=== PATIENT | male | born 1930 | race Caucasian/White ===

== ENCOUNTER 2017-04-09 15:11 | Inpatient (IN) ==
[2017-04-09] MEDS ORDERED: ALBUTEROL/IPRATROPIUM 3 ML NEB RESP TX STA (16:00)
[2017-04-09 16:04] LABS: Basophils % 0.1 % (0.0-0.8); Hematocrit 31.8 VOL% (42.0-52.0); Hemoglobin 10.4 GM/DL (14.0-18.0); Immature Granulocytes % 0.5 %; Immature Granulocytes Absolute 0.06 #; Lymphocytes # 0.9 10*3/uL (1.4-4.0); Lymphocytes % 7.1 % (21.2-54.2); Mean Corpuscular HGB Conc 32.7 GM/DL (32-36); Mean Corpuscular Hemoglobin 32 PG (27-34); Mean Platelet Volume 10.5 FL (9.6-12.0); Monocytes # 0.8 10*3/uL (0.11-0.8); Monocytes % 5.9 % (1.7-12.7); Neutrophils # 10.9 10*3/uL (1.4-7.4); Neutrophils % 86.4 % (38.7-73.9); Platelet Count 106 T/CUMM (130-400); Red Blood Count 3.28 MC/CUMM (3.8-5.5); Red Cell Distribution Width 17.8 % (9.3-17.3); White Blood Count 12.6 T/CUMM (4-12)
--- NOTE | 2017-04-09 16:21 | XRay Report ---
History: Shortness of breath Date: 04/09/2017 Study: Chest x-ray AP portable Comparison exam: April 03, 2017 chest x-ray There is cardiomegaly. The mediastinal contour is unchanged. The pulmonary vasculature is upper normal. The exam was performed in shallow inspiration. There is some mild strandy subsegmental atelectasis in the lung bases. The lungs are otherwise generally clear. There is a calcified granuloma in the left lung base. There is no gross pleural effusion. Osseous structures are similar. Impression: Shallow inspiration with mild atelectatic changes in the lung bases. Cardiomegaly without overt CHF PROCEDURE INTERPRETED AT [facility] DEPARTMENT OF RADIOLOGY Final Report Signed by: Dr. Britney Kimble
[2017-04-09 16:22] LABS: Alanine Aminotransferase 17 U/L (16-61); Albumin 3.3 G/DL (3.4-5.0); Alkaline Phosphatase 72 U/L (45-117); Aspartate Amino Transferase 19 U/L (0-37); Blood Urea Nitrogen 49 MG/DL (7-18); Calcium 7.9 MG/DL (8.5-10.1); Glucose 158 MG/DL (74-106); Osmolality,Calculated 298.1 MOS/KG (273-304); Potassium 5.3 MMOL/L (3.5-5.1); Sodium 142 MMOL/L (136-145); Total Protein 5.7 G/DL (6.4-8.3); Troponin I Only < 0.015 NG/ML (0.00-0.045)
--- NOTE | 2017-04-09 16:30 | EKG Report ---
Stationary ECG Study [facility] ER Test Date: 04/09/2017 4:27:43 PM Pat Name: NIKIA BARKER Department: Room: Gender: M Hepatologist: : [id number] Requested by: Reece Brink Order Number: [id number] Reading MD: KONRAD AHMADI Intervals [place] Rate: 65 P: 22 AL: 192 QRS: -66 QRSD: 176 T: -37 QT: 429 QTc: 441 Interpretive Statements SINUS RHYTHM LEFT AXIS DEVIATION RIGHT BUNDLE BRANCH BLOCK MODERATE T-WAVE ABNORMALITY, CONSIDER LATERAL ISCHEMIA MODERATE T-WAVE ABNORMALITY, CONSIDER INFERIOR ISCHEMIA Electronically Signed On 04-09-17 20:56:17 CDT by KONRAD AHMADI [email or web address]
--- NOTE | 2017-04-09 16:41 | Emergency Department Note ---
IMike Kasabria, am scribing for, and in the presence of, Reece Major MD 16:08. Moriah Edmonds Phillip K, MD, personally performed the services described in this documentation, ascribed by Marcie Mckeon in my presence, and it is both accurate and complete 640 . Arrival - Arrival Chief Complaint: Shortness of Breath Stated Complaint: SOB,TEMP,COUGH,WEAK ED Nursing Triage Note: PT C/O SHORTNESS OF BREATH, FEVER, PRODUCTIVE COUGH WITH THICK YELLOW/GREEN SPUTUM, AND WEAKNESS. PT SEEN LAST FRIDAY IN ER AND DISCHARGED WITH ANTIBIOTICS AND STEROIDS. PT STATES HE IS WORSE NOW. Mode of Arrival: Wheelchair Limitations: No Limitations Source: Patient - History of Present Illness HPI Narrative: This is a 86 y/o white male presenting to the ED with c/o fever of 100.3, SOB, wheezing, weakness, and productive cough that onset last Friday. Pt was seen in the ED and diagnosed with COPD exacerbation and bronchitis. Chest xray showed no pneumonia. He was sent home with antibiotics. Pt states he is now worse. He is coughing yellow and green sputum. His PCP is Dr. Boswell. Pt's states she called Dr. Boswell office today and was told to come to the ED. He denies chills, nausea, vomiting, diarrhea, abdominal pain, back pain, and chest pain. His PMHx is consistent with HTN and renal failure. Consistency: constant Severity: moderate Allergies/Adverse Reactions: Allergies Allergy/AdvReac Type Severity Reaction Status Date / Time Penicillins Allergy RASH Verified 04/09/17 15:39 albuterol AdvReac Chest Pain Verified 04/09/17 15:39 Procaine [From Novocain] AdvReac Chest Pain Verified 04/09/17 15:39 Home Medications: Home Medications Medication Instructions Recorded Confirmed Type Donepezil [Aricept] 5 mg PO QAM 06/15/15 04/09/17 History Tamsulosin [Flomax] 0.4 mg PO BEDTIME 06/15/15 04/09/17 History Gabapentin 300 mg PO BID@0800,1200 06/16/15 04/09/17 History Tiotropium Inhalation [Spiriva 1 puff INH DAILY W/SUPPER 06/16/15 04/09/17 History Handihaler] Potassium Chloride 40 meq PO BIDPC 11/29/15 04/09/17 History Levothyroxine Tab [Synthroid Tab] 100 mcg PO DAILY@0700 03/08/16 04/09/17 History Aspirin [Ecotrin] 81 mg PO MOWEFR 08/09/16 04/09/17 History Sertraline [Zoloft] 50 mg PO BEDTIME 08/09/16 04/09/17 History Acetaminophen Tab [Tylenol Tab] 325 mg PO Q4H PRN #0 tablet 09/04/16 04/09/17 Rx Atorvastatin [Lipitor] 20 mg PO BEDTIME 10/24/16 04/09/17 History Azithromycin Tab [Zithromax Tab] 250 mg PO MOWEFR 10/24/16 04/09/17 History Budesonide Neb [Pulmicort Respules] 0.5 mg RESP TX BID 10/24/16 04/09/17 History Formoterol Neb [Perforomist] 20 mcg RESP TX RT BID 10/24/16 04/09/17 History Lactulose Liquid [Chronulac] 15 ml PO BID PRN 10/24/16 04/09/17 History Amiodarone HCl 200 mg PO BEDTIME 02/14/17 04/09/17 History Calcium Carbonate 650 mg PO BIDAC 02/14/17 04/09/17 History Gabapentin Cap/Tab [Neurontin 600 mg PO BEDTIME 02/14/17 04/09/17 History Cap/Tab] Isosorbide Dinitrate 10 mg PO DAILY PRN 02/14/17 04/09/17 History Midodrine HCl 5 mg PO BID 02/14/17 04/09/17 History Levofloxacin Tab [Levaquin Tab] 500 mg PO DAILY #10 tablet 04/03/17 04/09/17 Rx Multivitamin (Ocuvite) [Ocuvite] 1 tablet PO BID 04/03/17 04/09/17 History predniSONE TAB [PredniSONE] 20 mg PO DAILY #14 tablet 04/03/17 04/09/17 Rx Review of System - Review of System 12 point system: reviewed and no additional remarkable complaints except as stated - Review of System Constitutional: Present: fever (100.3 at home ), weakness Eyes: Absent: vision change Head/Ears/Nose/Throat: Absent: earache, nasal drainage Respiratory: Present: cough (yellow and green sputum ), wheezing Cardiovascular: Present: dyspnea on exertion. Absent: chest pain Gastrointestinal: Absent: abdominal pain, nausea, vomiting Genitourinary male: Absent: dysuria Musculoskeletal: Absent: arm pain, back pain, leg pain, neck pain Skin: Absent: rash Neurological: Absent: headache, weakness, confusion, vertigo Psychiatric: Absent: anxiety Endocrine: Absent: fatigue Hematological/Lymphatic: Absent: easy bleeding Allergic/Immunologic: Absent: facial swelling Medical,Surgical,& Family Hx - Medical History Cardio: History of: Cardiac Dysrhythmia (hx of afib), Hypertension, Cardiovascular Problems No history of: Aneurysm, Cerebrovascular Disease, Congenital Heart Disease, CHF, CAD, [place], Pacemaker, PVD, Valvular Heart Disease Psychological: History of: Anxiety Disorders, Depression No history of: ADHD, Behavior Problems, Bipolar Disorder, Previous Suicide Attempt, Psychiatric/Substance Abuse Tx, Schizophrenia, Violent Behavior, Psychiatric Problems Neurology: History of: Dementia No history of: Brain Aneurysm, Cerebral Hemorrhage, Cerebrovascular Accident , Cerebral Palsy, Migraine, Multiple Sclerosis, Parkinson's Disease, Peripheral Neuropathy, Seizures, TIA, Vertigo, Neurologocal Cancer HEENT: History of: Ear Problem, Eye Problem No history of: Dental Problems, Glaucoma, Oral Cancer, HEENT Problems Endocrine: History of: Dyslipidemia, Thyroid Disorder No history of: Adrenal Disease, Diabetes Mellitus (IDDM), Diabetes Mellitus ( NIDDM), Endocrine Cancer, Endocrine Problems Rheumatology: History of;: Rheumatoid Arthritis No history of;: Psoriasis, Sjogrens, Systemic Lupus Erythematosus Respiratory: History of: Bronchitis, COPD, Obstructive Sleep Apnea, Pneumonia No history of: Asthma, Intubation, Pulmonary Embolism, Pulmonary Hypertension , Lung Cancer, Respiratory Problems Renal: History of: Renal Failure No history of: Renal (Kidney) Cancer, Dialysis, Renal Problems Genitourinary: No history of: Bladder Problem, Kidney Stones, Prostate Problems, Recurring Urinary Tract Infections, Genitourinary Cancer, Problems Gastrointestinal: History of: GERD, GI Problems (colon cancer) Musculoskeletal: History of: Amputation (RIGHT BKA), Back/Neck Problems, Degenerative Disk Disease Hematology: History of: Anemia, Hematologic Cancer No history of: Blood Transfusion Reaction, Bleeding Problems, Clotting Problems, Sickle Cell Disease, Blood Disorders Reproductive: No histroy: Penile Disorder, Sexually Transmitted Disease, Reproductive Cancer, Reproductive Problems Other: History of: Cancer No history of: Anesthesia Reactions, Anaphylaxis, Eczema, HIV, Malignant Hyperthermia, MRSA, Vancomycin-Resistant Enterococci, Skin Problems, Miscellaneous Medical Problems - Surgical History Cardiac Surgeries: Sugical HX of: Cardiac Catheterization, Cardiac Surgery ( STENTS X4) Patient Denies: Femoral-Popliteal Bypass Graft, Carotid Endarterectomy, Internal Defibrillator, Vascular Access Devices Thoracic Surgeries: Patient denies;: Kidney (Renal Surgery), Lithotripsy, Nephrectomy, Organ Transplant, Lobectomy Neurologic Surgeries: Patient denies: Brain Aneurysm, Cerebral Hemorrhage, Neurologic Surgery HEENT Surgeries: Patient denies: Carotid Endarterectomy, Eye Surgery, Thyroid Surgery, Tonsilectomy & Adenoidectomy Abdominal Surgeries: Surgical HX of: Appendectomy, Cholecystectomy, Colonoscopy , EGD Patient denies: Abdominal Surgery, Gastric Bypass Surgery, Hernia Repair, Splenectomy Reproductive Surgeries: Patient denies;: Breast Surgery, Cystoscopy, Genitourinary Surgery, Prostate Surgery, Vasectomy - Family History Family History: Reports;: Family Cancer (brother- lung), Family Diabetes (mother ), Family Heart Disease (mother, brother times 2), Family Hypertension (brother) Denies;: Family Anesthesia Reaction, Family Psychiatric Problems, Family Stroke - Social History Smoking Status: Former smoker Frequency of Alcohol Use: None Type of Drug Use: None Exam Vital Signs: Vital Signs Temperature 99.0 F 04/09/17 15:57 Pulse Rate 60 04/09/17 16:27 Respiratory Rate 20 04/09/17 16:27 Blood Pressure 94/40 04/09/17 15:57 O2 Sat by Pulse Oximetry 98 04/09/17 16:27 - General General appearance: alert, in no apparent distress - Head Head exam: Present: atraumatic, normocephalic, normal inspection - Eye Eye exam: Present: normal appearance, PERRL, EOMI - ENT ENT exam: Present: normal exam, normal oropharynx, mucous membranes moist, TM's normal bilaterally, normal external ear exam - Neck Neck exam: Present: normal inspection, full ROM, trachea midline. Absent: tenderness - Chest Chest inspection: Present: normal inspection, symmetric chest wall rise. Absent : tenderness - Respiratory Respiratory exam: Present: rales (bibasalar rales ). Absent: normal lung sounds bilaterally - Cardiovascular Cardiovascular exam: Present: regular rate, normal rhythm, normal heart sounds - Abdominal Exam Abdominal exam: Present: soft, normal bowel sounds. Absent: distention, tenderness - Extremities Exam Extremities exam: Present: full ROM, normal capillary refill, pedal edema ( trace edema to LLE; BKA to RLE with prosthetic ). Absent: normal inspection, tenderness, calf tenderness - Back Exam Back exam: Present: normal inspection, full ROM. Absent: tenderness - Neurological Exam Neurological exam: Present: alert, oriented X3, CN II-XII intact, normal gait, reflexes normal - Psychiatric Psychiatric exam: Present: normal affect, normal mood - Skin Skin exam: Present: warm, dry, intact, normal color. Absent: rash, diaphoresis Results - Labs CBC & BMP: 04/09/17 15:51 04/09/17 15:51 Lab Results: I have reviewed the patients labs Labs: Laboratory Tests 04/09/17 15:51 WBC 12.6 H RBC 3.28 L Hgb 10.4 L Hct 31.8 L MCV 97.0 MCH 32 MCHC 32.7 RDW 17.8 H Plt Count 106 L MPV 10.5 Neut % (Auto) 86.4 H Lymph % (Auto) 7.1 L [place] % (Auto) 5.9 Eos % (Auto) 0.0 Baso % (Auto) 0.1 Neut # (Auto) 10.9 H Lymph # (Auto) 0.9 L [place] # (Auto) 0.8 Eos # (Auto) 0.0 Baso # (Auto) 0.0 Immature Gran % 0.5 Nucleated RBC % 0.0 Immature Gran # 0.06 Nucleated RBCs # 0.00 - EKG EKG results: interpreted by ERMD, sinus rhythm (Right bundle branch block unchanged.) - Diagnostic Findings Procedure: Chest x-ray: report reviewed by me (shallow inspriation with mild atelectatic changes in the lung bases. Cardimegaly without overt CHF. ) Disposition Clinical Impression: Acute exacerbation of chronic obstructive airways disease, Acute dyspnea, Bronchitis Case discussed with: patient Disposition: Still a Patient Condition: Guarded Additional Instructions: Admit to the hospitalist.
--- NOTE | 2017-04-09 17:06 | Hospitalist History & Physical ---
Assessment and Plan - Time spent with patient Time spent with patient: Greater than 30 minutes (1) Acute exacerbation of chronic obstructive airways disease Status: Acute Assessment and plan: Patient has an acute exacerbation of COPD which is been unresponsive to outpatient therapy for which she has taken Levaquin and oral prednisone. 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 We will admit him for cautious IV hydration, IV antibiotics, IV corticosteroids, nebulizer therapy. Will consult his biomass facilitator Dr. Boswell to assist. Current Visit: Yes (2) Acute on chronic kidney failure Status: Acute Assessment and plan: Patient has acute on chronic kidney disease. Creatinine is 2.4 today and was approximately 1.8 on prior visit to the emergency room last week. Will cautiously hydrate and follow-up renal function in the a.m. Current Visit: Yes (3) Hypertension Status: Chronic Assessment and plan: Patient has chronic essential hypertension which is well-controlled at this time. Continue current medical regimen. Current Visit: No Qualifiers: Hypertension type: essential hypertension Qualified Code(s): I10 - Essential (primary) hypertension (4) Hypothyroidism Status: Chronic Assessment and plan: Continuing current thyroid replacement therapy. Current Visit: Yes (5) Dementia Status: Chronic Assessment and plan: Patient has a history of dementia. Continue his current medical regimen. Current Visit: No Qualifiers: Dementia type: Alzheimer's disease Dementia behavioral disturbance: without behavioral disturbance (6) Paroxysmal atrial fibrillation Status: Chronic Assessment and plan: Patient has history of paroxysmal atrial fibrillation. This is well controlled. He is to climb chronic anticoagulation in the past. Continue current medical regimen. Current Visit: No History of Present Illness Chief complaint: Weakness, cough, shortness of breath History of present illness: Mr. Martell is a 86 year old white male with a history of tracheobronchomalacia , COPD, hypertension, paroxysmal atrial fibrillation, dementia, hypothyroidism who states over the past week he has had fever, cough productive of yellow to green sputum but no hemoptysis, increasing dyspnea despite being seen in the emergency room on April 03 and prescribed Levaquin and prednisone. He states he is not any better and his symptoms continue to progress. He denies any chest pain, nausea, vomiting, diarrhea, constipation, melena, hematochezia, hematemesis, dysuria, hematuria, urinary frequency urgency or incontinence. He was seen in the emergency department this evening and is felt that he required admission for further care. Have discussed findings and plan with he and his was present in the room. His primary care provider is Dr. Vahid Boswell. Home Medications Medication Instructions Recorded Confirmed Type Donepezil [Aricept] 5 mg PO QAM 06/15/15 04/09/17 History Tamsulosin [Flomax] 0.4 mg PO BEDTIME 06/15/15 04/09/17 History Gabapentin 300 mg PO BID@0800,1200 06/16/15 04/09/17 History Tiotropium Inhalation [Spiriva 1 puff INH DAILY W/SUPPER 06/16/15 04/09/17 History Handihaler] Potassium Chloride 40 meq PO BIDPC 11/29/15 04/09/17 History Levothyroxine Tab [Synthroid Tab] 100 mcg PO DAILY@0700 03/08/16 04/09/17 History Aspirin [Ecotrin] 81 mg PO MOWEFR 08/09/16 04/09/17 History Sertraline [Zoloft] 50 mg PO BEDTIME 08/09/16 04/09/17 History Acetaminophen Tab [Tylenol Tab] 325 mg PO Q4H PRN #0 tablet 09/04/16 04/09/17 Rx Atorvastatin [Lipitor] 20 mg PO BEDTIME 10/24/16 04/09/17 History Azithromycin Tab [Zithromax Tab] 250 mg PO MOWEFR 10/24/16 04/09/17 History Budesonide Neb [Pulmicort Respules] 0.5 mg RESP TX BID 10/24/16 04/09/17 History Formoterol Neb [Perforomist] 20 mcg RESP TX RT BID 10/24/16 04/09/17 History Lactulose Liquid [Chronulac] 15 ml PO BID PRN 10/24/16 04/09/17 History Amiodarone HCl 200 mg PO BEDTIME 02/14/17 04/09/17 History Calcium Carbonate 650 mg PO BIDAC 02/14/17 04/09/17 History Gabapentin Cap/Tab [Neurontin 600 mg PO BEDTIME 02/14/17 04/09/17 History Cap/Tab] Isosorbide Dinitrate 10 mg PO DAILY PRN 02/14/17 04/09/17 History Midodrine HCl 5 mg PO BID 02/14/17 04/09/17 History Levofloxacin Tab [Levaquin Tab] 500 mg PO DAILY #10 tablet 04/03/17 04/09/17 Rx Multivitamin (Ocuvite) [Ocuvite] 1 tablet PO BID 04/03/17 04/09/17 History predniSONE TAB [PredniSONE] 20 mg PO DAILY #14 tablet 04/03/17 04/09/17 Rx Allergies Allergy/AdvReac Type Severity Reaction Status Date / Time Penicillins Allergy RASH Verified 04/09/17 15:39 albuterol AdvReac Chest Pain Verified 04/09/17 15:39 Procaine [From Novocain] AdvReac Chest Pain Verified 04/09/17 15:39 Medical,Surgical,& Family Hx - Medical History Cardio: History of: Cardiac Dysrhythmia (hx of afib), Hypertension, Cardiovascular Problems No history of: Aneurysm, Cerebrovascular Disease, Congenital Heart Disease, CHF, CAD, [place], Pacemaker, PVD, Valvular Heart Disease Psychological: History of: Anxiety Disorders, Depression No history of: ADHD, Behavior Problems, Bipolar Disorder, Previous Suicide Attempt, Psychiatric/Substance Abuse Tx, Schizophrenia, Violent Behavior, Psychiatric Problems Neurology: History of: Dementia No history of: Brain Aneurysm, Cerebral Hemorrhage, Cerebrovascular Accident , Cerebral Palsy, Migraine, Multiple Sclerosis, Parkinson's Disease, Peripheral Neuropathy, Seizures, TIA, Vertigo, Neurologocal Cancer HEENT: History of: Ear Problem, Eye Problem No history of: Dental Problems, Glaucoma, Oral Cancer, HEENT Problems Endocrine: History of: Dyslipidemia, Thyroid Disorder No history of: Adrenal Disease, Diabetes Mellitus (IDDM), Diabetes Mellitus ( NIDDM), Endocrine Cancer, Endocrine Problems Rheumatology: History of;: Rheumatoid Arthritis No history of;: Psoriasis, Sjogrens, Systemic Lupus Erythematosus Respiratory: History of: Bronchitis, COPD, Obstructive Sleep Apnea, Pneumonia No history of: Asthma, Intubation, Pulmonary Embolism, Pulmonary Hypertension , Lung Cancer, Respiratory Problems Renal: History of: Renal Failure No history of: Renal (Kidney) Cancer, Dialysis, Renal Problems Genitourinary: No history of: Bladder Problem, Kidney Stones, Prostate Problems, Recurring Urinary Tract Infections, Genitourinary Cancer, Problems Gastrointestinal: History of: GERD, GI Problems (colon cancer) Musculoskeletal: History of: Amputation (RIGHT BKA), Back/Neck Problems, Degenerative Disk Disease Hematology: History of: Anemia, Hematologic Cancer No history of: Blood Transfusion Reaction, Bleeding Problems, Clotting Problems, Sickle Cell Disease, Blood Disorders Reproductive: No histroy: Penile Disorder, Sexually Transmitted Disease, Reproductive Cancer, Reproductive Problems Other: History of: Cancer No history of: Anesthesia Reactions, Anaphylaxis, Eczema, HIV, Malignant Hyperthermia, MRSA, Vancomycin-Resistant Enterococci, Skin Problems, Miscellaneous Medical Problems - Surgical History Cardiac Surgeries: Sugical HX of: Cardiac Catheterization, Cardiac Surgery ( STENTS X4) Patient Denies: Femoral-Popliteal Bypass Graft, Carotid Endarterectomy, Internal Defibrillator, Vascular Access Devices Thoracic Surgeries: Patient denies;: Kidney (Renal Surgery), Lithotripsy, Nephrectomy, Organ Transplant, Lobectomy Neurologic Surgeries: Patient denies: Brain Aneurysm, Cerebral Hemorrhage, Neurologic Surgery HEENT Surgeries: Patient denies: Carotid Endarterectomy, Eye Surgery, Thyroid Surgery, Tonsilectomy & Adenoidectomy Abdominal Surgeries: Surgical HX of: Appendectomy, Cholecystectomy, Colonoscopy , EGD Patient denies: Abdominal Surgery, Gastric Bypass Surgery, Hernia Repair, Splenectomy Reproductive Surgeries: Patient denies;: Breast Surgery, Cystoscopy, Genitourinary Surgery, Prostate Surgery, Vasectomy - Family History Family History: Reports;: Family Cancer (brother- lung), Family Diabetes (mother ), Family Heart Disease (mother, brother times 2), Family Hypertension (brother) Denies;: Family Anesthesia Reaction, Family Psychiatric Problems, Family Stroke - Social History Smoking Status: Former smoker Frequency of Alcohol Use: None Type of Drug Use: None Marital Status: Lives With:: Spouse 12 point system: reviewed and no additional remarkable complaints except as stated Exam - Constitutional Vitals: Period Temp Pulse Resp BP Sys/Morrow Pulse Ox Last 24 Hr 99.0 F-99.0 F 60-68 18-20 94-94/40-40 91-98 General appearance: no acute distress - Head Head exam: Present: normocephalic, atraumatic - Eye Eye exam: Present: EOMI. Absent: scleral icterus Pupils: Present: RADHA - ENT ENT exam: Present: normal oropharynx - Neck Neck exam: Present: normal inspection. Absent: lymphadenopathy, meningismus, tenderness, thyromegaly - Respiratory Respiratory exam: Present: rales. Absent: rhonchi, wheezes - Cardiovascular Cardiovascular exam: Present: regular rate and rhythm. Absent: gallop, JVD, tachycardia - GI/Abdominal GI/Abdominal exam: Present: normal bowel sounds, soft. Absent: mass, tenderness , rebound - Extremities Exam Extremities exam: Absent: calf tenderness, edema - Back Exam Back exam: Present: normal inspection - Neurological Exam Neurological exam: Present: alert, oriented X3, CN II-XII intact. Absent: motor sensory deficit - Psychiatric Psychiatric exam: Present: normal affect, normal mood. Absent: agitated, anxious - Skin Skin exam: Present: warm, dry. Absent: rash Results - Labs CBC & BMP: 04/09/17 15:51 04/09/17 15:51 Lab Results: I have reviewed the past 24 hour labs - EKG EKG shows: sinus rhythm - Impressions EKG reveals sinus rhythm with a right bundle branch block - Diagnostic Findings Procedure: Chest x-ray: report reviewed by me
[2017-04-09 18:27] LABS: Ovalocytes Few; Platelet Estimate Decreased; Poikilocytosis Slight; Tear Drop Cells Few
[2017-04-09] MEDS ORDERED: ACETAMINOPHEN 325 MG TABLET PO PRN (18:42)
[2017-04-09] MEDS ORDERED: ONDANSETRON 4 MG/2 ML VIAL IV PRN (18:42)
[2017-04-09] MEDS ORDERED: ISOSORBIDE DINITRATE 10 MG TABLET PO PRN (18:54)
[2017-04-09] MEDS ORDERED: IPRATROPIUM 500 MCG/2.5 ML NEB RESP TX SCH (19:00)
[2017-04-09] MEDS: BUDESONIDE 0.5 MG/2 ML NEB RESP TX SCH (20:40)
[2017-04-09] MEDS: FORMOTEROL 20 MCG/2 ML NEB RESP TX SCH (20:40)
[2017-04-09] MEDS: IPRATROPIUM 500 MCG/2.5 ML NEB RESP TX SCH (20:40)
[2017-04-09] MEDS: SODIUM CHLORIDE 0.45% 1,000 ML IV SCH (20:57)
[2017-04-09] MEDS: ASPIRIN EC 81 MG TABLET PO SCH (20:58)
[2017-04-09] MEDS: TAMSULOSIN 0.4 MG CAPSULE PO SCH (20:58)
[2017-04-09] MEDS: methylPREDNISolone SOD SUC 40 MG/1 ML VIAL IV SCH (20:58)
[2017-04-09] MEDS: GABAPENTIN 300 MG CAPSULE PO SCH (20:59)
[2017-04-09] MEDS: SERTRALINE 50 MG TABLET PO SCH (20:59)
[2017-04-09] MEDS: MIDODRINE 5 MG TABLET PO SCH (20:59)
[2017-04-09] MEDS: MULTIVITAMIN (OCUVITE) TABLET PO SCH (20:59)
[2017-04-09] MEDS: ATORVASTATIN 40 MG TABLET PO SCH (20:59)
[2017-04-09] MEDS: AMIODARONE 200 MG TABLET PO SCH (20:59)
[2017-04-09] MEDS ORDERED: ZALEPLON 5 MG CAPSULE PO PRN (21:00)
[2017-04-09] MEDS: ENOXAPARIN 30 MG/0.3 ML SYRINGE SUBCUT SCH (21:10)
[2017-04-09] MEDS: CEFEPIME 1,000 MG in SODIUM CHLORIDE 0.9% 100 ML IV SCH (21:11)
[2017-04-10] MEDS: methylPREDNISolone SOD SUC 40 MG/1 ML VIAL IV SCH ×3 (03:58→20:50)
[2017-04-10 05:15] LABS: Osmolality,Calculated 298.1 MOS/KG (273-304); Potassium 4.7 MMOL/L (3.5-5.1)
[2017-04-10] MEDS: LEVOTHYROXINE 100 MCG TABLET PO SCH (06:03)
[2017-04-10] MEDS: NON-FORMULARY MEDICATION (Tiotropium Inhalation 1 PUFF) INH SCH ×2 (06:20→06:21)
[2017-04-10] MEDS: IPRATROPIUM 500 MCG/2.5 ML NEB RESP TX SCH ×4 (07:19→19:24)
[2017-04-10] MEDS: FORMOTEROL 20 MCG/2 ML NEB RESP TX SCH ×2 (07:19→19:24)
[2017-04-10] MEDS: BUDESONIDE 0.5 MG/2 ML NEB RESP TX SCH ×2 (07:19→19:24)
[2017-04-10] MEDS: MULTIVITAMIN (OCUVITE) TABLET PO SCH ×2 (08:13→20:50)
[2017-04-10] MEDS: CALCIUM (CARBONATE) 600 MG TABLET PO SCH ×2 (08:14→16:14)
[2017-04-10] MEDS: GABAPENTIN 300 MG CAPSULE PO SCH ×3 (08:14→20:50)
[2017-04-10] MEDS: MIDODRINE 5 MG TABLET PO SCH ×2 (08:14→20:50)
[2017-04-10] MEDS: DONEPEZIL 5 MG TABLET PO SCH (08:15)
[2017-04-10] MEDS ORDERED: AZITHROMYCIN 250 MG TABLET PO SCH (09:00)
--- NOTE | 2017-04-10 10:02 | Pulmonology Consult Note ---
Assessment and Plan (1) Chronic kidney disease, stage 3 Status: Chronic Assessment and plan: Creatinine is 2.2. He tends to be dehydrated when he gets respiratory infections. Current Visit: No (2) Tracheomalacia Status: Chronic Assessment and plan: He has severe tracheomalacia and mild bronchomalacia. This makes it difficult for him to expectorate sputum. We need to bronchoscope him and clean him out and see what is going. He tends to have resistant organisms. Current Visit: No (3) Dementia Status: Chronic Assessment and plan: Able to carry on a conversation but his memory is not good. Current Visit: No Qualifiers: Dementia type: Alzheimer's disease Dementia behavioral disturbance: without behavioral disturbance (4) Bronchitis Status: Resolved Assessment and plan: Does have acute bronchitis. Current Visit: No (5) Diabetes Status: Acute Assessment and plan: Blood sugars tend to go up with steroids of course. Current Visit: No (6) Acute exacerbation of chronic obstructive airways disease Status: Acute Assessment and plan: Treat with steroids and bronchodilators as well as empiric antibiotics. Current Visit: Yes History of Present Illness Chief complaint: Cough congestion shortness of breath History of present illness: Mr. 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 He also has COPD. He had acute onset of cough and congestion about a week ago. He went to the emergency room and was treated with Levaquin and sent home. Just did not get better and came back yesterday. He is coughing up some phlegm but has a difficult time getting it out. We have had him on Zithromax at home to decrease infections. He had a prolonged hospitalization in August of last year here and at [facility] for a similar infection. He grew out enterococcus at that time from bronchial washings. He required at least 2 bronchoscopies then. Home Medications Medication Instructions Recorded Confirmed Type Donepezil [Aricept] 5 mg PO QAM 06/15/15 04/09/17 History Tamsulosin [Flomax] 0.4 mg PO BEDTIME 06/15/15 04/09/17 History Gabapentin 300 mg PO BID@0800,1200 06/16/15 04/09/17 History Tiotropium Inhalation [Spiriva 1 puff INH DAILY W/SUPPER 06/16/15 04/09/17 History Handihaler] Potassium Chloride 40 meq PO DAILY 11/29/15 04/09/17 History Levothyroxine Tab [Synthroid Tab] 100 mcg PO DAILY@0700 03/08/16 04/09/17 History Aspirin [Ecotrin] 81 mg PO MOWEFR 08/09/16 04/09/17 History Sertraline [Zoloft] 50 mg PO BEDTIME 08/09/16 04/09/17 History Acetaminophen Tab [Tylenol Tab] 325 mg PO Q4H PRN #0 tablet 09/04/16 04/09/17 Rx Atorvastatin [Lipitor] 20 mg PO BEDTIME 10/24/16 04/09/17 History Azithromycin Tab [Zithromax Tab] 250 mg PO MOWEFR 10/24/16 04/09/17 History Budesonide Neb [Pulmicort Respules] 0.5 mg RESP TX BID 10/24/16 04/09/17 History Formoterol Neb [Perforomist] 20 mcg RESP TX RT BID 10/24/16 04/09/17 History Lactulose Liquid [Chronulac] 15 ml PO BID PRN 10/24/16 04/09/17 History Amiodarone HCl 200 mg PO BEDTIME 02/14/17 04/09/17 History Calcium Carbonate 650 mg PO BIDAC 02/14/17 04/09/17 History Gabapentin Cap/Tab [Neurontin 600 mg PO BEDTIME 02/14/17 04/09/17 History Cap/Tab] Isosorbide Dinitrate 10 mg PO DAILY PRN 02/14/17 04/09/17 History Midodrine HCl 5 mg PO BID 02/14/17 04/09/17 History Levofloxacin Tab [Levaquin Tab] 500 mg PO DAILY #10 tablet 04/03/17 04/09/17 Rx Multivitamin (Ocuvite) [Ocuvite] 1 tablet PO BID 04/03/17 04/09/17 History predniSONE TAB [PredniSONE] 20 mg PO QAM 04/09/17 04/09/17 History Allergies Allergy/AdvReac Type Severity Reaction Status Date / Time Penicillins Allergy RASH Verified 04/09/17 15:39 albuterol AdvReac Chest Pain Verified 04/09/17 15:39 Procaine [From Novocain] AdvReac Chest Pain Verified 04/09/17 15:39 12 point system: reviewed and no additional remarkable complaints except as stated - Constitutional Constitutional: Present: fever(s), weakness - EENT Eyes: Present: blurry vision Ears: Present: decreased hearing - Cardiovascular Cardiovascular: Present: chest pain with activity - Respiratory Respiratory: Present: cough, dyspnea, dyspnea on exertion, wheezing, change in phlegm color - Gastrointestinal Gastrointestinal: Present: dyspepsia - Genitourinary Genitourinary: Present: difficulty urinating - Musculoskeletal Musculoskeletal: Present: back pain - Neurological Neurological: Present: confusion, memory loss Exam (Pulmonay) H&P - Constitutional Vitals: Period Temp Pulse Resp BP Sys/Morrow Pulse Ox Last 24 Hr 97.0 F-99.0 F 60-98 18-20 94-170/40-73 91-98 Exam: Vital signs are normal. Pupils react to light. Throat is clear. Neck supple no bruits. Chest reveals coarse rhonchi bilaterally in all 5 lobes. Heart normal rate and rhythm no murmurs. Abdomen soft nontender no masses. Extremities no clubbing cyanosis or edema. 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 Medical,Surgical,& Family Hx - Medical History Cardio: History of: Cardiac Dysrhythmia (hx of afib), Hypertension, Cardiovascular Problems No history of: Aneurysm, Cerebrovascular Disease, Congenital Heart Disease, CHF, CAD, VA, Pacemaker, PVD, Valvular Heart Disease Psychological: History of: Anxiety Disorders, Depression No history of: ADHD, Behavior Problems, Bipolar Disorder, Previous Suicide Attempt, Psychiatric/Substance Abuse Tx, Schizophrenia, Violent Behavior, Psychiatric Problems Neurology: History of: Dementia No history of: Brain Aneurysm, Cerebral Hemorrhage, Cerebrovascular Accident , Cerebral Palsy, Migraine, Multiple Sclerosis, Parkinson's Disease, Peripheral Neuropathy, Seizures, TIA, Vertigo, Neurologocal Cancer HEENT: History of: Ear Problem, Eye Problem No history of: Dental Problems, Glaucoma, Oral Cancer, HEENT Problems Endocrine: History of: Dyslipidemia, Thyroid Disorder No history of: Adrenal Disease, Diabetes Mellitus (IDDM), Diabetes Mellitus ( NIDDM), Endocrine Cancer, Endocrine Problems Rheumatology: History of;: Rheumatoid Arthritis No history of;: Psoriasis, Sjogrens, Systemic Lupus Erythematosus Respiratory: History of: Bronchitis, COPD, Obstructive Sleep Apnea, Pneumonia No history of: Asthma, Intubation, Pulmonary Embolism, Pulmonary Hypertension , Lung Cancer, Respiratory Problems Renal: History of: Renal Failure No history of: Renal (Kidney) Cancer, Dialysis, Renal Problems Genitourinary: No history of: Bladder Problem, Kidney Stones, Prostate Problems, Recurring Urinary Tract Infections, Genitourinary Cancer, Problems Gastrointestinal: History of: GERD, GI Problems (colon cancer) Musculoskeletal: History of: Amputation (RIGHT BKA), Back/Neck Problems, Degenerative Disk Disease Hematology: History of: Anemia, Hematologic Cancer No history of: Blood Transfusion Reaction, Bleeding Problems, Clotting Problems, Sickle Cell Disease, Blood Disorders Reproductive: No histroy: Penile Disorder, Sexually Transmitted Disease, Reproductive Cancer, Reproductive Problems Other: History of: Cancer No history of: Anesthesia Reactions, Anaphylaxis, Eczema, HIV, Malignant Hyperthermia, MRSA, Vancomycin-Resistant Enterococci, Skin Problems, Miscellaneous Medical Problems - Surgical History Cardiac Surgeries: Sugical HX of: Cardiac Catheterization, Cardiac Surgery ( STENTS X4) Patient Denies: Femoral-Popliteal Bypass Graft, Carotid Endarterectomy, Internal Defibrillator, Vascular Access Devices Thoracic Surgeries: Patient denies;: Kidney (Renal Surgery), Lithotripsy, Nephrectomy, Organ Transplant, Lobectomy Neurologic Surgeries: Patient denies: Brain Aneurysm, Cerebral Hemorrhage, Neurologic Surgery HEENT Surgeries: Patient denies: Carotid Endarterectomy, Eye Surgery, Thyroid Surgery, Tonsilectomy & Adenoidectomy Abdominal Surgeries: Surgical HX of: Appendectomy, Cholecystectomy, Colonoscopy , EGD Patient denies: Abdominal Surgery, Gastric Bypass Surgery, Hernia Repair, Splenectomy Reproductive Surgeries: Patient denies;: Breast Surgery, Cystoscopy, Genitourinary Surgery, Prostate Surgery, Vasectomy - Family History Family History: Reports;: Family Cancer (brother- lung), Family Diabetes (mother ), Family Heart Disease (mother, brother times 2), Family Hypertension (brother) Denies;: Family Anesthesia Reaction, Family Psychiatric Problems, Family Stroke - Social History Smoking Status: Former smoker Frequency of Alcohol Use: None Type of Drug Use: None Results - Labs CBC & BMP: 04/09/17 15:51 04/10/17 03:31 Lab Results: I have reviewed the past 24 hour labs - Diagnostic Findings Procedure: Chest x-ray: image reviewed by me (No acute infiltrates. Has some mild bibasilar atelectasis. Heart size is slightly enlarged.)
[2017-04-10] MEDS: SODIUM CHLORIDE 0.45% 1,000 ML IV SCH (10:43)
[2017-04-10] MEDS: LEVOFLOXACIN INJ 500 MG in PREMIX 1 EACH IV SCH (10:44)
--- NOTE | 2017-04-10 13:54 | Hospitalist Progress Note ---
Assessment and Plan (1) Chronic kidney disease, stage 3 Status: Chronic Current Visit: No (2) Tracheomalacia Status: Chronic Current Visit: No (3) Dementia Status: Chronic Current Visit: No Qualifiers: Dementia type: Alzheimer's disease Dementia behavioral disturbance: without behavioral disturbance (4) Bronchitis Status: Resolved Current Visit: No (5) Diabetes Status: Acute Current Visit: No (6) Acute exacerbation of chronic obstructive airways disease Status: Acute Assessment and plan: Patient has significant rhonchi per physical exam. Dr. Boswell is seen him in consult. Patient has tracheomalacia and bronchomalacia and will receive a bronchoscope in the near future. Continue to monitor his creatinine repeat labs in the morning. Monitor his Accu-Cheks closely. Continue with IV antibiotics. Current Visit: Yes Hospitalist: Subjective Interval history: Patient said he is doing okay. Says he does not always wheeze. Reports feeling a little bit better since being admitted. Exam - Constitutional Vitals: Period Temp Pulse Resp BP Sys/Morrow Pulse Ox Last 24 Hr 97.0 F-99.0 F 60-98 18-20 94-170/40-73 91-98 General appearance: no acute distress - Head Head exam: Present: normocephalic, atraumatic - Eye Eye exam: Present: EOMI. Absent: scleral icterus Pupils: Present: RADHA - ENT ENT exam: Present: normal oropharynx - Neck Neck exam: Present: normal inspection. Absent: lymphadenopathy, meningismus, tenderness, thyromegaly - Respiratory Respiratory exam: Present: Diffuse rhonchi - Cardiovascular Cardiovascular exam: Present: regular rate and rhythm. - GI/Abdominal GI/Abdominal exam: Present: normal bowel sounds, soft. - Extremities Exam Extremities exam: Absent: calf tenderness, edema - Back Exam Back exam: Present: normal inspection - Neurological Exam Neurological exam: Present: alert, oriented X3, CN II-XII intact. - Psychiatric Psychiatric exam: Present: normal affect, normal mood. - Skin Skin exam: Present: warm, dry. Absent: rash Results - Labs CBC & BMP: 04/09/17 15:51 04/10/17 03:31
[2017-04-10] MEDS ORDERED: GLUCAGON 1 MG VIAL IM PRN (13:57)
[2017-04-10] MEDS ORDERED: DEXTROSE 50% 25 GM/50 ML VIAL IV PRN (13:57)
[2017-04-10] MEDS: INSULIN REGULAR 100 UNIT/ML SUBCUT SCH ×2 (16:15→21:00)
[2017-04-10] MEDS: ATORVASTATIN 40 MG TABLET PO SCH (20:49)
[2017-04-10] MEDS: TAMSULOSIN 0.4 MG CAPSULE PO SCH (20:49)
[2017-04-10] MEDS: AMIODARONE 200 MG TABLET PO SCH (20:49)
[2017-04-10] MEDS: SERTRALINE 50 MG TABLET PO SCH (20:50)
[2017-04-10] MEDS: ENOXAPARIN 30 MG/0.3 ML SYRINGE SUBCUT SCH (20:53)
[2017-04-10] MEDS: CEFEPIME 1,000 MG in SODIUM CHLORIDE 0.9% 100 ML IV SCH (20:54)
[2017-04-11] MEDS: SODIUM CHLORIDE 0.45% 1,000 ML IV SCH ×2 (02:06→08:35)
[2017-04-11] MEDS: methylPREDNISolone SOD SUC 40 MG/1 ML VIAL IV SCH ×2 (03:08→08:35)
[2017-04-11 05:43] LABS: Basophils % 0.1 % (0.0-0.8); Hematocrit 33.9 VOL% (42.0-52.0); Hemoglobin 11.5 GM/DL (14.0-18.0); Immature Granulocytes % 1.3 %; Immature Granulocytes Absolute 0.16 #; Lymphocytes # 0.8 10*3/uL (1.4-4.0); Lymphocytes % 6.1 % (21.2-54.2); Mean Corpuscular HGB Conc 33.9 GM/DL (32-36); Mean Corpuscular Hemoglobin 32 PG (27-34); Mean Corpuscular Volume 93.1 FL (87-102); Mean Platelet Volume 10.5 FL (9.6-12.0); Monocytes # 0.4 10*3/uL (0.11-0.8); Neutrophils # 11.5 10*3/uL (1.4-7.4); Neutrophils % 89.5 % (38.7-73.9); Platelet Count 115 T/CUMM (130-400); Red Blood Count 3.64 MC/CUMM (3.8-5.5); White Blood Count 12.8 T/CUMM (4-12)
[2017-04-11 06:08] LABS: Calcium 8.2 MG/DL (8.5-10.1); Osmolality,Calculated 300.1 MOS/KG (273-304); Potassium 4.1 MMOL/L (3.5-5.1)
[2017-04-11 06:14] LABS: Band Neutrophils 3 % (0-10); Hypochromasia 1+; Lymphocytes 4 % (20-55); Platelet Estimate Decreased; Segmented Neutrophils 92 % (50-85); Total Cells Counted 100
[2017-04-11] MEDS ORDERED: PROMETHAZINE 25 MG/1 ML VIAL ONE (06:27)
[2017-04-11] MEDS: LEVOTHYROXINE 100 MCG TABLET PO SCH (06:29)
[2017-04-11] MEDS ORDERED: MIDAZOLAM 2 MG/2 ML VIAL ONE (07:00)
[2017-04-11] MEDS ORDERED: PROMETHAZINE 25 MG/1 ML VIAL IM ONE (07:30)
[2017-04-11] MEDS: IPRATROPIUM 500 MCG/2.5 ML NEB RESP TX SCH ×4 (07:57→19:01)
--- NOTE | 2017-04-11 07:58 | Operative Note ---
Date of procedure: 04/11/17 (Fiberoptic bronchoscopy) Pre-op diagnosis: Tracheomalacia, retained secretions Post-op diagnosis: same Procedure: Patient was given preoperative medication on the small. He was transported to the bronchoscopy suite. After an appropriate timeout to be sure we were dealing with Nahun Martell, the patient was topically anesthetized in the nose and nasopharynx with Xylocaine. 3 L of nasal oxygen placed in the left naris. 2 mg of Versed given intravenously to the point of sedation. The fiberoptic bronchoscope was introduced via the right naris. The vocal cords were identified and noted to function normally with phonation. After further topical anesthesia the trachea was entered. He was noted to collapse with coughing or forced expiration showing moderate to severe tracheomalacia. Photos were taken. There were retained secretions well up in both mainstem bronchi going all the way down to the segmental bronchi bilaterally. There were no significant plugs only some small ones. Using saline irrigation we removed all the retained secretions in the small plugs. No lesions were seen. The bronchoscope was removed. Should note that he had mild bronchomalacia bilaterally with the left and right main bronchus closing only about 50% with forced expiration. Patient returned to his room in stable condition. Cultures pending. Anesthesia: conscious sedation Surgeon / Physician: Chris Boswell Estimated blood loss: none Specimens: other (Bronchial washings for cultures) Condition: stable Disposition: floor Results - Labs CBC & BMP: 04/11/17 05:11 04/11/17 05:11 Discharge Plan - Discharge Medications No Action Tamsulosin [Flomax] 0.4 mg PO BEDTIME Donepezil [Aricept] 5 mg PO QAM Tiotropium Inhalation [Spiriva Handihaler] 1 puff INH DAILY W/SUPPER Gabapentin 300 mg PO BID@0800,1200 Potassium Chloride 40 meq PO DAILY Levothyroxine Tab [Synthroid Tab] 100 mcg PO DAILY@0700 Sertraline [Zoloft] 50 mg PO BEDTIME Aspirin [Ecotrin] 81 mg PO MOWEFR Acetaminophen Tab [Tylenol Tab] 325 mg PO Q4H PRN #0 tablet PRN Reason: fever, headache/body aches Azithromycin Tab [Zithromax Tab] 250 mg PO MOWEFR Lactulose Liquid [Chronulac] 15 ml PO BID PRN PRN Reason: Constipation Midodrine HCl 5 mg PO BID Gabapentin Cap/Tab [Neurontin Cap/Tab] 600 mg PO BEDTIME Calcium Carbonate 650 mg PO BIDAC Amiodarone HCl 200 mg PO BEDTIME Multivitamin (Ocuvite) [Ocuvite] 1 tablet PO BID Levofloxacin Tab [Levaquin Tab] 500 mg PO DAILY #10 tablet predniSONE TAB [PredniSONE] 20 mg PO QAM Atorvastatin [Lipitor] 20 mg PO BEDTIME Budesonide Neb [Pulmicort Respules] 0.5 mg RESP TX BID Formoterol Neb [Perforomist] 20 mcg RESP TX RT BID Isosorbide Dinitrate 10 mg PO DAILY PRN PRN Reason: Chest Pain - Follow Up or Referral - Forms/Instructions
[2017-04-11] MEDS: CALCIUM (CARBONATE) 600 MG TABLET PO SCH ×2 (07:59→15:57)
[2017-04-11] MEDS: GABAPENTIN 300 MG CAPSULE PO SCH ×3 (07:59→21:28)
[2017-04-11] MEDS: MIDODRINE 5 MG TABLET PO SCH ×2 (07:59→21:28)
[2017-04-11] MEDS: DONEPEZIL 5 MG TABLET PO SCH ×2 (07:59→09:53)
[2017-04-11] MEDS: MULTIVITAMIN (OCUVITE) TABLET PO SCH ×2 (07:59→21:28)
[2017-04-11] MEDS: INSULIN REGULAR 100 UNIT/ML SUBCUT SCH ×4 (07:59→21:29)
[2017-04-11] MEDS ORDERED: LIDOCAINE 1% 20 ML VIAL MISC INJ ONE (08:00)
[2017-04-11] MEDS ORDERED: MIDAZOLAM 2 MG/2 ML VIAL IV ONE (08:00)
--- NOTE | 2017-04-11 08:01 | Pulmonology Progress Note ---
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 He comes in once again with a lower respiratory infection associated with that. Really does not have julius infiltrates on the x-ray. This is purulent bronchitis. He is on empiric antibiotics and bronchodilators. He normally uses CPAP at home, but it has not been continued as yet here. We will resume that tonight. Patient underwent fiberoptic bronchoscopy this morning. I have dictated that separately. He had a good bit of retained secretions associated with his tracheomalacia. Cultures are pending. Exam (Progress Note) - Constitutional Vitals: Period Temp Pulse Resp BP Sys/Morrow Pulse Ox Last 24 Hr 97 F-97.9 F 64-76 11-20 149-192/61-87 93-100 Exam: Patient's alert oriented. Vital signs normal. Pupils react to light. Throat is clear. Neck supple no bruits. Chest shows some coarse rhonchi bilaterally. Heart normal rate and rhythm no murmurs. Abdomen soft nontender no masses. Extremities no clubbing cyanosis edema. Calves nontender. Has a right below the knee amputation Results - Labs CBC & BMP: 04/11/17 05:11 04/11/17 05:11 Lab Results: I have reviewed the past 24 hour labs Assessment and Plan (1) Chronic kidney disease, stage 3 Status: Chronic Assessment and plan: Creatinine is 2.2. He tends to be dehydrated when he gets respiratory infections. 04-11-17 creatinine down to 1.9 with hydration. Current Visit: No (2) Tracheomalacia Status: Chronic Assessment and plan: He has severe tracheomalacia and mild bronchomalacia. This makes it difficult for him to expectorate sputum. We need to bronchoscope him and clean him out and see what is going. He tends to have resistant organisms. 04/11/17 he has moderate to severe tracheomalacia. Makes it difficult for him to expectorate sputum/clear secretions. Had bronchoscopy today and I have cleaned him out. We will check cultures on that. Needs his CPAP at night. This helps to stent the trachea. Current Visit: No (3) Dementia Status: Chronic Assessment and plan: Able to carry on a conversation but his memory is not good. Current Visit: No Qualifiers: Dementia type: Alzheimer's disease Dementia behavioral disturbance: without behavioral disturbance (4) Bronchitis Status: Resolved Assessment and plan: Does have acute bronchitis. 04/11/17 treating with bronchodilators and steroids. He is not sleeping well. Will try to decrease the steroids. Current Visit: No (5) Diabetes Status: Acute Assessment and plan: Blood sugars tend to go up with steroids of course. Current Visit: No (6) Acute exacerbation of chronic obstructive airways disease Status: Acute Assessment and plan: Treat with steroids and bronchodilators as well as empiric antibiotics. 04/11/17 continuing bronchodilators. Current Visit: Yes
[2017-04-11] MEDS: LEVOFLOXACIN INJ 500 MG in PREMIX 1 EACH IV SCH (09:50)
[2017-04-11] MEDS: AZITHROMYCIN 250 MG TABLET PO SCH (09:50)
[2017-04-11] MEDS: FORMOTEROL 20 MCG/2 ML NEB RESP TX SCH ×2 (11:12→19:01)
[2017-04-11] MEDS: BUDESONIDE 0.5 MG/2 ML NEB RESP TX SCH ×2 (11:12→19:01)
--- NOTE | 2017-04-11 16:01 | Hospitalist Progress Note ---
Assessment and Plan (1) COPD exacerbation Problem details: Patient also has chronic respiratory failure. Status: Chronic Current Visit: No (2) Renal insufficiency Status: Chronic Current Visit: No (3) Chronic kidney disease, stage 3 Status: Chronic Current Visit: No (4) Pneumonia Problem details: Patient is clinically improving. This may be a recurrent pneumonia related to COPD and compromised general health. 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 Status: Acute Assessment and plan: Continues to improve. Status post bronchoscopy. Current Visit: No Qualifiers: Pneumonia type: due to unspecified organism Laterality: left Lung location: lower lobe of lung Qualified Code(s): J18.9 - Pneumonia, unspecified organism (5) Dementia Status: Chronic Current Visit: No Qualifiers: Dementia type: Alzheimer's disease Dementia behavioral disturbance: without behavioral disturbance (6) debility and deconditioning Status: Chronic Current Visit: No (7) Bronchitis Status: Resolved Current Visit: No (8) Pneumonia Status: Acute Current Visit: No Hospitalist: Subjective Interval history: Mr. Henriquez is resting comfortably. He did have a brought done today breathing is much improved. Family members at the bedside no other acute changes. Afebrile vitals are stable. CBC BMP in a.m. Exam - Constitutional Vitals: Period Temp Pulse Resp BP Sys/Morrow Pulse Ox Last 24 Hr 97 F-97.9 F 64-95 11-20 142-192/63-87 92-100 General appearance: normal weight - Head Head exam: Present: normal inspection - Eye Pupils: Present: RADHA - Neck Neck exam: Present: normal inspection - Respiratory Respiratory exam: Present: wheezes, other (No respiratory distress. Status post Douglas.) - Cardiovascular Cardiovascular exam: Present: regular rate and rhythm - GI/Abdominal GI/Abdominal exam: Present: normal bowel sounds - Neurological Exam Neurological exam: Present: alert, oriented X3 - Psychiatric Psychiatric exam: Present: normal affect Results - Labs CBC & BMP: 04/11/17 05:11 04/11/17 05:11
[2017-04-11] MEDS: SERTRALINE 50 MG TABLET PO SCH (21:28)
[2017-04-11] MEDS: ENOXAPARIN 30 MG/0.3 ML SYRINGE SUBCUT SCH (21:28)
[2017-04-11] MEDS: ATORVASTATIN 40 MG TABLET PO SCH (21:28)
[2017-04-11] MEDS: CEFEPIME 1,000 MG in SODIUM CHLORIDE 0.9% 100 ML IV SCH (21:28)
[2017-04-11] MEDS: TAMSULOSIN 0.4 MG CAPSULE PO SCH (21:28)
[2017-04-11] MEDS: AMIODARONE 200 MG TABLET PO SCH (21:28)
[2017-04-11] MEDS: ASPIRIN EC 81 MG TABLET PO SCH (21:29)
[2017-04-12 04:55] LABS: Basophils % 0.1 % (0.0-0.8); Hematocrit 30.1 VOL% (42.0-52.0); Hemoglobin 10.1 GM/DL (14.0-18.0); Immature Granulocytes % 1.2 %; Immature Granulocytes Absolute 0.13 #; Lymphocytes # 1.4 10*3/uL (1.4-4.0); Lymphocytes % 12.2 % (21.2-54.2); Mean Corpuscular HGB Conc 33.6 GM/DL (32-36); Mean Corpuscular Hemoglobin 32 PG (27-34); Mean Platelet Volume 10.5 FL (9.6-12.0); Monocytes # 0.8 10*3/uL (0.11-0.8); Monocytes % 6.8 % (1.7-12.7); Neutrophils # 8.9 10*3/uL (1.4-7.4); Neutrophils % 79.7 % (38.7-73.9); Platelet Count 107 T/CUMM (130-400); Red Blood Count 3.17 MC/CUMM (3.8-5.5); Red Cell Distribution Width 17.3 % (9.3-17.3); White Blood Count 11.1 T/CUMM (4-12)
[2017-04-12 05:45] LABS: Calcium 7.8 MG/DL (8.5-10.1); Osmolality,Calculated 301.7 MOS/KG (273-304); Potassium 3.9 MMOL/L (3.5-5.1)
[2017-04-12] MEDS: LEVOTHYROXINE 100 MCG TABLET PO SCH (06:13)
[2017-04-12] MEDS: SODIUM CHLORIDE 0.45% 1,000 ML IV SCH (06:14)
[2017-04-12] MEDS: IPRATROPIUM 500 MCG/2.5 ML NEB RESP TX SCH ×4 (07:19→20:46)
[2017-04-12] MEDS: FORMOTEROL 20 MCG/2 ML NEB RESP TX SCH ×2 (07:19→20:46)
[2017-04-12] MEDS: BUDESONIDE 0.5 MG/2 ML NEB RESP TX SCH ×2 (07:20→20:46)
[2017-04-12] MEDS: INSULIN REGULAR 100 UNIT/ML SUBCUT SCH ×4 (07:27→22:15)
[2017-04-12] MEDS: MULTIVITAMIN (OCUVITE) TABLET PO SCH ×3 (07:52→20:06)
[2017-04-12] MEDS: DONEPEZIL 5 MG TABLET PO SCH ×2 (07:52→08:04)
[2017-04-12] MEDS: GABAPENTIN 300 MG CAPSULE PO SCH ×3 (07:52→20:05)
[2017-04-12] MEDS: methylPREDNISolone SOD SUC 40 MG/1 ML VIAL IV SCH (07:52)
[2017-04-12] MEDS: CALCIUM (CARBONATE) 600 MG TABLET PO SCH ×2 (07:52→15:36)
[2017-04-12] MEDS: MIDODRINE 5 MG TABLET PO SCH ×2 (08:04→20:06)
[2017-04-12] MEDS: AZITHROMYCIN 250 MG TABLET PO SCH (08:04)
[2017-04-12] MEDS: LEVOFLOXACIN INJ 500 MG in PREMIX 1 EACH IV SCH (10:17)
--- NOTE | 2017-04-12 10:59 | Hospitalist Progress Note ---
Assessment and Plan - Time spent with patient Time spent with patient: Greater than 30 minutes (1) Pneumonia Status: Acute Current Visit: No Qualifiers: Pneumonia type: due to unspecified organism Laterality: left (2) COPD exacerbation Problem details: Patient also has chronic respiratory failure. Status: Chronic Current Visit: No (3) Hypertension Status: Chronic Current Visit: No Qualifiers: Hypertension type: essential hypertension Qualified Code(s): I10 - Essential (primary) hypertension (4) Chronic kidney disease, stage 3 Status: Chronic Current Visit: No (5) Tracheomalacia Status: Chronic Assessment and plan: Discontinue Zithromax and cefepime, continue on Levaquin as this will cover most of the suspected bugs. Continue breathing treatment. CPAP at night. He has his own CPAP at home, we discussed compliance upon discharge. Anticipate discharge tomorrow. Current Visit: No Hospitalist: Subjective Interval history: s/p Bronchoscopy No new problems, leucocytosis is down. Feels much better today. Wants to go home Bronchial washings growing GPC No fever Exam - Constitutional Vitals: Period Temp Pulse Resp BP Sys/Morrow Pulse Ox Last 24 Hr 96.9 F-98.2 F 63-95 18-22 142-184/63-75 91-99 General appearance: normal weight, no acute distress - Head Head exam: Present: normocephalic, atraumatic - Eye Pupils: Present: RADHA - Respiratory Respiratory exam: Present: clear to auscultation bilaterally, stridor (coming from his tracheomalacia). Absent: rhonchi, wheezes - Cardiovascular Cardiovascular exam: Present: regular rate and rhythm. Absent: JVD - GI/Abdominal GI/Abdominal exam: Present: normal bowel sounds, soft. Absent: tenderness - Extremities Exam Extremities exam: Present: other (amputee Rt LE). Absent: edema - Neurological Exam Neurological exam: Present: alert, oriented X3 - Skin Skin exam: Present: normal color, warm, dry Results - Labs CBC & BMP: 04/12/17 04:39 04/12/17 04:39 Lab Results: I have reviewed the past 24 hour labs
--- NOTE | 2017-04-12 11:35 | Pulmonology Progress Note ---
Pulmonary - PN: Subj Interval history: This 86-year-old white male whom I am seeing for Dr. bia Boswell. Patient was seen along with 2 male family members. The patient has tracheobronchial malacia and underlying COPD. He has had a recent infection and he had a bronchoscopy exam of 04/11/2017. His specimens are growing gram-positive cocci. There is no ID or sensitivities available yet. Dr. Boswell remove a lot of thick secretions. He is thinking that this patient probably will have a resistant organism. He says that there is an element of dementia with the patient he has some tendency towards sundowning. There were no problems overnight Lab. White count 11,100. H&H is 10.1/30.1. Platelets are 107,000. Electrolytes are normal creatinine is dropped from 2.40-1.80 with a BUN of 52. Labs been reviewed. Medicines been reviewed. Physical exam. Vital signs. See below Psychiatric. Oriented 3. Hard to get a straight answer from this patient. Neurologic. Cranial nerves are intact. Patient is somewhat hard of hearing bilaterally. Moves all 4 extremities. Face. Symmetrical. Lips and tongue are normal. Neck. Symmetrical. No meningismus. Lymphatics. No submandibular cervical supraclavicular adenopathy. Chest. Large airway congestion Heart. No gallop Abdomen. Nondistended. Positive bowel sounds Lower extremities. Nothing to suggest deep venous thrombophlebitis The remainder the physical exam is none contributory and is negative. Plan. 1. Continue present regimen 2. Check cultures from bronchoscopy Exam (Progress Note) - Constitutional Vitals: Period Temp Pulse Resp BP Sys/Morrow Pulse Ox Last 24 Hr 96.9 F-98.2 F 63-90 18-22 142-184/63-75 91-99 Results - Labs CBC & BMP: 04/12/17 04:39 04/12/17 04:39
[2017-04-12] MEDS: guaiFENesin/DM ER 600-30 MG TABLET PO PRN ×2 (15:36→20:06)
[2017-04-12] MEDS: ENOXAPARIN 30 MG/0.3 ML SYRINGE SUBCUT SCH (20:05)
[2017-04-12] MEDS: ATORVASTATIN 40 MG TABLET PO SCH (20:06)
[2017-04-12] MEDS: SERTRALINE 50 MG TABLET PO SCH (20:06)
[2017-04-12] MEDS: TAMSULOSIN 0.4 MG CAPSULE PO SCH (20:06)
[2017-04-12] MEDS: AMIODARONE 200 MG TABLET PO SCH (20:06)
[2017-04-13] MEDS: LEVOTHYROXINE 100 MCG TABLET PO SCH (05:59)
[2017-04-13] MEDS: IPRATROPIUM 500 MCG/2.5 ML NEB RESP TX SCH ×4 (07:21→19:39)
[2017-04-13] MEDS: BUDESONIDE 0.5 MG/2 ML NEB RESP TX SCH ×2 (07:21→19:39)
[2017-04-13] MEDS: FORMOTEROL 20 MCG/2 ML NEB RESP TX SCH ×2 (07:21→19:39)
[2017-04-13] MEDS: MULTIVITAMIN (OCUVITE) TABLET PO SCH ×2 (09:20→21:09)
[2017-04-13] MEDS: GABAPENTIN 300 MG CAPSULE PO SCH ×3 (09:20→21:08)
[2017-04-13] MEDS: MIDODRINE 5 MG TABLET PO SCH ×2 (09:20→21:09)
[2017-04-13] MEDS: CALCIUM (CARBONATE) 600 MG TABLET PO SCH ×2 (09:21→16:19)
[2017-04-13] MEDS: INSULIN REGULAR 100 UNIT/ML SUBCUT SCH ×4 (09:21→21:08)
[2017-04-13] MEDS: DONEPEZIL 5 MG TABLET PO SCH (09:21)
[2017-04-13] MEDS: methylPREDNISolone SOD SUC 40 MG/1 ML VIAL IV SCH (09:21)
[2017-04-13] MEDS: guaiFENesin/DM ER 600-30 MG TABLET PO PRN ×2 (09:45→21:09)
[2017-04-13] MEDS: SODIUM CHLORIDE 0.45% 1,000 ML IV SCH (09:45)
[2017-04-13] MEDS: LEVOFLOXACIN INJ 500 MG in PREMIX 1 EACH IV SCH (09:45)
--- NOTE | 2017-04-13 11:45 | Hospitalist Progress Note ---
Assessment and Plan - Time spent with patient Time spent with patient: Greater than 30 minutes (1) Pneumonia Status: Acute Current Visit: No (2) COPD exacerbation Problem details: Patient also has chronic respiratory failure. Status: Chronic Current Visit: No (3) Hypertension Status: Chronic Current Visit: No Qualifiers: Qualified Code(s): I10 - Essential (primary) hypertension (4) Chronic kidney disease, stage 3 Status: Chronic Current Visit: No (5) Tracheomalacia Status: Chronic Assessment and plan: Discontinue Levaquin since sensitivity shows resistance to Levaquin, we will switch to Bactrim for better coverage. Continue breathing treatment. CPAP at night. He has his own CPAP at home, we discussed compliance upon discharge. Anticipate discharge Friday if pulmonology clears him.. Current Visit: No Hospitalist: Subjective Interval history: Elderly man admitted for COPD exacerbation, bronchitis. He status post bronchoscopy. He clinically continues to improve, still has intermittent coughing but sputum is clearing up her . Ambulates the hallway There is no fever. 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 Exam - Constitutional Vitals: Period Temp Pulse Resp BP Sys/Morrow Pulse Ox Last 24 Hr 97.6 F-98.3 F 62-83 16-20 149-185/58-79 91-99 Exam: General appearance: normal weight, no acute distress - Head Head exam: Present: normocephalic, atraumatic - Eye Pupils: Present: RADHA - Respiratory Respiratory exam: Present: clear to auscultation bilaterally, stridor (coming from his tracheomalacia). Absent: rhonchi, wheezes - Cardiovascular Cardiovascular exam: Present: regular rate and rhythm. Absent: JVD - GI/Abdominal GI/Abdominal exam: Present: normal bowel sounds, soft. Absent: tenderness - Extremities Exam Extremities exam: Present: other (amputee Rt LE). Absent: edema - Neurological Exam Neurological exam: Present: alert, oriented X3 - Skin Skin exam: Present: normal color, warm, dry Results - Labs CBC & BMP: 04/12/17 04:39 04/12/17 04:39 Lab Results: I have reviewed the past 24 hour labs
--- NOTE | 2017-04-13 11:47 | Pulmonology Progress Note ---
Pulmonary - PN: Subj Interval history: This 86-year-old white male whom I am seeing for Dr. bia Boswell. Patient was seen along with 2 male family members. The patient has tracheobronchial malacia and underlying COPD. He has had a recent infection and he had a bronchoscopy exam of 04/11/2017. His specimens are growing gram-positive cocci. There is no ID or sensitivities available yet. Dr. Boswell remove a lot of thick secretions. He is thinking that this patient probably will have a resistant organism. He says that there is an element of dementia with the patient he has some tendency towards sundowning. There were no problems overnight Lab. White count 11,100. H&H is 10.1/30.1. Platelets are 107,000. Electrolytes are normal creatinine is dropped from 2.40-1.80 with a BUN of 52. Labs been reviewed. Medicines been reviewed. 04/13/2017. Patient was seen along with the family member. He is stable. On chest exam he still has a lot of large airway congestion with expiration and he has inspiratory squeaks especially over the upper lung razo. His bronchoscopy specimens have grown methicillin-resistant staph aureus. Labs been reviewed. Medicines have been reviewed. Patient's on Levaquin and methicillin-resistant staph aureus is resistant. I have ordered vancomycin and asked for pharmacology at 2 adjusted and I have ordered daily BMPs. Physical exam. Vital signs. See below Psychiatric. Oriented 3. Hard to get a straight answer from this patient. Neurologic. Cranial nerves are intact. Patient is somewhat hard of hearing bilaterally. Moves all 4 extremities. Face. Symmetrical. Lips and tongue are normal. Neck. Symmetrical. No meningismus. Lymphatics. No submandibular cervical supraclavicular adenopathy. Chest. Large airway congestion Heart. No gallop Abdomen. Nondistended. Positive bowel sounds Lower extremities. Nothing to suggest deep venous thrombophlebitis The remainder the physical exam is none contributory and is negative. Plan. 04/12/2017 1. Continue present regimen 2. Check cultures from bronchoscopy 04/13/2017. 1. Continue present regimen. I did not stop Levaquin but I think this could be stopped. 2. Vancomycin. Pharmacology consult. 3. Daily BMP Exam (Progress Note) - Constitutional Vitals: Period Temp Pulse Resp BP Sys/Morrow Pulse Ox Last 24 Hr 97.6 F-98.3 F 62-83 16-20 149-185/58-79 91-99 Results - Labs CBC & BMP: 04/12/17 04:39 04/12/17 04:39
[2017-04-13] MEDS: VANCOMYCIN INJ 1,250 MG in SODIUM CHLORIDE 0.9% 250 ML IV SCH (12:50)
[2017-04-13] MEDS: NYSTATIN 500,000 UNIT/5 ML UDCUP SWISH/SWAL SCH ×3 (12:51→21:09)
[2017-04-13] MEDS: SERTRALINE 50 MG TABLET PO SCH (21:08)
[2017-04-13] MEDS: ENOXAPARIN 40 MG/0.4 ML SYRINGE SUBCUT SCH (21:08)
[2017-04-13] MEDS: SULFAMETHOX/TRIMETHOPRIM 800-160 MG TABLET PO SCH (21:08)
[2017-04-13] MEDS: TAMSULOSIN 0.4 MG CAPSULE PO SCH (21:08)
[2017-04-13] MEDS: ATORVASTATIN 40 MG TABLET PO SCH (21:09)
[2017-04-13] MEDS: AMIODARONE 200 MG TABLET PO SCH (21:09)
[2017-04-14] MEDS: LEVOTHYROXINE 100 MCG TABLET PO SCH (06:27)
[2017-04-14] MEDS: IPRATROPIUM 500 MCG/2.5 ML NEB RESP TX SCH ×4 (07:35→19:58)
[2017-04-14] MEDS: BUDESONIDE 0.5 MG/2 ML NEB RESP TX SCH ×2 (07:35→19:58)
[2017-04-14] MEDS: FORMOTEROL 20 MCG/2 ML NEB RESP TX SCH ×2 (07:35→19:58)
[2017-04-14] MEDS: INSULIN REGULAR 100 UNIT/ML SUBCUT SCH ×4 (08:28→21:39)
[2017-04-14] MEDS: MIDODRINE 5 MG TABLET PO SCH ×2 (08:29→20:50)
[2017-04-14] MEDS: NYSTATIN 500,000 UNIT/5 ML UDCUP SWISH/SWAL SCH ×4 (08:29→20:50)
[2017-04-14] MEDS: CALCIUM (CARBONATE) 600 MG TABLET PO SCH ×2 (08:29→18:18)
[2017-04-14] MEDS: GABAPENTIN 300 MG CAPSULE PO SCH ×3 (08:29→20:50)
[2017-04-14] MEDS: methylPREDNISolone SOD SUC 40 MG/1 ML VIAL IV SCH (08:29)
[2017-04-14] MEDS: DONEPEZIL 5 MG TABLET PO SCH (08:29)
[2017-04-14] MEDS: MULTIVITAMIN (OCUVITE) TABLET PO SCH ×2 (08:29→20:50)
[2017-04-14] MEDS: SULFAMETHOX/TRIMETHOPRIM 800-160 MG TABLET PO SCH (08:29)
--- NOTE | 2017-04-14 10:48 | Pulmonology Progress Note ---
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 He comes in once again with a lower respiratory infection associated with that. Really does not have julius infiltrates on the x-ray. This is purulent bronchitis. He is on empiric antibiotics and bronchodilators. He normally uses CPAP at home, but it has not been continued as yet here. We will resume that tonight. Patient underwent fiberoptic bronchoscopy this morning. I have dictated that separately. He had a good bit of retained secretions associated with his tracheomalacia. Cultures are pending. 04/14/2017 bronchial washings have shown MRSA. He is on vancomycin. Has creatinine of 1.7. Needs about a week of IV vancomycin. May need more treatment with bronchodilator steroids and antibiotics and then a week. Last admission he required 3 or 4 weeks. May want to look into LTAC transfer. He was at [facility] previously. Exam (Progress Note) - Constitutional Vitals: Period Temp Pulse Resp BP Sys/Morrow Pulse Ox Last 24 Hr 97.0 F-98.7 F 59-101 16-20 143-170/66-89 93-100 Exam: Patient's alert oriented. Vital signs normal. Pupils react to light. Throat is clear. Neck supple no bruits. Chest shows some coarse rhonchi bilaterally. Heart normal rate and rhythm no murmurs. Abdomen soft nontender no masses. Extremities no clubbing cyanosis edema. Calves nontender. Has a right below the knee amputation. little change from Friday. Results - Labs CBC & BMP: 04/12/17 04:39 04/14/17 03:59 Lab Results: I have reviewed the past 24 hour labs Assessment and Plan (1) Chronic kidney disease, stage 3 Status: Chronic Assessment and plan: Creatinine is 2.2. He tends to be dehydrated when he gets respiratory infections. 04-11-17 creatinine down to 1.9 with hydration. 04/14/2017 creatinine is a little better at 1.7. Patient getting vancomycin and needs renal function followed closely. Current Visit: No (2) Tracheomalacia Status: Chronic Assessment and plan: He has severe tracheomalacia and mild bronchomalacia. This makes it difficult for him to expectorate sputum. We need to bronchoscope him and clean him out and see what is going. He tends to have resistant organisms. 04/11/17 he has moderate to severe tracheomalacia. Makes it difficult for him to expectorate sputum/clear secretions. Had bronchoscopy today and I have cleaned him out. We will check cultures on that. Needs his CPAP at night. This helps to stent the trachea. 04/14/2017 poor cough unable to clear secretions. Requires a longer course of IV antibiotics. Current Visit: No (3) Dementia Status: Chronic Assessment and plan: Able to carry on a conversation but his memory is not good. Current Visit: No Qualifiers: Dementia type: Alzheimer's disease Dementia behavioral disturbance: without behavioral disturbance (4) Bronchitis Status: Resolved Assessment and plan: Does have acute bronchitis. 04/11/17 treating with bronchodilators and steroids. He is not sleeping well. Will try to decrease the steroids. 04/14/2017 continuing with bronchodilators and steroids. Keep steroids on the low side. Difficulty sleeping. Current Visit: No (5) Diabetes Status: Acute Assessment and plan: Blood sugars tend to go up with steroids of course. 04/14/2017 continuing sliding scale. Glucoses well controlled. Current Visit: No (6) Acute exacerbation of chronic obstructive airways disease Status: Acute Assessment and plan: Treat with steroids and bronchodilators as well as empiric antibiotics. 04/11/17 continuing bronchodilators. 04/14/2017 again continuing bronchodilator steroids and antibiotics. Current Visit: Yes
--- NOTE | 2017-04-14 12:25 | Physician Query Form ---
CLICK EDIT DOCUMENT TO SELECT QUERY ANSWER --> OK --> SIGN Pham Rowan RN, CCDS Certified Clinical [employer] Manufacturing Technician W) [phone] (f) [phone] [email or web address] PROVIDERS: Make your selection(s) from the choices in EACH section by typing an "x" and enter comments in the comment section. Please use your independent medical judgment in providing your response. This request does not imply that any particular answer is desired or expected. CLINICAL INDICATORS: (Providers should not edit this section) The medical record indicates that the patient was admitted with COPD exacerbation, pneumonia, " bronchial washings have shown MRSA" and the patient is on Vancomycin. Community Acquired and Healthcare Acquired are both unspecified terms and require further specificity. Based on the above, could you please clarify further specificity regarding the type of pneumonia you are treating (even if specific organism may not be known) ? ( ) Aspiration pneumonia ( ) Gram negative pneumonia ( ) Gram positive pneumonia ( x) Bacterial pneumonia due to, please specify organism (MRSA): ( ) Pneumonia with Influenza ( ) Viral pneumonia ( ) Post procedural ( ) HIV associated pneumonia ( ) Radiation Pneumonitis ( ) Pneumonia due to, please specify: ( ) Clinically unable to determine ( ) Other, please specify: COMMENTS: PLEASE ALSO DOCUMENT RESPONSE IN PROGRESS NOTES AND/OR DISCHARGE SUMMARY Use of terms such as suspected, likely, or probable (associated with a specific diagnosis that is being evaluated, monitored, or treated as if it exists) are acceptable and can be restated in the discharge summary if not ruled out. MTDD
[2017-04-14] MEDS: VANCOMYCIN INJ 1,250 MG in SODIUM CHLORIDE 0.9% 250 ML IV SCH (13:24)
[2017-04-14] MEDS: SODIUM CHLORIDE 0.45% 1,000 ML IV SCH (13:26)
[2017-04-14] MEDS: LACTULOSE 20 GM/30 ML UDCUP PO PRN (18:19)
[2017-04-14] MEDS: ENOXAPARIN 40 MG/0.4 ML SYRINGE SUBCUT SCH (20:50)
[2017-04-14] MEDS: AMIODARONE 200 MG TABLET PO SCH (20:50)
[2017-04-14] MEDS: ATORVASTATIN 40 MG TABLET PO SCH (20:50)
[2017-04-14] MEDS: TAMSULOSIN 0.4 MG CAPSULE PO SCH (20:50)
[2017-04-14] MEDS: ASPIRIN EC 81 MG TABLET PO SCH (20:50)
--- NOTE | 2017-04-14 20:53 | Hospitalist Progress Note ---
Assessment and Plan - Time spent with patient Time spent with patient: Less than 30 minutes (1) COPD exacerbation Problem details: Patient also has chronic respiratory failure. Status: Chronic Assessment and plan: This appears to be improving. Current Visit: No (2) Renal insufficiency Status: Chronic Assessment and plan: Renal function remained stable. Current Visit: No (3) Chronic kidney disease, stage 3 Status: Chronic Current Visit: No (4) Pneumonia Problem details: Patient is clinically improving. This may be a recurrent pneumonia related to COPD and compromised general health. 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 Status: Acute Assessment and plan: Continues to improve. Current Visit: No Qualifiers: Pneumonia type: due to unspecified organism Laterality: left Lung location: lower lobe of lung Qualified Code(s): J18.9 - Pneumonia, unspecified organism (5) Dementia Status: Chronic Current Visit: No Qualifiers: Dementia type: Alzheimer's disease Dementia behavioral disturbance: without behavioral disturbance (6) debility and deconditioning Status: Chronic Current Visit: No (7) Bronchitis Status: Resolved Current Visit: No (8) Pneumonia Status: Acute Assessment and plan: This is improving. Current Visit: No Hospitalist: Subjective Interval history: Patient is resting. No fevers. Continue with antibiotics. At this time making preparations for discharge planning. Have a consult to social work for possible LTAC transfer. Exam - Constitutional Vitals: Period Temp Pulse Resp BP Sys/Morrow Pulse Ox Last 24 Hr 97.3 F-98.1 F 55-71 18-20 134-170/48-89 93-100 General appearance: normal weight - Head Head exam: Present: normal inspection - Eye Eye exam: Present: EOMI - Neck Neck exam: Present: normal inspection - Respiratory Respiratory exam: Present: clear to auscultation bilaterally - Cardiovascular Cardiovascular exam: Present: regular rate and rhythm - GI/Abdominal GI/Abdominal exam: Present: normal bowel sounds - Extremities Exam Extremities exam: Present: normal inspection - Neurological Exam Neurological exam: Present: alert, oriented X3 - Psychiatric Psychiatric exam: Present: normal affect Results - Labs CBC & BMP: 04/12/17 04:39 04/14/17 03:59
[2017-04-14] MEDS: SERTRALINE 50 MG TABLET PO SCH (21:39)
[2017-04-15] MEDS: LEVOTHYROXINE 100 MCG TABLET PO SCH (06:15)
[2017-04-15 07:03] LABS: Calcium 7.9 MG/DL (8.5-10.1); Osmolality,Calculated 299.7 MOS/KG (273-304); Potassium 4.1 MMOL/L (3.5-5.1)
[2017-04-15] MEDS: IPRATROPIUM 500 MCG/2.5 ML NEB RESP TX SCH ×4 (07:24→19:08)
[2017-04-15] MEDS: FORMOTEROL 20 MCG/2 ML NEB RESP TX SCH ×2 (07:26→19:08)
--- NOTE | 2017-04-15 07:26 | Hospitalist Progress Note ---
Assessment and Plan (1) Tracheomalacia Status: Chronic Assessment and plan: Presentation with exacerbation of COPD pattern with cultures positive for yeast and methicillin-resistant staph aureus. Bronchoscopy with extensive retained secretions. Current Visit: No (2) Renal insufficiency Status: Chronic Current Visit: No Hospitalist: Subjective Interval history: 86-year-old male with documented tracheomalacia and bronchomalacia with recurrent episodes of retained secretion and presumed secondary infection with purulent bronchitis. The patient at the end of last year was hospitalized with Enterococcus faecalis obtained from the sputum with prolonged course of treatment and period of rehabilitation. He was readmitted with increased shortness of breath. Bronchoscopy showed retained secretions with positive Rukhsana and MRSA. He is currently on vancomycin. His renal function has improved during the hospital stay but he remains with an elevated creatinine level. Patient at this time is not producing significant sputum he is afebrile with stable capillary blood glucose levels and comfortable on room air oxygen. He is anticipated once again to require an extended course of therapy with consideration for LTAC referral. Exam - Constitutional Vitals: Period Temp Pulse Resp BP Sys/Morrow Pulse Ox Last 24 Hr 97.3 F-98.4 F 55-86 18-20 134-167/48-87 93-100 General appearance: normal weight - Respiratory Respiratory exam: Present: other (Overall coarse breath sounds.). Absent: rales , rhonchi, wheezes - Cardiovascular Cardiovascular exam: Present: regular rate and rhythm - GI/Abdominal GI/Abdominal exam: Present: normal bowel sounds. Absent: tenderness - Extremities Exam Extremities exam: Absent: edema - Neurological Exam Neurological exam: Present: alert, oriented X3 Results - Labs CBC & BMP: 04/12/17 04:39 04/15/17 06:03
[2017-04-15] MEDS: BUDESONIDE 0.5 MG/2 ML NEB RESP TX SCH ×2 (07:27→19:08)
--- NOTE | 2017-04-15 08:38 | Pulmonology Progress Note ---
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 He comes in once again with a lower respiratory infection associated with that. Really does not have julius infiltrates on the x-ray. This is purulent bronchitis. He is on empiric antibiotics and bronchodilators. He normally uses CPAP at home, but it has not been continued as yet here. We will resume that tonight. Patient underwent fiberoptic bronchoscopy this morning. I have dictated that separately. He had a good bit of retained secretions associated with his tracheomalacia. Cultures are pending. 04/14/2017 bronchial washings have shown MRSA. He is on vancomycin. Has creatinine of 1.7. Needs about a week of IV vancomycin. May need more treatment with bronchodilator steroids and antibiotics and then a week. Last admission he required 3 or 4 weeks. May want to look into LTAC transfer. He was at [facility] previously. [id number] man with tracheobronchomalacia and a superimposed infection with MRSA. This represents bronchitis and most likely bronchopneumonia. He needs at least a week of IV vancomycin probably longer than that. He has required multiple bronchoscopies on previous admissions because of his tracheobronchomalacia. This morning he is feeling a little bit better. Starting to cough up a little sputum. Social work is looking into an LTAC transfer. I think this would be indicated. Exam (Progress Note) - Constitutional Vitals: Period Temp Pulse Resp BP Sys/Morrow Pulse Ox Last 24 Hr 97.3 F-98.4 F 55-86 18-20 134-167/48-86 96-99 Exam: Patient's alert oriented. Vital signs normal. Pupils react to light. Throat is clear. Neck supple no bruits. Chest shows some coarse rhonchi bilaterally. Heart normal rate and rhythm no murmurs. Abdomen soft nontender no masses. Extremities no clubbing cyanosis edema. Calves nontender. Has a right below the knee amputation. Results - Labs CBC & BMP: 04/12/17 04:39 04/15/17 06:03 Lab Results: I have reviewed the past 24 hour labs Assessment and Plan (1) Chronic kidney disease, stage 3 Status: Chronic Assessment and plan: Creatinine is 2.2. He tends to be dehydrated when he gets respiratory infections. 04-11-17 creatinine down to 1.9 with hydration. 04/14/2017 creatinine is a little better at 1.7. Patient getting vancomycin and needs renal function followed closely. 04/15/2017 renal is following with us. Current Visit: No (2) Tracheomalacia Status: Chronic Assessment and plan: He has severe tracheomalacia and mild bronchomalacia. This makes it difficult for him to expectorate sputum. We need to bronchoscope him and clean him out and see what is going. He tends to have resistant organisms. 04/11/17 he has moderate to severe tracheomalacia. Makes it difficult for him to expectorate sputum/clear secretions. Had bronchoscopy today and I have cleaned him out. We will check cultures on that. Needs his CPAP at night. This helps to stent the trachea. 04/14/2017 poor cough unable to clear secretions. Requires a longer course of IV antibiotics. 04/15/2017 continuing with mucolytics steroids antibiotics and bronchodilators. Current Visit: No (3) Dementia Status: Chronic Assessment and plan: Able to carry on a conversation but his memory is not good. 04/15/2017 again patient is unable to carry on a conversation. Does get confused at times. Current Visit: No Qualifiers: Dementia type: Alzheimer's disease Dementia behavioral disturbance: without behavioral disturbance (4) Bronchitis Status: Resolved Assessment and plan: Does have acute bronchitis. 04/11/17 treating with bronchodilators and steroids. He is not sleeping well. Will try to decrease the steroids. 04/14/2017 continuing with bronchodilators and steroids. Keep steroids on the low side. Difficulty sleeping. 04/15/2017 clearly has acute bronchitis. Trying to keep steroids on the low side due to difficulty sleeping. He did sleep better last night. Current Visit: No (5) Diabetes Status: Acute Assessment and plan: Blood sugars tend to go up with steroids of course. 04/14/2017 continuing sliding scale. Glucoses well controlled. 04/15/2017 glucoses look better Current Visit: No (6) Acute exacerbation of chronic obstructive airways disease Status: Acute Assessment and plan: Treat with steroids and bronchodilators as well as empiric antibiotics. 04/11/17 continuing bronchodilators. 04/14/2017 again continuing bronchodilator steroids and antibiotics. Current Visit: Yes
[2017-04-15] MEDS: INSULIN REGULAR 100 UNIT/ML SUBCUT SCH ×4 (08:52→22:01)
[2017-04-15] MEDS: DONEPEZIL 5 MG TABLET PO SCH (08:55)
[2017-04-15] MEDS: MIDODRINE 5 MG TABLET PO SCH ×2 (08:55→22:00)
[2017-04-15] MEDS: CALCIUM (CARBONATE) 600 MG TABLET PO SCH ×2 (08:55→15:37)
[2017-04-15] MEDS: GABAPENTIN 300 MG CAPSULE PO SCH ×3 (08:55→22:00)
[2017-04-15] MEDS: MULTIVITAMIN (OCUVITE) TABLET PO SCH ×2 (08:55→22:01)
[2017-04-15] MEDS: methylPREDNISolone SOD SUC 40 MG/1 ML VIAL IV SCH (08:55)
[2017-04-15] MEDS: NYSTATIN 500,000 UNIT/5 ML UDCUP SWISH/SWAL SCH ×4 (08:55→22:00)
[2017-04-15] MEDS: guaiFENesin/DM ER 600-30 MG TABLET PO PRN (12:16)
[2017-04-15] MEDS: VANCOMYCIN INJ 1,250 MG in SODIUM CHLORIDE 0.9% 250 ML IV SCH (13:52)
[2017-04-15] MEDS: LACTULOSE 20 GM/30 ML UDCUP PO PRN (15:37)
[2017-04-15] MEDS: ENOXAPARIN 40 MG/0.4 ML SYRINGE SUBCUT SCH (22:00)
[2017-04-15] MEDS: TAMSULOSIN 0.4 MG CAPSULE PO SCH (22:00)
[2017-04-15] MEDS: SERTRALINE 50 MG TABLET PO SCH (22:01)
[2017-04-15] MEDS: ATORVASTATIN 40 MG TABLET PO SCH (22:01)
[2017-04-15] MEDS: AMIODARONE 200 MG TABLET PO SCH (22:01)
[2017-04-16] MEDS: LEVOTHYROXINE 100 MCG TABLET PO SCH (06:06)
[2017-04-16 06:33] LABS: Osmolality,Calculated 295.1 MOS/KG (273-304)
[2017-04-16] MEDS: CALCIUM (CARBONATE) 600 MG TABLET PO SCH (06:55)
--- NOTE | 2017-04-16 07:12 | Hospitalist Progress Note ---
Assessment and Plan (1) Tracheomalacia Status: Chronic Assessment and plan: Presentation with exacerbation of COPD pattern with cultures positive for yeast and methicillin-resistant staph aureus. Bronchoscopy with extensive retained secretions. Current Visit: No (2) Renal insufficiency Status: Chronic Current Visit: No (3) Paroxysmal atrial fibrillation Status: Chronic Assessment and plan: Chronic amiodarone use holding sinus rhythm. Patient has declined systemic anticoagulation. Current Visit: No Hospitalist: Subjective Interval history: 86-year-old male with documented tracheomalacia bronchomalacia with recurrent episodes of retained secretions and presumed secondary infection with purulent bronchitis. He was readmitted with increased shortness of breath with bronchoscopy showing retained secretions cultures positive for Rukhsana and MRSA. There is no infiltrate on the chest x-ray and this represents a recurrence from last year. He is on vancomycin with a moderately elevated serum creatinine level which is remained stable. He currently has almost no sputum production he is comfortable on room air and is at the end of last year it is anticipated he will probably require some type of rehabilitative care. He is afebrile vital signs are stable overnight and he is comfortable. Exam - Constitutional Vitals: Period Temp Pulse Resp BP Sys/Morrow Pulse Ox Last 24 Hr 97.0 F-98.4 F 63-84 16-20 119-162/49-92 90-100 General appearance: normal weight - Respiratory Respiratory exam: Present: other (Coarse breath sounds no active bronchospasm.) - Cardiovascular Cardiovascular exam: Present: regular rate and rhythm - GI/Abdominal GI/Abdominal exam: Present: normal bowel sounds. Absent: distended, tenderness - Extremities Exam Extremities exam: Absent: edema - Neurological Exam Neurological exam: Present: alert, oriented X3 Results - Labs CBC & BMP: 04/12/17 04:39 04/16/17 05:47
[2017-04-16] MEDS: IPRATROPIUM 500 MCG/2.5 ML NEB RESP TX SCH ×2 (07:54→11:22)
[2017-04-16] MEDS: BUDESONIDE 0.5 MG/2 ML NEB RESP TX SCH (07:54)
[2017-04-16] MEDS: FORMOTEROL 20 MCG/2 ML NEB RESP TX SCH (07:54)
[2017-04-16] MEDS: INSULIN REGULAR 100 UNIT/ML SUBCUT SCH ×2 (08:38→12:50)
[2017-04-16] MEDS: MIDODRINE 5 MG TABLET PO SCH (08:38)
[2017-04-16] MEDS: NYSTATIN 500,000 UNIT/5 ML UDCUP SWISH/SWAL SCH ×2 (08:38→15:15)
[2017-04-16] MEDS: GABAPENTIN 300 MG CAPSULE PO SCH ×2 (08:38→15:15)
[2017-04-16] MEDS: DONEPEZIL 5 MG TABLET PO SCH (08:38)
[2017-04-16] MEDS: MULTIVITAMIN (OCUVITE) TABLET PO SCH (08:38)
[2017-04-16] MEDS: methylPREDNISolone SOD SUC 40 MG/1 ML VIAL IV SCH (08:39)
[2017-04-16] MEDS: LACTULOSE 20 GM/30 ML UDCUP PO PRN (08:42)
--- NOTE | 2017-04-16 10:32 | Pulmonology Progress Note ---
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 He comes in once again with a lower respiratory infection associated with that. Really does not have julius infiltrates on the x-ray. This is purulent bronchitis. He is on empiric antibiotics and bronchodilators. He normally uses CPAP at home, but it has not been continued as yet here. We will resume that tonight. Patient underwent fiberoptic bronchoscopy this morning. I have dictated that separately. He had a good bit of retained secretions associated with his tracheomalacia. Cultures are pending. 04/14/2017 bronchial washings have shown MRSA. He is on vancomycin. Has creatinine of 1.7. Needs about a week of IV vancomycin. May need more treatment with bronchodilator steroids and antibiotics and then a week. Last admission he required 3 or 4 weeks. May want to look into LTAC transfer. He was at [facility] previously. [id number] man with tracheobronchomalacia and a superimposed infection with MRSA. This represents bronchitis and most likely bronchopneumonia. He needs at least a week of IV vancomycin probably longer than that. He has required multiple bronchoscopies on previous admissions because of his tracheobronchomalacia. This morning he is feeling a little bit better. Starting to cough up a little sputum. Social work is looking into an LTAC transfer. I think this would be indicated. 04/16/2017 patient having a little more congestion today. Discussed with him need for continued IV antibiotics and respiratory therapy. Likely will need additional bronchoscopies as he has in the past. He does agree with going to LTAC. Can be transferred today if details can be worked out Exam (Progress Note) - Constitutional Vitals: Period Temp Pulse Resp BP Sys/Morrow Pulse Ox Last 24 Hr 97.0 F-98.4 F 56-84 16-20 119-162/49-92 90-99 Exam: Patient's alert oriented. Vital signs normal. Pupils react to light. Throat is clear. Neck supple no bruits. Chest shows some coarse rhonchi bilaterally. Heart normal rate and rhythm no murmurs. Abdomen soft nontender no masses. Extremities no clubbing cyanosis edema. Calves nontender. Has a right below the knee amputation. Results - Labs CBC & BMP: 04/12/17 04:39 04/16/17 05:47 Lab Results: I have reviewed the past 24 hour labs Assessment and Plan (1) Chronic kidney disease, stage 3 Status: Chronic Assessment and plan: Creatinine is 2.2. He tends to be dehydrated when he gets respiratory infections. 04-11-17 creatinine down to 1.9 with hydration. 04/14/2017 creatinine is a little better at 1.7. Patient getting vancomycin and needs renal function followed closely. 04/15/2017 renal is following with us. 04/16/2017 chronic renal insufficiency is somewhat of a concern for prolonged vancomycin treatment. Would do best in an LTAC rather than a swing bed or at home. Current Visit: No (2) Tracheomalacia Status: Chronic Assessment and plan: He has severe tracheomalacia and mild bronchomalacia. This makes it difficult for him to expectorate sputum. We need to bronchoscope him and clean him out and see what is going. He tends to have resistant organisms. 04/11/17 he has moderate to severe tracheomalacia. Makes it difficult for him to expectorate sputum/clear secretions. Had bronchoscopy today and I have cleaned him out. We will check cultures on that. Needs his CPAP at night. This helps to stent the trachea. 04/14/2017 poor cough unable to clear secretions. Requires a longer course of IV antibiotics. 04/15/2017 continuing with mucolytics steroids antibiotics and bronchodilators. 04/16/2017 takes prolonged treatment for exacerbations due to inability to clear secretions. Current Visit: No (3) Dementia Status: Chronic Assessment and plan: Able to carry on a conversation but his memory is not good. 04/15/2017 again patient is unable to carry on a conversation. Does get confused at times. 04/16/2017 patient has some decision making difficulties. Current Visit: No Qualifiers: Dementia type: Alzheimer's disease Dementia behavioral disturbance: without behavioral disturbance (4) Bronchitis Status: Resolved Assessment and plan: Does have acute bronchitis. 04/11/17 treating with bronchodilators and steroids. He is not sleeping well. Will try to decrease the steroids. 04/14/2017 continuing with bronchodilators and steroids. Keep steroids on the low side. Difficulty sleeping. 04/15/2017 clearly has acute bronchitis. Trying to keep steroids on the low side due to difficulty sleeping. He did sleep better last night. Current Visit: No (5) Diabetes Status: Acute Assessment and plan: Blood sugars tend to go up with steroids of course. 04/14/2017 continuing sliding scale. Glucoses well controlled. 04/15/2017 glucoses look better 04/16/2017 glucoses doing okay. Current Visit: No (6) Acute exacerbation of chronic obstructive airways disease Status: Acute Assessment and plan: Treat with steroids and bronchodilators as well as empiric antibiotics. 04/11/17 continuing bronchodilators. 04/14/2017 again continuing bronchodilator steroids and antibiotics. Current Visit: Yes (7) Bronchopneumonia due to methicillin resistant Staphylococcus aureus (MRSA) Status: Acute Assessment and plan: Probably needs about 2 weeks of vancomycin. Current Visit: Yes
--- NOTE | 2017-04-16 11:59 | Discharge Summary ---
Hospital Course - Hospital Course Hospital Course: 86-year-old male with documented tracheomalacia and coexistent bronchomalacia with recurrent episodes of retained secretions and presumed secondary infection with purulent bronchitis was readmitted for increased shortness of breath. Once again a bronchoscopy he was demonstrated to have retained secretions. Chest x-ray did not show infiltrates however positive cultures for Rukhsana and MRSA were obtained. He was placed on vancomycin. As is typical he had variable airway resistance but no substantial hypoxemia during the course of hospital stay. He remained afebrile. The patient has an elevated serum creatinine level with what looks like an element of prerenal azotemia. Due to continuing needs for vancomycin and potential need for repeat bronchoscopy Mr. Martell was persuaded to accept referral to LTAC. Diagnosis - Discharge Diagnosis (1) Tracheomalacia Status: Chronic (2) Renal insufficiency Status: Chronic (3) Paroxysmal atrial fibrillation Status: Chronic Discharge Plan - Discharge Data Disposition: Disch/Xfer to [facility] Condition at Discharge: Stable Discharge Diet: advance to your usual diet - Discharge Medications New Atorvastatin [Lipitor] 20 mg PO BEDTIME tablet Budesonide Neb [Pulmicort Respules] 0.5 mg RESP TX RT BID Calcium (Carbonate) [Caltrate 600] 600 mg PO BIDAC tablet Dextrose 50% [D50] 25 gm IV PRN PRN vial PRN Reason: Hypoglycemia with IV access Formoterol Neb [Perforomist] 20 mcg RESP TX RT BID Gabapentin Cap/Tab [Neurontin Cap/Tab] 300 mg PO BID@0800,1200 capsule Gabapentin Cap/Tab [Neurontin Cap/Tab] 600 mg PO BEDTIME capsule Glucagon 1 mg IM PRN PRN vial PRN Reason: Hypoglycemia w/o IV access HYDROcodone/ACETAMIN 5-325 [Huntley 5-325] 1 tablet PO Q4H PRN tablet PRN Reason: Pain Moderate (4-7) Insulin Regular [HumuLIN R] See Protocol SUBCUT ACHS unit Ipratropium Neb [Atrovent Neb] 500 mcg RESP TX RT QID Lactulose Liquid [Chronulac] 10 gm PO BID PRN PRN Reason: Constipation Levothyroxine Tab [Synthroid Tab] 100 mcg PO DAILY@0700 tablet methylPREDNISolone SOD SUC INJ [SoluMEDROL] 40 mg IV Q24H vial Midodrine [Proamatine] 5 mg PO BID tablet Ondansetron Inj [Zofran Inj] 4 mg IV Q4H PRN vial PRN Reason: Nausea Sertraline [Zoloft] 50 mg PO BEDTIME tablet Tamsulosin [Flomax] 0.4 mg PO BEDTIME capsule Vancomycin Inj 1,250 mg IV Q24H vial Zaleplon [Sonata] 5 mg PO BEDTIME PRN capsule PRN Reason: Insomnia Amiodarone Tab [Cordarone Tab] 200 mg PO BEDTIME tablet Aspirin EC Tab 81 mg PO MOWEFR tablet Donepezil [Aricept] 5 mg PO QAM tablet guaiFENesin/DM ER 600-30 [Mucinex Dm 600-30 MG] 1 tablet PO BID PRN tablet PRN Reason: Congestion Isosorbide Dinitrate [Isordil] 10 mg PO DAILY PRN tablet PRN Reason: Chest Pain Multivitamin (Ocuvite) [Ocuvite] 1 tablet PO BID tablet Discontinued Tamsulosin [Flomax] 0.4 mg PO BEDTIME Donepezil [Aricept] 5 mg PO QAM Gabapentin 300 mg PO BID@0800,1200 Levothyroxine Tab [Synthroid Tab] 100 mcg PO DAILY@0700 Sertraline [Zoloft] 50 mg PO BEDTIME Aspirin [Ecotrin] 81 mg PO MOWEFR Lactulose Liquid [Chronulac] 15 ml PO BID PRN PRN Reason: Constipation Midodrine HCl 5 mg PO BID Gabapentin Cap/Tab [Neurontin Cap/Tab] 600 mg PO BEDTIME Calcium Carbonate 650 mg PO BIDAC Amiodarone HCl 200 mg PO BEDTIME Multivitamin (Ocuvite) [Ocuvite] 1 tablet PO BID Atorvastatin [Lipitor] 20 mg PO BEDTIME Budesonide Neb [Pulmicort Respules] 0.5 mg RESP TX BID Formoterol Neb [Perforomist] 20 mcg RESP TX RT BID Isosorbide Dinitrate 10 mg PO DAILY PRN PRN Reason: Chest Pain No Action Tiotropium Inhalation [Spiriva Handihaler] 1 puff INH DAILY W/SUPPER Potassium Chloride 40 meq PO DAILY Acetaminophen Tab [Tylenol Tab] 325 mg PO Q4H PRN #0 tablet PRN Reason: fever, headache/body aches Azithromycin Tab [Zithromax Tab] 250 mg PO MOWEFR Levofloxacin Tab [Levaquin Tab] 500 mg PO DAILY #10 tablet predniSONE TAB [PredniSONE] 20 mg PO QAM - Follow Up or Referral - Forms/Instructions Exam - Constitutional Vitals: Period Temp Pulse Resp BP Sys/Morrow Pulse Ox Last 24 Hr 97.0 F-98.4 F 56-84 16-20 123-162/51-92 90-99 Discharge Results Procedures and tests throughout hospitalization: Pending Orders 04/11/17 07:50 AFB Culture/Smears Routine Fungal Culture w/ Prep Routine 04/17/17 04:00 Basic Metabolic Panel IN AM 04/18/17 04:00 Basic Metabolic Panel IN AM Labs on day of discharge: Labs from last 24 hours 04/16/17 04/16/17 04/16/17 11:36 07:25 05:47 Sodium 142 Potassium 4.0 Chloride 110 H Carbon Dioxide 22 Anion Gap 14.0 BUN 50 H Creatinine 1.90 H GFR Calculation 37 BUN/Creatinine Ratio 26.00 H Glucose 95 POC Glucose 112 H 77 Calculated Osmolality 295.1 Calcium 8.0 L 04/15/17 04/15/17 04/15/17 21:57 17:40 07:18 Sodium Potassium Chloride Carbon Dioxide Anion Gap BUN Creatinine GFR Calculation BUN/Creatinine Ratio Glucose POC Glucose 113 H 174 H 99 Calculated Osmolality Calcium Preliminary micro results at discharge 04/11/17 07:50 Fungal Culture - Preliminary Bronchial Washings Rukhsana albicans DS: Provider Date of admission: 04/09/17 16:59 Primary care physician: . No PCP Attending physician on admission: Dayday Boyd MD Consults: 04/09/17 18:42 Consult to Physician [CONS] Routine Comment: Consulting Provider: Chris Boswell Person Notified: reina Date Notified: 04/10/17 Time Notified: 09:45 Consult Notification Comment: 04/13/17 11:47 Consult to Pharmacy [CONS] Routine Reason for Pharmacy Consult: Dose/Manage Vancomycin 04/14/17 20:51 Consult to Case Mgmt/Social Srvs [CONS] Routine Reason for Case Mgmt/Social Srvs: Discharge Planning LTAC Discharging clinician: Henry Villanueva MD Expected date of discharge: 04/16/17
[2017-04-16 12:15] VITALS: BP 132/66
[2017-04-16] MEDS: VANCOMYCIN INJ 1,250 MG in SODIUM CHLORIDE 0.9% 250 ML IV SCH (15:15)
== END 2017-04-16 15:00 | DRG 190 ==
LOC: N.ED 15:11 → N.EDINP 16:59 → SUATTDRO 16:59 → N.EDINP 18:19 → N.5E 18:36
PROVIDERS: ADMIT Internal Medicine; ATTEND Internal Medicine Cardiovascular Disease

== ENCOUNTER 2017-06-15 10:55 | Inpatient (IN) ==
[2017-06-15] MEDS ORDERED: methylPREDNISolone SOD SUC 40 MG/1 ML VIAL IV STA (11:11)
[2017-06-15] MEDS ORDERED: LEVOFLOXACIN INJ 500 MG in PREMIX 1 EACH IV STA (11:11)
[2017-06-15 11:36] LABS: Basophils % 0.3 % (0.0-0.8); Eosinophils # 0.1 10*3/uL (0.0-0.87); Eosinophils % 1.2 % (0.00-10.9); Hematocrit 28.8 VOL% (42.0-52.0); Hemoglobin 9.3 GM/DL (14.0-18.0); Immature Granulocytes % 0.5 %; Immature Granulocytes Absolute 0.04 #; Lymphocytes # 1.4 10*3/uL (1.4-4.0); Lymphocytes % 18.4 % (21.2-54.2); Mean Corpuscular HGB Conc 32.3 GM/DL (32-36); Mean Corpuscular Hemoglobin 32 PG (27-34); Mean Corpuscular Volume 99.3 FL (87-102); Mean Platelet Volume 9.9 FL (9.6-12.0); Monocytes % 13.1 % (1.7-12.7); Neutrophils # 4.9 10*3/uL (1.4-7.4); Neutrophils % 66.5 % (38.7-73.9); Platelet Count 119 T/CUMM (130-400); Red Cell Distribution Width 16.3 % (9.3-17.3); White Blood Count 7.3 T/CUMM (4-12)
[2017-06-15] MEDS ORDERED: methylPREDNISolone SOD SUC 40 MG/1 ML VIAL ONE (11:38)
[2017-06-15] MEDS ORDERED: LEVOFLOXACIN INJ 100 ML IV ONE (11:38)
--- NOTE | 2017-06-15 11:58 | XRay Report ---
History: Shortness of breath Date: 06/15/2017 Study: Chest x-ray AP portable Comparison exam: June 13, 2017 There is continued cardiomegaly. The mediastinal contours are unchanged. The pulmonary vasculature is borderline prominent. There is some focal patchy infiltrate or edema in the right mid lung. There is some minor strandy atelectatic change in the lung bases. The osseous structures are unchanged. Impression: Patchy right mid lung parenchymal disease which could represent focal pneumonia or some focal asymmetric pulmonary edema. Clinical correlation is requested. There is cardiomegaly and borderline pulmonary venous hypertension PROCEDURE INTERPRETED AT [facility] DEPARTMENT OF RADIOLOGY Final Report Signed by: Dr. Britney Kimble
[2017-06-15 12:03] LABS: Calcium 7.9 MG/DL (8.5-10.1); Osmolality,Calculated 292.8 MOS/KG (273-304); Potassium 4.6 MMOL/L (3.5-5.1)
[2017-06-15 12:32] LABS: Band Neutrophils 9 % (0-10); Eosinophils 3 % (0-10); Hypochromasia Slight; Lymphocytes 25 % (20-55); Microcytosis 1+; Segmented Neutrophils 55 % (50-85); Total Cells Counted 100
[2017-06-15 12:33] LABS: Ovalocytes Slight; Platelet Estimate Adequate; Tear Drop Cells Slight
--- NOTE | 2017-06-15 12:44 | Emergency Department Note ---
Hal Edmonds Brittany, am scribing for, and in the presence of, Tay Reza MD 11:16. Juaquin Edmonds Doug C, MD, personally performed the services described in this documentation, ascribed by Judith Hong in my presence, and it is both accurate and complete . Arrival - Arrival Chief Complaint: Upper Respiratory Stated Complaint: weak hurt all over ED Nursing Triage Note: C/o weakness, productive cough, body aches, and fever- onset 4 days ago. Seen here on Friday and dx with bronchitis, but states he is no better. reports patient has fallen several times since yesterday. Temp 100.5 at home. Mode of Arrival: Wheelchair Limitations: No Limitations Source: Patient, Family Time Seen by Provider: 06/15/17 11:03 - History of Present Illness HPI Narrative: Patient is a 86-year-old white male brought from home with complaint of increasing weakness, falling recurrently and hurting all over. Patient's states he is fallen 4 times since yesterday and he appears to be more short of breath to her which he denies. Patient has had a low-grade fever at home according to the is also developing a productive cough with sputum being very dark in color. Is not having any chest pain with shortness of breath and he denies any nausea, vomiting or diaphoresis. Patient was seen in the emergency room yesterday and his main complaint was phantom pain in his right lower extremity. He was dyspneic at that time but he states he is always dyspneic due to his COPD. He states his falls are precipitated by weakness in his lower extremities when he is up and about. Onset (ago): day(s) (Started 4 days ago) Consistency: constant Severity: moderate Allergies/Adverse Reactions: Allergies Allergy/AdvReac Type Severity Reaction Status Date / Time Penicillins Allergy RASH Verified 04/09/17 15:39 albuterol AdvReac Chest Pain Verified 04/09/17 15:39 Procaine [From Novocain] AdvReac Chest Pain Verified 04/09/17 15:39 Home Medications: Home Medications Medication Instructions Recorded Confirmed Type Tiotropium Inhalation [Spiriva 1 puff INH DAILY 06/16/15 06/15/17 History Handihaler] Aspirin EC Tab 81 mg PO MOWEFR tablet 04/16/17 06/15/17 Rx Atorvastatin [Lipitor] 20 mg PO BEDTIME tablet 04/16/17 06/15/17 Rx Budesonide Neb [Pulmicort Respules] 0.5 mg RESP TX RT BID 04/16/17 06/15/17 Rx Formoterol Neb [Perforomist] 20 mcg RESP TX RT BID 04/16/17 06/15/17 Rx Tamsulosin [Flomax] 0.4 mg PO BEDTIME capsule 04/16/17 06/15/17 Rx Donepezil [Aricept] 5 mg PO DAILY 05/16/17 06/15/17 History Gabapentin Cap/Tab [Neurontin 300 mg PO BID 05/16/17 06/15/17 History Cap/Tab] Gabapentin Cap/Tab [Neurontin 600 mg PO BEDTIME 05/16/17 06/15/17 History Cap/Tab] Levothyroxine Tab [Synthroid Tab] 100 mcg PO DAILY 05/16/17 06/15/17 History Acetaminophen Tab [Tylenol Tab] 650 mg PO Q6H PRN 06/13/17 06/15/17 History Calcium Carbonate 600 mg PO BID 06/13/17 06/15/17 History Clindamycin Cap [Cleocin Cap] 300 mg PO Q8HR #20 capsule 06/13/17 06/15/17 Rx Cyanocobalamin (Vitamin B-12) 2,500 mcg PO DAILY 06/13/17 06/15/17 History [Vitamin B12] Docusate Sodium [Stool Softener] 100 mg PO DAILY PRN 06/13/17 06/15/17 History Multivitamin (Ocuvite) [Ocuvite] 1 tablet PO DAILY 06/13/17 06/15/17 History Sertraline HCl 50 mg PO BEDTIME 06/13/17 06/15/17 History predniSONE TAB [PredniSONE] 10 mg PO DAILY 06/13/17 06/15/17 History Azithromycin Tab [Zithromax Tab] 250 mg PO MOWEFR 06/15/17 06/15/17 History HYDROcodone/ACETAMIN 5-325 [Universal 1 tablet PO Q6H PRN 06/15/17 06/15/17 History 5-325] Lactulose 10 gm PO BID PRN 06/15/17 06/15/17 History Memantine [Namenda] 10 mg PO BID 06/15/17 06/15/17 History Midodrine HCl 5 mg PO TID 06/15/17 06/15/17 History Omeprazole [Prilosec] 20 mg PO BID 06/15/17 06/15/17 History Potassium Chloride 40 meq PO BID 06/15/17 06/15/17 History Vit C/Vit E AC/Lut/Copper/Zinc 2 each PO BID 06/15/17 06/15/17 History [Preservision Lutein Softgel] clonazePAM [Clonazepam] 1 mg PO BEDTIME PRN 06/15/17 06/15/17 History Review of System - Review of System 12 point system: reviewed and no additional remarkable complaints except as stated - Review of System Review of Systems: Multiple (4) falls yesterday Constitutional: Present: fever, weakness (Generalized weakness). Absent: chills (No chills but has been cold ) Respiratory: Present: cough (Dark sputum ) Cardiovascular: Absent: chest pain, dyspnea on exertion (No SOB per pt but per pt is more SOB than normal. ) Medical,Surgical,& Family Hx - Medical History Cardio: History of: Cardiac Dysrhythmia (hx of afib), Hypertension, Cardiovascular Problems No history of: Aneurysm, Cerebrovascular Disease, Congenital Heart Disease, CHF, CAD, MD, Pacemaker, PVD, Valvular Heart Disease Psychological: History of: Anxiety Disorders, Depression No history of: ADHD, Behavior Problems, Bipolar Disorder, Previous Suicide Attempt, Psychiatric/Substance Abuse Tx, Schizophrenia, Violent Behavior, Psychiatric Problems Neurology: History of: Dementia No history of: Brain Aneurysm, Cerebral Hemorrhage, Cerebrovascular Accident , Cerebral Palsy, Migraine, Multiple Sclerosis, Parkinson's Disease, Peripheral Neuropathy, Seizures, TIA, Vertigo, Neurologocal Cancer HEENT: History of: Ear Problem, Eye Problem No history of: Dental Problems, Glaucoma, Oral Cancer, HEENT Problems Endocrine: History of: Dyslipidemia, Thyroid Disorder No history of: Adrenal Disease, Diabetes Mellitus (IDDM), Diabetes Mellitus ( NIDDM), Endocrine Cancer, Endocrine Problems Rheumatology: History of;: Rheumatoid Arthritis No history of;: Psoriasis, Sjogrens, Systemic Lupus Erythematosus Respiratory: History of: Bronchitis, COPD, Obstructive Sleep Apnea, Pneumonia No history of: Asthma, Intubation, Pulmonary Embolism, Pulmonary Hypertension , Lung Cancer, Respiratory Problems Renal: History of: Renal Failure No history of: Renal (Kidney) Cancer, Dialysis, Renal Problems Genitourinary: No history of: Bladder Problem, Kidney Stones, Prostate Problems, Recurring Urinary Tract Infections, Genitourinary Cancer, Problems Gastrointestinal: History of: GERD, GI Problems (colon cancer) Musculoskeletal: History of: Amputation (RIGHT BKA), Back/Neck Problems, Degenerative Disk Disease Hematology: History of: Anemia, Hematologic Cancer No history of: Blood Transfusion Reaction, Bleeding Problems, Clotting Problems, Sickle Cell Disease, Blood Disorders Reproductive: No histroy: Penile Disorder, Sexually Transmitted Disease, Reproductive Cancer, Reproductive Problems Other: History of: Cancer No history of: Anesthesia Reactions, Anaphylaxis, Eczema, HIV, Malignant Hyperthermia, MRSA, Vancomycin-Resistant Enterococci, Skin Problems, Miscellaneous Medical Problems - Surgical History Cardiac Surgeries: Sugical HX of: Cardiac Catheterization, Cardiac Surgery ( STENTS X4) Patient Denies: Femoral-Popliteal Bypass Graft, Carotid Endarterectomy, Internal Defibrillator, Vascular Access Devices Thoracic Surgeries: Patient denies;: Kidney (Renal Surgery), Lithotripsy, Nephrectomy, Organ Transplant, Lobectomy Neurologic Surgeries: Patient denies: Brain Aneurysm, Cerebral Hemorrhage, Neurologic Surgery HEENT Surgeries: Patient denies: Carotid Endarterectomy, Eye Surgery, Thyroid Surgery, Tonsilectomy & Adenoidectomy Abdominal Surgeries: Surgical HX of: Appendectomy, Cholecystectomy, Colonoscopy , EGD Patient denies: Abdominal Surgery, Gastric Bypass Surgery, Hernia Repair, Splenectomy Reproductive Surgeries: Patient denies;: Breast Surgery, Cystoscopy, Genitourinary Surgery, Prostate Surgery, Vasectomy - Family History Family History: Reports;: Family Cancer (brother- lung), Family Diabetes (mother ), Family Heart Disease (mother, brother times 2), Family Hypertension (brother) Denies;: Family Anesthesia Reaction, Family Psychiatric Problems, Family Stroke - Social History Smoking Status: Former smoker Frequency of Alcohol Use: None Type of Drug Use: None Exam Vital Signs: Vital Signs Temperature 99.1 F 06/15/17 10:56 Pulse Rate 72 06/15/17 11:45 Respiratory Rate 20 06/15/17 11:45 Blood Pressure 121/52 06/15/17 11:45 O2 Sat by Pulse Oximetry 99 06/15/17 11:45 - General General appearance: alert, in no apparent distress - Head Head exam: Present: atraumatic, normocephalic, normal inspection - Eye Eye exam: Present: normal appearance, PERRL, EOMI. Absent: scleral icterus, conjunctival injection, nystagmus, miosis, mydriasis, periorbital swelling, periorbital tenderness - ENT ENT exam: Present: normal exam, normal oropharynx, mucous membranes moist, TM's normal bilaterally, normal external ear exam - Neck Neck exam: Present: normal inspection, full ROM, trachea midline. Absent: tenderness, meningismus, lymphadenopathy, thyromegaly - Chest Chest inspection: Present: normal inspection, symmetric chest wall rise. Absent : tenderness, rash, abscess - Respiratory Respiratory exam: Present: rhonchi (Rhonci in all lung razo). Absent: prolonged expiratory phase, rales, respiratory distress, stridor, wheezes - Cardiovascular Cardiovascular exam: Present: regular rate, normal rhythm, normal heart sounds. Absent: murmur, rubs, gallop, clicks, JVD - Abdominal Exam Abdominal exam: Present: soft, normal bowel sounds. Absent: distention, tenderness, guarding, rebound, rigidity - Rectal Exam Rectal exam: Present: deferred - Extremities Exam Extremities exam: Present: normal capillary refill, other (Echymosis noted to the right posterior arm and the left elbow secondary to mulitple falls over the past 24 hours. ). Absent: calf tenderness - Back Exam Back exam: Present: normal inspection, full ROM. Absent: tenderness, muscle spasm, rashes - Neurological Exam Neurological exam: Present: alert, oriented X3, CN II-XII intact. Absent: motor sensory deficit - Psychiatric Psychiatric exam: Present: normal affect, normal mood. Absent: depressed, agitated, anxious, flat affect, manic - Skin Skin exam: Present: warm, dry, intact, normal color. Absent: rash, cyanosis, diaphoresis, erythema, pallor, mottled Course Course Narrative: Patient was found to have questionable infiltrate in the right chest. Cultures were obtained and IV Levaquin was started. I discussed his clinical presentation, laboratory and radiograph findings with Jc who is covering the hospitalist service. He will arrange for patient to be seen in the emergency room and evaluated for admission Results - Labs CBC & BMP: 06/15/17 11:25 06/15/17 11:25 Lab Results: I have reviewed the patients labs Labs: Laboratory Tests 06/15/17 11:25 WBC 7.3 RBC 2.90 L Hgb 9.3 L Hct 28.8 L MCV 99.3 MCH 32 MCHC 32.3 RDW 16.3 Plt Count 119 L MPV 9.9 Neut % (Auto) 66.5 Lymph % (Auto) 18.4 L Garland % (Auto) 13.1 H Eos % (Auto) 1.2 Baso % (Auto) 0.3 Neut # (Auto) 4.9 Lymph # (Auto) 1.4 Garland # (Auto) 1.0 H Eos # (Auto) 0.1 Baso # (Auto) 0.0 Immature Gran % 0.5 Nucleated RBC % 0.0 Immature Gran # 0.04 Nucleated RBCs # 0.00 Immature Plt Fraction 0.0 Laboratory Tests 06/15/17 11:25 Total Counted 100 Segmented Neutrophils 55 Band Neutrophils 9 Lymphocytes 25 Monocytes 8 Eosinophils 3 Platelet Estimate Adequate Hypochromasia Slight Microcytosis 1+ Tear Drop Cells Slight Ovalocytes Slight - Diagnostic Findings Procedure: Chest x-ray: report reviewed by me (Patchy right mild lung parenchymal disease which could represnt focal pnemonia or some focal pneumonia or some focal asymmetric pulmonary edema. Clinical correlation is reuquested. There si cardiomegaly and borderline pulmonary venous hypertension. ) Disposition Clinical Impression: Pneumonia Case discussed with: patient, patient's family Disposition: Still a Patient Condition: Guarded Time of Disposition: 12:44
[2017-06-15] MEDS ORDERED: ONDANSETRON 4 MG/2 ML VIAL IV PRN (14:00)
[2017-06-15] MEDS ORDERED: cefTRIAXone 1,000 MG in SODIUM CHLORIDE 0.9% 100 ML IV SCH (15:00)
[2017-06-15] MEDS ORDERED: GLUCAGON 1 MG VIAL IM PRN (15:02)
[2017-06-15] MEDS ORDERED: DEXTROSE 50% 25 GM/50 ML SYRINGE IV PRN (15:02)
--- NOTE | 2017-06-15 15:02 | Hospitalist History & Physical ---
<Maryanne Martin - Last Filed: 06/15/17 15:32> Assessment and Plan (1) Pneumonia Status: Acute Assessment and plan: Admit as inpatient. Start patient on IV antibiotics. IV steroids and breathing treatments. Monitor O2 saturations. Consult Dr. Boswell to evaluate. Current Visit: No (2) Renal insufficiency Status: Chronic Assessment and plan: Daily BMPs. Continue to monitor. Avoid nephrotoxic agents. Current Visit: No (3) Dementia Status: Chronic Assessment and plan: Continue home medications. Current Visit: No (4) Diabetes Status: Acute Assessment and plan: Accu-Cheks. SSI. Hemoglobin A 1c in am. Diabetic diet. Current Visit: No (5) Hypertension Status: Chronic Assessment and plan: Monitor routine vitals. Restart home medications Current Visit: No Qualifiers: Hypertension type: essential hypertension Qualified Code(s): I10 - Essential (primary) hypertension History of Present Illness Chief complaint: Weakness/falls History of present illness: Mr. Martell is a 86 year old white male with a history of GERD, hypertension, diabetes, CHF hypothyroidism, COPD, dementia, colon cancer presents to the ED for further evaluation of increasing weakness, current falls, and aching all over patient's is present at the bedside and provides most of the history for the patient. Patient's states that the patient fell 4 times yesterday and he appears to be more short of breath. Patient states that he falls because of weakness in his lower extremities. He denies losing consciousness or hitting his head during any of the falls. Patient was seen and examined at the bedside with Dr. Meehan present. Patient reports a productive cough that is very dark in color along with a low-grade fever and chills. Patient's also stated that the patient was having issues with phantom pain in his right lower extremity. She reports the patient was seen in the ED on yesterday and given an antibiotic (clindamycin). The weakness continued and patient's brought him he needs to be further examined. In the ED chest x-ray revealed ' patchy right midlung parenchymal disease which could represent focal pneumonia or some focal asymmetric pulmonary edema '. Labs revealed a Hgb of 9.3 and HCT of 28.8, BUN/creatinine 33/2 respectively. Patient was admitted to the hospitalist service for further evaluation. IV antibiotics, IV steroids and breathing treatments will be administered. Patient will be closely monitored. Home Medications Medication Instructions Recorded Confirmed Type Tiotropium Inhalation [Spiriva 1 puff INH DAILY 06/16/15 06/15/17 History Handihaler] Aspirin EC Tab 81 mg PO MOWEFR tablet 04/16/17 06/15/17 Rx Atorvastatin [Lipitor] 20 mg PO BEDTIME tablet 04/16/17 06/15/17 Rx Budesonide Neb [Pulmicort Respules] 0.5 mg RESP TX RT BID 04/16/17 06/15/17 Rx Formoterol Neb [Perforomist] 20 mcg RESP TX RT BID 04/16/17 06/15/17 Rx Tamsulosin [Flomax] 0.4 mg PO BEDTIME capsule 04/16/17 06/15/17 Rx Donepezil [Aricept] 5 mg PO DAILY 05/16/17 06/15/17 History Gabapentin Cap/Tab [Neurontin 300 mg PO BID 05/16/17 06/15/17 History Cap/Tab] Gabapentin Cap/Tab [Neurontin 600 mg PO BEDTIME 05/16/17 06/15/17 History Cap/Tab] Levothyroxine Tab [Synthroid Tab] 100 mcg PO DAILY 05/16/17 06/15/17 History Acetaminophen Tab [Tylenol Tab] 650 mg PO Q6H PRN 06/13/17 06/15/17 History Calcium Carbonate 600 mg PO BID 06/13/17 06/15/17 History Clindamycin Cap [Cleocin Cap] 300 mg PO Q8HR #20 capsule 06/13/17 06/15/17 Rx Cyanocobalamin (Vitamin B-12) 2,500 mcg PO DAILY 06/13/17 06/15/17 History [Vitamin B12] Docusate Sodium [Stool Softener] 100 mg PO DAILY PRN 06/13/17 06/15/17 History Multivitamin (Ocuvite) [Ocuvite] 1 tablet PO DAILY 06/13/17 06/15/17 History Sertraline HCl 50 mg PO BEDTIME 06/13/17 06/15/17 History predniSONE TAB [PredniSONE] 10 mg PO DAILY 06/13/17 06/15/17 History Azithromycin Tab [Zithromax Tab] 250 mg PO MOWEFR 06/15/17 06/15/17 History HYDROcodone/ACETAMIN 5-325 [[place] 1 tablet PO Q6H PRN 06/15/17 06/15/17 History 5-325] Lactulose 10 gm PO BID PRN 06/15/17 06/15/17 History Memantine [Namenda] 10 mg PO BID 06/15/17 06/15/17 History Midodrine HCl 5 mg PO TID 06/15/17 06/15/17 History Omeprazole [Prilosec] 20 mg PO BID 06/15/17 06/15/17 History Potassium Chloride 40 meq PO BID 06/15/17 06/15/17 History Vit C/Vit E AC/Lut/Copper/Zinc 2 each PO BID 06/15/17 06/15/17 History [Preservision Lutein Softgel] clonazePAM [Clonazepam] 1 mg PO BEDTIME PRN 06/15/17 06/15/17 History Allergies Allergy/AdvReac Type Severity Reaction Status Date / Time Penicillins Allergy RASH Verified 04/09/17 15:39 albuterol AdvReac Chest Pain Verified 04/09/17 15:39 Procaine [From Novocain] AdvReac Chest Pain Verified 04/09/17 15:39 Medical,Surgical,& Family Hx - Medical History Cardio: History of: Cardiac Dysrhythmia (hx of afib), Hypertension, Cardiovascular Problems No history of: Aneurysm, Cerebrovascular Disease, Congenital Heart Disease, CHF, CAD, [place], Pacemaker, PVD, Valvular Heart Disease Psychological: History of: Anxiety Disorders, Depression No history of: ADHD, Behavior Problems, Bipolar Disorder, Previous Suicide Attempt, Psychiatric/Substance Abuse Tx, Schizophrenia, Violent Behavior, Psychiatric Problems Neurology: History of: Dementia No history of: Brain Aneurysm, Cerebral Hemorrhage, Cerebrovascular Accident , Cerebral Palsy, Migraine, Multiple Sclerosis, Parkinson's Disease, Peripheral Neuropathy, Seizures, TIA, Vertigo, Neurologocal Cancer HEENT: History of: Ear Problem, Eye Problem No history of: Dental Problems, Glaucoma, Oral Cancer, HEENT Problems Endocrine: History of: Dyslipidemia, Thyroid Disorder No history of: Adrenal Disease, Diabetes Mellitus (IDDM), Diabetes Mellitus ( NIDDM), Endocrine Cancer, Endocrine Problems Rheumatology: History of;: Rheumatoid Arthritis No history of;: Psoriasis, Sjogrens, Systemic Lupus Erythematosus Respiratory: History of: Bronchitis, COPD, Obstructive Sleep Apnea, Pneumonia No history of: Asthma, Intubation, Pulmonary Embolism, Pulmonary Hypertension , Lung Cancer, Respiratory Problems Renal: History of: Renal Failure No history of: Renal (Kidney) Cancer, Dialysis, Renal Problems Genitourinary: No history of: Bladder Problem, Kidney Stones, Prostate Problems, Recurring Urinary Tract Infections, Genitourinary Cancer, Problems Gastrointestinal: History of: GERD, GI Problems (colon cancer) Musculoskeletal: History of: Amputation (RIGHT BKA), Back/Neck Problems, Degenerative Disk Disease Hematology: History of: Anemia, Hematologic Cancer No history of: Blood Transfusion Reaction, Bleeding Problems, Clotting Problems, Sickle Cell Disease, Blood Disorders Reproductive: No histroy: Penile Disorder, Sexually Transmitted Disease, Reproductive Cancer, Reproductive Problems Other: History of: Cancer No history of: Anesthesia Reactions, Anaphylaxis, Eczema, HIV, Malignant Hyperthermia, MRSA, Vancomycin-Resistant Enterococci, Skin Problems, Miscellaneous Medical Problems - Surgical History Cardiac Surgeries: Sugical HX of: Cardiac Catheterization, Cardiac Surgery ( STENTS X4) Patient Denies: Femoral-Popliteal Bypass Graft, Carotid Endarterectomy, Internal Defibrillator, Vascular Access Devices Thoracic Surgeries: Patient denies;: Kidney (Renal Surgery), Lithotripsy, Nephrectomy, Organ Transplant, Lobectomy Neurologic Surgeries: Patient denies: Brain Aneurysm, Cerebral Hemorrhage, Neurologic Surgery HEENT Surgeries: Patient denies: Carotid Endarterectomy, Eye Surgery, Thyroid Surgery, Tonsilectomy & Adenoidectomy Abdominal Surgeries: Surgical HX of: Appendectomy, Cholecystectomy, Colonoscopy , EGD Patient denies: Abdominal Surgery, Gastric Bypass Surgery, Hernia Repair, Splenectomy Reproductive Surgeries: Patient denies;: Breast Surgery, Cystoscopy, Genitourinary Surgery, Prostate Surgery, Vasectomy - Family History Family History: Reports;: Family Cancer (brother- lung), Family Diabetes (mother ), Family Heart Disease (mother, brother times 2), Family Hypertension (brother) Denies;: Family Anesthesia Reaction, Family Psychiatric Problems, Family Stroke - Social History Smoking Status: Former smoker Frequency of Alcohol Use: None Type of Drug Use: None Marital Status: Lives With:: Spouse Functional capacity: uses cane/walker - Constitutional Constitutional: Present: chills, fever(s) - EENT Ears: Present: decreased hearing - Cardiovascular Cardiovascular: Present: dyspnea on exertion, edema. Absent: chest pain at rest - Respiratory Respiratory: Present: cough (productive) - Gastrointestinal Gastrointestinal: Absent: abdominal pain, nausea, vomiting - Genitourinary Genitourinary: Absent: difficulty urinating, hematuria - Neurological Neurological: Present: frequent falls. Absent: dizziness - Psychiatric Psychiatric: Present: anxiety - Hematologic/Lymphatic Hematologic/Lymphatic: Present: easy bruising Exam - Constitutional Vitals: Period Temp Pulse Resp BP Sys/Morrow Pulse Ox Last 24 Hr 99.1 F-99.1 F 72-77 18-24 102-153/45-73 98-994 General appearance: no acute distress, over weight - Head Head exam: Present: normal inspection, normocephalic - Eye Eye exam: Present: EOMI Pupils: Present: RADHA - Respiratory Respiratory exam: Present: rhonchi. Absent: clear to auscultation bilaterally - Cardiovascular Cardiovascular exam: Present: regular rate and rhythm - GI/Abdominal GI/Abdominal exam: Present: normal bowel sounds, soft. Absent: tenderness - Extremities Exam Extremities exam: Present: normal capillary refill, edema (LLE ), other (pt has prosthetic right limb) - Neurological Exam Neurological exam: Present: alert, oriented X3 - Psychiatric Psychiatric exam: Present: normal affect, normal mood - Skin Skin exam: Present: normal color, warm, dry Results - Labs CBC & BMP: 06/15/17 11:25 06/15/17 11:25 Lab Results: I have reviewed the past 24 hour labs <Skye Meehan - Last Filed: 06/15/17 16:58> History of Present Illness History of present illness: Patient seen and examined along with IN STORE MARKETING REPRESENTATIVE Martin, agree with history, assessment and plan as documented. Patient with history of tracheobronchomalacia being admitted for pneumonia. He has coarse junky breath sounds that can be heard without a stethoscope. Will start rocephin and azithromycin for now. With his history he might need broader coverage, will monitor for now. Also breathing treatments and steroids. Will consult his exchange teller, Dr. Boswell. History of falls that he associates with sickness and weakness. Will consult PT once more stable. Exam - Constitutional Vitals: Period Temp Pulse Resp BP Sys/Morrow Pulse Ox Last 24 Hr 98.7 F-99.1 F 72-78 18-24 102-160/45-73 96-994 Results - Labs CBC & BMP: 06/15/17 11:25 06/15/17 11:25
[2017-06-15] MEDS: MIDODRINE 5 MG TABLET PO SCH ×2 (16:02→21:42)
[2017-06-15] MEDS: AZITHROMYCIN INJ 500 MG in SODIUM CHLORIDE 0.9% 250 ML IV SCH (17:18)
[2017-06-15] MEDS: INSULIN LISPRO 100 UNIT/ML SUBCUT SCH ×2 (17:55→21:14)
[2017-06-15] MEDS: FORMOTEROL 20 MCG/2 ML NEB RESP TX SCH (20:36)
[2017-06-15] MEDS: IPRATROPIUM 500 MCG/2.5 ML NEB RESP TX SCH (20:36)
[2017-06-15] MEDS: methylPREDNISolone SOD SUC 40 MG/1 ML VIAL IV SCH (21:41)
[2017-06-15] MEDS: TAMSULOSIN 0.4 MG CAPSULE PO SCH (21:41)
[2017-06-15] MEDS: CALCIUM (CARBONATE) 600 MG TABLET PO SCH (21:41)
[2017-06-15] MEDS: ATORVASTATIN 20 MG TABLET PO SCH (21:41)
[2017-06-15] MEDS: MEMANTINE 10 MG TABLET PO SCH (21:41)
[2017-06-15] MEDS: SERTRALINE 50 MG TABLET PO SCH (21:41)
[2017-06-16 00:16] LABS: Apearance,Urine CLEAR (Clear); Bilirubin,Urine Negative (Negative); Blood, Urine Negative (Negative); Glucose,Urine (UA) Negative (Negative); Ketones,Urine Negative (Negative); Nitrite,Urine Negative (Negative); Protein,Urine Negative; RBC,Urine <1 /HPF (0-4); Urine Color Straw (Yellow); Urine Specific Gravity 1.008 (1.001-1.035); Urine Urobilinogen < 2.0 EU/DL (0.2-1.0); WBC,Urine <1 /HPF (0-6)
[2017-06-16] MEDS: IPRATROPIUM 500 MCG/2.5 ML NEB RESP TX SCH ×4 (00:16→20:32)
[2017-06-16] MEDS: methylPREDNISolone SOD SUC 40 MG/1 ML VIAL IV SCH ×3 (03:14→20:44)
[2017-06-16 06:42] LABS: Basophils % 0.1 % (0.0-0.8); Hematocrit 28.9 VOL% (42.0-52.0); Hemoglobin 9.6 GM/DL (14.0-18.0); Immature Granulocytes % 1.3 %; Lymphocytes # 0.4 10*3/uL (1.4-4.0); Lymphocytes % 5.3 % (21.2-54.2); Mean Corpuscular HGB Conc 33.2 GM/DL (32-36); Mean Corpuscular Hemoglobin 32 PG (27-34); Mean Platelet Volume 9.3 FL (9.6-12.0); Monocytes # 0.2 10*3/uL (0.11-0.8); Monocytes % 2.2 % (1.7-12.7); Neutrophils # 7.1 10*3/uL (1.4-7.4); Neutrophils % 91.1 % (38.7-73.9); Platelet Count 122 T/CUMM (130-400); Red Blood Count 2.98 MC/CUMM (3.8-5.5); Red Cell Distribution Width 15.7 % (9.3-17.3); White Blood Count 7.8 T/CUMM (4-12)
[2017-06-16 07:17] LABS: Band Neutrophils 4 % (0-10); Hypochromasia Slight; Lymphocytes 3 % (20-55); Platelet Estimate Decreased; Segmented Neutrophils 90 % (50-85); Total Cells Counted 100
[2017-06-16 07:27] LABS: Calcium 7.7 MG/DL (8.5-10.1); Free T4 (Free Thyroxine) 1.17 NG/DL (0.76-1.46); Magnesium 2.3 MG/DL (1.8-2.4); Potassium 4.7 MMOL/L (3.5-5.1); Risk Ratio 2.35; Thyroid Stimulating Hormone 0.079 uIU/ml (0.358-3.74); VLDL CHOLESTEROL 11.2 MG/DL
--- NOTE | 2017-06-16 07:51 | Pulmonology Consult Note ---
Assessment and Plan (1) Tracheomalacia, acquired Status: Acute Assessment and plan: This causes him to have difficulty clearing secretions and increased incidence of resistant organisms when he gets a pneumonia. We need to broaden his antibiotics. I will go ahead and plan bronchoscopy tomorrow. He usually requires it at some point during his stay and hopefully this will speed things along. He is having trouble getting the sputum up Current Visit: Yes (2) Bronchomalacia, acquired Status: Acute Assessment and plan: Again this is part of the tracheomalacia involving his right main bronchus and he has a difficult time clearing secretions. Current Visit: Yes (3) Pneumonia Status: Acute Assessment and plan: Likely to be a resistant organism based on his underlying lung problems. Will broaden coverage. Bronchoscope and obtain cultures. Current Visit: Yes (4) Acute exacerbation of chronic obstructive airways disease Status: Acute Assessment and plan: Steroids and bronchodilators are indicated. Adequate oxygen saturation. Current Visit: No (5) Acute on chronic kidney failure Status: Acute Assessment and plan: Creatinine is 1.8. Will use Teflaro rather than vancomycin. Current Visit: No History of Present Illness Chief complaint: Cough fever congestion History of present illness: Mr. Martell is a 86 year old male has a history of tracheobronchomalacia. He also has COPD. He tends to get very severe respiratory infections that take quite a while to clear because he is not able to clear his secretions. Frequently he has resistant organisms such as MRSA or gram-negative rods. He was here about 3 months ago and had MRSA pneumonia and required a stay at [facility] to clear this up. He started having some cough and fever a few days ago with increased edema. He was given some Cleocin in the emergency room but returned yesterday really no better. Sputum is brown and discolored but no blood. He has had fever and chills. He has some mild renal insufficiency. I have had him on Zithromax Friday and Friday to try to decrease the incidence of active infections. This is our bronchiectasis regimen. We are using it for tracheobronchomalacia in him. He has had a previous right below the knee amputation. He is diabetic. His appetite has been fair. Home Medications Medication Instructions Recorded Confirmed Type Tiotropium Inhalation [Spiriva 1 puff INH DAILY 06/16/15 06/15/17 History Handihaler] Aspirin EC Tab 81 mg PO MOWEFR tablet 04/16/17 06/15/17 Rx Atorvastatin [Lipitor] 20 mg PO BEDTIME tablet 04/16/17 06/15/17 Rx Budesonide Neb [Pulmicort Respules] 0.5 mg RESP TX RT BID 04/16/17 06/15/17 Rx Formoterol Neb [Perforomist] 20 mcg RESP TX RT BID 04/16/17 06/15/17 Rx Tamsulosin [Flomax] 0.4 mg PO BEDTIME capsule 04/16/17 06/15/17 Rx Donepezil [Aricept] 5 mg PO DAILY 05/16/17 06/15/17 History Gabapentin Cap/Tab [Neurontin 300 mg PO BID 05/16/17 06/15/17 History Cap/Tab] Gabapentin Cap/Tab [Neurontin 600 mg PO BEDTIME 05/16/17 06/15/17 History Cap/Tab] Levothyroxine Tab [Synthroid Tab] 100 mcg PO DAILY 05/16/17 06/15/17 History Acetaminophen Tab [Tylenol Tab] 650 mg PO Q6H PRN 06/13/17 06/15/17 History Calcium Carbonate 600 mg PO BID 06/13/17 06/15/17 History Clindamycin Cap [Cleocin Cap] 300 mg PO Q8HR #20 capsule 06/13/17 06/15/17 Rx Cyanocobalamin (Vitamin B-12) 2,500 mcg PO DAILY 06/13/17 06/15/17 History [Vitamin B12] Docusate Sodium [Stool Softener] 100 mg PO DAILY PRN 06/13/17 06/15/17 History Multivitamin (Ocuvite) [Ocuvite] 1 tablet PO DAILY 06/13/17 06/15/17 History Sertraline HCl 50 mg PO BEDTIME 06/13/17 06/15/17 History predniSONE TAB [PredniSONE] 10 mg PO DAILY 06/13/17 06/15/17 History Azithromycin Tab [Zithromax Tab] 250 mg PO MOWEFR 06/15/17 06/15/17 History HYDROcodone/ACETAMIN 5-325 [[place] 1 tablet PO Q6H PRN 06/15/17 06/15/17 History 5-325] Lactulose 10 gm PO BID PRN 06/15/17 06/15/17 History Memantine [Namenda] 10 mg PO BID 06/15/17 06/15/17 History Midodrine HCl 5 mg PO TID 06/15/17 06/15/17 History Omeprazole [Prilosec] 20 mg PO BID 06/15/17 06/15/17 History Potassium Chloride 40 meq PO BID 06/15/17 06/15/17 History Vit C/Vit E AC/Lut/Copper/Zinc 2 each PO BID 06/15/17 06/15/17 History [Preservision Lutein Softgel] clonazePAM [Clonazepam] 1 mg PO BEDTIME PRN 06/15/17 06/15/17 History Allergies Allergy/AdvReac Type Severity Reaction Status Date / Time Penicillins Allergy RASH Verified 04/09/17 15:39 albuterol AdvReac Chest Pain Verified 04/09/17 15:39 Procaine [From Novocain] AdvReac Chest Pain Verified 04/09/17 15:39 12 point system: reviewed and no additional remarkable complaints except as stated - Constitutional Constitutional: Present: chills, fever(s) - EENT Ears: Present: decreased hearing - Cardiovascular Cardiovascular: Present: dyspnea on exertion, edema - Respiratory Respiratory: Present: cough, dyspnea, dyspnea on exertion, wheezing, change in phlegm color - Musculoskeletal Musculoskeletal: Present: other (Previous right below the knee amputation) - Neurological Neurological: Present: frequent falls - Psychiatric Psychiatric: Present: anxiety - Hematologic/Lymphatic Hematologic/Lymphatic: Present: easy bruising Exam (Pulmonay) H&P - Constitutional Vitals: Period Temp Pulse Resp BP Sys/[place] Pulse Ox Last 24 Hr 97.1 F-99.1 F 70-86 18-24 102-166/45-87 95-994 Exam: Patient is alert and seems oriented. Temperature 99.1. Vital signs otherwise normal. Pupils react to light. Throat is clear. Neck supple no bruits. Chest shows coarse rhonchi bilaterally. Equal breath sounds. Heart normal rate rhythm no murmurs. Abdomen soft nontender no masses. Extremities no clubbing cyanosis. He has some edema in the left ankle and foot. 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 Left calf nontender. Medical,Surgical,& Family Hx - Medical History Cardio: History of: Cardiac Dysrhythmia (hx of afib), Hypertension, Cardiovascular Problems No history of: Aneurysm, Cerebrovascular Disease, Congenital Heart Disease, CHF, CAD, [place], Pacemaker, PVD, Valvular Heart Disease Psychological: History of: Anxiety Disorders, Depression No history of: ADHD, Behavior Problems, Bipolar Disorder, Previous Suicide Attempt, Psychiatric/Substance Abuse Tx, Schizophrenia, Violent Behavior, Psychiatric Problems Neurology: History of: Dementia No history of: Brain Aneurysm, Cerebral Hemorrhage, Cerebrovascular Accident , Cerebral Palsy, Migraine, Multiple Sclerosis, Parkinson's Disease, Peripheral Neuropathy, Seizures, TIA, Vertigo, Neurologocal Cancer HEENT: History of: Ear Problem, Eye Problem No history of: Dental Problems, Glaucoma, Oral Cancer, HEENT Problems Endocrine: History of: Dyslipidemia, Thyroid Disorder No history of: Adrenal Disease, Diabetes Mellitus (IDDM), Diabetes Mellitus ( NIDDM), Endocrine Cancer, Endocrine Problems Rheumatology: History of;: Rheumatoid Arthritis No history of;: Psoriasis, Sjogrens, Systemic Lupus Erythematosus Respiratory: History of: Bronchitis, COPD, Obstructive Sleep Apnea, Pneumonia No history of: Asthma, Intubation, Pulmonary Embolism, Pulmonary Hypertension , Lung Cancer, Respiratory Problems Renal: History of: Renal Failure No history of: Renal (Kidney) Cancer, Dialysis, Renal Problems Genitourinary: No history of: Bladder Problem, Kidney Stones, Prostate Problems, Recurring Urinary Tract Infections, Genitourinary Cancer, Problems Gastrointestinal: History of: GERD, GI Problems (colon cancer) Musculoskeletal: History of: Amputation (RIGHT BKA), Back/Neck Problems, Degenerative Disk Disease Hematology: History of: Anemia, Hematologic Cancer No history of: Blood Transfusion Reaction, Bleeding Problems, Clotting Problems, Sickle Cell Disease, Blood Disorders Reproductive: No histroy: Penile Disorder, Sexually Transmitted Disease, Reproductive Cancer, Reproductive Problems Other: History of: Cancer No history of: Anesthesia Reactions, Anaphylaxis, Eczema, HIV, Malignant Hyperthermia, MRSA, Vancomycin-Resistant Enterococci, Skin Problems, Miscellaneous Medical Problems - Surgical History Cardiac Surgeries: Sugical HX of: Cardiac Catheterization, Cardiac Surgery ( STENTS X4) Patient Denies: Femoral-Popliteal Bypass Graft, Carotid Endarterectomy, Internal Defibrillator, Vascular Access Devices Thoracic Surgeries: Patient denies;: Kidney (Renal Surgery), Lithotripsy, Nephrectomy, Organ Transplant, Lobectomy Neurologic Surgeries: Patient denies: Brain Aneurysm, Cerebral Hemorrhage, Neurologic Surgery HEENT Surgeries: Patient denies: Carotid Endarterectomy, Eye Surgery, Thyroid Surgery, Tonsilectomy & Adenoidectomy Abdominal Surgeries: Surgical HX of: Appendectomy, Cholecystectomy, Colonoscopy , EGD Patient denies: Abdominal Surgery, Gastric Bypass Surgery, Hernia Repair, Splenectomy Reproductive Surgeries: Patient denies;: Breast Surgery, Cystoscopy, Genitourinary Surgery, Prostate Surgery, Vasectomy - Family History Family History: Reports;: Family Cancer (brother- lung), Family Diabetes (mother ), Family Heart Disease (mother, brother times 2), Family Hypertension (brother) Denies;: Family Anesthesia Reaction, Family Psychiatric Problems, Family Stroke - Social History Smoking Status: Former smoker Frequency of Alcohol Use: None Type of Drug Use: None Results - Labs CBC & BMP: 06/16/17 06:16 06/16/17 06:16 Lab Results: I have reviewed the past 24 hour labs - Diagnostic Findings Procedure: Chest x-ray: image reviewed by me (Slight patchy infiltrate right midlung. Tracheomegaly noted.)
[2017-06-16] MEDS: FORMOTEROL 20 MCG/2 ML NEB RESP TX SCH ×2 (07:58→20:32)
--- NOTE | 2017-06-16 08:18 | EKG Report ---
Stationary ECG Study [facility] Test Date: 06/16/2017 8:19:08 AM Pat Name: NIKIA BARKER Department: Room: 543 Gender: M Gum Machine Operator: JASMINA : [id number] Requested by: Chris Boswell Order Number: [id number] Reading MD: BRITTANIE BLANCO Intervals [place] Rate: 72 P: 60 NM: 212 QRS: -60 QRSD: 182 T: -14 QT: 453 QTc: 477 Interpretive Statements SINUS RHYTHM WITH PROLONGED NM INTERVAL WITH FREQUENT SUPRAVENTRICULAR PREMATURE COMPLEXES MARKED LEFT AXIS DEVIATION RIGHT BUNDLE BRANCH BLOCK Left anterior fascicular block Electronically Signed On 06-16-17 14:43:01 CDT by BRITTANIE BLANCO [email or web address]
[2017-06-16 08:53] LABS: PT Patient Result 10.9 SECS; Partial Thromboplastin Time 31.6 SECS (0-40)
[2017-06-16] MEDS ORDERED: NON-FORMULARY MEDICATION (Tiotropium Inhalation 1 PUFF) INH SCH (09:00)
[2017-06-16] MEDS: MEROPENEM 500 MG in SODIUM CHLORIDE 0.9% 100 ML IV SCH ×2 (09:56→20:44)
[2017-06-16] MEDS: MEMANTINE 10 MG TABLET PO SCH ×2 (09:57→20:43)
[2017-06-16] MEDS: MIDODRINE 5 MG TABLET PO SCH ×3 (09:57→20:43)
[2017-06-16] MEDS: DONEPEZIL 5 MG TABLET PO SCH (09:57)
[2017-06-16] MEDS: LEVOTHYROXINE 100 MCG TABLET PO SCH (09:57)
[2017-06-16] MEDS: CALCIUM (CARBONATE) 600 MG TABLET PO SCH ×2 (09:57→20:43)
[2017-06-16] MEDS: PANTOPRAZOLE 40 MG TABLET PO SCH (09:57)
[2017-06-16] MEDS: INSULIN LISPRO 100 UNIT/ML SUBCUT SCH ×4 (10:02→20:44)
[2017-06-16] MEDS: CEFTAROLINE 400 MG in SODIUM CHLORIDE 0.9% 100 ML IV SCH ×2 (10:51→21:41)
--- NOTE | 2017-06-16 13:40 | Hospitalist Progress Note ---
Assessment and Plan (1) Pneumonia Status: Acute Assessment and plan: History of resistant pna, he was on azithromycin chronically Dr. Boswell assisting, antibiotics changed to Ceftaroline and Merrem plus Azithromycin Plan is for bronch tomorrow Current Visit: No (2) COPD (chronic obstructive pulmonary disease) Status: Acute Assessment and plan: Duonebs, steroids (hopefully can wean quickly) Current Visit: No (3) Tracheomalacia, acquired Status: Acute Current Visit: Yes (4) Hyperglycemia Status: Acute Assessment and plan: Hemoglobin A1C is 5.7, so he does not have DM Most likely elevated due to steroids and/or infectious process Cover with SSI for now Hopefully can wean steroids relatively quickly, will start basal as needed Current Visit: Yes Hospitalist: Subjective Interval history: No acute events overnight. Patient is without complaints. Exam - Constitutional Vitals: Period Temp Pulse Resp BP Sys/[place]orrow Pulse Ox Last 24 Hr 97.1 F-98.7 F 67-86 16-20 122-166/55-87 92-100 General appearance: over weight - Head Head exam: Present: normocephalic, atraumatic - Eye Eye exam: Present: EOMI Pupils: Present: RADHA - ENT ENT exam: Present: normal exam - Neck Neck exam: Present: normal inspection - Respiratory Respiratory exam: Present: clear to auscultation bilaterally. Absent: wheezes - Cardiovascular Cardiovascular exam: Present: regular rate and rhythm - GI/Abdominal GI/Abdominal exam: Present: normal bowel sounds, soft - Extremities Exam Extremities exam: Present: normal inspection - Back Exam Back exam: Present: normal inspection - Neurological Exam Neurological exam: Present: alert, oriented X3 - Psychiatric Psychiatric exam: Present: normal affect, normal mood - Skin Skin exam: Present: warm, intact Results - Labs CBC & BMP: 06/16/17 06:16 06/16/17 06:16 Specialty Discharge - Follow Up or Referrals
[2017-06-16] MEDS ORDERED: LEVOFLOXACIN INJ 750 MG in PREMIX 1 EACH IV SCH (14:30)
[2017-06-16] MEDS: ASPIRIN EC 81 MG TABLET PO SCH (16:02)
[2017-06-16] MEDS: AZITHROMYCIN INJ 500 MG in SODIUM CHLORIDE 0.9% 250 ML IV SCH (16:02)
[2017-06-16] MEDS: DORNASE ALFA 2.5 MG/2.5 ML VIAL RESP TX SCH (20:32)
[2017-06-16] MEDS: SERTRALINE 50 MG TABLET PO SCH (20:43)
[2017-06-16] MEDS: TAMSULOSIN 0.4 MG CAPSULE PO SCH (20:43)
[2017-06-16] MEDS: ATORVASTATIN 20 MG TABLET PO SCH (20:43)
[2017-06-17] MEDS: IPRATROPIUM 500 MCG/2.5 ML NEB RESP TX SCH ×4 (00:50→19:19)
[2017-06-17] MEDS: methylPREDNISolone SOD SUC 40 MG/1 ML VIAL IV SCH ×3 (03:45→20:48)
[2017-06-17 05:43] LABS: Basophils % 0.2 % (0.0-0.8); Hematocrit 29.6 VOL% (42.0-52.0); Immature Granulocytes % 2.3 %; Immature Granulocytes Absolute 0.23 #; Lymphocytes # 0.7 10*3/uL (1.4-4.0); Lymphocytes % 7.4 % (21.2-54.2); Mean Corpuscular HGB Conc 33.8 GM/DL (32-36); Mean Corpuscular Hemoglobin 32 PG (27-34); Mean Corpuscular Volume 95.8 FL (87-102); Mean Platelet Volume 10.2 FL (9.6-12.0); Monocytes # 0.5 10*3/uL (0.11-0.8); Monocytes % 4.9 % (1.7-12.7); Neutrophils # 8.3 10*3/uL (1.4-7.4); Neutrophils % 85.2 % (38.7-73.9); Platelet Count 147 T/CUMM (130-400); Red Blood Count 3.09 MC/CUMM (3.8-5.5); Red Cell Distribution Width 15.9 % (9.3-17.3); White Blood Count 9.8 T/CUMM (4-12)
[2017-06-17 06:14] LABS: Band Neutrophils 4 % (0-10); Hypochromasia 1+; Lymphocytes 6 % (20-55); Microcytosis 1+; Segmented Neutrophils 87 % (50-85); Total Cells Counted 100
[2017-06-17 06:15] LABS: Ovalocytes Slight; Platelet Estimate Adequate; Tear Drop Cells Slight
[2017-06-17 06:21] LABS: Potassium 4.3 MMOL/L (3.5-5.1)
[2017-06-17] MEDS ORDERED: PROMETHAZINE 25 MG/1 ML VIAL IM ONE (07:00)
[2017-06-17] MEDS ORDERED: MIDAZOLAM 2 MG/2 ML VIAL IV ONE (07:30)
[2017-06-17] MEDS ORDERED: LIDOCAINE 1% 20 ML VIAL MISC INJ ONE (07:30)
[2017-06-17] MEDS ORDERED: MIDAZOLAM 2 MG/2 ML VIAL ONE (07:31)
--- NOTE | 2017-06-17 07:50 | Pulmonology Progress Note ---
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 On previous admission she has taken quite a while to resolve because of the tracheomalacia. He usually grows resistant organisms. We decided to take him for bronchoscopy today to get a culture early on and clean him out. He has not been eating well he does not like the food the hospital serving. I had a long discussion with him about the importance of eating. He can order special food that is not on the regular menu. Exam (Progress Note) - Constitutional Vitals: Period Temp Pulse Resp BP Sys/Morrow Pulse Ox Last 24 Hr 97.2 F-97.9 F 67-130 12-22 144-181/68-92 89-100 Exam: Patient's alert. He has not slept well but he is responsive. Vital signs normal. Pupils react to light. Throat is clear. Neck supple no bruits. Chest shows some coarse rhonchi bilaterally. Heart normal rate rhythm no murmurs. Abdomen soft nontender no masses. Extremities no clubbing cyanosis or edema. Calves nontender. Results - Labs CBC & BMP: 06/17/17 04:46 06/17/17 04:46 Lab Results: I have reviewed the past 24 hour labs Assessment and Plan (1) Tracheomalacia, acquired Status: Acute Assessment and plan: This causes him to have difficulty clearing secretions and increased incidence of resistant organisms when he gets a pneumonia. We need to broaden his antibiotics. I will go ahead and plan bronchoscopy tomorrow. He usually requires it at some point during his stay and hopefully this will speed things along. He is having trouble getting the sputum up 06/17/2017 difficulty clearing secretions still not coughing up much. Current Visit: Yes (2) Bronchomalacia, acquired Status: Acute Assessment and plan: Again this is part of the tracheomalacia involving his right main bronchus and he has a difficult time clearing secretions. 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 Current Visit: Yes (3) Pneumonia Status: Acute Assessment and plan: Likely to be a resistant organism based on his underlying lung problems. Will broaden coverage. Bronchoscope and obtain cultures. 06/17/2017 bronchoscopy today to get cultures. Broad-spectrum antibiotics in the meantime Current Visit: Yes (4) Acute exacerbation of chronic obstructive airways disease Status: Acute Assessment and plan: Steroids and bronchodilators are indicated. Adequate oxygen saturation. 06/17/2017 continuing steroids and bronchodilators. Current Visit: No (5) Acute on chronic kidney failure Status: Acute Assessment and plan: Creatinine is 1.8. Will use Teflaro rather than vancomycin. 06/17/2017 creatinine 1.9 which is stable. Current Visit: No Specialty Discharge - Follow Up or Referrals
--- NOTE | 2017-06-17 07:54 | Operative Note ---
Date of procedure: 06/17/17 (Fiberoptic bronchoscopy with bilateral bronchial alveolar lavage) Pre-op diagnosis: Bronchopneumonia in a patient with tracheobronchomalacia Post-op diagnosis: same (Retained secretions, nodular lesion mid trachea appears inflammatory) Procedure: After patient was given preoperative medication on the floor he was transported to the bronchoscopy suite. After an appropriate timeout to be sure we were dealing with Nahun Martell, the patient was given topical anesthesia with lidocaine in the nose and nasopharynx, and 2 mg of Versed intravenously to the point of sedation. 3 L of nasal oxygen was placed in the left naris. The fiberoptic bronchoscope was introduced via the right naris. The vocal cords were identified and noted to function normally with phonation. After further topical anesthesia the trachea was entered. There was a small nodular lesion on the posterior wall about usp down the trachea. It appears to be inflammatory or extrinsic compression and I did not do biopsies as I suspect it would bleed excessively. A photograph was taken. There were retained secretions in the trachea and both mainstem bronchi. Once again it was noted that the trachea would collapse completely with forced expiration such as a cough. This is consistent with severe tracheomalacia. Both mainstem bronchi were closed by about 75% which would be moderate bronchomalacia. We first irrigated and lavaged the right upper middle and lower lobes and obtain a good bit of thick mucopurulent secretions. There were no lesions seen on that side. We changed out the trap. We lavaged the left upper and lower lobes. Once again a good bit of thick secretions were obtained. These were sent for cultures. No endobronchial lesions were seen. The bronchoscope was removed. Patient returned to his room in stable condition. Anesthesia: conscious sedation Surgeon / Physician: Chris Boswell Estimated blood loss: none Specimens: other (Bronchial washings for cultures, AFB, and fungi) Condition: stable Disposition: floor Results - Labs CBC & BMP: 06/17/17 04:46 06/17/17 04:46 Discharge Plan - Discharge Medications No Action Tiotropium Inhalation [Spiriva Handihaler] 1 puff INH DAILY Atorvastatin [Lipitor] 20 mg PO BEDTIME tablet Budesonide Neb [Pulmicort Respules] 0.5 mg RESP TX RT BID Formoterol Neb [Perforomist] 20 mcg RESP TX RT BID Tamsulosin [Flomax] 0.4 mg PO BEDTIME capsule Gabapentin Cap/Tab [Neurontin Cap/Tab] 600 mg PO BEDTIME Gabapentin Cap/Tab [Neurontin Cap/Tab] 300 mg PO BID Donepezil [Aricept] 5 mg PO DAILY Levothyroxine Tab [Synthroid Tab] 100 mcg PO DAILY Cyanocobalamin (Vitamin B-12) [Vitamin B12] 2,500 mcg PO DAILY Acetaminophen Tab [Tylenol Tab] 650 mg PO Q6H PRN PRN Reason: fever, headache/body aches Sertraline HCl 50 mg PO BEDTIME predniSONE TAB [PredniSONE] 10 mg PO DAILY Calcium Carbonate 600 mg PO BID Clindamycin Cap [Cleocin Cap] 300 mg PO Q8HR #20 capsule Azithromycin Tab [Zithromax Tab] 250 mg PO MOWEFR clonazePAM [Clonazepam] 1 mg PO BEDTIME PRN PRN Reason: Sleep HYDROcodone/ACETAMIN 5-325 [[place] 5-325] 1 tablet PO Q6H PRN PRN Reason: Pain Vit C/Vit E AC/Lut/Copper/Zinc [Preservision Lutein Softgel] 2 each PO BID Lactulose 10 gm PO BID PRN PRN Reason: Constipation Memantine [Namenda] 10 mg PO BID Omeprazole [Prilosec] 20 mg PO BID Aspirin EC Tab 81 mg PO MOWEFR tablet Multivitamin (Ocuvite) [Ocuvite] 1 tablet PO DAILY Docusate Sodium [Stool Softener] 100 mg PO DAILY PRN PRN Reason: Constipation Midodrine HCl 5 mg PO TID Potassium Chloride 40 meq PO BID - Follow Up or Referral - Forms/Instructions Instructions: Viral Pneumonia (DC), Gastroesophageal Reflux in Children (DC), Anthrax (GEN), Aspiration Pneumonia (GEN), Chronic Obstructive Pulmonary Disease (GEN), Simple Eosinophilic Pneumonia (GEN)
[2017-06-17] MEDS: FORMOTEROL 20 MCG/2 ML NEB RESP TX SCH ×2 (08:35→19:19)
[2017-06-17] MEDS: DORNASE ALFA 2.5 MG/2.5 ML VIAL RESP TX SCH ×2 (08:35→19:19)
[2017-06-17] MEDS: INSULIN LISPRO 100 UNIT/ML SUBCUT SCH ×3 (08:36→16:27)
--- NOTE | 2017-06-17 09:36 | XRay Report ---
XR chest 2V Indication: Pneumonia Comparison: 15 June 2017 Findings: The heart and mediastinum are normal in size and configuration. The pulmonary vascularity is normal in caliber. Lung volumes are increased with prominent bronchial markings. No lung infiltrates, effusions, pneumothorax or other abnormality is demonstrated. Impression: Chronic lung changes. No acute process or significant change. PROCEDURE INTERPRETED AT [facility] DEPARTMENT OF RADIOLOGY Final Report Signed by: Dr. Jona Maldonado
[2017-06-17] MEDS: DONEPEZIL 5 MG TABLET PO SCH (10:40)
[2017-06-17] MEDS: CALCIUM (CARBONATE) 600 MG TABLET PO SCH ×2 (10:40→20:47)
[2017-06-17] MEDS: LEVOTHYROXINE 100 MCG TABLET PO SCH (10:40)
[2017-06-17] MEDS: MIDODRINE 5 MG TABLET PO SCH ×3 (10:40→20:48)
[2017-06-17] MEDS: MEMANTINE 10 MG TABLET PO SCH ×2 (10:40→20:48)
[2017-06-17] MEDS: PANTOPRAZOLE 40 MG TABLET PO SCH (10:40)
[2017-06-17] MEDS: MEROPENEM 500 MG in SODIUM CHLORIDE 0.9% 100 ML IV SCH ×2 (10:41→20:47)
[2017-06-17] MEDS: CEFTAROLINE 400 MG in SODIUM CHLORIDE 0.9% 100 ML IV SCH ×2 (11:55→20:46)
--- NOTE | 2017-06-17 14:19 | Hospitalist Progress Note ---
Assessment and Plan (1) Pneumonia Status: Acute Assessment and plan: History of resistant pna, he was on azithromycin chronically Dr. Boswell assisting, continue Ceftaroline and Merrem plus Azithromycin Bronch today with many secretions Current Visit: No (2) COPD (chronic obstructive pulmonary disease) Status: Acute Assessment and plan: Duonebs, steroids (hopefully can wean quickly) Current Visit: No (3) Tracheomalacia, acquired Status: Acute Current Visit: Yes (4) Hyperglycemia Status: Acute Assessment and plan: Hemoglobin A1C is 5.7, so he does not have DM Most likely elevated due to steroids and/or infectious process Cover with SSI for now Hopefully can wean steroids relatively quickly, will start basal as needed Current Visit: Yes Hospitalist: Subjective Interval history: No acute events overnight. He had a bronch this morning. His reports increased cough. Exam - Constitutional Vitals: Period Temp Pulse Resp BP Sys/Morrow Pulse Ox Last 24 Hr 97.2 F-97.9 F 77-130 12-22 109-181/69-92 89-100 General appearance: over weight - Head Head exam: Present: normocephalic, atraumatic - Eye Eye exam: Present: EOMI Pupils: Present: RADHA - ENT ENT exam: Present: normal exam - Neck Neck exam: Present: normal inspection - Respiratory Respiratory exam: Present: decreased breath sounds. Absent: wheezes - Cardiovascular Cardiovascular exam: Present: regular rate and rhythm - GI/Abdominal GI/Abdominal exam: Present: normal bowel sounds, soft. Absent: tenderness - Extremities Exam Extremities exam: Present: normal inspection - Back Exam Back exam: Present: normal inspection - Neurological Exam Neurological exam: Present: alert, oriented X3 - Psychiatric Psychiatric exam: Present: normal affect, normal mood - Skin Skin exam: Present: warm, intact Results - Labs CBC & BMP: 06/17/17 04:46 06/17/17 04:46 Specialty Discharge - Follow Up or Referrals
[2017-06-17] MEDS: guaiFENesin 200 MG/10 ML UDCUP PO PRN (16:00)
[2017-06-17] MEDS: AZITHROMYCIN INJ 500 MG in SODIUM CHLORIDE 0.9% 250 ML IV SCH (16:00)
[2017-06-17] MEDS: TAMSULOSIN 0.4 MG CAPSULE PO SCH (20:47)
[2017-06-17] MEDS: SERTRALINE 50 MG TABLET PO SCH (20:48)
[2017-06-17] MEDS: ATORVASTATIN 20 MG TABLET PO SCH (20:48)
[2017-06-18] MEDS: IPRATROPIUM 500 MCG/2.5 ML NEB RESP TX SCH ×4 (00:46→19:39)
[2017-06-18] MEDS: INSULIN LISPRO 100 UNIT/ML SUBCUT SCH ×6 (05:18→21:05)
[2017-06-18] MEDS: methylPREDNISolone SOD SUC 40 MG/1 ML VIAL IV SCH ×3 (05:19→20:14)
[2017-06-18 07:14] LABS: Basophils % 0.2 % (0.0-0.8); Hematocrit 30.5 VOL% (42.0-52.0); Hemoglobin 10.4 GM/DL (14.0-18.0); Immature Granulocytes % 4.7 %; Immature Granulocytes Absolute 0.46 #; Lymphocytes # 0.9 10*3/uL (1.4-4.0); Lymphocytes % 9.5 % (21.2-54.2); Mean Corpuscular HGB Conc 34.1 GM/DL (32-36); Mean Corpuscular Hemoglobin 33 PG (27-34); Mean Corpuscular Volume 95.3 FL (87-102); Mean Platelet Volume 9.8 FL (9.6-12.0); Monocytes # 0.3 10*3/uL (0.11-0.8); Monocytes % 3.4 % (1.7-12.7); NRBC # 0.02 10*3/uL; Neutrophils # 8.1 10*3/uL (1.4-7.4); Neutrophils % 82.2 % (38.7-73.9); Platelet Count 148 T/CUMM (130-400); Red Cell Distribution Width 15.9 % (9.3-17.3); White Blood Count 9.9 T/CUMM (4-12)
[2017-06-18] MEDS: FORMOTEROL 20 MCG/2 ML NEB RESP TX SCH ×2 (07:32→19:39)
[2017-06-18] MEDS: DORNASE ALFA 2.5 MG/2.5 ML VIAL RESP TX SCH ×2 (07:37→19:39)
[2017-06-18 07:45] LABS: Calcium 8.4 MG/DL (8.5-10.1); Magnesium 2.4 MG/DL (1.8-2.4); Osmolality,Calculated 300.7 MOS/KG (273-304); Potassium 4.3 MMOL/L (3.5-5.1)
--- NOTE | 2017-06-18 09:00 | Hospitalist Progress Note ---
Assessment and Plan (1) Renal insufficiency Status: Chronic Assessment and plan: Stable glomerular filtration rate over the last 1 year Current Visit: No (2) Bronchomalacia, acquired Status: Chronic Assessment and plan: Recurrent mucoid impaction with secondary infection. Expectorated sputum on this admission positive for methicillin-resistant staph aureus; results of bronchial washings pending Current Visit: Yes Hospitalist: Subjective Interval history: 86-year-old male with well-established tracheomalacia and bronchomalacia with recurrent episodes of retained secretions who has been serially admitted with purulent bronchitis. He was readmitted on this occasion with recurrent symptoms underwent a bronchoscopy showing inflammatory changes and once again retained secretion. He has chronic renal insufficiency with associated chronic simple anemia. He appears to be doing well his vital signs are stable he is afebrile. He has no complaint this morning. Exam - Constitutional Vitals: Period Temp Pulse Resp BP Sys/Morrow Pulse Ox Last 24 Hr 97.7 F-98.2 F 69-89 16-20 148-175/69-84 89-100 General appearance: normal weight - Respiratory Respiratory exam: Present: rhonchi (Coarse breath sounds at the left base without bronchospasm). Absent: rales, wheezes - Cardiovascular Cardiovascular exam: Present: regular rate and rhythm - GI/Abdominal GI/Abdominal exam: Present: normal bowel sounds. Absent: tenderness - Extremities Exam Extremities exam: Absent: edema - Neurological Exam Neurological exam: Present: alert, oriented X3 Results - Labs CBC & BMP: 06/18/17 07:03 06/18/17 07:03 Specialty Discharge - Follow Up or Referrals
--- NOTE | 2017-06-18 09:23 | Pulmonology Progress Note ---
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 On previous admission she has taken quite a while to resolve because of the tracheomalacia. He usually grows resistant organisms. We decided to take him for bronchoscopy today to get a culture early on and clean him out. He has not been eating well he does not like the food the hospital serving. I had a long discussion with him about the importance of eating. He can order special food that is not on the regular menu. 06/18/2017 sputum is growing a gram-positive cocci. Bronchial washings cultures are pending. I think this is likely to be staph. The fluoroscopy should cover. Await final identification. Needs about 10 days of IV anti-staph drug based on his tracheomalacia and previous episodes of prolonged hospitalization for pulmonary infections. He has a difficult time clearing secretions. We may decide to change him from Teflaro to either vancomycin or Zyvox depending on the sensitivities. He does have renal insufficiency. Exam (Progress Note) - Constitutional Vitals: Period Temp Pulse Resp BP Sys/Morrow Pulse Ox Last 24 Hr 97.7 F-98.2 F 69-89 16-20 148-175/69-84 89-100 Exam: Patient's alert. He has not slept well but he is responsive. Vital signs normal. Pupils react to light. Throat is clear. Neck supple no bruits. Chest shows mild rhonchi bilaterally. Heart normal rate rhythm no murmurs. Abdomen soft nontender no masses. Extremities no clubbing cyanosis or edema. Calves nontender. Results - Labs CBC & BMP: 06/18/17 07:03 06/18/17 07:03 Lab Results: I have reviewed the past 24 hour labs Assessment and Plan (1) Tracheomalacia, acquired Status: Acute Assessment and plan: This causes him to have difficulty clearing secretions and increased incidence of resistant organisms when he gets a pneumonia. We need to broaden his antibiotics. I will go ahead and plan bronchoscopy tomorrow. He usually requires it at some point during his stay and hopefully this will speed things along. He is having trouble getting the sputum up 06/17/2017 difficulty clearing secretions still not coughing up much. 06/18/2017 he is not coughing up a lot of phlegm at present. Current Visit: Yes (2) Bronchomalacia, acquired Status: Chronic Assessment and plan: Again this is part of the tracheomalacia involving his right main bronchus and he has a difficult time clearing secretions. 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 Current Visit: Yes (3) Pneumonia Status: Acute Assessment and plan: Likely to be a resistant organism based on his underlying lung problems. Will broaden coverage. Bronchoscope and obtain cultures. 06/17/2017 bronchoscopy today to get cultures. Broad-spectrum antibiotics in the meantime 06/18/2017 only has a patch of pneumonia. His infection is primarily bronchopneumonia. Current Visit: Yes (4) Acute exacerbation of chronic obstructive airways disease Status: Acute Assessment and plan: Steroids and bronchodilators are indicated. Adequate oxygen saturation. 06/17/2017 continuing steroids and bronchodilators. 06/18/2017 continuing steroids bronchodilators. Mucolytics as well. Current Visit: No (5) Acute on chronic kidney failure Status: Acute Assessment and plan: Creatinine is 1.8. Will use Teflaro rather than vancomycin. 06/17/2017 creatinine 1.9 which is stable. 06/18/2017 renal function fairly stable with a creatinine of 1.9. Current Visit: No Specialty Discharge - Follow Up or Referrals
[2017-06-18] MEDS: MEROPENEM 500 MG in SODIUM CHLORIDE 0.9% 100 ML IV SCH ×2 (10:15→20:15)
[2017-06-18] MEDS: ASPIRIN EC 81 MG TABLET PO SCH ×2 (10:16→14:09)
[2017-06-18] MEDS: MEMANTINE 10 MG TABLET PO SCH ×2 (10:16→21:40)
[2017-06-18] MEDS: PANTOPRAZOLE 40 MG TABLET PO SCH (10:16)
[2017-06-18] MEDS: CALCIUM (CARBONATE) 600 MG TABLET PO SCH ×2 (10:16→20:15)
[2017-06-18] MEDS: DONEPEZIL 5 MG TABLET PO SCH (10:16)
[2017-06-18] MEDS: MIDODRINE 5 MG TABLET PO SCH ×4 (10:17→20:15)
[2017-06-18] MEDS: LEVOTHYROXINE 100 MCG TABLET PO SCH (10:37)
[2017-06-18] MEDS: CEFTAROLINE 400 MG in SODIUM CHLORIDE 0.9% 100 ML IV SCH ×2 (11:21→20:16)
[2017-06-18] MEDS: guaiFENesin 200 MG/10 ML UDCUP PO PRN (12:26)
[2017-06-18] MEDS: AZITHROMYCIN INJ 500 MG in SODIUM CHLORIDE 0.9% 250 ML IV SCH (14:12)
[2017-06-18] MEDS: ACETAMINOPHEN 325 MG TABLET PO PRN (16:39)
[2017-06-18] MEDS: ATORVASTATIN 20 MG TABLET PO SCH (20:15)
[2017-06-18] MEDS: TAMSULOSIN 0.4 MG CAPSULE PO SCH (20:15)
[2017-06-18] MEDS: SERTRALINE 50 MG TABLET PO SCH (21:40)
[2017-06-19] MEDS: IPRATROPIUM 500 MCG/2.5 ML NEB RESP TX SCH ×4 (00:28→19:55)
[2017-06-19] MEDS ORDERED: HALOPERIDOL 5 MG/ML AMP IM ONE (04:49)
[2017-06-19] MEDS: methylPREDNISolone SOD SUC 40 MG/1 ML VIAL IV SCH ×3 (05:08→22:11)
--- NOTE | 2017-06-19 07:17 | Hospitalist Progress Note ---
Assessment and Plan (1) Renal insufficiency Status: Chronic Assessment and plan: Stable glomerular filtration rate over the last 1 year Current Visit: No (2) Bronchomalacia, acquired Status: Chronic Assessment and plan: Recurrent mucoid impaction with secondary infection. Expectorated sputum on this admission positive for methicillin-resistant staph aureus; results of bronchial washings pending preliminary report indicates gram-positive cocci Current Visit: Yes Hospitalist: Subjective Interval history: 86-year-old male with well-established tracheomalacia and bronchomalacia with recurrent episodes of retained secretions with serial hospitalizations for purulent bronchitis. On this admission symptoms were recurrent and he underwent bronchoscopy once again demonstrated retained secretions. His expectorated sputum was positive for methicillin-resistant staph aureus bronchoscopy specimens have returned with a gram-positive cocci final identification pending. A prolonged course of IV antibiotics has been recommended by pulmonary. 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 Exam - Constitutional Vitals: Period Temp Pulse Resp BP Sys/Morrow Pulse Ox Last 24 Hr 97.7 F-98.2 F 61-82 14-20 145-176/53-91 93-100 General appearance: normal weight - Respiratory Respiratory exam: Present: clear to auscultation bilaterally. Absent: rales, rhonchi, wheezes - Cardiovascular Cardiovascular exam: Present: regular rate and rhythm - GI/Abdominal GI/Abdominal exam: Present: normal bowel sounds. Absent: tenderness - Extremities Exam Extremities exam: Present: other (Clean-based superficial lesion medial aspect of amputation site) - Neurological Exam Neurological exam: Present: alert, oriented X3 Results - Labs CBC & BMP: 06/18/17 07:03 06/18/17 07:03 Specialty Discharge - Follow Up or Referrals
[2017-06-19] MEDS: FORMOTEROL 20 MCG/2 ML NEB RESP TX SCH ×2 (07:24→19:55)
[2017-06-19] MEDS: DORNASE ALFA 2.5 MG/2.5 ML VIAL RESP TX SCH ×2 (07:28→19:55)
[2017-06-19] MEDS: INSULIN LISPRO 100 UNIT/ML SUBCUT SCH ×4 (08:07→22:09)
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
[2017-06-19] MEDS: MEROPENEM 500 MG in SODIUM CHLORIDE 0.9% 100 ML IV SCH (08:48)
[2017-06-19] MEDS: CEFTAROLINE 400 MG in SODIUM CHLORIDE 0.9% 100 ML IV SCH (08:48)
[2017-06-19] MEDS: PANTOPRAZOLE 40 MG TABLET PO SCH (08:48)
[2017-06-19] MEDS: CALCIUM (CARBONATE) 600 MG TABLET PO SCH ×2 (08:49→22:08)
[2017-06-19] MEDS: LEVOTHYROXINE 100 MCG TABLET PO SCH (08:49)
[2017-06-19] MEDS: DONEPEZIL 5 MG TABLET PO SCH (08:50)
[2017-06-19] MEDS: MEMANTINE 10 MG TABLET PO SCH ×2 (08:57→22:08)
[2017-06-19] MEDS: MIDODRINE 5 MG TABLET PO SCH ×3 (08:57→22:07)
[2017-06-19] MEDS ORDERED: VANCOMYCIN INJ 1,250 MG in SODIUM CHLORIDE 0.9% 250 ML IV SCH (09:00)
[2017-06-19] MEDS: VANCOMYCIN INJ 1,250 MG in SODIUM CHLORIDE 0.9% 250 ML IV SCH (09:48)
[2017-06-19] MEDS: HYDROmorphone 2 MG/1 ML VIAL IV PRN ×2 (09:48→16:02)
[2017-06-19] MEDS: SERTRALINE 50 MG TABLET PO SCH (22:08)
[2017-06-19] MEDS: ATORVASTATIN 20 MG TABLET PO SCH (22:08)
[2017-06-19] MEDS: GABAPENTIN 300 MG CAPSULE PO SCH (22:08)
[2017-06-19] MEDS: TAMSULOSIN 0.4 MG CAPSULE PO SCH (22:10)
[2017-06-20] MEDS: IPRATROPIUM 500 MCG/2.5 ML NEB RESP TX SCH ×4 (00:47→20:40)
[2017-06-20 05:54] LABS: Magnesium 2.2 MG/DL (1.8-2.4)
[2017-06-20] MEDS: FORMOTEROL 20 MCG/2 ML NEB RESP TX SCH ×2 (07:26→20:40)
--- NOTE | 2017-06-20 07:34 | Hospitalist Progress Note ---
Assessment and Plan (1) Renal insufficiency Status: Chronic Assessment and plan: Stable glomerular filtration rate over the last 1 year Current Visit: No (2) Bronchomalacia, acquired Status: Chronic Assessment and plan: Recurrent mucoid impaction with secondary infection. Expectorated sputum on this admission positive for methicillin-resistant staph aureus; results of bronchial washings show MRSA as well. He is anticipated for a extended course of antibiotics for suppression. Current Visit: Yes Hospitalist: Subjective Interval history: 86-year-old male with tracheomalacia bronchomalacia recurrent episodes of retained secretions. On this admission bronchoscopy with washings demonstrated again tenacious secretions. His expectorated sputum was positive for methicillin-resistant staph aureus and he is returned with a bronchial washings similar organism. Sensitivities indicate Linezolid, Bactrim DS, and vancomycin sensitivity. He seemed to have a better night last night although we did remove the dressing from his right BKA stump vital signs are stable he is afebrile. Exam - Constitutional Vitals: Period Temp Pulse Resp BP Sys/Morrow Pulse Ox Last 24 Hr 97.2 F-99.4 F 65-89 18-20 139-190/60-91 93-99 General appearance: normal weight - Respiratory Respiratory exam: Present: clear to auscultation bilaterally. Absent: rales, rhonchi, wheezes - Cardiovascular Cardiovascular exam: Present: regular rate and rhythm - GI/Abdominal GI/Abdominal exam: Present: normal bowel sounds. Absent: tenderness - Extremities Exam Extremities exam: Present: other (Wound on left BKA site appears to be stable). Absent: edema - Neurological Exam Neurological exam: Present: alert, oriented X3 Results - Labs CBC & BMP: 06/18/17 07:03 06/20/17 04:39 Specialty Discharge - Follow Up or Referrals
[2017-06-20] MEDS: PANTOPRAZOLE 40 MG TABLET PO SCH (09:03)
[2017-06-20] MEDS: LEVOTHYROXINE 100 MCG TABLET PO SCH (09:04)
[2017-06-20] MEDS: DONEPEZIL 5 MG TABLET PO SCH (09:04)
[2017-06-20] MEDS: GABAPENTIN 300 MG CAPSULE PO SCH ×2 (09:04→20:51)
[2017-06-20] MEDS: MIDODRINE 5 MG TABLET PO SCH ×3 (09:04→20:50)
[2017-06-20] MEDS: methylPREDNISolone SOD SUC 40 MG/1 ML VIAL IV SCH ×2 (09:05→20:49)
[2017-06-20] MEDS: VANCOMYCIN INJ 1,250 MG in SODIUM CHLORIDE 0.9% 250 ML IV SCH (09:06)
[2017-06-20] MEDS: INSULIN LISPRO 100 UNIT/ML SUBCUT SCH ×3 (09:07→17:09)
[2017-06-20] MEDS: CALCIUM (CARBONATE) 600 MG TABLET PO SCH ×2 (09:07→20:49)
[2017-06-20] MEDS: MEMANTINE 10 MG TABLET PO SCH ×2 (09:07→20:50)
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
--- NOTE | 2017-06-20 12:53 | Infectious Disease Consult ---
Assessment and Plan (1) Pneumonia Status: Acute Assessment and plan: May be mild pneumonia versus bronchitis. No severe infiltrate on chest x-ray. MRSA isolated. Patient seems by report to be doing a bit better than when he came in. Recommendations: Though the FANNY for vancomycin was 2 with the patient and clinically seems to be improving so therefore I would continue the vancomycin as there is no associated bloodstream infection. Continue to watch renal function closely [so far it is stable]. We can treat for about 10 days total. If he has to go home then we can switch to linezolid or doxycycline. Thank you very much for the consult. Current Visit: Yes (2) Tracheomalacia, acquired Status: Acute Current Visit: Yes (3) Bronchomalacia, acquired Status: Chronic Current Visit: Yes (4) Dementia Status: Chronic Current Visit: No (5) Hypertension Status: Chronic Current Visit: No Qualifiers: Hypertension type: essential hypertension Qualified Code(s): I10 - Essential (primary) hypertension (6) Renal insufficiency Status: Chronic Current Visit: No History of Present Illness Chief complaint: Pneumonia due to MRSA History of present illness: Mr. Martell is a 86 year old male who presents to hospital with increasing falls and weakness. He is known to have tracheomalacia and bronchomalacia and was diagnosed as having pneumonia. He has been on empiric antibiotics, more recently the vancomycin after MRSA was isolated from bronchoscopy specimens. The patient says he feels somewhat better but he has been coughing intermittently still. I am asked to assist with management. He has not had any fever. He has dementia and has been on and off combative so he is on one-on -one isolation. Home Medications Medication Instructions Recorded Confirmed Type Tiotropium Inhalation [Spiriva 1 puff INH DAILY 06/16/15 06/15/17 History Handihaler] Aspirin EC Tab 81 mg PO MOWEFR tablet 04/16/17 06/15/17 Rx Atorvastatin [Lipitor] 20 mg PO BEDTIME tablet 04/16/17 06/15/17 Rx Budesonide Neb [Pulmicort Respules] 0.5 mg RESP TX RT BID 04/16/17 06/15/17 Rx Formoterol Neb [Perforomist] 20 mcg RESP TX RT BID 04/16/17 06/15/17 Rx Tamsulosin [Flomax] 0.4 mg PO BEDTIME capsule 04/16/17 06/15/17 Rx Donepezil [Aricept] 5 mg PO DAILY 05/16/17 06/15/17 History Gabapentin Cap/Tab [Neurontin 300 mg PO BID 05/16/17 06/15/17 History Cap/Tab] Gabapentin Cap/Tab [Neurontin 600 mg PO BEDTIME 05/16/17 06/15/17 History Cap/Tab] Levothyroxine Tab [Synthroid Tab] 100 mcg PO DAILY 05/16/17 06/15/17 History Acetaminophen Tab [Tylenol Tab] 650 mg PO Q6H PRN 06/13/17 06/15/17 History Calcium Carbonate 600 mg PO BID 06/13/17 06/15/17 History Clindamycin Cap [Cleocin Cap] 300 mg PO Q8HR #20 capsule 06/13/17 06/15/17 Rx Cyanocobalamin (Vitamin B-12) 2,500 mcg PO DAILY 06/13/17 06/15/17 History [Vitamin B12] Docusate Sodium [Stool Softener] 100 mg PO DAILY PRN 06/13/17 06/15/17 History Multivitamin (Ocuvite) [Ocuvite] 1 tablet PO DAILY 06/13/17 06/15/17 History Sertraline HCl 50 mg PO BEDTIME 06/13/17 06/15/17 History predniSONE TAB [PredniSONE] 10 mg PO DAILY 06/13/17 06/15/17 History Azithromycin Tab [Zithromax Tab] 250 mg PO MOWEFR 06/15/17 06/15/17 History HYDROcodone/ACETAMIN 5-325 [Oxford 1 tablet PO Q6H PRN 06/15/17 06/15/17 History 5-325] Lactulose 10 gm PO BID PRN 06/15/17 06/15/17 History Memantine [Namenda] 10 mg PO BID 06/15/17 06/15/17 History Midodrine HCl 5 mg PO TID 06/15/17 06/15/17 History Omeprazole [Prilosec] 20 mg PO BID 06/15/17 06/15/17 History Potassium Chloride 40 meq PO BID 06/15/17 06/15/17 History Vit C/Vit E AC/Lut/Copper/Zinc 2 each PO BID 06/15/17 06/15/17 History [Preservision Lutein Softgel] clonazePAM [Clonazepam] 1 mg PO BEDTIME PRN 06/15/17 06/15/17 History Allergies Allergy/AdvReac Type Severity Reaction Status Date / Time Penicillins Allergy RASH Verified 04/09/17 15:39 albuterol AdvReac Chest Pain Verified 04/09/17 15:39 Procaine [From Novocain] AdvReac Chest Pain Verified 04/09/17 15:39 ROS unobtainable: due to dementia Medical,Surgical,& Family Hx - Medical History Cardio: History of: Cardiac Dysrhythmia (hx of afib), Hypertension, Cardiovascular Problems No history of: Aneurysm, Cerebrovascular Disease, Congenital Heart Disease, CHF, CAD, [place], Pacemaker, PVD, Valvular Heart Disease Psychological: History of: Anxiety Disorders, Depression No history of: ADHD, Behavior Problems, Bipolar Disorder, Previous Suicide Attempt, Psychiatric/Substance Abuse Tx, Schizophrenia, Violent Behavior, Psychiatric Problems Neurology: History of: Dementia No history of: Brain Aneurysm, Cerebral Hemorrhage, Cerebrovascular Accident , Cerebral Palsy, Migraine, Multiple Sclerosis, Parkinson's Disease, Peripheral Neuropathy, Seizures, TIA, Vertigo, Neurologocal Cancer HEENT: History of: Ear Problem, Eye Problem No history of: Dental Problems, Glaucoma, Oral Cancer, HEENT Problems Endocrine: History of: Dyslipidemia, Thyroid Disorder No history of: Adrenal Disease, Diabetes Mellitus (IDDM), Diabetes Mellitus ( NIDDM), Endocrine Cancer, Endocrine Problems Rheumatology: History of;: Rheumatoid Arthritis No history of;: Psoriasis, Sjogrens, Systemic Lupus Erythematosus Respiratory: History of: Bronchitis, COPD, Obstructive Sleep Apnea, Pneumonia No history of: Asthma, Intubation, Pulmonary Embolism, Pulmonary Hypertension , Lung Cancer, Respiratory Problems Renal: History of: Renal Failure No history of: Renal (Kidney) Cancer, Dialysis, Renal Problems Genitourinary: No history of: Bladder Problem, Kidney Stones, Prostate Problems, Recurring Urinary Tract Infections, Genitourinary Cancer, Problems Gastrointestinal: History of: GERD, GI Problems (colon cancer) Musculoskeletal: History of: Amputation (RIGHT BKA), Back/Neck Problems, Degenerative Disk Disease Hematology: History of: Anemia, Hematologic Cancer No history of: Blood Transfusion Reaction, Bleeding Problems, Clotting Problems, Sickle Cell Disease, Blood Disorders Reproductive: No histroy: Penile Disorder, Sexually Transmitted Disease, Reproductive Cancer, Reproductive Problems Other: History of: Cancer No history of: Anesthesia Reactions, Anaphylaxis, Eczema, HIV, Malignant Hyperthermia, MRSA, Vancomycin-Resistant Enterococci, Skin Problems, Miscellaneous Medical Problems - Surgical History Cardiac Surgeries: Sugical HX of: Cardiac Catheterization, Cardiac Surgery ( STENTS X4) Patient Denies: Femoral-Popliteal Bypass Graft, Carotid Endarterectomy, Internal Defibrillator, Vascular Access Devices Thoracic Surgeries: Patient denies;: Kidney (Renal Surgery), Lithotripsy, Nephrectomy, Organ Transplant, Lobectomy Neurologic Surgeries: Patient denies: Brain Aneurysm, Cerebral Hemorrhage, Neurologic Surgery HEENT Surgeries: Patient denies: Carotid Endarterectomy, Eye Surgery, Thyroid Surgery, Tonsilectomy & Adenoidectomy Abdominal Surgeries: Surgical HX of: Appendectomy, Cholecystectomy, Colonoscopy , EGD Patient denies: Abdominal Surgery, Gastric Bypass Surgery, Hernia Repair, Splenectomy Reproductive Surgeries: Patient denies;: Breast Surgery, Cystoscopy, Genitourinary Surgery, Prostate Surgery, Vasectomy - Family History Family History: Reports;: Family Cancer (brother- lung), Family Diabetes (mother ), Family Heart Disease (mother, brother times 2), Family Hypertension (brother) Denies;: Family Anesthesia Reaction, Family Psychiatric Problems, Family Stroke - Social History Smoking Status: Former smoker Frequency of Alcohol Use: None Type of Drug Use: None Infectious Disease Exam H&P - Constitutional Vitals: Vital Signs Temp Pulse Resp BP Pulse Ox 97.8 F 66 16 158/65 92 L 06/20/17 11:20 06/20/17 11:20 06/20/17 11:20 06/20/17 11:20 06/20/17 11:20 Intake and Output 06/19/17 06/20/17 06/20/17 23:59 07:59 15:59 Intake Total 650 / 650 120 / 120 250 / 250 Output Total 900 / 900 Balance -250 / -250 120 / 120 250 / 250 Intake: IV 250 / 250 Vancomycin Inj 1,000 mg 250 / 250 In Ns 250 ml @ 250 mls/hr IV Q24H [facility] Rx#: [id number] Oral 650 / 650 120 / 120 Output: Urine 900 / 900 Other: Voiding Method Urinal Exam: General: Patient relatively comfortable HEENT: Mucous membranes pink and moist, anicteric acyanotic, RADHA, no oral exudates Neck: Supple, no thyroid gland enlargement, no cervical or submandibular lymphadenopathy Respiratory system: Breath sounds vesicular, occasional rhonchi bilaterally Cardiovascular: Normal S1 and S2, no murmurs appreciated Abdomen: Normal bowel sounds, soft nontender throughout, no organomegaly or mass Genitourinary: No suprapubic pain or bladder distention Extremities: no edema Skin: No rash Reports - Labs CBC & BMP: 06/18/17 07:03 06/20/17 04:39 Labs: Laboratory Results - last 24 hr 06/19/17 06/19/17 06/20/17 16:06 19:56 04:39 Sodium 143 Potassium 4.0 Chloride 110 H Carbon Dioxide 23 Anion Gap 14.0 BUN 49 H Creatinine 1.90 H GFR Calculation 38 BUN/Creatinine Ratio 25.00 H Glucose 77 POC Glucose 104 105 Calculated Osmolality 296.0 Calcium 8.0 L Magnesium 2.2 06/20/17 07:53 Sodium Potassium Chloride Carbon Dioxide Anion Gap BUN Creatinine GFR Calculation BUN/Creatinine Ratio Glucose POC Glucose 87 Calculated Osmolality Calcium Magnesium - Reports Microbiology: Microbiology 06/15/17 11:30 Blood Culture - Final Blood No growth at 5 days 06/15/17 11:30 Blood Culture - Final Blood No growth at 5 days 06/17/17 07:50 Fungal Smear - Final Bronchial Washings - Left Lower Lobe No fungal elements seen 06/17/17 07:50 Direct Acid Fast Bacilli Smear - Final Bronchial Washings No acid fast bacilli seen AFB Smear Concentration - Final No acid fast bacilli seen 06/17/17 07:50 Bronchial Washings Culture - Final Bronchial Washings - Left Lower Lobe Staph Aureus Methicillin Resis Gram Stain - Final 06/17/17 07:50 Fungal Smear - Final Bronchial Boom Lavage No fungal elements seen 06/17/17 07:50 Direct Acid Fast Bacilli Smear - Final Bronchial Boom Lavage No acid fast bacilli seen AFB Smear Concentration - Final No acid fast bacilli seen 06/17/17 07:50 Bronchial Washings Culture - Final Bronchial Washings Staph Aureus Methicillin Resis Gram Stain - Final - Diagnostic Findings Procedure: Chest x-ray: image reviewed by me, report reviewed by me (Some increased interstitial markings but I did not appreciate actual consolidation) Specialty Discharge - Follow Up or Referrals
[2017-06-20] MEDS: ASPIRIN EC 81 MG TABLET PO SCH ×2 (13:36→15:33)
[2017-06-20] MEDS: TAMSULOSIN 0.4 MG CAPSULE PO SCH (20:50)
[2017-06-20] MEDS: SERTRALINE 50 MG TABLET PO SCH (20:50)
[2017-06-20] MEDS: ATORVASTATIN 20 MG TABLET PO SCH (20:50)
[2017-06-21] MEDS: IPRATROPIUM 500 MCG/2.5 ML NEB RESP TX SCH ×4 (00:30→20:08)
[2017-06-21 02:51] LABS: Calcium 7.6 MG/DL (8.5-10.1); Magnesium 2.2 MG/DL (1.8-2.4); Osmolality,Calculated 301.8 MOS/KG (273-304); Potassium 4.2 MMOL/L (3.5-5.1)
[2017-06-21] MEDS: FORMOTEROL 20 MCG/2 ML NEB RESP TX SCH ×2 (07:59→20:08)
[2017-06-21] MEDS: INSULIN LISPRO 100 UNIT/ML SUBCUT SCH ×4 (08:31→21:20)
--- NOTE | 2017-06-21 08:51 | Hospitalist Progress Note ---
Assessment and Plan (1) Renal insufficiency Status: Chronic Assessment and plan: Stable glomerular filtration rate over the last 1 year Current Visit: No (2) Bronchomalacia, acquired Status: Chronic Assessment and plan: Recurrent mucoid impaction with secondary infection. Expectorated sputum on this admission positive for methicillin-resistant staph aureus; results of bronchial washings show MRSA as well. He is anticipated for a extended course of antibiotics for suppression. Current Visit: Yes Hospitalist: Subjective Interval history: 86-year-old male with tracheal bronchial malacia with recurrent episodes of retained secretions and secondary infection. On this admission bronchoscopy has demonstrated once again a methicillin-resistant staph aureus associated with tenacious secretions. He is receiving vancomycin with sensitivities to linezolid, Bactrim DS, in addition to the vancomycin. His nocturnal confusion has diminished with decrease in corticosteroid dose. Vital signs are stable he is afebrile. 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 Exam - Constitutional Vitals: Period Temp Pulse Resp BP Sys/Morrow Pulse Ox Last 24 Hr 97.0 F-98.2 F 64-81 14-20 110-166/56-80 92-99 General appearance: normal weight - Respiratory Respiratory exam: Present: rhonchi. Absent: rales, wheezes - Cardiovascular Cardiovascular exam: Present: regular rate and rhythm - GI/Abdominal GI/Abdominal exam: Present: normal bowel sounds - Extremities Exam Extremities exam: Absent: edema - Neurological Exam Neurological exam: Present: alert, oriented X3 Results - Labs CBC & BMP: 06/18/17 07:03 06/21/17 01:27 - Diagnostic Findings Procedure: Chest x-ray: image reviewed by me (Coarse interstitial markings stable pattern) Specialty Discharge - Follow Up or Referrals
--- NOTE | 2017-06-21 09:13 | XRay Report ---
Portable chest Date: 06/21/2017 Clinical history: Tracheomalacia bronchopneumonia Comparison: 06/17/2017 Technique: Portable AP sitting chest Findings: The heart is larger in size with minimally progressive parenchymal findings at the lung bases with small pleural effusions. Stable mediastinum and osseous structures. Chronic deformity of the right shoulder. Impression: The heart is larger in size with progressive atelectasis/infiltration/edema at the lung bases with small pleural effusions. PROCEDURE INTERPRETED AT [facility] DEPARTMENT OF RADIOLOGY Final Report Signed by: Dr. Denisse Weber
[2017-06-21] MEDS: methylPREDNISolone SOD SUC 40 MG/1 ML VIAL IV SCH (09:16)
[2017-06-21] MEDS: guaiFENesin 200 MG/10 ML UDCUP PO PRN (09:16)
[2017-06-21] MEDS: CALCIUM (CARBONATE) 600 MG TABLET PO SCH ×2 (09:16→21:20)
[2017-06-21] MEDS: VANCOMYCIN INJ 1,250 MG in SODIUM CHLORIDE 0.9% 250 ML IV SCH (09:16)
[2017-06-21] MEDS: MIDODRINE 5 MG TABLET PO SCH ×3 (09:17→21:20)
[2017-06-21] MEDS: DONEPEZIL 5 MG TABLET PO SCH (09:17)
[2017-06-21] MEDS: MEMANTINE 10 MG TABLET PO SCH ×2 (09:17→21:20)
[2017-06-21] MEDS: LEVOTHYROXINE 100 MCG TABLET PO SCH (09:17)
[2017-06-21] MEDS: PANTOPRAZOLE 40 MG TABLET PO SCH (09:17)
[2017-06-21] MEDS: GABAPENTIN 300 MG CAPSULE PO SCH ×2 (09:17→21:20)
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
[2017-06-21] MEDS: TAMSULOSIN 0.4 MG CAPSULE PO SCH (21:20)
[2017-06-21] MEDS: ATORVASTATIN 20 MG TABLET PO SCH (21:20)
[2017-06-21] MEDS: SERTRALINE 50 MG TABLET PO SCH (21:20)
[2017-06-22] MEDS: IPRATROPIUM 500 MCG/2.5 ML NEB RESP TX SCH ×4 (00:50→19:14)
[2017-06-22] MEDS: guaiFENesin 200 MG/10 ML UDCUP PO PRN ×2 (03:31→18:35)
[2017-06-22 07:02] LABS: Calcium 7.2 MG/DL (8.5-10.1); Magnesium 2.3 MG/DL (1.8-2.4); Osmolality,Calculated 300.8 MOS/KG (273-304); Potassium 4.1 MMOL/L (3.5-5.1)
[2017-06-22] MEDS: FORMOTEROL 20 MCG/2 ML NEB RESP TX SCH ×2 (07:51→19:14)
[2017-06-22] MEDS: CALCIUM (CARBONATE) 600 MG TABLET PO SCH ×2 (08:12→21:40)
[2017-06-22] MEDS: PANTOPRAZOLE 40 MG TABLET PO SCH (08:12)
[2017-06-22] MEDS: LEVOTHYROXINE 100 MCG TABLET PO SCH (08:12)
[2017-06-22] MEDS: INSULIN LISPRO 100 UNIT/ML SUBCUT SCH ×4 (08:13→21:40)
[2017-06-22] MEDS: MIDODRINE 5 MG TABLET PO SCH ×3 (08:13→21:40)
[2017-06-22] MEDS: methylPREDNISolone SOD SUC 40 MG/1 ML VIAL IV SCH (08:13)
[2017-06-22] MEDS: MEMANTINE 10 MG TABLET PO SCH ×2 (08:13→21:40)
[2017-06-22] MEDS: DONEPEZIL 5 MG TABLET PO SCH (08:13)
[2017-06-22] MEDS: GABAPENTIN 300 MG CAPSULE PO SCH ×2 (08:14→21:39)
[2017-06-22] MEDS: VANCOMYCIN INJ 1,250 MG in SODIUM CHLORIDE 0.9% 250 ML IV SCH (09:42)
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
[2017-06-22] MEDS ORDERED: diphenhydrAMINE CAP 25 MG CAPSULE PO PRN (10:20)
--- NOTE | 2017-06-22 15:00 | Hospitalist Progress Note ---
Assessment and Plan - Time spent with patient Time spent with patient: Greater than 30 minutes (Pt is new to me. I reviewed pt 's chart, labs and CXR report and images. I discussed with pt and our staff developer in regarding his clinical status today.) (1) Bronchopneumonia due to methicillin resistant Staphylococcus aureus (MRSA) Status: Acute Assessment and plan: IV VCN. Need to adjust dosage based on BUN/Cr. Current Visit: No (2) Tracheomalacia, acquired Status: Acute Assessment and plan: Plan listed as above. Pulm f/u. Current Visit: Yes (3) Bronchomalacia, acquired Status: Chronic Assessment and plan: Pulm f/u. Current Visit: Yes (4) Diabetes Status: Acute Assessment and plan: Continue current management regimen. Current Visit: No (5) Thrombocytopenia Status: Acute Assessment and plan: Monitor CBC Current Visit: No Hospitalist: Subjective Interval history: 06/22/17: No overnight acute event. Sitting at bedside. Ate lunch well. Less cough today. Deny fever, chest pain, abd pain, or dysuria. Interval history: 86-year-old male with tracheal bronchial malacia with recurrent episodes of retained secretions and secondary infection. On this admission bronchoscopy has demonstrated once again a methicillin-resistant staph aureus associated with tenacious secretions. He is receiving vancomycin with sensitivities to linezolid, Bactrim DS, in addition to the vancomycin. His nocturnal confusion has diminished with decrease in corticosteroid dose. Vital signs are stable he is afebrile. 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 Exam - Constitutional Vitals: Period Temp Pulse Resp BP Sys/Morrow Pulse Ox Last 24 Hr 97.5 F-98.1 F 59-76 16-20 113-161/47-66 73-100 Exam: General: Sitting in bed and eating lunch HEENT: AT NC EOMI, normal lips and gum Heart: +S1/S2, RRR Lungs: Decreased breath sound. No wheezing. ABD: +BS NT ND Skin: No hives or edema Neuro: AAOx3 Results - Labs CBC & BMP: 06/18/17 07:03 06/22/17 04:41 Specialty Discharge - Follow Up or Referrals
[2017-06-22] MEDS: ATORVASTATIN 20 MG TABLET PO SCH (21:40)
[2017-06-22] MEDS: SERTRALINE 50 MG TABLET PO SCH (21:40)
[2017-06-22] MEDS: TAMSULOSIN 0.4 MG CAPSULE PO SCH (21:40)
[2017-06-23] MEDS: IPRATROPIUM 500 MCG/2.5 ML NEB RESP TX SCH ×4 (00:33→18:40)
[2017-06-23] MEDS: guaiFENesin 200 MG/10 ML UDCUP PO PRN ×2 (06:50→20:21)
[2017-06-23] MEDS: FORMOTEROL 20 MCG/2 ML NEB RESP TX SCH ×2 (07:27→18:40)
[2017-06-23 07:34] LABS: Calcium 7.2 MG/DL (8.5-10.1); Magnesium 2.3 MG/DL (1.8-2.4); Osmolality,Calculated 305.1 MOS/KG (273-304); Potassium 3.7 MMOL/L (3.5-5.1)
[2017-06-23] MEDS: INSULIN LISPRO 100 UNIT/ML SUBCUT SCH ×4 (08:06→20:22)
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
[2017-06-23] MEDS: LEVOTHYROXINE 100 MCG TABLET PO SCH (10:18)
[2017-06-23] MEDS: CALCIUM (CARBONATE) 600 MG TABLET PO SCH ×2 (10:18→20:22)
[2017-06-23] MEDS: MIDODRINE 5 MG TABLET PO SCH ×3 (10:19→20:32)
[2017-06-23] MEDS: MEMANTINE 10 MG TABLET PO SCH ×2 (10:19→20:22)
[2017-06-23] MEDS: GABAPENTIN 300 MG CAPSULE PO SCH ×2 (10:19→20:21)
[2017-06-23] MEDS: DONEPEZIL 5 MG TABLET PO SCH (10:19)
[2017-06-23] MEDS: PANTOPRAZOLE 40 MG TABLET PO SCH (10:19)
--- NOTE | 2017-06-23 12:56 | Infectious Disease Progress ---
Assessment and Plan (1) Pneumonia Status: Acute Assessment and plan: May be mild pneumonia versus bronchitis. No severe infiltrate on chest x-ray. MRSA isolated. Patient clinically doing better and his renal function is stable on the vancomycin, trough of which was therapeutic yesterday. Recommendations: Continue vancomycin until Friday. I will sign off now. Call if there are any issues before he gets discharged on Friday. Current Visit: Yes (2) Tracheomalacia, acquired Status: Acute Current Visit: Yes (3) Bronchomalacia, acquired Status: Chronic Current Visit: Yes (4) Dementia Status: Chronic Current Visit: No (5) Hypertension Status: Chronic Current Visit: No Qualifiers: Hypertension type: essential hypertension Qualified Code(s): I10 - Essential (primary) hypertension (6) Renal insufficiency Status: Chronic Current Visit: No Infectious Disease - PN: Subj Interval history: Patient generally doing better, less, no longer requiring one-to-one observation. He has not had any fever over the weekend for any other acute difficulties. Says he still cough with a bit of sputum production. No shortness of breath. Infectious Disease Exam (PN) - Constitutional Vitals: Temp Pulse Resp BP Pulse Ox 97.4 F L 69 18 141/85 93 L 06/23/17 12:00 06/23/17 12:00 06/23/17 12:00 06/23/17 12:00 06/23/17 12:00 General appearance: normal weight Exam: General appearance: no acute distress, sitting comfortably in chair with legs up on his walker - Eye Eye exam: Present: EOMI. no icterus Pupils: Present: RADHA - ENT ENT exam: no oral exudates - Respiratory Respiratory exam: vesicular BS, no crepitations or wheezes - Cardiovascular Cardiovascular exam: regular rate and rhythm, no murmurs - GI/Abdominal GI/Abdominal exam: normal bowel sounds, soft, non-tender, no organomegaly or mass - Extremities Exam Extremities exam: no edema - Skin Skin exam: no rash Results - Labs CBC & BMP: 06/18/17 07:03 06/23/17 06:24 Lab Results: I have reviewed the past 24 hour labs Specialty Discharge - Follow Up or Referrals
[2017-06-23] MEDS: methylPREDNISolone SOD SUC 40 MG/1 ML VIAL IV SCH (14:04)
[2017-06-23] MEDS: ASPIRIN EC 81 MG TABLET PO SCH (14:04)
[2017-06-23] MEDS: VANCOMYCIN INJ 1,250 MG in SODIUM CHLORIDE 0.9% 250 ML IV SCH (14:05)
--- NOTE | 2017-06-23 17:36 | Hospitalist Progress Note ---
Assessment and Plan (1) Pneumonia Status: Acute Assessment and plan: Continue Haywood for full 10 day course which will end 06/25/2017 Current Visit: No Qualifiers: Pneumonia type: due to methicillin-resistant Staphylococcus aureus (MRSA) Laterality: unspecified laterality Lung location: unspecified part of lung Qualified Code(s): J15.212 - Pneumonia due to Methicillin resistant Staphylococcus aureus (2) COPD exacerbation Problem details: Patient also has chronic respiratory failure. Status: Chronic Current Visit: No (3) Hypertension Status: Chronic Current Visit: No Qualifiers: Hypertension type: essential hypertension Qualified Code(s): I10 - Essential (primary) hypertension (4) Dementia Status: Chronic Current Visit: No (5) debility and deconditioning Problem details: PT consult Case management consult for post acute/subacute rehabilitation Status: Chronic Current Visit: No (6) Acute on chronic kidney failure Status: Acute Current Visit: No Qualifiers: Chronic kidney disease stage: stage 3 (moderate) (7) Bronchopneumonia due to methicillin resistant Staphylococcus aureus (MRSA) Status: Acute Current Visit: No Hospitalist: Subjective Interval history: Patient seen and examined. No acute events overnight. Case discussed with nursing staff. Labs reviewed. Patient receiving vancomycin for MRSA pneumonia. Last dose of antibiotics should be Friday. Exam - Constitutional Vitals: Period Temp Pulse Resp BP Sys/Morrow Pulse Ox Last 24 Hr 97.4 F-98.8 F 66-92 14-22 127-170/56-93 90-99 Exam: Constitutional System: No distress. No tremulousness. Pleasant and cooperative Head: Normocephalic, atraumatic. Ears, Nose and Throat System: No pain or tenderness. No epistaxis or discharge Eyes System: Pupils equal, round, and reactive. Extraocular muscles intact. Neck: Supple, without adenopathy, No jugular venous distention. Respiratory System: Chest with rhonchi bilaterally. Cardiovascular System: Heart with regular rate and rhythm. No murmur. GI System: Abdomen soft, nontender. Normo active bowel sounds present. Musculoskeletal System: amputation noted Neurological System: No discernable sensory deficit. No aphasia Psychiatric System: Conversation is rational Results - Labs CBC & BMP: 06/18/17 07:03 06/23/17 06:24 Lab Results: I have reviewed the past 24 hour labs - Diagnostic Findings Procedure: Chest x-ray: report reviewed by me Specialty Discharge - Follow Up or Referrals
[2017-06-23] MEDS: TAMSULOSIN 0.4 MG CAPSULE PO SCH (20:22)
[2017-06-23] MEDS: ATORVASTATIN 20 MG TABLET PO SCH (20:22)
[2017-06-23] MEDS: SERTRALINE 50 MG TABLET PO SCH (20:22)
[2017-06-23] MEDS: ACETAMINOPHEN 325 MG TABLET PO PRN (21:39)
[2017-06-24] MEDS: IPRATROPIUM 500 MCG/2.5 ML NEB RESP TX SCH ×4 (01:00→19:55)
[2017-06-24] MEDS: guaiFENesin 200 MG/10 ML UDCUP PO PRN ×2 (04:36→22:04)
[2017-06-24] MEDS: FORMOTEROL 20 MCG/2 ML NEB RESP TX SCH ×2 (07:50→19:55)
[2017-06-24 08:00] LABS: Calcium 7.7 MG/DL (8.5-10.1); Magnesium 2.3 MG/DL (1.8-2.4); Osmolality,Calculated 295.8 MOS/KG (273-304); Potassium 4.3 MMOL/L (3.5-5.1)
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
[2017-06-24] MEDS: INSULIN LISPRO 100 UNIT/ML SUBCUT SCH ×4 (10:10→21:43)
[2017-06-24] MEDS: DONEPEZIL 5 MG TABLET PO SCH (10:11)
[2017-06-24] MEDS: PANTOPRAZOLE 40 MG TABLET PO SCH (10:11)
[2017-06-24] MEDS: MIDODRINE 5 MG TABLET PO SCH ×3 (10:11→21:43)
[2017-06-24] MEDS: MEMANTINE 10 MG TABLET PO SCH ×2 (10:11→21:43)
[2017-06-24] MEDS: CALCIUM (CARBONATE) 600 MG TABLET PO SCH ×2 (10:11→21:43)
[2017-06-24] MEDS: GABAPENTIN 300 MG CAPSULE PO SCH ×2 (10:11→21:43)
[2017-06-24] MEDS: predniSONE 20 MG TABLET PO SCH (10:11)
[2017-06-24] MEDS: LEVOTHYROXINE 100 MCG TABLET PO SCH (10:12)
[2017-06-24] MEDS: VANCOMYCIN INJ 1,250 MG in SODIUM CHLORIDE 0.9% 250 ML IV SCH (11:14)
[2017-06-24] MEDS: ACETAMINOPHEN 325 MG TABLET PO PRN (11:19)
--- NOTE | 2017-06-24 16:12 | Hospitalist Progress Note ---
Hospitalist: Subjective Interval history: Patient states that he feels fine. He states that his breathing is fine. He denies any CP. He has no complaints. He is looking forward to being discharged tomorrow. Exam - Constitutional Vitals: Period Temp Pulse Resp BP Sys/Morrow Pulse Ox Last 24 Hr 97.0 F-97.7 F 61-94 17-20 158-174/68-82 92-99 General appearance: no acute distress - Eye Eye exam: Present: EOMI Pupils: Present: RADHA - Respiratory Respiratory exam: Present: rhonchi (unlabored respirations, no labored breathing ; coarse breath sounds but descent air movement) - Cardiovascular Cardiovascular exam: Present: regular rate and rhythm - GI/Abdominal GI/Abdominal exam: Present: normal bowel sounds, soft - Extremities Exam Extremities exam: Absent: edema (s/p right BKA) - Neurological Exam Neurological exam: Present: alert, oriented X3 - Psychiatric Psychiatric exam: Present: normal affect, normal mood Results - Labs CBC & BMP: 06/18/17 07:03 06/24/17 05:42 - Impressions 1. MRSA bronchopneumonia: on vancomycin; last dose is 06/25/17 2. Tracheobronchomalacia with MRSA and mucoid impaction s/p bronchoscopy on 3. COPD with AE: resolved 4. Chronic respiratory failure 5. Elevated blood pressures: likely influenced by use with midrodrine; monitor 6. Acute on CKD: slowly improving Plan: as noted above; d/c tomorrow after last vancomycin dose in the morning. Specialty Discharge - Follow Up or Referrals
[2017-06-24] MEDS: ATORVASTATIN 20 MG TABLET PO SCH (21:43)
[2017-06-24] MEDS: TAMSULOSIN 0.4 MG CAPSULE PO SCH (21:43)
[2017-06-24] MEDS: SERTRALINE 50 MG TABLET PO SCH (21:43)
[2017-06-25] MEDS: IPRATROPIUM 500 MCG/2.5 ML NEB RESP TX SCH ×2 (01:03→07:17)
[2017-06-25 07:05] LABS: Calcium 7.6 MG/DL (8.5-10.1); Magnesium 2.2 MG/DL (1.8-2.4); Osmolality,Calculated 294.8 MOS/KG (273-304); Potassium 3.6 MMOL/L (3.5-5.1)
[2017-06-25 07:14] LABS: Calcium 7.5 MG/DL (8.5-10.1); Osmolality,Calculated 295.8 MOS/KG (273-304); Potassium 3.6 MMOL/L (3.5-5.1)
[2017-06-25] MEDS: FORMOTEROL 20 MCG/2 ML NEB RESP TX SCH (07:17)
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
--- NOTE | 2017-06-25 08:42 | Discharge Summary ---
Hospital Course - Hospital Course Hospital Course: Mr. Martell is a 86 year old white male with a history of GERD, hypertension, diabetes, CHF hypothyroidism, COPD, dementia, colon cancer presents to the ED for further evaluation of increasing weakness, current falls, and aching all over patient's is present at the bedside and provides most of the history for the patient. Patient's states that the patient fell 4 times yesterday and he appears to be more short of breath. Patient states that he falls because of weakness in his lower extremities. He denies losing consciousness or hitting his head during any of the falls. Patient was seen and examined at the bedside with Dr. Meehan present. Patient reports a productive cough that is very dark in color along with a low-grade fever and chills. Patient's also stated that the patient was having issues with phantom pain in his right lower extremity. She reports the patient was seen in the ED on yesterday and given an antibiotic (clindamycin). The weakness continued and patient's brought him he needs to be further examined. In the ED chest x-ray revealed ' patchy right midlung parenchymal disease which could represent focal pneumonia or some focal asymmetric pulmonary edema '. Labs revealed a Hgb of 9.3 and HCT of 28.8, BUN/creatinine 33/2 respectively. Patient was admitted to the hospitalist service for further evaluation. IV antibiotics, IV steroids and breathing treatments will be administered. Patient will be closely monitored. Patient was seen in consultation by Dr. Boswell of pulmonary. He was treated with intravenous vancomycin for 10 days. At the completion of his treatment he was significantly improved. It was recommended by pulmonary that he be discharged at that time with follow-up as an outpatient. The time of his discharge he was comfortable and felt significantly better. Diagnosis - Discharge Diagnosis (1) COPD exacerbation Status: Acute (2) Chronic kidney disease, stage 3 Status: Chronic (3) Dementia Status: Chronic (4) Bronchopneumonia due to methicillin resistant Staphylococcus aureus (MRSA) Status: Acute (5) Tracheomalacia, acquired Status: Chronic (6) Bronchomalacia, acquired Status: Chronic Specialty Discharge - Follow Up or Referrals Discharge Plan - Discharge Data Condition at Discharge: Stable Discharge Diet: advance to your usual diet Activity: resume usual activities as tolerated Hygiene: no restrictions Contact your physician if you experience:: fever over 101 - Discharge Medications Continue Tiotropium Inhalation [Spiriva Handihaler] 1 puff INH DAILY Atorvastatin [Lipitor] 20 mg PO BEDTIME tablet Budesonide Neb [Pulmicort Respules] 0.5 mg RESP TX RT BID Formoterol Neb [Perforomist] 20 mcg RESP TX RT BID Tamsulosin [Flomax] 0.4 mg PO BEDTIME capsule Gabapentin Cap/Tab [Neurontin Cap/Tab] 600 mg PO BEDTIME Gabapentin Cap/Tab [Neurontin Cap/Tab] 300 mg PO BID Donepezil [Aricept] 5 mg PO DAILY Levothyroxine Tab [Synthroid Tab] 100 mcg PO DAILY Cyanocobalamin (Vitamin B-12) [Vitamin B12] 2,500 mcg PO DAILY Acetaminophen Tab [Tylenol Tab] 650 mg PO Q6H PRN PRN Reason: fever, headache/body aches Sertraline HCl 50 mg PO BEDTIME predniSONE TAB [PredniSONE] 10 mg PO DAILY Calcium Carbonate 600 mg PO BID Clindamycin Cap [Cleocin Cap] 300 mg PO Q8HR #20 capsule Azithromycin Tab [Zithromax Tab] 250 mg PO MOWEFR clonazePAM [Clonazepam] 1 mg PO BEDTIME PRN PRN Reason: Sleep HYDROcodone/ACETAMIN 5-325 [[place] 5-325] 1 tablet PO Q6H PRN PRN Reason: Pain Vit C/Vit E AC/Lut/Copper/Zinc [Preservision Lutein Softgel] 2 each PO BID Lactulose 10 gm PO BID PRN PRN Reason: Constipation Memantine [Namenda] 10 mg PO BID Omeprazole [Prilosec] 20 mg PO BID Aspirin EC Tab 81 mg PO MOWEFR tablet Multivitamin (Ocuvite) [Ocuvite] 1 tablet PO DAILY Docusate Sodium [Stool Softener] 100 mg PO DAILY PRN PRN Reason: Constipation Midodrine HCl 5 mg PO TID Potassium Chloride 40 meq PO BID - Follow Up or Referral - Forms/Instructions Instructions: Viral Pneumonia (DC), Gastroesophageal Reflux in Children (DC), Anthrax (GEN), Aspiration Pneumonia (GEN), Chronic Obstructive Pulmonary Disease (GEN), Simple Eosinophilic Pneumonia (GEN) Exam - Constitutional Vitals: Period Temp Pulse Resp BP Sys/[place] Pulse Ox Last 24 Hr 97.0 F-98.2 F 61-94 12-20 149-188/62-79 92-99 Discharge Results Procedures and tests throughout hospitalization: Pending Orders 06/17/17 07:50 AFB Culture/Smears Routine AFB Culture/Smears Routine Fungal Culture w/ Prep Routine Fungal Culture w/ Prep Routine Labs on day of discharge: Labs from last 24 hours 06/25/17 06/25/17 06/24/17 06:18 06:18 21:01 Sodium 144 144 Potassium 3.6 3.6 Chloride 111 H 112 H Carbon Dioxide 25 24 Anion Gap 11.6 11.6 BUN 41 H 42 H Creatinine 1.80 H 1.80 H GFR Calculation 41 41 BUN/Creatinine Ratio 22.00 H 23.00 H Glucose 86 88 POC Glucose 171 H Calculated Osmolality 294.8 295.8 Calcium 7.6 L 7.5 L Magnesium 2.2 Vancomycin Trough 06/24/17 06/24/17 06/24/17 17:15 12:16 08:35 Sodium Potassium Chloride Carbon Dioxide Anion Gap BUN Creatinine GFR Calculation BUN/Creatinine Ratio Glucose POC Glucose 196 H 102 Calculated Osmolality Calcium Magnesium Vancomycin Trough 21.3 H 06/24/17 07:25 Sodium Potassium Chloride Carbon Dioxide Anion Gap BUN Creatinine GFR Calculation BUN/Creatinine Ratio Glucose POC Glucose 96 Calculated Osmolality Calcium Magnesium Vancomycin Trough DS: Provider Date of admission: 06/15/17 12:57 Primary care physician: . No PCP Attending physician on admission: Skye Meehan MD Consults: 06/15/17 14:26 Consult to Physician [CONS] Routine Comment: Consulting Provider: Chris Boswell Person Notified: MD chau Date Notified: 06/16/17 Time Notified: 08:43 06/16/17 08:00 Consult to Pulmonary Rehabilitation [CONS] Routine Reason for Pulmonary Rehabilitation: COPD 06/18/17 11:35 Consult to Case Mgmt/Social Srvs [CONS] Routine Reason for Case Mgmt/Social Srvs: Swingbed/SNF/Assisted Consult Comment: with IV antibiotics 06/19/17 07:20 Consult to Wound Care - [place] [CONS] Routine Reason for Wound Care: Wound Care Management Consult Comment: 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 Berg Date Notified: 06/19/17 Time Notified: 15:52 Consult Notification Comment: gianna 06/19/17 08:47 Consult to Pharmacy [CONS] Routine Reason for Pharmacy Consult: Dose/Manage Vancomycin 06/19/17 09:32 Consult to Physical Therapy [CONS] Routine Reason for Physical Therapy: Evaluate and Treat Discharging clinician: Ulices Orta
[2017-06-25] MEDS: INSULIN LISPRO 100 UNIT/ML SUBCUT SCH ×2 (09:46→11:23)
[2017-06-25] MEDS: VANCOMYCIN INJ 1,250 MG in SODIUM CHLORIDE 0.9% 250 ML IV SCH (09:47)
[2017-06-25] MEDS: GABAPENTIN 300 MG CAPSULE PO SCH (10:00)
[2017-06-25] MEDS: PANTOPRAZOLE 40 MG TABLET PO SCH (10:00)
[2017-06-25] MEDS: MEMANTINE 10 MG TABLET PO SCH (10:00)
[2017-06-25] MEDS: CALCIUM (CARBONATE) 600 MG TABLET PO SCH (10:00)
[2017-06-25] MEDS: predniSONE 20 MG TABLET PO SCH (10:00)
[2017-06-25] MEDS: MIDODRINE 5 MG TABLET PO SCH (10:00)
[2017-06-25] MEDS: LEVOTHYROXINE 100 MCG TABLET PO SCH (10:00)
[2017-06-25] MEDS: ASPIRIN EC 81 MG TABLET PO SCH (10:00)
[2017-06-25] MEDS: DONEPEZIL 5 MG TABLET PO SCH (10:00)
[2017-06-25 11:40] VITALS: BP 150/65
== END 2017-06-25 11:55 | disposition home or self-care (01) | DRG 166 ==
LOC: N.ED 10:55 → N.EDINP 12:57 → SUATTDRO 12:57 → N.EDINP 13:35 → N.5E 13:55
PROVIDERS: ADMIT Internal Medicine

== ENCOUNTER 2017-07-30 16:32 | Inpatient (IN) ==
[2017-07-30 17:21] LABS: Apearance,Urine CLEAR (Clear); Bilirubin,Urine Negative (Negative); Blood, Urine Negative (Negative); Glucose,Urine (UA) Negative (Negative); Ketones,Urine Negative (Negative); Mucus,Urine Occasional /LPF (Occasional); Nitrite,Urine Negative (Negative); Protein,Urine Negative; RBC,Urine <1 /HPF (0-4); Urine Color Straw (Yellow); Urine Specific Gravity 1.006 (1.001-1.035); Urine Urobilinogen < 2.0 EU/DL (0.2-1.0)
[2017-07-30] MEDS ORDERED: SODIUM CHLORIDE 0.9% 500 ML IV STA (18:07)
[2017-07-30] MEDS ORDERED: LEVOFLOXACIN INJ 750 MG in PREMIX 1 EACH IV STA (18:07)
[2017-07-30 18:25] LABS: Basophils % 0.2 % (0.0-0.8); Eosinophils # 0.1 10*3/uL (0.0-0.87); Eosinophils % 0.9 % (0.00-10.9); Hematocrit 35.7 VOL% (42.0-52.0); Hemoglobin 11.9 GM/DL (14.0-18.0); Immature Granulocytes % 0.8 %; Lymphocytes # 2.1 10*3/uL (1.4-4.0); Lymphocytes % 16.2 % (21.2-54.2); Mean Corpuscular HGB Conc 33.3 GM/DL (32-36); Mean Corpuscular Hemoglobin 33 PG (27-34); Mean Corpuscular Volume 99.2 FL (87-102); Mean Platelet Volume 11.4 FL (9.6-12.0); Monocytes # 0.9 10*3/uL (0.11-0.8); Monocytes % 6.8 % (1.7-12.7); Neutrophils # 9.6 10*3/uL (1.4-7.4); Neutrophils % 75.1 % (38.7-73.9); Platelet Count 126 T/CUMM (130-400); Red Cell Distribution Width 16.5 % (9.3-17.3); White Blood Count 12.8 T/CUMM (4-12)
--- NOTE | 2017-07-30 18:43 | XRay Report ---
Single view the chest. Indication: Fever cough and dyspnea. Comparison: June 21, 2017. The heart has decreased in size, and is now within the range of normal. There is atelectasis and pleural effusion at the left lung base. There is scarring and volume loss at the left lung apex. The right lung is clear. Degenerative changes are noted in the spinal column and shoulders. Findings consistent with chronic rotator cuff injury on the right. Impression: Left basilar atelectasis and pleural effusion. PROCEDURE INTERPRETED AT [facility] DEPARTMENT OF RADIOLOGY Final Report Signed by: Dr. Carolyn Roberts
[2017-07-30] MEDS ORDERED: ACETAMINOPHEN 500 MG TABLET ONE (18:49)
[2017-07-30] MEDS ORDERED: ACETAMINOPHEN 500 MG TABLET PO STA (18:56)
[2017-07-30 18:57] LABS: Platelet Estimate Decreased; Poikilocytosis 1+; Tear Drop Cells Few
[2017-07-30 19:17] LABS: Albumin 3.3 G/DL (3.4-5.0); Bilirubin,Total 0.9 MG/DL (0.2-1.0); Calcium 7.6 MG/DL (8.5-10.1); Osmolality,Calculated 292.4 MOS/KG (273-304); Potassium 4.3 MMOL/L (3.5-5.1); Total Protein 5.9 G/DL (6.4-8.3)
[2017-07-30] MEDS ORDERED: LEVOFLOXACIN INJ 150 ML IV ONE (19:22)
--- NOTE | 2017-07-30 20:25 | Emergency Department Note ---
Arrival - Arrival Chief Complaint: Altered Mental Status Stated Complaint: Back & Shoulder Ache, SOB ED Nursing Triage Note: REPORTS PT IS CONFUSED AND HIS URINE IS CONCENTRATED. PT HAS NOTABLE TREMORS AT TRIAGE. REPORTS FEVER, CHILLS, AND BACK PAIN. PT IS ORIENTED TO PERSON AND PLACE, CONFUSED TO SITUATION. Mode of Arrival: Wheelchair Limitations: No Limitations Source: Patient, Family Time Seen by Provider: 07/30/17 18:05 - History of Present Illness HPI Narrative: The complains of fever, chills, increased confusion, cough and rattling in the chest that started today. She states the patient is very weak. He has some dementia at baseline but she says he is a little more confused than usual. He has a history of COPD. Allergies/Adverse Reactions: Allergies Allergy/AdvReac Type Severity Reaction Status Date / Time Penicillins Allergy RASH Verified 07/30/17 16:47 sulfamethoxazole Allergy RASH Verified 07/30/17 19:32 [From Bactrim] trimethoprim [From Bactrim] Allergy RASH Verified 07/30/17 19:32 albuterol AdvReac Chest Pain Verified 07/30/17 16:47 Procaine [From Novocain] AdvReac Chest Pain Verified 07/30/17 16:47 Home Medications: Home Medications Medication Instructions Recorded Confirmed Type Tiotropium Inhalation [Spiriva 1 puff INH DAILY 06/16/15 07/30/17 History Handihaler] Aspirin EC Tab 81 mg PO MOWEFR tablet 04/16/17 07/30/17 Rx Atorvastatin [Lipitor] 20 mg PO BEDTIME tablet 04/16/17 07/30/17 Rx Budesonide Neb [Pulmicort Respules] 0.5 mg RESP TX RT BID 04/16/17 07/30/17 Rx Formoterol Neb [Perforomist] 20 mcg RESP TX RT BID 04/16/17 07/30/17 Rx Tamsulosin [Flomax] 0.4 mg PO BEDTIME capsule 04/16/17 07/30/17 Rx Donepezil [Aricept] 5 mg PO DAILY 05/16/17 07/30/17 History Gabapentin Cap/Tab [Neurontin 300 mg PO BID 05/16/17 07/30/17 History Cap/Tab] Gabapentin Cap/Tab [Neurontin 600 mg PO BEDTIME 05/16/17 07/30/17 History Cap/Tab] Levothyroxine Tab [Synthroid Tab] 100 mcg PO DAILY 05/16/17 07/30/17 History Acetaminophen Tab [Tylenol Tab] 650 mg PO Q6H PRN 06/13/17 07/30/17 History Calcium Carbonate 600 mg PO BID 06/13/17 07/30/17 History Cyanocobalamin (Vitamin B-12) 2,500 mcg PO QAM 06/13/17 07/30/17 History [Vitamin B12] Docusate Sodium [Stool Softener] 100 mg PO DAILY PRN 06/13/17 07/30/17 History Multivitamin (Ocuvite) [Ocuvite] 1 tablet PO QAM 06/13/17 07/30/17 History Sertraline HCl 50 mg PO BEDTIME 06/13/17 07/30/17 History predniSONE TAB [PredniSONE] 20 mg PO BID 06/13/17 07/30/17 History Azithromycin Tab [Zithromax Tab] 250 mg PO MOWEFR 06/15/17 07/30/17 History Lactulose 10 gm PO BID PRN 06/15/17 07/30/17 History Memantine [Namenda] 10 mg PO BID 06/15/17 07/30/17 History Midodrine HCl 5 mg PO TID 06/15/17 07/30/17 History Omeprazole [Prilosec] 20 mg PO BID 06/15/17 07/30/17 History Potassium Chloride 40 meq PO BID 06/15/17 07/30/17 History Vit C/Vit E AC/Lut/Copper/Zinc 2 each PO BID 06/15/17 07/30/17 History [Preservision Lutein Softgel] clonazePAM [Clonazepam] 1 mg PO BEDTIME PRN 06/15/17 07/30/17 History HYDROcodone/ACETAMIN 7.5-325 1 tablet PO Q6H PRN #20 tablet 07/14/17 07/30/17 Rx [[place] 7.5-325] Review of System - Review of System 12 point system: reviewed and no additional remarkable complaints except as stated - Review of System Constitutional: Present: chills, fever, weakness. Absent: diaphoresis Head/Ears/Nose/Throat: Absent: nasal drainage, sore throat Respiratory: Present: cough, wheezing. Absent: respiratory distress Cardiovascular: Absent: chest pain Gastrointestinal: Absent: nausea, vomiting Neurological: Present: confusion Medical,Surgical,& Family Hx - Medical History Cardio: History of: Cardiac Dysrhythmia (hx of afib), Hypertension, Cardiovascular Problems No history of: Aneurysm, Cerebrovascular Disease, Congenital Heart Disease, CHF, CAD, NH, Pacemaker, PVD, Valvular Heart Disease Psychological: History of: Anxiety Disorders, Depression No history of: ADHD, Behavior Problems, Bipolar Disorder, Previous Suicide Attempt, Psychiatric/Substance Abuse Tx, Schizophrenia, Violent Behavior, Psychiatric Problems Neurology: History of: Dementia No history of: Brain Aneurysm, Cerebral Hemorrhage, Cerebrovascular Accident , Cerebral Palsy, Migraine, Multiple Sclerosis, Parkinson's Disease, Peripheral Neuropathy, Seizures, TIA, Vertigo, Neurologocal Cancer HEENT: History of: Ear Problem, Eye Problem No history of: Dental Problems, Glaucoma, Oral Cancer, HEENT Problems Endocrine: History of: Dyslipidemia, Thyroid Disorder No history of: Adrenal Disease, Diabetes Mellitus (IDDM), Diabetes Mellitus ( NIDDM), Endocrine Cancer, Endocrine Problems Rheumatology: History of;: Rheumatoid Arthritis No history of;: Psoriasis, Sjogrens, Systemic Lupus Erythematosus Respiratory: History of: Bronchitis, COPD, Obstructive Sleep Apnea, Pneumonia No history of: Asthma, Intubation, Pulmonary Embolism, Pulmonary Hypertension , Lung Cancer, Respiratory Problems Renal: History of: Renal Failure No history of: Renal (Kidney) Cancer, Dialysis, Renal Problems Genitourinary: No history of: Bladder Problem, Kidney Stones, Prostate Problems, Recurring Urinary Tract Infections, Genitourinary Cancer, Problems Gastrointestinal: History of: GERD, GI Problems (colon cancer) Musculoskeletal: History of: Amputation (RIGHT BKA), Back/Neck Problems, Degenerative Disk Disease Hematology: History of: Anemia, Hematologic Cancer No history of: Blood Transfusion Reaction, Bleeding Problems, Clotting Problems, Sickle Cell Disease, Blood Disorders Reproductive: No histroy: Penile Disorder, Sexually Transmitted Disease, Reproductive Cancer, Reproductive Problems Other: History of: Cancer No history of: Anesthesia Reactions, Anaphylaxis, Eczema, HIV, Malignant Hyperthermia, MRSA, Vancomycin-Resistant Enterococci, Skin Problems, Miscellaneous Medical Problems - Surgical History Cardiac Surgeries: Sugical HX of: Cardiac Catheterization, Cardiac Surgery ( STENTS X4) Patient Denies: Femoral-Popliteal Bypass Graft, Carotid Endarterectomy, Internal Defibrillator, Vascular Access Devices Thoracic Surgeries: Patient denies;: Kidney (Renal Surgery), Lithotripsy, Nephrectomy, Organ Transplant, Lobectomy Neurologic Surgeries: Patient denies: Brain Aneurysm, Cerebral Hemorrhage, Neurologic Surgery HEENT Surgeries: Patient denies: Carotid Endarterectomy, Eye Surgery, Thyroid Surgery, Tonsilectomy & Adenoidectomy Abdominal Surgeries: Surgical HX of: Appendectomy, Cholecystectomy, Colonoscopy , EGD Patient denies: Abdominal Surgery, Gastric Bypass Surgery, Hernia Repair, Splenectomy Reproductive Surgeries: Patient denies;: Breast Surgery, Cystoscopy, Genitourinary Surgery, Prostate Surgery, Vasectomy - Family History Family History: Reports;: Family Cancer (brother- lung), Family Diabetes (mother ), Family Heart Disease (mother, brother times 2), Family Hypertension (brother) Denies;: Family Anesthesia Reaction, Family Psychiatric Problems, Family Stroke - Social History Smoking Status: Former smoker Frequency of Alcohol Use: None Type of Drug Use: None Exam Physical Examination: GENERAL: Alert. No acute distress. HEENT: Normocephalic and atraumatic. There is no nasal drainage. No pharyngeal erythema or exudate. NECK: Normal inspection. Supple. No lymphadenopathy or meningismus. LUNGS: No respiratory distress. Coarse breath sounds in both bases. HEART: Regular rate and rhythm. ABDOMEN: Soft, nontender and nondistended with normoactive bowel sounds. BACK: Normal inspection. SKIN: Color normal. Warm and dry. EXTREMITIES: Right BKA. There is pitting edema of the left lower extremity. This has been there some time according to the and is unchanged recently. NEUROLOGICAL/PSYCHIATRIC: Alert and oriented -2 with normal mood and affect. Cranial nerves normal. No motor or sensory deficit. Vital Signs: Vital Signs Temperature 99.8 F H 07/30/17 19:25 Pulse Rate 74 07/30/17 20:20 Respiratory Rate 18 07/30/17 20:20 Blood Pressure 112/63 07/30/17 20:20 O2 Sat by Pulse Oximetry 98 07/30/17 20:20 Course Course Narrative: Note: The multiple negatives in the past medical history were not marked by me. They are the result of the triage process, past medical records or other unknown causes. Due to time constraints, these were not all reviewed with the patient and the backslashes were not removed from the chart. They should be ignored. - Reevaluation(s) Reevaluation #1: The patient has remained stable in the ER. The chest x-ray was read as left basilar atelectasis and pleural effusion, however, given his clinical picture, I think it more likely he has pneumonia. I have discussed the patient with the hospitalist service who will see him and admit. Time: 20:29 Results - Labs CBC & BMP: 07/30/17 17:09 07/30/17 18:26 Lab Results: I have reviewed the patients labs Labs: Laboratory Tests 07/30/17 07/30/17 07/30/17 17:09 18:22 18:26 Calculated Osmolality 292.4 Total Bilirubin 0.90 AST 28 ALT 27 Alkaline Phosphatase 100 B-Natriuretic Peptide 48 Urine Leukocytes Negative Urine RBC <1 - Impressions Chest x-ray shows a left basilar atelectasis with pleural effusion. Disposition Clinical Impression: Pneumonia, Altered mental status, COPD (chronic obstructive pulmonary disease) Case discussed with: patient, patient's family Disposition: Still a Patient Condition: Stable Time of Disposition: 20:24
--- NOTE | 2017-07-30 21:06 | Hospitalist History & Physical ---
Assessment and Plan - Time spent with patient Time spent with patient: Greater than 30 minutes (1) Severe sepsis Status: Acute Assessment and plan: Admit to hospitalist services. Severe sepsis criteria: Temp 100.8, WBC 12.8, Pneumonia, Creatinine 2.5. Lactic acid 1.1. Blood cultures obtained in ED; follow. Obtain sputum cultures. Previous cultures grew Klebsiella pneumoniae, Pseudomonas aeruginosa, and MRSA. NS 500 ml bolus and Levaquin given in ED. Continue antibiotic therapy with Vancomycin and Levaquin. Continue hydration with NS at 125 ml/hr. DuoNeb Q6 and Albuterol Neb Q4. CBC, CMP, Mag, and Procalitonin in am. Current Visit: Yes (2) Community acquired pneumonia Status: Acute Assessment and plan: As above for Severe Sepsis. Current Visit: No (3) Altered mental status Status: Acute Assessment and plan: As above for Severe Sepsis. Monitor. Current Visit: Yes (4) Fever Status: Acute Assessment and plan: As above for Severe Sepsis. Tylenol 650 mg PO Q4 PRN. Current Visit: No (5) Acute on chronic kidney failure Status: Acute Assessment and plan: Creatinine 2.5. Previous values are around 1.8-1.9. NS 500 ml bolus given in ED. Continue hydration with NS at 125 ml/hr. Repeat CMP in am. Current Visit: No Qualifiers: Chronic kidney disease stage: stage 3 (moderate) (6) Dementia Status: Chronic Assessment and plan: Continue home medications. Current Visit: No (7) Hypothyroidism Status: Chronic Current Visit: No (8) DVT prophylaxis Status: Acute Assessment and plan: Lovenox 30 mg SQ daily. Current Visit: Yes History of Present Illness Chief complaint: Cough, fever, SOB History of present illness: Mr. Martell is a 86 year old male with a past medical history of atrial fibrillation, hypertension, dementia, COPD, pneumonia, anxiety/depression, sleep apnea, GERD, colon cancer, and right below knee amputation who presented to the ED today with complaints cough, fever, chills, SOB and confusion that started today. His reports that he has been feeling bad for a while, but got acutely worse today with confusion upon awakening from a nap. When she checked his temp, it was 100.8. She spoke with Dr. Boswell' office and was told to bring him to the ED. She reports that he was recently started on Bactrim and his Prednisone dose increased to 20 mg BID. However, the Bactrim caused acute confusion, so she stopped it, and his confusion subsequently cleared. In the ED , his Temp was 100.8, WBC 12.8, Creatinine 2.5. Lactic acid was only 1.1. Currently, he is resting comfortably and has no complaints. Hospitalist services were consulted, and the patient will be admitted for further evaluation and treatment. Home Medications Medication Instructions Recorded Confirmed Type Tiotropium Inhalation [Spiriva 1 puff INH DAILY 06/16/15 07/30/17 History Handihaler] Aspirin EC Tab 81 mg PO MOWEFR tablet 04/16/17 07/30/17 Rx Atorvastatin [Lipitor] 20 mg PO BEDTIME tablet 04/16/17 07/30/17 Rx Budesonide Neb [Pulmicort Respules] 0.5 mg RESP TX RT BID 04/16/17 07/30/17 Rx Formoterol Neb [Perforomist] 20 mcg RESP TX RT BID 04/16/17 07/30/17 Rx Tamsulosin [Flomax] 0.4 mg PO BEDTIME capsule 04/16/17 07/30/17 Rx Donepezil [Aricept] 5 mg PO DAILY 05/16/17 07/30/17 History Gabapentin Cap/Tab [Neurontin 300 mg PO BID 05/16/17 07/30/17 History Cap/Tab] Gabapentin Cap/Tab [Neurontin 600 mg PO BEDTIME 05/16/17 07/30/17 History Cap/Tab] Levothyroxine Tab [Synthroid Tab] 100 mcg PO DAILY 05/16/17 07/30/17 History Acetaminophen Tab [Tylenol Tab] 650 mg PO Q6H PRN 06/13/17 07/30/17 History Calcium Carbonate 600 mg PO BID 06/13/17 07/30/17 History Cyanocobalamin (Vitamin B-12) 2,500 mcg PO QAM 06/13/17 07/30/17 History [Vitamin B12] Docusate Sodium [Stool Softener] 100 mg PO DAILY PRN 06/13/17 07/30/17 History Multivitamin (Ocuvite) [Ocuvite] 1 tablet PO QAM 06/13/17 07/30/17 History Sertraline HCl 50 mg PO BEDTIME 06/13/17 07/30/17 History predniSONE TAB [PredniSONE] 20 mg PO BID 06/13/17 07/30/17 History Azithromycin Tab [Zithromax Tab] 250 mg PO MOWEFR 06/15/17 07/30/17 History Lactulose 10 gm PO BID PRN 06/15/17 07/30/17 History Memantine [Namenda] 10 mg PO BID 06/15/17 07/30/17 History Midodrine HCl 5 mg PO TID 06/15/17 07/30/17 History Omeprazole [Prilosec] 20 mg PO BID 06/15/17 07/30/17 History Potassium Chloride 40 meq PO BID 06/15/17 07/30/17 History Vit C/Vit E AC/Lut/Copper/Zinc 2 each PO BID 06/15/17 07/30/17 History [Preservision Lutein Softgel] clonazePAM [Clonazepam] 1 mg PO BEDTIME PRN 06/15/17 07/30/17 History HYDROcodone/ACETAMIN 7.5-325 1 tablet PO Q6H PRN #20 tablet 07/14/17 07/30/17 Rx [[place] 7.5-325] Allergies Allergy/AdvReac Type Severity Reaction Status Date / Time Penicillins Allergy RASH Verified 07/30/17 16:47 sulfamethoxazole Allergy RASH Verified 07/30/17 19:32 [From Bactrim] trimethoprim [From Bactrim] Allergy RASH Verified 07/30/17 19:32 albuterol AdvReac Chest Pain Verified 07/30/17 16:47 Procaine [From Novocain] AdvReac Chest Pain Verified 07/30/17 16:47 Medical,Surgical,& Family Hx - Medical History Cardio: History of: Cardiac Dysrhythmia (hx of afib), Hypertension, Cardiovascular Problems Psychological: History of: Anxiety Disorders, Depression Neurology: History of: Dementia HEENT: History of: Ear Problem, Eye Problem Endocrine: History of: Dyslipidemia, Thyroid Disorder Rheumatology: History of;: Rheumatoid Arthritis Respiratory: History of: Bronchitis, COPD, Obstructive Sleep Apnea, Pneumonia Renal: History of: Renal Failure Gastrointestinal: History of: GERD, GI Problems (colon cancer) Musculoskeletal: History of: Amputation (RIGHT BKA), Back/Neck Problems (Spinal stenosis), Degenerative Disk Disease Hematology: History of: Anemia, Hematologic Cancer Other: History of: Cancer - Surgical History Cardiac Surgeries: Sugical HX of: Cardiac Catheterization, Cardiac Surgery ( STENTS X4) Abdominal Surgeries: Surgical HX of: Appendectomy, Cholecystectomy, Colonoscopy , EGD - Family History Family History: Reports;: Family Cancer (brother- lung), Family Diabetes (mother ), Family Heart Disease (mother, brother times 2), Family Hypertension (brother) - Social History Smoking Status: Former smoker Have you smoked in the last 12 months: No Frequency of Alcohol Use: None Type of Drug Use: None Marital Status: Lives With:: Spouse Functional capacity: independent ambulation 12 point system: reviewed and no additional remarkable complaints except as stated - Constitutional Constitutional: Present: chills, fever(s), malaise - EENT Eyes: Absent: blurry vision, diplopia, loss of vision Ears: Absent: decreased hearing, ear discharge, ear pain Nose, mouth and throat: Present: nasal congestion. Absent: headache(s), sore throat - Cardiovascular Cardiovascular: Present: dyspnea, edema (LLE). Absent: chest pain at rest, orthopnea, palpitations - Respiratory Respiratory: Present: cough, dyspnea - Gastrointestinal Gastrointestinal: Absent: abdominal pain, diarrhea, nausea, vomiting - Genitourinary Genitourinary: Absent: dysuria, urinary frequency - Musculoskeletal Musculoskeletal: Present: back pain. Absent: joint swelling, muscle weakness, myalgias - Neurological Neurological: Present: confusion. Absent: numbness, paresthesias, syncope - Psychiatric Psychiatric: Absent: anxiety, depression - Endocrine Endocrine: Absent: cold intolerance, polydipsia, polyphagia, polyuria - Hematologic/Lymphatic Hematologic/Lymphatic: Absent: easy bleeding, easy bruising Exam - Constitutional Vitals: Period Temp Pulse Resp BP Sys/Morrow Pulse Ox Last 24 Hr 99.8 F-100.8 F 74-90 18-18 112-156/45-63 94-98 Exam: Constitutional System: Febrile. Awake, alert and oriented x 3. No distress. No tremulousness. Head: Normocephalic, atraumatic. Ears, Nose and Throat System: No pain or tenderness. No epistaxis or discharge Eyes System: Pupils equal, round, and reactive. Extraocular muscles intact. Neck: Supple, without adenopathy, No jugular venous distention. No thyromegaly, neck mass, or prior surgery apparent. Respiratory System: Cough present. Rhonchi noted throughout. Cardiovascular System: Heart with regular rate and rhythm. No murmur. GI System: Abdomen soft, nontender. Normo active bowel sounds present. Musculoskeletal System: LLE with 4+ pitting edema. Right BKA. Full distal pulses. Normal capillary refill. Neurological System: No discernable sensory deficit. No aphasia Psychiatric System: Conversation is rational Results - Labs CBC & BMP: 07/30/17 17:09 07/30/17 18:26 Lab Results: I have reviewed the past 24 hour labs - Diagnostic Findings Procedure: Chest x-ray: report reviewed by ca Sepsis - Sepsis Classification of Sepsis: Severe Sepsis Sepsis documentation within 6 hours of presentation: fluid change - Physical Exam Respiratory exam: rhonchi Capillary Refill: Less Than 3 Seconds Peripheral pulses: Radial (L): 5+, Radial (R): 5+, Dorsalis Pedis (L) PM: 5+, Dorsalis Pedis (R) PM: 0 (Right BKA), Posterior Tibialis (L): 5+, Posterior Tibialis (R): 0 (Right BKA) Cardiovascular exam: regular rate and rhythm Skin exam: normal color
[2017-07-30] MEDS ORDERED: ALBUTEROL 2.5 MG/3 ML NEB RESP TX PRN (21:09)
[2017-07-30] MEDS ORDERED: guaiFENesin/DM ER 600-30 MG TABLET PO PRN (21:09)
[2017-07-30] MEDS ORDERED: ONDANSETRON 4 MG/2 ML VIAL IV PRN (21:09)
[2017-07-30] MEDS ORDERED: ACETAMINOPHEN 325 MG TABLET PO PRN (21:09)
[2017-07-30] MEDS ORDERED: predniSONE 10 MG TABLET PO SCH (21:30)
[2017-07-30] MEDS ORDERED: VANCOMYCIN INJ 1,500 MG in SODIUM CHLORIDE 0.9% 250 ML IV SCH (21:30)
[2017-07-30] MEDS ORDERED: VANCOMYCIN INJ 1,500 MG in SODIUM CHLORIDE 0.9% 500 ML IV PRN (21:33)
[2017-07-30] MEDS ORDERED: VANCOMYCIN INJ 1,500 MG in SODIUM CHLORIDE 0.9% 500 ML IV ONE (22:00)
[2017-07-30] MEDS: SODIUM CHLORIDE 0.9% 1,000 ML IV SCH (22:08)
[2017-07-30] MEDS: ENOXAPARIN 30 MG/0.3 ML SYRINGE SUBCUT SCH (22:09)
[2017-07-31] MEDS: ALBUTEROL/IPRATROPIUM 3 ML NEB RESP TX SCH ×4 (00:01→19:43)
[2017-07-31 06:26] LABS: Basophils % 0.1 % (0.0-0.8); Hematocrit 29.4 VOL% (42.0-52.0); Immature Granulocytes % 1.2 %; Immature Granulocytes Absolute 0.09 #; Lymphocytes # 0.7 10*3/uL (1.4-4.0); Lymphocytes % 8.8 % (21.2-54.2); Mean Corpuscular HGB Conc 32.7 GM/DL (32-36); Mean Corpuscular Hemoglobin 32 PG (27-34); Mean Corpuscular Volume 98.7 FL (87-102); Mean Platelet Volume 10.2 FL (9.6-12.0); Monocytes # 0.1 10*3/uL (0.11-0.8); Monocytes % 1.4 % (1.7-12.7); Neutrophils # 6.5 10*3/uL (1.4-7.4); Neutrophils % 88.5 % (38.7-73.9); Red Blood Count 2.98 MC/CUMM (3.8-5.5); Red Cell Distribution Width 16.3 % (9.3-17.3)
[2017-07-31] MEDS: LEVOTHYROXINE 100 MCG TABLET PO SCH (06:26)
[2017-07-31 06:30] LABS: Hemoglobin 9.6 GM/DL (14.0-18.0); Platelet Count 95 T/CUMM (130-400); White Blood Count 7.4 T/CUMM (4-12)
[2017-07-31 06:48] LABS: Albumin 2.7 G/DL (3.4-5.0); Bilirubin,Total 0.8 MG/DL (0.2-1.0); Calcium 7.4 MG/DL (8.5-10.1); Magnesium 2.4 MG/DL (1.8-2.4); Potassium 4.5 MMOL/L (3.5-5.1); Total Protein 5.1 G/DL (6.4-8.3)
[2017-07-31 06:50] LABS: Atypical Lymphocytes 1+; Hypochromasia 1+
[2017-07-31] MEDS: BUDESONIDE 0.5 MG/2 ML NEB RESP TX SCH ×2 (07:16→19:43)
[2017-07-31] MEDS: FORMOTEROL 20 MCG/2 ML NEB RESP TX SCH ×2 (07:27→19:43)
--- NOTE | 2017-07-31 07:55 | Pulmonology Consult Note ---
Assessment and Plan (1) Chronic kidney disease, stage 3 Status: Chronic Assessment and plan: Patient's creatinine is 2.3. We will need to watch vancomycin dosing closely. Current Visit: No (2) Dementia Status: Chronic Assessment and plan: He does have some baseline dementia which is aggravated by acute illness. This was discussed with his Current Visit: No (3) debility and deconditioning Problem details: PT consult Case management consult for post acute/subacute rehabilitation Status: Chronic Assessment and plan: Patient remains generally weak. Will need some physical therapy once he is over the acute illness. Current Visit: No (4) Diabetes Status: Acute Assessment and plan: Follow with sliding scale insulin. 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 Does not have a julius pneumonia. However he is usually infected with either MRSA or a gram-negative reshma is likely to be resistant. Levaquin and vancomycin are reasonable. Await cultures. May require bronchoscopy if we do not see him improve in a day or 2. Current Visit: No (6) Tracheomalacia, acquired Status: Chronic Assessment and plan: This makes it difficult for him to clear secretions. This is been well documented with previous bronchoscopies Current Visit: No (7) Bronchomalacia, acquired Status: Chronic Assessment and plan: Has difficulty clearing his airways. Current Visit: No History of Present Illness Chief complaint: Cough shortness of breath confusion History of present illness: Mr. Martell is a 86 year old male who has chronic obstructive pulmonary disease but primarily has problems with tracheobronchomalacia. He has had several admissions that have taken a long period of time to clear him up. Usually will have MRSA or a resistant gram-negative organism. He was on Bactrim last week and his says that he became confused. She stopped that and the confusion got a little better but then it got worse again. I doubt if Bactrim was causing that. At any rate he got worse yesterday had some fever difficult time coughing up phlegm but he is coughing it up and was more short of breath. We have him on Zithromax on a regular basis to try to prevent infections. He does not have bronchiectasis per se. He is a diabetic. He has chronic renal insufficiency. Does not have significant heart disease. He is a former smoker but quit smoking many years ago. Home Medications Medication Instructions Recorded Confirmed Type Tiotropium Inhalation [Spiriva 1 puff INH DAILY 06/16/15 07/31/17 History Handihaler] Aspirin EC Tab 81 mg PO MOWEFR tablet 04/16/17 07/31/17 Rx Atorvastatin [Lipitor] 20 mg PO BEDTIME tablet 04/16/17 07/31/17 Rx Budesonide Neb [Pulmicort Respules] 0.5 mg RESP TX RT BID 04/16/17 07/31/17 Rx Formoterol Neb [Perforomist] 20 mcg RESP TX RT BID 04/16/17 07/31/17 Rx Tamsulosin [Flomax] 0.4 mg PO BEDTIME capsule 04/16/17 07/31/17 Rx Donepezil [Aricept] 5 mg PO DAILY 05/16/17 07/31/17 History Gabapentin Cap/Tab [Neurontin 300 mg PO QAM 05/16/17 07/31/17 History Cap/Tab] Gabapentin Cap/Tab [Neurontin 600 mg PO BEDTIME 05/16/17 07/31/17 History Cap/Tab] Levothyroxine Tab [Synthroid Tab] 100 mcg PO DAILY 05/16/17 07/31/17 History Acetaminophen Tab [Tylenol Tab] 650 mg PO Q6H PRN 06/13/17 07/31/17 History Calcium Carbonate 600 mg PO BID 06/13/17 07/31/17 History Cyanocobalamin (Vitamin B-12) 2,500 mcg PO QAM 06/13/17 07/31/17 History [Vitamin B12] Docusate Sodium [Stool Softener] 100 mg PO DAILY PRN 06/13/17 07/31/17 History Multivitamin (Ocuvite) [Ocuvite] 1 tablet PO QAM 06/13/17 07/31/17 History Sertraline HCl 50 mg PO BEDTIME 06/13/17 07/31/17 History predniSONE TAB [PredniSONE] 20 mg PO BID 06/13/17 07/31/17 History Azithromycin Tab [Zithromax Tab] 250 mg PO MOWEFR 06/15/17 07/30/17 History Lactulose 10 gm PO BID PRN 06/15/17 07/30/17 History Memantine [Namenda] 10 mg PO BID 06/15/17 07/31/17 History Midodrine HCl 5 mg PO TID 06/15/17 07/31/17 History Omeprazole [Prilosec] 20 mg PO BID 06/15/17 07/31/17 History Potassium Chloride 40 meq PO BID 06/15/17 07/31/17 History Vit C/Vit E AC/Lut/Copper/Zinc 2 each PO BID 06/15/17 07/31/17 History [Preservision Lutein Softgel] clonazePAM [Clonazepam] 1 mg PO BEDTIME PRN 06/15/17 07/31/17 History HYDROcodone/ACETAMIN 7.5-325 1 tablet PO Q6H PRN #20 tablet 07/14/17 07/30/17 Rx [[place] 7.5-325] Allergies Allergy/AdvReac Type Severity Reaction Status Date / Time Penicillins Allergy RASH Verified 07/30/17 16:47 sulfamethoxazole Allergy RASH Verified 07/30/17 19:32 [From Bactrim] trimethoprim [From Bactrim] Allergy RASH Verified 07/30/17 19:32 albuterol AdvReac Chest Pain Verified 07/30/17 16:47 Procaine [From Novocain] AdvReac Chest Pain Verified 07/30/17 16:47 12 point system: reviewed and no additional remarkable complaints except as stated - Constitutional Constitutional: Present: fever(s) - EENT Ears: Present: decreased hearing - Cardiovascular Cardiovascular: Present: dyspnea, dyspnea on exertion - Respiratory Respiratory: Present: cough, dyspnea, dyspnea on exertion, wheezing, change in phlegm color - Musculoskeletal Musculoskeletal: Present: other (Previous right below the knee amputation.) - Neurological Neurological: Present: confusion, frequent falls - Psychiatric Psychiatric: Present: anxiety - Hematologic/Lymphatic Hematologic/Lymphatic: Present: easy bruising Exam (Pulmonay) H&P - Constitutional Vitals: Period Temp Pulse Resp BP Sys/Morrow Pulse Ox Last 24 Hr 97.7 F-100.8 F 57-90 15-22 111-156/40-67 94-99 Exam: He is afebrile but had a temperature to 100.8 last night. Vital signs otherwise normal. O2 sat 98% on 2 L. Pupils react to light. Throat is clear. Neck is supple no bruits. Chest reveals scattered rhonchi bilaterally. Heart normal rate and rhythm no murmurs. Abdomen soft nontender no masses. Bowel sounds present. Extremities no clubbing cyanosis or edema. Right below the knee amputation stump is well-healed. Medical,Surgical,& Family Hx - Medical History Cardio: History of: Cardiac Dysrhythmia (hx of afib), Hypertension, Cardiovascular Problems No history of: Aneurysm, Cerebrovascular Disease, Congenital Heart Disease, CHF, CAD, OR, Pacemaker, PVD, Valvular Heart Disease Psychological: History of: Anxiety Disorders, Depression No history of: ADHD, Behavior Problems, Bipolar Disorder, Previous Suicide Attempt, Psychiatric/Substance Abuse Tx, Schizophrenia, Violent Behavior, Psychiatric Problems Neurology: History of: Dementia No history of: Brain Aneurysm, Cerebral Hemorrhage, Cerebrovascular Accident , Cerebral Palsy, Migraine, Multiple Sclerosis, Parkinson's Disease, Peripheral Neuropathy, Seizures, TIA, Vertigo, Neurologocal Cancer HEENT: History of: Ear Problem, Eye Problem No history of: Dental Problems, Glaucoma, Oral Cancer, HEENT Problems Endocrine: History of: Dyslipidemia, Thyroid Disorder No history of: Adrenal Disease, Diabetes Mellitus (IDDM), Diabetes Mellitus ( NIDDM), Endocrine Cancer, Endocrine Problems Rheumatology: History of;: Rheumatoid Arthritis No history of;: Psoriasis, Sjogrens, Systemic Lupus Erythematosus Respiratory: History of: Bronchitis, COPD, Obstructive Sleep Apnea, Pneumonia No history of: Asthma, Intubation, Pulmonary Embolism, Pulmonary Hypertension , Lung Cancer, Respiratory Problems Renal: History of: Renal Failure No history of: Renal (Kidney) Cancer, Dialysis, Renal Problems Genitourinary: No history of: Bladder Problem, Kidney Stones, Prostate Problems, Recurring Urinary Tract Infections, Genitourinary Cancer, Problems Gastrointestinal: History of: GERD, GI Problems (colon cancer) Musculoskeletal: History of: Amputation (RIGHT BKA), Back/Neck Problems (Spinal stenosis), Degenerative Disk Disease Hematology: History of: Anemia, Hematologic Cancer No history of: Blood Transfusion Reaction, Bleeding Problems, Clotting Problems, Sickle Cell Disease, Blood Disorders Reproductive: No histroy: Penile Disorder, Sexually Transmitted Disease, Reproductive Cancer, Reproductive Problems Other: History of: Cancer No history of: Anesthesia Reactions, Anaphylaxis, Eczema, HIV, Malignant Hyperthermia, MRSA, Vancomycin-Resistant Enterococci, Skin Problems, Miscellaneous Medical Problems - Surgical History Cardiac Surgeries: Sugical HX of: Cardiac Catheterization, Cardiac Surgery ( STENTS X4) Patient Denies: Femoral-Popliteal Bypass Graft, Carotid Endarterectomy, Internal Defibrillator, Vascular Access Devices Thoracic Surgeries: Patient denies;: Kidney (Renal Surgery), Lithotripsy, Nephrectomy, Organ Transplant, Lobectomy Neurologic Surgeries: Patient denies: Brain Aneurysm, Cerebral Hemorrhage, Neurologic Surgery HEENT Surgeries: Patient denies: Carotid Endarterectomy, Eye Surgery, Thyroid Surgery, Tonsilectomy & Adenoidectomy Abdominal Surgeries: Surgical HX of: Appendectomy, Cholecystectomy, Colonoscopy , EGD Patient denies: Abdominal Surgery, Gastric Bypass Surgery, Hernia Repair, Splenectomy Reproductive Surgeries: Patient denies;: Breast Surgery, Cystoscopy, Genitourinary Surgery, Prostate Surgery, Vasectomy - Family History Family History: Reports;: Family Cancer (brother- lung), Family Diabetes (mother ), Family Heart Disease (mother, brother times 2), Family Hypertension (brother) Denies;: Family Anesthesia Reaction, Family Psychiatric Problems, Family Stroke - Social History Smoking Status: Former smoker Frequency of Alcohol Use: None Type of Drug Use: None Results - Labs CBC & BMP: 07/31/17 05:43 07/31/17 05:43 Lab Results: I have reviewed the past 24 hour labs - Diagnostic Findings Procedure: Chest x-ray: image reviewed by me (No acute infiltrates.)
[2017-07-31] MEDS: DORNASE ALFA 2.5 MG/2.5 ML VIAL RESP TX SCH ×2 (08:07→19:43)
[2017-07-31 08:15] LABS: ABG Base Excess -4.1 MMOL/L (-2.5-2.5); ABG Oxygen Saturation 95.9 % (95-100); ABG PCO2 33.1 MM HG (35-48); ABG PH 7.399 (7.35-7.45); ABG PO2 80.7 MM HG (80-95)
[2017-07-31] MEDS ORDERED: NON-FORMULARY MEDICATION (Tiotropium Inhalation 1 PUFF) INH SCH (09:00)
[2017-07-31] MEDS ORDERED: PANTOPRAZOLE 40 MG TABLET PO SCH (09:00)
[2017-07-31] MEDS ORDERED: LUT PO SCH (09:00)
[2017-07-31] MEDS ORDERED: NON-FORMULARY MEDICATION (Cyanocobalamin (Vitamin B-12) [Vitamin B12] 2,500 MCG) PO SCH (09:00)
[2017-07-31] MEDS ORDERED: VIT E AC PO SCH (09:00)
[2017-07-31] MEDS ORDERED: VIT C PO SCH (09:00)
[2017-07-31] MEDS ORDERED: [UNRECOGNIZED DRUG - OTHER] PO SCH (09:00)
[2017-07-31] MEDS ORDERED: COPPER PO SCH (09:00)
[2017-07-31] MEDS: SODIUM CHLORIDE 0.9% 1,000 ML IV SCH ×2 (10:01→20:45)
[2017-07-31] MEDS: MIDODRINE 5 MG TABLET PO SCH ×3 (10:03→21:14)
[2017-07-31] MEDS: MEMANTINE 10 MG TABLET PO SCH ×2 (10:03→21:15)
[2017-07-31] MEDS: DONEPEZIL 5 MG TABLET PO SCH (10:03)
[2017-07-31] MEDS: methylPREDNISolone SOD SUC 40 MG/1 ML VIAL IV SCH ×2 (10:03→16:44)
[2017-07-31] MEDS: MULTIVITAMIN (OCUVITE) TABLET PO SCH (10:03)
[2017-07-31] MEDS: CALCIUM (CARBONATE) 600 MG TABLET PO SCH ×2 (10:03→21:15)
[2017-07-31] MEDS: GABAPENTIN 300 MG CAPSULE PO SCH ×2 (10:03→21:15)
[2017-07-31] MEDS: PANTOPRAZOLE 40 MG TABLET PO SCH ×2 (10:04→21:17)
--- NOTE | 2017-07-31 16:52 | Hospitalist Progress Note ---
Hospitalist: Subjective Interval history: 86 year old male who has chronic obstructive pulmonary disease but primarily has problems with tracheobronchomalacia. He reports breathing is okay. Exam - Constitutional Vitals: Period Temp Pulse Resp BP Sys/Morrow Pulse Ox Last 24 Hr 97.3 F-100.8 F 57-105 15-22 111-156/40-70 93-99 Exam: General: [No Acute Distress] HEENT: [Normocephalic, atraumatic, Extra ocular movements intact] Neck: [Supple, No JVD] Chest: [Clear to auscultation B/L] CV: [S1 + S2 audible without murmur, gallop or rub] Abd: [soft, NT, Non-distended, BS +] Ext: [LLE Edema, Rt BKA] Skin: [No purpura, bruising or rash] Rheumatologic: [No Joint deformities] Neurologic: [Strength 5/5 all extremities, no gross sensory deficits] Results - Labs CBC & BMP: 07/31/17 05:43 07/31/17 05:43 - Impressions Assessment and Plan: Acute on chronic COPD exacerbation Status: Acute Assessment and plan: This got aggravated by the tracheobronchomalacia. He does not have pneumonia , but has trouble with secretions, and usually has lung infection with either MRSA or a resistant gram-negative reshma. Continue Levaquin and vancomycin. Await cultures. May require bronchoscopy if fails to improve. Continue DuoNeb and Pulmozyme and Perforomist with IV steroids Current Visit: No Tracheomalacia, acquired Status: Chronic Assessment and plan: Has difficulty clearing his secretions Current Visit: No Bronchomalacia, acquired Status: Chronic Assessment and plan: Has difficulty clearing his airways. Current Visit: No ALEXANDRA on CKD-III Status: Acute Assessment and plan: Creatinine 2.5. Previous values are around 1.8-1.9. NS 500 ml bolus given in ED. Continue hydration with NS at 125 ml/hr. Repeat CMP in am. Current Visit: No Dementia Status: Chronic Assessment and plan: Continue Aricept and Namenda Current Visit: No Ch Hypothyroidism Status: Chronic Current Visit: No DVT prophylaxis Status: Acute Assessment and plan: Lovenox 30 mg SQ daily. Current Visit: Yes
[2017-07-31] MEDS: ENOXAPARIN 30 MG/0.3 ML SYRINGE SUBCUT SCH (21:14)
[2017-07-31] MEDS: TAMSULOSIN 0.4 MG CAPSULE PO SCH (21:15)
[2017-07-31] MEDS: ATORVASTATIN 20 MG TABLET PO SCH (21:15)
[2017-07-31] MEDS: SERTRALINE 50 MG TABLET PO SCH (21:15)
[2017-08-01] MEDS ORDERED: VANCOMYCIN INJ 1,500 MG in SODIUM CHLORIDE 0.9% 500 ML IV ONE
[2017-08-01] MEDS: clonazePAM 0.5 MG TABLET PO PRN ×2 (00:10→21:55)
[2017-08-01] MEDS: ALBUTEROL/IPRATROPIUM 3 ML NEB RESP TX SCH ×4 (00:36→18:47)
[2017-08-01] MEDS: methylPREDNISolone SOD SUC 40 MG/1 ML VIAL IV SCH ×3 (00:50→17:49)
[2017-08-01 03:46] LABS: Calcium 7.6 MG/DL (8.5-10.1); Magnesium 2.2 MG/DL (1.8-2.4); Potassium 3.8 MMOL/L (3.5-5.1)
[2017-08-01] MEDS: LEVOTHYROXINE 100 MCG TABLET PO SCH (06:54)
[2017-08-01] MEDS: BUDESONIDE 0.5 MG/2 ML NEB RESP TX SCH ×2 (07:24→18:47)
--- NOTE | 2017-08-01 07:37 | Pulmonology Progress Note ---
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 Usually takes him a couple of weeks to get over these. Occasionally requires bronchoscopy. He sounds a little looser today. Continuing with mucolytics, steroids, antibiotics, bronchodilators. We have discussed at length what goes on with the tracheomalacia and bronchomalacia. This is difficult for him to understand. There is a tendency to get an acute bacterial infection every time he gets a cold. Really not a lot we can do to prevent it other than standard vaccinations, and attempts with ongoing Zithromax 3 days a week. Standing would probably not be effective in him. Exam (Progress Note) - Constitutional Vitals: Period Temp Pulse Resp BP Sys/Morrow Pulse Ox Last 24 Hr 97.2 F-98.3 F 68-105 15-20 133-164/61-70 93-99 Exam: Patient is alert and oriented. No fever. Pupils react to light. Throat is clear. Neck supple. Chest shows some loose rhonchi bilaterally. Equal breath sounds. Heart normal rate and rhythm no murmurs. Abdomen soft nontender no masses. Extremities no clubbing cyanosis or edema. Calves nontender Results - Labs CBC & BMP: 07/31/17 05:43 08/01/17 02:27 Lab Results: I have reviewed the past 24 hour labs Assessment and Plan (1) Chronic kidney disease, stage 3 Status: Chronic Assessment and plan: Patient's creatinine is 2.3. We will need to watch vancomycin dosing closely. 08/01/2017 creatinine is down to 2.0. Adjust vancomycin according to blood levels. Current Visit: No (2) Dementia Status: Chronic Assessment and plan: He does have some baseline dementia which is aggravated by acute illness. This was discussed with his 08/01/2017 patient does get a bit delirious when he gets sick. I have once again answered questions that he has asked me numerous times in the past. Tracheobronchomalacia is a little bit difficult for patients to understand. Current Visit: No (3) debility and deconditioning Problem details: PT consult Case management consult for post acute/subacute rehabilitation Status: Chronic Assessment and plan: Patient remains generally weak. Will need some physical therapy once he is over the acute illness. 08/01/2017 will need physical therapy. Current Visit: No (4) Diabetes Status: Acute Assessment and plan: Follow with sliding scale insulin. 08/01/2017 will need sliding scale insulin. Steroids cause aggravation. 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 Does not have a julius pneumonia. However he is usually infected with either MRSA or a gram-negative reshma is likely to be resistant. Levaquin and vancomycin are reasonable. Await cultures. May require bronchoscopy if we do not see him improve in a day or 2. 08/01/2017 continuing antibiotic steroid bronchodilators and mucolytics. May yet need bronchoscopy. Will decide Friday. Current Visit: No (6) Tracheomalacia, acquired Status: Chronic Assessment and plan: This makes it difficult for him to clear secretions. This is been well documented with previous bronchoscopies 08/01/2017 trachea completely closes when he coughs. Makes it difficult for him to expel sputum. Current Visit: No (7) Bronchomalacia, acquired Status: Chronic Assessment and plan: Has difficulty clearing his airways. Current Visit: No
[2017-08-01] MEDS: FORMOTEROL 20 MCG/2 ML NEB RESP TX SCH ×2 (07:41→18:47)
[2017-08-01] MEDS: DORNASE ALFA 2.5 MG/2.5 ML VIAL RESP TX SCH ×2 (07:48→18:47)
[2017-08-01] MEDS: MIDODRINE 5 MG TABLET PO SCH ×3 (08:26→21:56)
[2017-08-01] MEDS: SODIUM CHLORIDE 0.9% 1,000 ML IV SCH (08:26)
[2017-08-01] MEDS: GABAPENTIN 300 MG CAPSULE PO SCH ×2 (08:29→21:55)
[2017-08-01] MEDS: ASPIRIN EC 81 MG TABLET PO SCH (08:29)
[2017-08-01] MEDS: MULTIVITAMIN (OCUVITE) TABLET PO SCH (08:29)
[2017-08-01] MEDS: PANTOPRAZOLE 40 MG TABLET PO SCH ×2 (08:29→21:55)
[2017-08-01] MEDS: DONEPEZIL 5 MG TABLET PO SCH (08:30)
[2017-08-01] MEDS: MEMANTINE 10 MG TABLET PO SCH ×2 (08:30→21:55)
[2017-08-01] MEDS: CALCIUM (CARBONATE) 600 MG TABLET PO SCH ×2 (08:30→21:55)
[2017-08-01] MEDS: SODIUM CHLORIDE 0.45% 1,000 ML IV SCH (14:28)
--- NOTE | 2017-08-01 14:29 | Hospitalist Progress Note ---
Hospitalist: Subjective Interval history: 86 year old male who has chronic obstructive pulmonary disease but primarily has problems with tracheobronchomalacia. He reports breathing is okay. 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 He does not have pneumonia , but has trouble with secretions, and usually has lung infection with either MRSA or a resistant gram-negative reshma. Continue Levaquin and vancomycin. Await cultures. May require bronchoscopy if fails to improve. Continue DuoNeb and Pulmozyme and Perforomist with IV steroids Current Visit: No Tracheomalacia, acquired Status: Chronic Assessment and plan: Has difficulty clearing his secretions Current Visit: No Bronchomalacia, acquired Status: Chronic Assessment and plan: Has difficulty clearing his airways. Current Visit: No Thrombocytopenia Status: Acute Assessment and plan: Platelets trending down, monitor closely. He is on several medications that can potentially cause thrombocytopenia. Will DC Lovenox and put him on SCD hoses. Current Visit: No ALEXANDRA on CKD-III Status: Acute Assessment and plan: Creatinine 2.5. Previous values are around 1.8-1.9, improving, continue IV hydration Current Visit: No Dementia Status: Chronic Assessment and plan: Continue Aricept and Namenda Current Visit: No Ch Hypothyroidism Status: Chronic Current Visit: No DVT prophylaxis Status: Acute Assessment and plan: Lovenox 30 mg SQ daily. Current Visit: Yes
[2017-08-01] MEDS ORDERED: LEVOFLOXACIN INJ 750 MG in PREMIX 1 EACH IV SCH (21:00)
[2017-08-01] MEDS ORDERED: ENOXAPARIN 40 MG/0.4 ML SYRINGE SUBCUT SCH (21:00)
[2017-08-01] MEDS: TAMSULOSIN 0.4 MG CAPSULE PO SCH (21:55)
[2017-08-01] MEDS: SERTRALINE 50 MG TABLET PO SCH (21:55)
[2017-08-01] MEDS: ATORVASTATIN 20 MG TABLET PO SCH (21:55)
[2017-08-02] MEDS: MELATONIN 3 MG TABLET PO PRN ×2 (00:17→21:27)
[2017-08-02] MEDS: ALBUTEROL/IPRATROPIUM 3 ML NEB RESP TX SCH ×4 (00:44→18:46)
[2017-08-02] MEDS: methylPREDNISolone SOD SUC 40 MG/1 ML VIAL IV SCH ×3 (00:48→17:16)
[2017-08-02] MEDS: BUDESONIDE 0.5 MG/2 ML NEB RESP TX SCH ×2 (07:18→18:46)
[2017-08-02] MEDS: SODIUM CHLORIDE 0.45% 1,000 ML IV SCH ×2 (07:26→16:53)
[2017-08-02 07:30] LABS: Magnesium 2.2 MG/DL (1.8-2.4); Osmolality,Calculated 297.7 MOS/KG (273-304)
[2017-08-02] MEDS: FORMOTEROL 20 MCG/2 ML NEB RESP TX SCH ×2 (07:32→18:46)
[2017-08-02] MEDS: DORNASE ALFA 2.5 MG/2.5 ML VIAL RESP TX SCH ×2 (07:37→18:46)
[2017-08-02] MEDS: MULTIVITAMIN (OCUVITE) TABLET PO SCH (08:02)
[2017-08-02] MEDS: CALCIUM (CARBONATE) 600 MG TABLET PO SCH ×2 (08:02→21:28)
[2017-08-02] MEDS: LACTULOSE 20 GM/30 ML UDCUP PO PRN ×2 (08:02→17:21)
[2017-08-02] MEDS: MEMANTINE 10 MG TABLET PO SCH ×2 (08:02→21:28)
[2017-08-02] MEDS: GABAPENTIN 300 MG CAPSULE PO SCH ×2 (08:02→21:28)
[2017-08-02] MEDS: DONEPEZIL 5 MG TABLET PO SCH (08:02)
[2017-08-02] MEDS: LEVOTHYROXINE 100 MCG TABLET PO SCH (08:03)
[2017-08-02] MEDS: MIDODRINE 5 MG TABLET PO SCH ×3 (08:03→21:27)
[2017-08-02] MEDS: PANTOPRAZOLE 40 MG TABLET PO SCH ×2 (08:04→21:27)
--- NOTE | 2017-08-02 09:31 | Hospitalist Progress Note ---
Assessment and Plan (1) COPD exacerbation Problem details: Patient also has chronic respiratory failure. Status: Acute Assessment and plan: Impression: 1. COPD with acute exacerbation 2. Probable gram-negative reshma pneumonia 3. Acute kidney injury, improving with volume resuscitation Plan: Continue current care. Await identification of the organism in the sputum. Pulmonary is deciding whether or not to perform bronchoscopy in a couple of days. This note was completed using [employer] voice recognition software. There may be cleaner window errors as a result. Current Visit: No Hospitalist: Subjective Interval history: Follow-up probable gram-negative reshma pneumonia and COPD. The patient continues with some cough and sputum production. Sputum culture is growing gram-negative rods that have not yet been identified. Chest x-ray looks unchanged to me. Exam - Constitutional Vitals: Period Temp Pulse Resp BP Sys/Morrow Pulse Ox Last 24 Hr 97 F-98.1 F 84-95 18-20 153-168/65-72 91-99 Vital signs are noted above. Heart is regular with distant tones. He has a few rhonchi and wheezes in the chest. He is awake and alert Results - Labs CBC & BMP: 07/31/17 05:43 08/02/17 06:03 Lab Results: I have reviewed the past 24 hour labs (Platelet count has dropped a bit. Creatinine is improving.)
--- NOTE | 2017-08-02 10:29 | Pulmonology Progress Note ---
Pulmonary - PN: Subj Interval history: Patient is a 86-year-old white man that has COPD and tracheomalacia. He comes in with repeated bronchitis has a difficult time with secretions. He says he is feeling okay today and moving around a little. He said he did not sleep that well. He feels like his breathing may be a little better. He says he is tolerating medicines okay. Exam (Progress Note) - Constitutional Vitals: Period Temp Pulse Resp BP Sys/Morrow Pulse Ox Last 24 Hr 97 F-98.1 F 84-95 18-20 153-168/65-72 91-99 General appearance: no acute distress, over weight, other (He is ambulating slowly.) - Head Head exam: Present: normal inspection, normocephalic - Eye Eye exam: Present: EOMI. Absent: scleral icterus Pupils: Present: RADHA - ENT ENT exam: Present: normal exam - Neck Neck exam: Absent: lymphadenopathy, thyromegaly - Respiratory Respiratory exam: Present: decreased breath sounds, rhonchi, other (He has fair breath sounds with some mild rhonchi bilaterally.) - Cardiovascular Cardiovascular exam: Present: regular rate and rhythm. Absent: gallop, systolic murmur - GI/Abdominal GI/Abdominal exam: Present: normal bowel sounds, soft. Absent: distended, organomegaly, tenderness - Extremities Exam Extremities exam: Absent: calf tenderness, edema - Neurological Exam Neurological exam: Present: alert, oriented X3, CN II-XII intact. Absent: motor sensory deficit - Psychiatric Psychiatric exam: Present: normal affect - Skin Skin exam: Present: warm, dry. Absent: rash Results - Labs CBC & BMP: 07/31/17 05:43 08/02/17 06:03 Assessment and Plan (1) Hypertension Status: Chronic Assessment and plan: Patient blood pressure and heart rate are stable. Current Visit: No Qualifiers: Hypertension type: essential hypertension Qualified Code(s): I10 - Essential (primary) hypertension (2) Chronic kidney disease, stage 3 Status: Chronic Assessment and plan: His creatinine is stable at 1.8. Current Visit: No (3) Diabetes Status: Acute Assessment and plan: His glucoses are being monitored and his glucose is 130 this morning. Current Visit: No (4) Acute exacerbation of chronic obstructive airways disease Status: Acute Assessment and plan: Patient has COPD and is getting treatment. He feels like he is getting a little better. Current Visit: No (5) Tracheomalacia, acquired Status: Chronic Assessment and plan: Patient has a difficult time clearing secretions but looks reasonably comfortable at present. Current Visit: No (6) Bronchomalacia, acquired Status: Chronic Assessment and plan: His cough and congestion are not that bad at present. Current Visit: No
[2017-08-02] MEDS: VANCOMYCIN INJ 1,500 MG in SODIUM CHLORIDE 0.9% 500 ML IV SCH (11:02)
[2017-08-02] MEDS: TAMSULOSIN 0.4 MG CAPSULE PO SCH (21:27)
[2017-08-02] MEDS: ATORVASTATIN 20 MG TABLET PO SCH (21:28)
[2017-08-02] MEDS: SERTRALINE 50 MG TABLET PO SCH (21:28)
[2017-08-03] MEDS: methylPREDNISolone SOD SUC 40 MG/1 ML VIAL IV SCH ×3 (00:04→17:10)
[2017-08-03] MEDS: ALBUTEROL/IPRATROPIUM 3 ML NEB RESP TX SCH ×4 (00:40→19:49)
[2017-08-03] MEDS: SODIUM CHLORIDE 0.45% 1,000 ML IV SCH ×2 (01:33→08:12)
[2017-08-03 06:06] LABS: Calcium 8.2 MG/DL (8.5-10.1)
[2017-08-03] MEDS: DORNASE ALFA 2.5 MG/2.5 ML VIAL RESP TX SCH ×2 (07:05→19:49)
[2017-08-03] MEDS: BUDESONIDE 0.5 MG/2 ML NEB RESP TX SCH ×2 (07:05→19:49)
[2017-08-03] MEDS: FORMOTEROL 20 MCG/2 ML NEB RESP TX SCH ×2 (07:05→19:49)
[2017-08-03] MEDS: LEVOTHYROXINE 100 MCG TABLET PO SCH (08:48)
[2017-08-03] MEDS: MEMANTINE 10 MG TABLET PO SCH ×2 (08:48→21:38)
[2017-08-03] MEDS: MULTIVITAMIN (OCUVITE) TABLET PO SCH (08:48)
[2017-08-03] MEDS: PANTOPRAZOLE 40 MG TABLET PO SCH ×2 (08:48→21:40)
[2017-08-03] MEDS: CALCIUM (CARBONATE) 600 MG TABLET PO SCH ×2 (08:48→21:41)
[2017-08-03] MEDS: GABAPENTIN 300 MG CAPSULE PO SCH ×2 (08:48→21:38)
[2017-08-03] MEDS: DONEPEZIL 5 MG TABLET PO SCH (08:48)
[2017-08-03] MEDS: MIDODRINE 5 MG TABLET PO SCH ×3 (08:49→21:41)
--- NOTE | 2017-08-03 09:21 | Hospitalist Progress Note ---
Assessment and Plan (1) COPD exacerbation Problem details: Patient also has chronic respiratory failure. Status: Acute Assessment and plan: Impression: 1. COPD with acute exacerbation 2. Probable gram-negative reshma pneumonia 3. Acute kidney injury, improving with volume resuscitation Plan: Discontinue levofloxacin in favor of meropenem. Thickened liquids, and speech evaluation. Defer continuation of vancomycin or institution of nebulized aminoglycoside to pulmonary. This note was completed using [employer] voice recognition software. There may be architectural draftsman errors as a result. Current Visit: No Hospitalist: Subjective Interval history: Follow-up tracheomalacia and COPD exacerbation. The patient says that his breathing is no better. I watched him take some medication, and he coughed while he was drinking water. Some of his symptoms may be due to aspiration. His sputum culture has grown a multiply resistant Pseudomonas, that is only intermediately sensitive to the levofloxacin he is receiving. There are no gram-positive organisms in the sputum culture, so he may not need the vancomycin. He continues with dyspnea at rest, and a cough that is not productive of much sputum. Exam - Constitutional Vitals: Period Temp Pulse Resp BP Sys/Morrow Pulse Ox Last 24 Hr 97.0 F-98.9 F 55-155 18-23 137-177/63-75 90-99 Vital signs are noted above. Heart is regular with distant tones. He has rhonchi all over the chest. He is awake and alert. Results - Labs CBC & BMP: 07/31/17 05:43 08/03/17 05:09 Lab Results: I have reviewed the past 24 hour labs (Sputum culture is as described above)
[2017-08-03] MEDS: MEROPENEM 500 MG in SODIUM CHLORIDE 0.9% 50 ML IV SCH ×2 (10:05→17:11)
--- NOTE | 2017-08-03 10:17 | Pulmonology Progress Note ---
Pulmonary - PN: Subj Interval history: Patient is a 86-year-old white man that has COPD and tracheomalacia. He comes in with repeated bronchitis and has a difficult time with secretions. He says he does not feel that well today. He looks a little depressed. He says he just gives out doing anything. He says his cough is not too bad at present. He continues to have trouble clearing secretions. He seems to be tolerating everything okay. Exam (Progress Note) - Constitutional Vitals: Period Temp Pulse Resp BP Sys/Morrow Pulse Ox Last 24 Hr 97.0 F-98.9 F 55-155 18-23 137-177/63-75 90-99 Exam: General appearance: no acute distress, over weight, other (He is ambulating slowly. He says he fatigues easily.) - Head Head exam: Present: normal inspection, normocephalic - Eye Eye exam: Present: EOMI. Absent: scleral icterus Pupils: Present: RADHA - ENT ENT exam: Present: normal exam - Neck Neck exam: Absent: lymphadenopathy, thyromegaly - Respiratory Respiratory exam: Present: He has fairly good breath sounds bilaterally and is moving air reasonably well now. I do not hear a lot of rales or wheezing. - Cardiovascular Cardiovascular exam: Present: regular rate and rhythm. Absent: gallop, systolic murmur - GI/Abdominal GI/Abdominal exam: Present: normal bowel sounds, soft. Absent: distended, organomegaly, tenderness - Extremities Exam Extremities exam: Absent: calf tenderness, edema, no signs of phlebitis. - Neurological Exam Neurological exam: Present: alert, oriented X3, CN II-XII intact. Absent: motor sensory deficit - Psychiatric Psychiatric exam: Present: normal affect - Skin Skin exam: Present: warm, dry. Absent: rash Results - Labs CBC & BMP: 07/31/17 05:43 08/03/17 05:09 Assessment and Plan (1) Hypertension Status: Chronic Assessment and plan: Patient blood pressure and heart rate are stable. Current Visit: No Qualifiers: Hypertension type: essential hypertension Qualified Code(s): I10 - Essential (primary) hypertension (2) Chronic kidney disease, stage 3 Status: Chronic Assessment and plan: His creatinine is stable at 1.6. Current Visit: No (3) Diabetes Status: Acute Assessment and plan: His glucoses are being monitored and his glucose is 160 this morning. Current Visit: No (4) Acute exacerbation of chronic obstructive airways disease Status: Acute Assessment and plan: Patient has COPD and is getting treatment. He is not having much wheezing but he says he still short of breath. Will cut back on his fluids and continue treatment. Current Visit: No (5) Tracheomalacia, acquired Status: Chronic Assessment and plan: Patient has a difficult time clearing secretions but looks reasonably comfortable at present. Current Visit: No (6) Bronchomalacia, acquired Status: Chronic Assessment and plan: His cough and congestion are not that bad at present. He will continue with respiratory therapy. Current Visit: No
--- NOTE | 2017-08-03 13:15 | EKG Report ---
Stationary ECG Study [facility] Test Date: 08/03/2017 1:16:24 PM Pat Name: NIKIA BARKER Department: Room: 227 Gender: M Certified Medical Technician: : [id number] Requested by: Randall Camara Order Number: [id number] Reading MD: VIJAYA GEORGE Intervals [place] Rate: 141 P: -85 [place]: 173 QRS: -78 QRSD: 174 T: 66 QT: 338 QTc: 420 Interpretive Statements ECTOPIC ATRIAL TACHYCARDIA, POSSIBLE ATRIAL FLUTTER RIGHT BUNDLE BRANCH BLOCK LEFT ANTERIOR FASCICULAR BLOCK LEFT VENTRICULAR HYPERTROPHY AND ST-T CHANGE Electronically Signed On 08-07-17 13:37:07 CDT by VIJAYA GEORGE [email or web address]
--- NOTE | 2017-08-03 13:44 | Event Note ---
The nursing staff called to report that the patient had developed tachycardia. EKG was performed, and showed a supraventricular tachycardia with a wide QRS, and a rate of about 140. Review of an old tracing shows that he has had a wide QRS documented before. Electrolytes are all normal, including potassium and magnesium. The patient is relatively asymptomatic. He is on a couple of beta agonist for his lung disease, and some IV steroids. At this time, I think we will observe. He does not appear to be exhibiting any hemodynamic instability.
[2017-08-03] MEDS: TAMSULOSIN 0.4 MG CAPSULE PO SCH (21:40)
[2017-08-03] MEDS: clonazePAM 0.5 MG TABLET PO PRN (21:40)
[2017-08-03] MEDS: MELATONIN 3 MG TABLET PO PRN (21:40)
[2017-08-03] MEDS: SERTRALINE 50 MG TABLET PO SCH (21:41)
[2017-08-03] MEDS: ATORVASTATIN 20 MG TABLET PO SCH (21:41)
[2017-08-03] MEDS: VANCOMYCIN INJ 1,500 MG in SODIUM CHLORIDE 0.9% 500 ML IV SCH (23:50)
[2017-08-04] MEDS: ALBUTEROL/IPRATROPIUM 3 ML NEB RESP TX SCH ×2 (00:40→07:56)
[2017-08-04] MEDS: methylPREDNISolone SOD SUC 40 MG/1 ML VIAL IV SCH ×3 (01:50→17:34)
[2017-08-04] MEDS: MEROPENEM 500 MG in SODIUM CHLORIDE 0.9% 50 ML IV SCH ×3 (01:50→17:34)
[2017-08-04 06:56] LABS: Magnesium 2.1 MG/DL (1.8-2.4); Osmolality,Calculated 304.6 MOS/KG (273-304); Potassium 3.9 MMOL/L (3.5-5.1)
[2017-08-04] MEDS ORDERED: PROMETHAZINE 25 MG/1 ML VIAL IM ONE (07:36)
[2017-08-04] MEDS ORDERED: LIDOCAINE 2% 20 ML VIAL RESP TX ONE (07:36)
[2017-08-04] MEDS ORDERED: LIDOCAINE 1% 20 ML VIAL MISC INJ ONE (07:36)
[2017-08-04] MEDS ORDERED: MIDAZOLAM 2 MG/2 ML VIAL IV ONE (07:36)
[2017-08-04] MEDS ORDERED: MEPERIDINE 50 MG/1 ML VIAL IM ONE (07:36)
[2017-08-04] MEDS ORDERED: LEVALBUTEROL 0.63 MG/3 ML NEB RESP TX PRN (07:38)
--- NOTE | 2017-08-04 07:43 | Pulmonology Progress Note ---
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 Usually takes him a couple of weeks to get over these. Occasionally requires bronchoscopy. He sounds a little looser today. Continuing with mucolytics, steroids, antibiotics, bronchodilators. We have discussed at length what goes on with the tracheomalacia and bronchomalacia. This is difficult for him to understand. There is a tendency to get an acute bacterial infection every time he gets a cold. Really not a lot we can do to prevent it other than standard vaccinations, and attempts with ongoing Zithromax 3 days a week. Standing would probably not be effective in him. 08/04/2017 patient still having coarse rhonchi difficulty coughing up sputum. He had some tachyarrhythmias over the weekend. He is getting albuterol per nebulizer and he has had problems with that before. We will change him to Xopenex. He has grown Pseudomonas from his sputum. Now is on meropenem and vancomycin. We will stop vancomycin and use gentamicin along with the meropenem to give us double coverage on Pseudomonas. Creatinine is 1.8. We will need to watch renal function closely. Also check gentamicin levels. We will plan bronchoscopy this morning to remove retained secretions. He frequently has problems getting him coughed up because of his tracheal malacia, and bronchomalacia Exam (Progress Note) - Constitutional Vitals: Period Temp Pulse Resp BP Sys/Morrow Pulse Ox Last 24 Hr 96.7 F-97.9 F 84-155 16-23 114-159/50-86 93-100 Exam: Patient is alert and oriented. No fever. Pupils react to light. Throat is clear. Neck supple. Chest shows some loose rhonchi bilaterally. Equal breath sounds. Heart normal rate and rhythm no murmurs. Abdomen soft nontender no masses. Extremities no clubbing cyanosis or edema. Calves nontender Results - Labs CBC & BMP: 07/31/17 05:43 08/04/17 05:24 Lab Results: I have reviewed the past 24 hour labs - Diagnostic Findings Procedure: Chest x-ray: image reviewed by me (Patchy interstitial infiltrates bilaterally.) Assessment and Plan (1) Chronic kidney disease, stage 3 Status: Chronic Assessment and plan: Patient's creatinine is 2.3. We will need to watch vancomycin dosing closely. 08/01/2017 creatinine is down to 2.0. Adjust vancomycin according to blood levels. 08/04/2017 creatinine 1.8. Stopping vancomycin but adding gentamicin. Watch renal function closely. Current Visit: No (2) Dementia Status: Chronic Assessment and plan: He does have some baseline dementia which is aggravated by acute illness. This was discussed with his 08/01/2017 patient does get a bit delirious when he gets sick. I have once again answered questions that he has asked me numerous times in the past. Tracheobronchomalacia is a little bit difficult for patients to understand. 08/04/2017 patient gets a bit confused in the hospital. Seems calm at present. Current Visit: No (3) debility and deconditioning Problem details: PT consult Case management consult for post acute/subacute rehabilitation Status: Chronic Assessment and plan: Patient remains generally weak. Will need some physical therapy once he is over the acute illness. 08/01/2017 will need physical therapy. 08/04/2017 will need physical therapy once his bronchopneumonia is improved Current Visit: No (4) Diabetes Status: Acute Assessment and plan: Follow with sliding scale insulin. 08/01/2017 will need sliding scale insulin. Steroids cause aggravation. 08/04/2017 blood sugars show fair control. 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 Does not have a julius pneumonia. However he is usually infected with either MRSA or a gram-negative reshma is likely to be resistant. Levaquin and vancomycin are reasonable. Await cultures. May require bronchoscopy if we do not see him improve in a day or 2. 08/01/2017 continuing antibiotic steroid bronchodilators and mucolytics. May yet need bronchoscopy. Will decide Friday. 08/04/2017 continuing medications. Change from duo nebs to Xopenex. Plan bronchoscopy this morning. Current Visit: No (6) Tracheomalacia, acquired Status: Chronic Assessment and plan: This makes it difficult for him to clear secretions. This is been well documented with previous bronchoscopies 08/01/2017 trachea completely closes when he coughs. Makes it difficult for him to expel sputum. 08/04/2017 plan bronchoscopy this morning. Current Visit: No (7) Bronchomalacia, acquired Status: Chronic Assessment and plan: Has difficulty clearing his airways. Current Visit: No
[2017-08-04] MEDS: FORMOTEROL 20 MCG/2 ML NEB RESP TX SCH ×2 (07:54→19:10)
[2017-08-04] MEDS: DORNASE ALFA 2.5 MG/2.5 ML VIAL RESP TX SCH ×2 (07:56→19:10)
[2017-08-04] MEDS: BUDESONIDE 0.5 MG/2 ML NEB RESP TX SCH ×2 (07:56→19:10)
[2017-08-04] MEDS: LEVOTHYROXINE 100 MCG TABLET PO SCH (08:11)
[2017-08-04] MEDS ORDERED: MIDAZOLAM 2 MG/2 ML VIAL ONE (08:32)
--- NOTE | 2017-08-04 09:07 | Operative Note ---
Date of procedure: 08/04/17 (Fiberoptic bronchoscopy with removal of retained secretions) Pre-op diagnosis: Tracheobronchomalacia with bronchopneumonia and retained secretions Post-op diagnosis: same Procedure: Patient was given preoperative medication on the small. He was transported to the bronchoscopy suite. After an appropriate timeout to be sure we were dealing with Nahun Martell, patient was topically anesthetized in the nose and nasopharynx with Xylocaine. 3 L of nasal oxygen was placed in the left nares. The fiberoptic bronchoscope was introduced via the right naris. The vocal cords were identified and noted to function normally with phonation. There were mucopurulent secretions throughout the tracheobronchial tree. Once again it was noted that the trachea completely elapsed with forced expiration consistent with severe tracheomalacia. Retained secretions were removed from all 5 lobes. There were no endobronchial lesions. It was noted that there was bilateral bronchomalacia as well not quite as bad as the tracheomalacia. After removing all the retained secretions and noting no endobronchial lesions, the bronchoscope was removed. Patient returned to his room in stable condition. I discussed the case and findings with the patient's on the phone. Anesthesia: conscious sedation Surgeon / Physician: Chris Boswell Estimated blood loss: none Specimens: other (Bronchial washings for cultures) Condition: stable Disposition: floor Results - Labs CBC & BMP: 07/31/17 05:43 08/04/17 05:24 Discharge Plan - Discharge Medications No Action Tiotropium Inhalation [Spiriva Handihaler] 1 puff INH DAILY Atorvastatin [Lipitor] 20 mg PO BEDTIME tablet Budesonide Neb [Pulmicort Respules] 0.5 mg RESP TX RT BID Formoterol Neb [Perforomist] 20 mcg RESP TX RT BID Tamsulosin [Flomax] 0.4 mg PO BEDTIME capsule Gabapentin Cap/Tab [Neurontin Cap/Tab] 600 mg PO BEDTIME Gabapentin Cap/Tab [Neurontin Cap/Tab] 300 mg PO QAM Donepezil [Aricept] 5 mg PO DAILY Levothyroxine Tab [Synthroid Tab] 100 mcg PO DAILY Cyanocobalamin (Vitamin B-12) [Vitamin B12] 2,500 mcg PO QAM Acetaminophen Tab [Tylenol Tab] 650 mg PO Q6H PRN PRN Reason: fever, headache/body aches Sertraline HCl 50 mg PO BEDTIME predniSONE TAB [PredniSONE] 20 mg PO BID Calcium Carbonate 600 mg PO BID Azithromycin Tab [Zithromax Tab] 250 mg PO MOWEFR clonazePAM [Clonazepam] 1 mg PO BEDTIME PRN PRN Reason: Sleep Vit C/Vit E AC/Lut/Copper/Zinc [Preservision Lutein Softgel] 2 each PO BID Lactulose 10 gm PO BID PRN PRN Reason: Constipation Memantine [Namenda] 10 mg PO BID Omeprazole [Prilosec] 20 mg PO BID Aspirin EC Tab 81 mg PO MOWEFR tablet Multivitamin (Ocuvite) [Ocuvite] 1 tablet PO QAM Docusate Sodium [Stool Softener] 100 mg PO DAILY PRN PRN Reason: Constipation Midodrine HCl 5 mg PO TID Potassium Chloride 40 meq PO BID HYDROcodone/ACETAMIN 7.5-325 [[place] 7.5-325] 1 tablet PO Q6H PRN #20 tablet PRN Reason: Pain - Follow Up or Referral - Forms/Instructions
--- NOTE | 2017-08-04 09:31 | XRay Report ---
History: Tracheomalacia. Acute bronchitis Date: 08/04/2017 Study: Chest x-ray AP portable Comparison exam: July 30, 2017 There is stable cardiomegaly. The mediastinal contours are similar. There is some developing groundglass infiltrate in either mid lung, right greater than left, since the previous study. There is calcified granuloma in the left lung base laterally. There is no gross pleural effusion. There is moderate thoracic spondylosis and mild osteopenia. Impression: Developing bilateral infiltrate compatible with pneumonia since the previous study PROCEDURE INTERPRETED AT [facility] DEPARTMENT OF RADIOLOGY Final Report Signed by: Dr. Britney Kimble
[2017-08-04] MEDS: GENTAMICIN INJ 200 MG in SODIUM CHLORIDE 0.9% 100 ML IV SCH (12:05)
[2017-08-04] MEDS: CALCIUM (CARBONATE) 600 MG TABLET PO SCH ×2 (13:16→20:49)
[2017-08-04] MEDS: MULTIVITAMIN (OCUVITE) TABLET PO SCH (13:16)
[2017-08-04] MEDS: GABAPENTIN 300 MG CAPSULE PO SCH ×2 (13:16→20:48)
[2017-08-04] MEDS: PANTOPRAZOLE 40 MG TABLET PO SCH ×2 (13:16→20:48)
[2017-08-04] MEDS: MIDODRINE 5 MG TABLET PO SCH ×3 (13:16→20:49)
[2017-08-04] MEDS: MEMANTINE 10 MG TABLET PO SCH ×2 (13:16→20:48)
[2017-08-04] MEDS: DONEPEZIL 5 MG TABLET PO SCH (13:16)
[2017-08-04] MEDS: ASPIRIN EC 81 MG TABLET PO SCH (13:16)
[2017-08-04] MEDS: LEVALBUTEROL 0.63 MG/3 ML NEB RESP TX SCH ×2 (13:53→19:10)
--- NOTE | 2017-08-04 16:29 | Hospitalist Progress Note ---
Assessment and Plan (1) Pneumonia Status: Acute Assessment and plan: Sputum culture growing pseudomonas aeruginosa to Zosyn, continue meropenem. Dr. Boswell his added gentamicin due to the chest x-ray not clearing. Current Visit: No Qualifiers: Pneumonia type: due to methicillin-resistant Staphylococcus aureus (MRSA) Laterality: unspecified laterality Lung location: unspecified part of lung Qualified Code(s): J15.212 - Pneumonia due to Methicillin resistant Staphylococcus aureus (2) Acute on chronic renal failure Status: Acute Assessment and plan: Resolved chronic stage III renal failure Current Visit: Yes (3) COPD exacerbation Problem details: Patient also has chronic respiratory failure. Status: Acute Current Visit: No (4) Hypertension Status: Chronic Assessment and plan: Patient is on midodrine tid will decrease to bid Current Visit: No Qualifiers: Hypertension type: essential hypertension Qualified Code(s): I10 - Essential (primary) hypertension (5) Dementia Status: Chronic Assessment and plan: Continue Aricept Current Visit: No (6) debility and deconditioning Problem details: PT consult Case management consult for post acute/subacute rehabilitation Status: Chronic Assessment and plan: Continue PT OT, patient will need rehab prior to returning home. 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 Boswell. Seen him before the [facility]. He is currently getting a respiratory treatment and satting 98% on his current oxygen. Exam - Constitutional Vitals: Period Temp Pulse Resp BP Sys/Morrow Pulse Ox Last 24 Hr 96.7 F-97.9 F 74-96 10-20 121-180/50-85 90-100 Exam: Heart Rate-[IRR] Lungs-[bilateral rhonchi ] GI-[+bs soft, NT, obese] Ext-[right BKA Neuro [Motor 5/5], [alert and oriented times 2] psych [normal mood and affect] General [mild acute distress] Results - Labs CBC & BMP: 07/31/17 05:43 08/04/17 05:24 Lab Results: I have reviewed the past 24 hour labs Labs: Medium culture growing Pseudomonas aeruginosa, blood cultures 2 negative no growth - Diagnostic Findings Procedure: Chest x-ray: report reviewed by me (bilateral pneumonia )
[2017-08-04] MEDS: TAMSULOSIN 0.4 MG CAPSULE PO SCH (20:48)
[2017-08-04] MEDS: SERTRALINE 50 MG TABLET PO SCH (20:48)
[2017-08-04] MEDS: ATORVASTATIN 20 MG TABLET PO SCH (20:49)
[2017-08-04] MEDS: MELATONIN 3 MG TABLET PO PRN (20:53)
[2017-08-05] MEDS: LEVALBUTEROL 0.63 MG/3 ML NEB RESP TX SCH ×4 (00:20→19:17)
[2017-08-05] MEDS: methylPREDNISolone SOD SUC 40 MG/1 ML VIAL IV SCH ×3 (01:50→18:16)
[2017-08-05] MEDS: MEROPENEM 500 MG in SODIUM CHLORIDE 0.9% 50 ML IV SCH (01:50)
[2017-08-05 06:18] LABS: Basophils % 0.1 % (0.0-0.8); Hematocrit 30.4 VOL% (42.0-52.0); Hemoglobin 9.9 GM/DL (14.0-18.0); Immature Granulocytes % 2.4 %; Lymphocytes # 0.4 10*3/uL (1.4-4.0); Lymphocytes % 2.8 % (21.2-54.2); Mean Corpuscular HGB Conc 32.6 GM/DL (32-36); Mean Corpuscular Hemoglobin 32 PG (27-34); Mean Platelet Volume 10.9 FL (9.6-12.0); Monocytes # 0.3 10*3/uL (0.11-0.8); Monocytes % 2.4 % (1.7-12.7); NRBC # 0.02 10*3/uL; Neutrophils # 11.4 10*3/uL (1.4-7.4); Neutrophils % 92.3 % (38.7-73.9); Red Blood Count 3.07 MC/CUMM (3.8-5.5); Red Cell Distribution Width 16.2 % (9.3-17.3); White Blood Count 12.3 T/CUMM (4-12)
[2017-08-05 06:21] LABS: Platelet Count 92 T/CUMM (130-400)
[2017-08-05 06:40] LABS: Band Neutrophils 2 % (0-10); Giant Platelets Few; Hypochromasia 1+; Lymphocytes 6 % (20-55); Ovalocytes Slight; Platelet Estimate Decreased; Segmented Neutrophils 88 % (50-85); Total Cells Counted 100
[2017-08-05 06:42] LABS: Calcium 7.6 MG/DL (8.5-10.1); Magnesium 2.2 MG/DL (1.8-2.4); Osmolality,Calculated 310.3 MOS/KG (273-304); Potassium 4.2 MMOL/L (3.5-5.1)
[2017-08-05] MEDS: FORMOTEROL 20 MCG/2 ML NEB RESP TX SCH ×2 (07:11→19:17)
[2017-08-05] MEDS: BUDESONIDE 0.5 MG/2 ML NEB RESP TX SCH ×2 (07:12→19:17)
[2017-08-05] MEDS: DORNASE ALFA 2.5 MG/2.5 ML VIAL RESP TX SCH ×2 (07:12→19:40)
--- NOTE | 2017-08-05 09:03 | Pulmonology Progress Note ---
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 Usually takes him a couple of weeks to get over these. Occasionally requires bronchoscopy. He sounds a little looser today. Continuing with mucolytics, steroids, antibiotics, bronchodilators. We have discussed at length what goes on with the tracheomalacia and bronchomalacia. This is difficult for him to understand. There is a tendency to get an acute bacterial infection every time he gets a cold. Really not a lot we can do to prevent it other than standard vaccinations, and attempts with ongoing Zithromax 3 days a week. Standing would probably not be effective in him. 08/04/2017 patient still having coarse rhonchi difficulty coughing up sputum. He had some tachyarrhythmias over the weekend. He is getting albuterol per nebulizer and he has had problems with that before. We will change him to Xopenex. He has grown Pseudomonas from his sputum. Now is on meropenem and vancomycin. We will stop vancomycin and use gentamicin along with the meropenem to give us double coverage on Pseudomonas. Creatinine is 1.8. We will need to watch renal function closely. Also check gentamicin levels. We will plan bronchoscopy this morning to remove retained secretions. He frequently has problems getting him coughed up because of his tracheal malacia, and bronchomalacia 08/05/2017 patient clearly better this morning. His lungs sound much better. We now have him on 2 drugs for Pseudomonas. I think he needs about 5 more days of IV antibiotics at least. Watch renal function. Creatinine is 1.8. He is getting gentamicin. His appetite is poor. Exam (Progress Note) - Constitutional Vitals: Period Temp Pulse Resp BP Sys/Morrow Pulse Ox Last 24 Hr 96.7 F-98.1 F 74-94 10-22 121-176/50-91 90-99 Exam: Patient is alert and oriented. No fever. Pupils react to light. Throat is clear. Neck supple. Chest shows minimal rhonchi bilaterally. Equal breath sounds. Heart normal rate and rhythm no murmurs. Abdomen soft nontender no masses. Extremities no clubbing cyanosis or edema. Calves nontender Results - Labs CBC & BMP: 08/05/17 05:34 08/05/17 05:34 Lab Results: I have reviewed the past 24 hour labs Assessment and Plan (1) Chronic kidney disease, stage 3 Status: Chronic Assessment and plan: Patient's creatinine is 2.3. We will need to watch vancomycin dosing closely. 08/01/2017 creatinine is down to 2.0. Adjust vancomycin according to blood levels. 08/04/2017 creatinine 1.8. Stopping vancomycin but adding gentamicin. Watch renal function closely. 08/05/2017 creatinine 1.8. Watching closely. Current Visit: No (2) Dementia Status: Chronic Assessment and plan: He does have some baseline dementia which is aggravated by acute illness. This was discussed with his 08/01/2017 patient does get a bit delirious when he gets sick. I have once again answered questions that he has asked me numerous times in the past. Tracheobronchomalacia is a little bit difficult for patients to understand. 08/04/2017 patient gets a bit confused in the hospital. Seems calm at present. 08/05/2017 his appetite is poor which may be related to this or the bronchopneumonia. Current Visit: No (3) debility and deconditioning Problem details: PT consult Case management consult for post acute/subacute rehabilitation Status: Chronic Assessment and plan: Patient remains generally weak. Will need some physical therapy once he is over the acute illness. 08/01/2017 will need physical therapy. 08/04/2017 will need physical therapy once his bronchopneumonia is improved 08/05/2017 again will need physical therapy and time. Current Visit: No (4) Diabetes Status: Acute Assessment and plan: Follow with sliding scale insulin. 08/01/2017 will need sliding scale insulin. Steroids cause aggravation. 08/04/2017 blood sugars show fair control. 08/05/2017 blood sugars well controlled 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 Does not have a julius pneumonia. However he is usually infected with either MRSA or a gram-negative reshma is likely to be resistant. Levaquin and vancomycin are reasonable. Await cultures. May require bronchoscopy if we do not see him improve in a day or 2. 08/01/2017 continuing antibiotic steroid bronchodilators and mucolytics. May yet need bronchoscopy. Will decide Friday. 08/04/2017 continuing medications. Change from duo nebs to Xopenex. Plan bronchoscopy this morning. 08/05/2017 continuing bronchodilators. Doing better with Xopenex. Current Visit: No (6) Tracheomalacia, acquired Status: Chronic Assessment and plan: This makes it difficult for him to clear secretions. This is been well documented with previous bronchoscopies 08/01/2017 trachea completely closes when he coughs. Makes it difficult for him to expel sputum. 08/04/2017 plan bronchoscopy this morning. 08/05/2017 we cleaned out a good bit of secretions yesterday and he sounds much better today. Current Visit: No (7) Bronchomalacia, acquired Status: Chronic Assessment and plan: Has difficulty clearing his airways. Current Visit: No (8) Bronchopneumonia due to Pseudomonas species Status: Acute Assessment and plan: Needs 5-7 days of IV double antibiotic for Pseudomonas. Can decide after that about discharge. There is nothing available that covers this by mouth. It is intermediate to Cipro. Current Visit: Yes
[2017-08-05] MEDS: CALCIUM (CARBONATE) 600 MG TABLET PO SCH ×2 (10:22→20:39)
[2017-08-05] MEDS: MULTIVITAMIN (OCUVITE) TABLET PO SCH (10:22)
[2017-08-05] MEDS: DONEPEZIL 5 MG TABLET PO SCH (10:23)
[2017-08-05] MEDS: PANTOPRAZOLE 40 MG TABLET PO SCH ×2 (10:23→20:39)
[2017-08-05] MEDS: MEMANTINE 10 MG TABLET PO SCH ×2 (10:23→20:39)
[2017-08-05] MEDS: GABAPENTIN 300 MG CAPSULE PO SCH ×2 (10:23→20:39)
[2017-08-05] MEDS: MIDODRINE 5 MG TABLET PO SCH ×3 (10:24→15:20)
[2017-08-05] MEDS: GENTAMICIN INJ 200 MG in SODIUM CHLORIDE 0.9% 100 ML IV SCH (11:51)
[2017-08-05] MEDS: LEVOTHYROXINE 100 MCG TABLET PO SCH (11:51)
[2017-08-05] MEDS: MEROPENEM 1,000 MG in SODIUM CHLORIDE 0.9% 50 ML IV SCH (15:09)
--- NOTE | 2017-08-05 15:11 | Hospitalist Progress Note ---
Assessment and Plan (1) Pneumonia Status: Acute Assessment and plan: Sputum culture growing pseudomonas aeruginosa cont meropenem and gentamicin. Current Visit: No Qualifiers: Pneumonia type: due to methicillin-resistant Staphylococcus aureus (MRSA) Laterality: unspecified laterality Lung location: unspecified part of lung Qualified Code(s): J15.212 - Pneumonia due to Methicillin resistant Staphylococcus aureus (2) Acute on chronic renal failure Status: Acute Assessment and plan: chronic stage III renal failure Current Visit: Yes (3) COPD exacerbation Problem details: Patient also has chronic respiratory failure. Status: Acute Assessment and plan: duoneb and steroids Current Visit: No (4) Hypertension Status: Chronic Assessment and plan: Continue to titrate off Midodrine Current Visit: No Qualifiers: Hypertension type: essential hypertension Qualified Code(s): I10 - Essential (primary) hypertension (5) Dementia Status: Chronic Assessment and plan: Continue Aricept Current Visit: No (6) debility and deconditioning Problem details: PT consult Case management consult for post acute/subacute rehabilitation Status: Chronic Assessment and plan: Continue PT OT,LTACH Current Visit: No (7) Severe sepsis Status: Acute Assessment and plan: resolved Current Visit: Yes Hospitalist: Subjective Interval history: Patient was accepted at specialty for IV antibiotics when Dr. Boswell thinks it is reasonable for him to go. I am concerned that he will need longer than 5 days of IV antibiotics considering his chronic condition. He is extremely weak and needs some rehab prior to going home. 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
[2017-08-05] MEDS: SODIUM CHLORIDE 0.45% 1,000 ML IV SCH (15:16)
[2017-08-05] MEDS: ATORVASTATIN 20 MG TABLET PO SCH (20:39)
[2017-08-05] MEDS: SERTRALINE 50 MG TABLET PO SCH (20:39)
[2017-08-05] MEDS: MELATONIN 3 MG TABLET PO PRN (20:39)
[2017-08-05] MEDS: TAMSULOSIN 0.4 MG CAPSULE PO SCH (20:39)
[2017-08-05] MEDS: clonazePAM 0.5 MG TABLET PO PRN (20:40)
[2017-08-06] MEDS: MEROPENEM 1,000 MG in SODIUM CHLORIDE 0.9% 50 ML IV SCH ×2 (00:32→13:40)
[2017-08-06] MEDS: methylPREDNISolone SOD SUC 40 MG/1 ML VIAL IV SCH ×3 (00:32→16:07)
[2017-08-06] MEDS: LEVALBUTEROL 0.63 MG/3 ML NEB RESP TX SCH ×4 (01:00→19:28)
[2017-08-06 05:18] LABS: Basophils % 0.2 % (0.0-0.8); Hematocrit 29.2 VOL% (42.0-52.0); Hemoglobin 9.6 GM/DL (14.0-18.0); Immature Granulocytes % 4.1 %; Immature Granulocytes Absolute 0.44 #; Lymphocytes # 0.6 10*3/uL (1.4-4.0); Lymphocytes % 5.1 % (21.2-54.2); Mean Corpuscular HGB Conc 32.9 GM/DL (32-36); Mean Corpuscular Hemoglobin 32 PG (27-34); Mean Corpuscular Volume 97.7 FL (87-102); Mean Platelet Volume 10.9 FL (9.6-12.0); Monocytes # 0.3 10*3/uL (0.11-0.8); Monocytes % 2.6 % (1.7-12.7); NRBC # 0.02 10*3/uL; Neutrophils # 9.6 10*3/uL (1.4-7.4); Platelet Count 84 T/CUMM (130-400); Red Blood Count 2.99 MC/CUMM (3.8-5.5); White Blood Count 10.9 T/CUMM (4-12)
[2017-08-06] MEDS: SODIUM CHLORIDE 0.45% 1,000 ML IV SCH ×2 (05:26→19:29)
[2017-08-06 05:56] LABS: Magnesium 2.2 MG/DL (1.8-2.4); Osmolality,Calculated 308.4 MOS/KG (273-304)
[2017-08-06 06:39] LABS: Band Neutrophils 1 % (0-10); Hypochromasia 1+; Lymphocytes 12 % (20-55); Segmented Neutrophils 83 % (50-85); Total Cells Counted 100
[2017-08-06 06:40] LABS: Macrocytosis 1+; Platelet Estimate Decreased
--- NOTE | 2017-08-06 07:16 | Pulmonology Progress Note ---
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 Usually takes him a couple of weeks to get over these. Occasionally requires bronchoscopy. He sounds a little looser today. Continuing with mucolytics, steroids, antibiotics, bronchodilators. We have discussed at length what goes on with the tracheomalacia and bronchomalacia. This is difficult for him to understand. There is a tendency to get an acute bacterial infection every time he gets a cold. Really not a lot we can do to prevent it other than standard vaccinations, and attempts with ongoing Zithromax 3 days a week. Standing would probably not be effective in him. 08/04/2017 patient still having coarse rhonchi difficulty coughing up sputum. He had some tachyarrhythmias over the weekend. He is getting albuterol per nebulizer and he has had problems with that before. We will change him to Xopenex. He has grown Pseudomonas from his sputum. Now is on meropenem and vancomycin. We will stop vancomycin and use gentamicin along with the meropenem to give us double coverage on Pseudomonas. Creatinine is 1.8. We will need to watch renal function closely. Also check gentamicin levels. We will plan bronchoscopy this morning to remove retained secretions. He frequently has problems getting him coughed up because of his tracheal malacia, and bronchomalacia 08/05/2017 patient clearly better this morning. His lungs sound much better. We now have him on 2 drugs for Pseudomonas. I think he needs about 5 more days of IV antibiotics at least. Watch renal function. Creatinine is 1.8. He is getting gentamicin. His appetite is poor. 08/06/2017 patient is feeling better. He is eating a lot of snacks but not eating his regular food. This was discussed with the patient and his . The bronchial washings are showing evidence of a fungus. I think this is likely to be something in the Rukhsana family and a commensal. For now we need to concentrate on the Pseudomonas. Exam (Progress Note) - Constitutional Vitals: Period Temp Pulse Resp BP Sys/Morrow Pulse Ox Last 24 Hr 96.7 F-98.7 F 59-106 14-22 140-162/64-73 91-99 Exam: Patient is alert and oriented. No fever. Pupils react to light. Throat is clear. Neck supple. Chest shows minimal rhonchi bilaterally. Equal breath sounds. Heart normal rate and rhythm no murmurs. Abdomen soft nontender no masses. Extremities no clubbing cyanosis or edema. Calves nontender. No change from yesterday. Results - Labs CBC & BMP: 08/06/17 05:02 08/06/17 05:02 Lab Results: I have reviewed the past 24 hour labs Assessment and Plan (1) Chronic kidney disease, stage 3 Status: Chronic Assessment and plan: Patient's creatinine is 2.3. We will need to watch vancomycin dosing closely. 08/01/2017 creatinine is down to 2.0. Adjust vancomycin according to blood levels. 08/04/2017 creatinine 1.8. Stopping vancomycin but adding gentamicin. Watch renal function closely. 08/05/2017 creatinine 1.8. Watching closely. 08/06/2017 creatinine down to 1.6. Continue watching closely with the gentamicin. Current Visit: No (2) Dementia Status: Chronic Assessment and plan: He does have some baseline dementia which is aggravated by acute illness. This was discussed with his 08/01/2017 patient does get a bit delirious when he gets sick. I have once again answered questions that he has asked me numerous times in the past. Tracheobronchomalacia is a little bit difficult for patients to understand. 08/04/2017 patient gets a bit confused in the hospital. Seems calm at present. 08/05/2017 his appetite is poor which may be related to this or the bronchopneumonia. 08/06/2017 patient is able to sit up and eat and carry on a conversation. He has a poor memory at times. Current Visit: No (3) debility and deconditioning Problem details: PT consult Case management consult for post acute/subacute rehabilitation Status: Chronic Assessment and plan: Patient remains generally weak. Will need some physical therapy once he is over the acute illness. 08/01/2017 will need physical therapy. 08/04/2017 will need physical therapy once his bronchopneumonia is improved 08/05/2017 again will need physical therapy in time. Current Visit: No (4) Diabetes Status: Acute Assessment and plan: Follow with sliding scale insulin. 08/01/2017 will need sliding scale insulin. Steroids cause aggravation. 08/04/2017 blood sugars show fair control. 08/05/2017 blood sugars well controlled 08/06/2017 blood sugars look good. 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 Does not have a julius pneumonia. However he is usually infected with either MRSA or a gram-negative reshma is likely to be resistant. Levaquin and vancomycin are reasonable. Await cultures. May require bronchoscopy if we do not see him improve in a day or 2. 08/01/2017 continuing antibiotic steroid bronchodilators and mucolytics. May yet need bronchoscopy. Will decide Friday. 08/04/2017 continuing medications. Change from duo nebs to Xopenex. Plan bronchoscopy this morning. 08/05/2017 continuing bronchodilators. Doing better with Xopenex. 08/06/2017 continuing nebulized bronchodilators with Xopenex. Current Visit: No (6) Tracheomalacia, acquired Status: Chronic Assessment and plan: This makes it difficult for him to clear secretions. This is been well documented with previous bronchoscopies 08/01/2017 trachea completely closes when he coughs. Makes it difficult for him to expel sputum. 08/04/2017 plan bronchoscopy this morning. 08/05/2017 we cleaned out a good bit of secretions yesterday and he sounds much better today. 08/06/2017 he is able to clear secretions a little better. Current Visit: No (7) Bronchomalacia, acquired Status: Chronic Assessment and plan: Has difficulty clearing his airways. Current Visit: No (8) Bronchopneumonia due to Pseudomonas species Status: Acute Assessment and plan: Needs 5-7 days of IV double antibiotic for Pseudomonas. Can decide after that about discharge. There is nothing available that covers this by mouth. It is intermediate to Cipro. 08/06/2017 continuing double coverage for Pseudomonas. Current Visit: Yes
[2017-08-06] MEDS: BUDESONIDE 0.5 MG/2 ML NEB RESP TX SCH ×2 (07:18→19:28)
[2017-08-06] MEDS: FORMOTEROL 20 MCG/2 ML NEB RESP TX SCH ×2 (07:18→19:28)
[2017-08-06] MEDS: DORNASE ALFA 2.5 MG/2.5 ML VIAL RESP TX SCH ×2 (07:18→19:40)
[2017-08-06] MEDS: LEVOTHYROXINE 100 MCG TABLET PO SCH (09:42)
[2017-08-06] MEDS: PANTOPRAZOLE 40 MG TABLET PO SCH ×2 (09:42→21:31)
[2017-08-06] MEDS: DONEPEZIL 5 MG TABLET PO SCH (09:42)
[2017-08-06] MEDS: GABAPENTIN 300 MG CAPSULE PO SCH ×2 (09:42→21:32)
[2017-08-06] MEDS: MULTIVITAMIN (OCUVITE) TABLET PO SCH (09:42)
[2017-08-06] MEDS: MEMANTINE 10 MG TABLET PO SCH ×2 (09:42→21:33)
[2017-08-06] MEDS: ASPIRIN EC 81 MG TABLET PO SCH (09:44)
[2017-08-06] MEDS: CALCIUM (CARBONATE) 600 MG TABLET PO SCH ×2 (09:44→21:31)
[2017-08-06] MEDS: MIDODRINE 5 MG TABLET PO SCH (09:45)
[2017-08-06] MEDS: GENTAMICIN INJ 200 MG in SODIUM CHLORIDE 0.9% 100 ML IV SCH (12:02)
--- NOTE | 2017-08-06 16:26 | Hospitalist Progress Note ---
Assessment and Plan (1) Pneumonia Status: Acute Assessment and plan: Pulmonary assisting Sputum growing Pseudomonas On gent and merrem Current Visit: No Qualifiers: Pneumonia type: due to methicillin-resistant Staphylococcus aureus (MRSA) Laterality: unspecified laterality Lung location: unspecified part of lung Qualified Code(s): J15.212 - Pneumonia due to Methicillin resistant Staphylococcus aureus (2) COPD exacerbation Problem details: Patient also has chronic respiratory failure. Status: Acute Current Visit: No (3) Hypertension Status: Chronic Assessment and plan: Actually on midodrine Current Visit: No Qualifiers: Hypertension type: essential hypertension Qualified Code(s): I10 - Essential (primary) hypertension (4) Dementia Status: Chronic Current Visit: No (5) debility and deconditioning Problem details: PT consult Case management consult for post acute/subacute rehabilitation Status: Chronic Assessment and plan: PT/OT Current Visit: No Hospitalist: Subjective Interval history: No acute events overnight. Patient feeling better today. Exam - Constitutional Vitals: Period Temp Pulse Resp BP Sys/Morrow Pulse Ox Last 24 Hr 97.1 F-97.9 F 72-106 18-20 147-183/67-82 88-99 General appearance: over weight - Head Head exam: Present: normocephalic, atraumatic - Eye Eye exam: Present: EOMI Pupils: Present: RADHA - ENT ENT exam: Present: normal exam - Neck Neck exam: Present: normal inspection - Respiratory Respiratory exam: Present: clear to auscultation bilaterally. Absent: rhonchi, wheezes - Cardiovascular Cardiovascular exam: Present: regular rate and rhythm - GI/Abdominal GI/Abdominal exam: Present: normal bowel sounds, soft. Absent: tenderness, rebound - Extremities Exam Extremities exam: Present: normal inspection - Back Exam Back exam: Present: normal inspection - Neurological Exam Neurological exam: Present: alert, oriented X3 - Psychiatric Psychiatric exam: Present: normal affect, normal mood - Skin Skin exam: Present: warm, intact Results - Labs CBC & BMP: 08/06/17 05:02 08/06/17 05:02
[2017-08-06] MEDS: TAMSULOSIN 0.4 MG CAPSULE PO SCH (21:32)
[2017-08-06] MEDS: SERTRALINE 50 MG TABLET PO SCH (21:32)
[2017-08-06] MEDS: ATORVASTATIN 20 MG TABLET PO SCH (21:33)
[2017-08-06] MEDS: clonazePAM 0.5 MG TABLET PO PRN (21:35)
[2017-08-06] MEDS: MELATONIN 3 MG TABLET PO PRN (21:35)
[2017-08-07] MEDS: methylPREDNISolone SOD SUC 40 MG/1 ML VIAL IV SCH ×3 (00:34→21:30)
[2017-08-07] MEDS: MEROPENEM 1,000 MG in SODIUM CHLORIDE 0.9% 50 ML IV SCH ×2 (00:39→12:55)
[2017-08-07] MEDS: LEVALBUTEROL 0.63 MG/3 ML NEB RESP TX SCH ×4 (00:47→20:10)
[2017-08-07 06:00] LABS: Basophils % 0.3 % (0.0-0.8); Hemoglobin 10.1 GM/DL (14.0-18.0); Immature Granulocytes % 6.2 %; Lymphocytes # 0.5 10*3/uL (1.4-4.0); Lymphocytes % 4.9 % (21.2-54.2); Mean Corpuscular HGB Conc 32.6 GM/DL (32-36); Mean Corpuscular Hemoglobin 32 PG (27-34); Mean Corpuscular Volume 97.8 FL (87-102); Monocytes # 0.4 10*3/uL (0.11-0.8); Monocytes % 3.6 % (1.7-12.7); NRBC # 0.02 10*3/uL; Neutrophils # 8.2 10*3/uL (1.4-7.4); Red Blood Count 3.17 MC/CUMM (3.8-5.5); Red Cell Distribution Width 15.8 % (9.3-17.3); White Blood Count 9.7 T/CUMM (4-12)
[2017-08-07 06:02] LABS: Platelet Count 94 T/CUMM (130-400)
[2017-08-07 06:26] LABS: Calcium 7.3 MG/DL (8.5-10.1); Magnesium 2.4 MG/DL (1.8-2.4); Osmolality,Calculated 306.7 MOS/KG (273-304); Potassium 4.1 MMOL/L (3.5-5.1)
[2017-08-07 06:53] LABS: Band Neutrophils 1 % (0-10); Lymphocytes 4 % (20-55); Platelet Estimate Decreased; Polychromasia Few; Segmented Neutrophils 92 % (50-85); Total Cells Counted 100
[2017-08-07] MEDS: BUDESONIDE 0.5 MG/2 ML NEB RESP TX SCH ×2 (07:20→20:10)
--- NOTE | 2017-08-07 07:24 | Pulmonology Progress Note ---
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 Usually takes him a couple of weeks to get over these. Occasionally requires bronchoscopy. He sounds a little looser today. Continuing with mucolytics, steroids, antibiotics, bronchodilators. We have discussed at length what goes on with the tracheomalacia and bronchomalacia. This is difficult for him to understand. There is a tendency to get an acute bacterial infection every time he gets a cold. Really not a lot we can do to prevent it other than standard vaccinations, and attempts with ongoing Zithromax 3 days a week. Standing would probably not be effective in him. 08/04/2017 patient still having coarse rhonchi difficulty coughing up sputum. He had some tachyarrhythmias over the weekend. He is getting albuterol per nebulizer and he has had problems with that before. We will change him to Xopenex. He has grown Pseudomonas from his sputum. Now is on meropenem and vancomycin. We will stop vancomycin and use gentamicin along with the meropenem to give us double coverage on Pseudomonas. Creatinine is 1.8. We will need to watch renal function closely. Also check gentamicin levels. We will plan bronchoscopy this morning to remove retained secretions. He frequently has problems getting him coughed up because of his tracheal malacia, and bronchomalacia 08/05/2017 patient clearly better this morning. His lungs sound much better. We now have him on 2 drugs for Pseudomonas. I think he needs about 5 more days of IV antibiotics at least. Watch renal function. Creatinine is 1.8. He is getting gentamicin. His appetite is poor. 08/06/2017 patient is feeling better. He is eating a lot of snacks but not eating his regular food. This was discussed with the patient and his . The bronchial washings are showing evidence of a fungus. I think this is likely to be something in the Rukhsana family and a commensal. For now we need to concentrate on the Pseudomonas. 08/07/2017 patient feeling better except not sleeping well because of frequent checks during the night. Bronchial washings are also showing a gram-positive coccus. I suspect this will buffing turner and counter to be staph once again. I had stopped the vancomycin earlier because the sputum only showed Pseudomonas. I will add Zyvox. Do not want to use vancomycin and gentamicin together because of renal side effects. We will stop Zoloft since we are adding Zyvox. Patient needs to stay here for close watch. Not ready for him to go home as yet. Exam (Progress Note) - Constitutional Vitals: Period Temp Pulse Resp BP Sys/Morrow Pulse Ox Last 24 Hr 97.1 F-97.7 F 60-89 16-20 147-183/60-82 93-99 Exam: Patient is alert and oriented. No fever. Pupils react to light. Throat is clear. Neck supple. Chest shows minimal rhonchi bilaterally. Equal breath sounds. Heart normal rate and rhythm no murmurs. Abdomen soft nontender no masses. Extremities no clubbing cyanosis or edema. Calves nontender. Little change from yesterday. Results - Labs CBC & BMP: 08/07/17 05:05 08/07/17 05:05 Lab Results: I have reviewed the past 24 hour labs Assessment and Plan (1) Chronic kidney disease, stage 3 Status: Chronic Assessment and plan: Patient's creatinine is 2.3. We will need to watch vancomycin dosing closely. 08/01/2017 creatinine is down to 2.0. Adjust vancomycin according to blood levels. 08/04/2017 creatinine 1.8. Stopping vancomycin but adding gentamicin. Watch renal function closely. 08/05/2017 creatinine 1.8. Watching closely. 08/06/2017 creatinine down to 1.6. Continue watching closely with the gentamicin. 08/07/2017 creatinine stable at 1.6. Gentamicin dosing being managed by pharmacy. Current Visit: No (2) Dementia Status: Chronic Assessment and plan: He does have some baseline dementia which is aggravated by acute illness. This was discussed with his 08/01/2017 patient does get a bit delirious when he gets sick. I have once again answered questions that he has asked me numerous times in the past. Tracheobronchomalacia is a little bit difficult for patients to understand. 08/04/2017 patient gets a bit confused in the hospital. Seems calm at present. 08/05/2017 his appetite is poor which may be related to this or the bronchopneumonia. 08/06/2017 patient is able to sit up and eat and carry on a conversation. He has a poor memory at times. 08/07/2017 patient is on Aricept and Namenda. He does have some confusion at times but not severely so. Current Visit: No (3) debility and deconditioning Problem details: PT consult Case management consult for post acute/subacute rehabilitation Status: Chronic Assessment and plan: Patient remains generally weak. Will need some physical therapy once he is over the acute illness. 08/01/2017 will need physical therapy. 08/04/2017 will need physical therapy once his bronchopneumonia is improved 08/05/2017 again will need physical therapy in time. Current Visit: No (4) Diabetes Status: Acute Assessment and plan: Follow with sliding scale insulin. 08/01/2017 will need sliding scale insulin. Steroids cause aggravation. 08/04/2017 blood sugars show fair control. 08/05/2017 blood sugars well controlled 08/06/2017 blood sugars look good. 08/07/2017 fasting blood sugars in the 100s. 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 Does not have a julius pneumonia. However he is usually infected with either MRSA or a gram-negative reshma is likely to be resistant. Levaquin and vancomycin are reasonable. Await cultures. May require bronchoscopy if we do not see him improve in a day or 2. 08/01/2017 continuing antibiotic steroid bronchodilators and mucolytics. May yet need bronchoscopy. Will decide Friday. 08/04/2017 continuing medications. Change from duo nebs to Xopenex. Plan bronchoscopy this morning. 08/05/2017 continuing bronchodilators. Doing better with Xopenex. 08/06/2017 continuing nebulized bronchodilators with Xopenex. 08/07/2017 lungs sound better. Reduce steroids. Current Visit: No (6) Tracheomalacia, acquired Status: Chronic Assessment and plan: This makes it difficult for him to clear secretions. This is been well documented with previous bronchoscopies 08/01/2017 trachea completely closes when he coughs. Makes it difficult for him to expel sputum. 08/04/2017 plan bronchoscopy this morning. 08/05/2017 we cleaned out a good bit of secretions yesterday and he sounds much better today. 08/06/2017 he is able to clear secretions a little better. 08/07/2017 this is the reason that he normally takes longer courses of antibiotics to clear up a respiratory infection. Current Visit: No (7) Bronchomalacia, acquired Status: Chronic Assessment and plan: Has difficulty clearing his airways. Current Visit: No (8) Bronchopneumonia due to Pseudomonas species Status: Acute Assessment and plan: Needs 5-7 days of IV double antibiotic for Pseudomonas. Can decide after that about discharge. There is nothing available that covers this by mouth. It is intermediate to Cipro. 08/06/2017 continuing double coverage for Pseudomonas. 08/07/2017 on double coverage for Pseudomonas. He is also growing a gram- positive coccus out of his bronchial washing which I suspect will be staffed. Going ahead and adding Zyvox. Do not will use vancomycin and gentamicin together. Patient continues to do a close watch on renal function. Current Visit: Yes
[2017-08-07] MEDS: FORMOTEROL 20 MCG/2 ML NEB RESP TX SCH ×2 (07:30→20:10)
[2017-08-07] MEDS: DORNASE ALFA 2.5 MG/2.5 ML VIAL RESP TX SCH ×2 (07:36→20:10)
[2017-08-07] MEDS: MIDODRINE 5 MG TABLET PO SCH (08:39)
[2017-08-07] MEDS: PANTOPRAZOLE 40 MG TABLET PO SCH ×2 (08:40→21:25)
[2017-08-07] MEDS: DOCUSATE SODIUM 100 MG CAPSULE PO PRN (08:41)
[2017-08-07] MEDS: CALCIUM (CARBONATE) 600 MG TABLET PO SCH ×2 (08:42→21:25)
[2017-08-07] MEDS: MEMANTINE 10 MG TABLET PO SCH ×2 (08:42→21:25)
[2017-08-07] MEDS: MULTIVITAMIN (OCUVITE) TABLET PO SCH (08:42)
[2017-08-07] MEDS: DONEPEZIL 5 MG TABLET PO SCH (08:42)
[2017-08-07] MEDS: GABAPENTIN 300 MG CAPSULE PO SCH ×2 (08:43→21:24)
[2017-08-07] MEDS: LEVOTHYROXINE 100 MCG TABLET PO SCH (08:43)
[2017-08-07] MEDS: LINEZOLID INJ 600 MG in PREMIX 1 EACH IV SCH ×2 (08:44→21:35)
--- NOTE | 2017-08-07 11:08 | Hospitalist Progress Note ---
<Maryanne Martin - Last Filed: 08/07/17 11:05> Assessment and Plan (1) Pneumonia Status: Acute Assessment and plan: Pulm following. Bronchial washings showed gram positive cocci. Change to IV antibiotics. Monitor renal function. Continue breathing treatments. Current Visit: No (2) debility and deconditioning Status: Chronic Assessment and plan: PT/OT Current Visit: No (3) Acute on chronic renal failure Status: Acute Assessment and plan: Creatinine stable at 1.6 down from 2.3. Pharmacy dosing medication. Current Visit: Yes Hospitalist: Subjective Interval history: Pt. seen and examined with present at the bedside. Pt. resting comfortably. No complaints overnight. Pt. states he feels better. Bronchial washings showed a gram positive coccus. Pulmonary following and there have been changes made to the IV regimen. Zyvox added. We will continue to monitor. Exam - Constitutional Vitals: Period Temp Pulse Resp BP Sys/Morrow Pulse Ox Last 24 Hr 96.8 F-97.7 F 60-89 12-20 147-181/60-77 93-99 General appearance: no acute distress, over weight - Head Head exam: Present: normal inspection, normocephalic - Eye Eye exam: Present: EOMI Pupils: Present: RADHA - Respiratory Respiratory exam: Present: clear to auscultation bilaterally. Absent: wheezes - Cardiovascular Cardiovascular exam: Present: regular rate and rhythm - GI/Abdominal GI/Abdominal exam: Present: normal bowel sounds, soft. Absent: tenderness - Extremities Exam Extremities exam: Present: full ROM. Absent: edema - Neurological Exam Neurological exam: Present: alert, oriented X3 - Psychiatric Psychiatric exam: Present: normal affect, normal mood - Skin Skin exam: Present: normal color, warm, dry Results - Labs CBC & BMP: 08/07/17 05:05 08/07/17 05:05 Lab Results: I have reviewed the past 24 hour labs <Skye Meehan - Last Filed: 08/07/17 15:42> Assessment and Plan (1) Pneumonia Status: Acute Current Visit: No Qualifiers: Pneumonia type: due to methicillin-resistant Staphylococcus aureus (MRSA) Laterality: unspecified laterality Lung location: unspecified part of lung Qualified Code(s): J15.212 - Pneumonia due to Methicillin resistant Staphylococcus aureus (2) COPD exacerbation Problem details: Patient also has chronic respiratory failure. Status: Acute Current Visit: No (3) Hypertension Status: Chronic Current Visit: No Qualifiers: Hypertension type: essential hypertension Qualified Code(s): I10 - Essential (primary) hypertension (4) Dementia Status: Chronic Current Visit: No (5) debility and deconditioning Problem details: PT consult Case management consult for post acute/subacute rehabilitation Status: Chronic Current Visit: No Hospitalist: Subjective Interval history: Patient seen and examined independently of RAIL TECHNICIAN Martin, agree with assessment and plan as documented. Patient feeling better. Exam - Constitutional Vitals: Period Temp Pulse Resp BP Sys/Morrow Pulse Ox Last 24 Hr 96.8 F-97.7 F 60-89 12-20 127-181/59-77 93-99 Results - Labs CBC & BMP: 08/07/17 05:05 08/07/17 05:05
[2017-08-07] MEDS: GENTAMICIN INJ 200 MG in SODIUM CHLORIDE 0.9% 100 ML IV SCH (13:33)
[2017-08-07] MEDS ORDERED: GENTAMICIN INJ 150 MG in SODIUM CHLORIDE 0.9% 100 ML IV SCH (14:00)
[2017-08-07] MEDS: MELATONIN 3 MG TABLET PO PRN (21:23)
[2017-08-07] MEDS: ATORVASTATIN 20 MG TABLET PO SCH (21:24)
[2017-08-07] MEDS: TAMSULOSIN 0.4 MG CAPSULE PO SCH (21:24)
[2017-08-07] MEDS: LACTULOSE 20 GM/30 ML UDCUP PO PRN (21:28)
[2017-08-08] MEDS: LEVALBUTEROL 0.63 MG/3 ML NEB RESP TX SCH ×4 (00:22→19:43)
[2017-08-08] MEDS: MEROPENEM 1,000 MG in SODIUM CHLORIDE 0.9% 50 ML IV SCH ×2 (01:06→12:49)
[2017-08-08] MEDS: LEVOTHYROXINE 100 MCG TABLET PO SCH (06:21)
[2017-08-08 07:13] LABS: Calcium 7.2 MG/DL (8.5-10.1); Magnesium 2.5 MG/DL (1.8-2.4); Osmolality,Calculated 305.7 MOS/KG (273-304); Potassium 3.9 MMOL/L (3.5-5.1)
[2017-08-08] MEDS: BUDESONIDE 0.5 MG/2 ML NEB RESP TX SCH ×2 (07:43→19:44)
[2017-08-08] MEDS: FORMOTEROL 20 MCG/2 ML NEB RESP TX SCH ×2 (07:53→19:43)
[2017-08-08] MEDS: DORNASE ALFA 2.5 MG/2.5 ML VIAL RESP TX SCH ×2 (07:58→19:44)
--- NOTE | 2017-08-08 08:35 | Pulmonology Progress Note ---
Pulmonary - PN: Subj Interval history: Patient is a 86-year-old white man that has COPD and tracheomalacia. He comes in with repeated bronchitis and has a difficult time with secretions. He had a bronchoscope earlier in the week and has Pseudomonas and staph growing from his washings. He is getting IV antibiotics. He still says he does not feel that well and gives out easily. He still has some coughing and shortness of breath. He seems to be tolerating his medicines okay Exam (Progress Note) - Constitutional Vitals: Period Temp Pulse Resp BP Sys/Morrow Pulse Ox Last 24 Hr 96.7 F-98.2 F 71-97 12-20 127-160/53-72 94-100 Exam: General appearance: no acute distress, over weight, other (He is ambulating slowly. He says he fatigues easily. He has no respiratory distress but does look depressed.) - Head Head exam: Present: normal inspection, normocephalic - Eye Eye exam: Present: EOMI. Absent: scleral icterus Pupils: Present: RADHA - ENT ENT exam: Present: normal exam - Neck Neck exam: Absent: lymphadenopathy, thyromegaly - Respiratory Respiratory exam: Present: He has fairly good breath sounds bilaterally and is moving air reasonably well now. He has some minimal rhonchi but no significant wheezing. - Cardiovascular Cardiovascular exam: Present: regular rate and rhythm. Absent: gallop, systolic murmur - GI/Abdominal GI/Abdominal exam: Present: normal bowel sounds, soft. Absent: distended, organomegaly, tenderness - Extremities Exam Extremities exam: Absent: calf tenderness, edema, no signs of phlebitis. He has a right BKA. - Neurological Exam Neurological exam: Present: alert, oriented X3, CN II-XII intact. Absent: motor sensory deficit - Psychiatric Psychiatric exam: Present: normal affect - Skin Skin exam: Present: warm, dry. Absent: rash Results - Labs CBC & BMP: 08/07/17 05:05 08/08/17 05:43 Assessment and Plan (1) Hypertension Status: Chronic Assessment and plan: Patient blood pressure and heart rate are stable. He has no signs of heart failure. Current Visit: No Qualifiers: Hypertension type: essential hypertension Qualified Code(s): I10 - Essential (primary) hypertension (2) Chronic kidney disease, stage 3 Status: Chronic Assessment and plan: His creatinine is stable at 1.9. Current Visit: No (3) Diabetes Status: Acute Assessment and plan: His glucoses are being monitored and his glucose is 138 this morning. Current Visit: No (4) Acute exacerbation of chronic obstructive airways disease Status: Acute Assessment and plan: Patient has COPD and is getting treatment. He still feels like he is short of breath with any movements. He will continue with vigorous bronchodilator therapy Current Visit: No (5) Tracheomalacia, acquired Status: Chronic Assessment and plan: Patient has a difficult time clearing secretions but looks reasonably comfortable at present. Current Visit: No (6) Bronchomalacia, acquired Status: Chronic Assessment and plan: He did okay with the bronchoscope but he feels like he is having trouble again. We will continue respiratory therapy. Current Visit: No
[2017-08-08] MEDS: methylPREDNISolone SOD SUC 40 MG/1 ML VIAL IV SCH ×2 (09:51→21:03)
[2017-08-08] MEDS: MULTIVITAMIN (OCUVITE) TABLET PO SCH (09:52)
[2017-08-08] MEDS: PANTOPRAZOLE 40 MG TABLET PO SCH ×2 (09:52→21:07)
[2017-08-08] MEDS: ASPIRIN EC 81 MG TABLET PO SCH (09:52)
[2017-08-08] MEDS: CALCIUM (CARBONATE) 600 MG TABLET PO SCH ×2 (09:52→21:07)
[2017-08-08] MEDS: DONEPEZIL 5 MG TABLET PO SCH (09:53)
[2017-08-08] MEDS: MIDODRINE 5 MG TABLET PO SCH (09:53)
[2017-08-08] MEDS: GABAPENTIN 300 MG CAPSULE PO SCH ×2 (09:54→21:07)
[2017-08-08] MEDS: THEOPHYLLINE ER (24 HR) 400 MG CAPSULE PO SCH (10:37)
[2017-08-08] MEDS: LINEZOLID INJ 600 MG in PREMIX 1 EACH IV SCH ×2 (10:39→20:58)
[2017-08-08] MEDS: MEMANTINE 10 MG TABLET PO SCH ×2 (12:49→21:07)
--- NOTE | 2017-08-08 15:48 | Hospitalist Progress Note ---
Assessment and Plan (1) Pneumonia Status: Acute Assessment and plan: Pulmonary assisting Sputum growing Pseudomonas and MRSA On gent and merrem and linezolid Current Visit: No Qualifiers: Pneumonia type: due to methicillin-resistant Staphylococcus aureus (MRSA) Laterality: unspecified laterality Lung location: unspecified part of lung Qualified Code(s): J15.212 - Pneumonia due to Methicillin resistant Staphylococcus aureus (2) COPD exacerbation Problem details: Patient also has chronic respiratory failure. Status: Acute Current Visit: No (3) Hypertension Status: Chronic Assessment and plan: Actually on midodrine Current Visit: No Qualifiers: Hypertension type: essential hypertension Qualified Code(s): I10 - Essential (primary) hypertension (4) Dementia Status: Chronic Current Visit: No (5) debility and deconditioning Problem details: PT consult Case management consult for post acute/subacute rehabilitation Status: Chronic Assessment and plan: PT/OT Current plan is for discharge to swing bed once stable Current Visit: No Hospitalist: Subjective Interval history: No acute events overnight. Patient reports that he does not feel well, his main complaint is of sob with any walking. Exam - Constitutional Vitals: Period Temp Pulse Resp BP Sys/Morrow Pulse Ox Last 24 Hr 96.7 F-98.2 F 70-97 12-22 140-176/53-77 94-100 General appearance: over weight - Head Head exam: Present: normocephalic, atraumatic - Eye Eye exam: Present: EOMI Pupils: Present: RADHA - ENT ENT exam: Present: normal exam - Neck Neck exam: Present: normal inspection - Respiratory Respiratory exam: Present: clear to auscultation bilaterally. Absent: rhonchi, wheezes - Cardiovascular Cardiovascular exam: Present: regular rate and rhythm - GI/Abdominal GI/Abdominal exam: Present: normal bowel sounds, soft. Absent: tenderness, rebound - Extremities Exam Extremities exam: Present: edema - Back Exam Back exam: Present: normal inspection - Neurological Exam Neurological exam: Present: alert, oriented X3 - Psychiatric Psychiatric exam: Present: normal affect, normal mood - Skin Skin exam: Present: warm, intact Results - Labs CBC & BMP: 08/07/17 05:05 08/08/17 05:43
--- NOTE | 2017-08-08 16:56 | XRay Report ---
XR chest 1V Indication: Shortness of breath Comparison: 04 August 2017 Findings: The heart and mediastinum are normal in size and configuration. The pulmonary vascularity is normal in caliber. Lung volumes are increased with prominent bronchial markings. No lung infiltrates, effusions, pneumothorax or other abnormality is demonstrated. Impression: Chronic lung changes. No acute process or significant change. PROCEDURE INTERPRETED AT [facility] DEPARTMENT OF RADIOLOGY Final Report Signed by: Dr. Jona Maldonado
[2017-08-08] MEDS: ATORVASTATIN 20 MG TABLET PO SCH (21:07)
[2017-08-08] MEDS: MELATONIN 3 MG TABLET PO PRN (21:07)
[2017-08-08] MEDS: TAMSULOSIN 0.4 MG CAPSULE PO SCH (21:07)
[2017-08-09] MEDS: LEVALBUTEROL 0.63 MG/3 ML NEB RESP TX SCH ×4 (00:26→19:16)
[2017-08-09] MEDS: MEROPENEM 1,000 MG in SODIUM CHLORIDE 0.9% 50 ML IV SCH ×2 (00:32→13:45)
[2017-08-09 06:15] LABS: Calcium 6.9 MG/DL (8.5-10.1); Osmolality,Calculated 305.7 MOS/KG (273-304); Potassium 4.3 MMOL/L (3.5-5.1)
[2017-08-09] MEDS: BUDESONIDE 0.5 MG/2 ML NEB RESP TX SCH ×2 (07:47→19:16)
[2017-08-09] MEDS: DORNASE ALFA 2.5 MG/2.5 ML VIAL RESP TX SCH ×2 (08:00→19:16)
[2017-08-09] MEDS: FORMOTEROL 20 MCG/2 ML NEB RESP TX SCH ×2 (08:06→19:16)
[2017-08-09] MEDS: THEOPHYLLINE ER (24 HR) 400 MG CAPSULE PO SCH (09:39)
[2017-08-09] MEDS: CALCIUM (CARBONATE) 600 MG TABLET PO SCH ×2 (09:40→20:58)
[2017-08-09] MEDS: MULTIVITAMIN (OCUVITE) TABLET PO SCH (09:40)
[2017-08-09] MEDS: MIDODRINE 5 MG TABLET PO SCH (09:41)
[2017-08-09] MEDS: PANTOPRAZOLE 40 MG TABLET PO SCH ×2 (09:41→20:58)
[2017-08-09] MEDS: DONEPEZIL 5 MG TABLET PO SCH (09:42)
[2017-08-09] MEDS: GABAPENTIN 300 MG CAPSULE PO SCH ×2 (09:42→20:57)
[2017-08-09] MEDS: LINEZOLID INJ 600 MG in PREMIX 1 EACH IV SCH ×2 (09:43→19:54)
[2017-08-09] MEDS: MEMANTINE 10 MG TABLET PO SCH ×2 (09:43→20:58)
[2017-08-09] MEDS: methylPREDNISolone SOD SUC 40 MG/1 ML VIAL IV SCH ×2 (09:44→20:56)
[2017-08-09] MEDS: LEVOTHYROXINE 100 MCG TABLET PO SCH (09:44)
[2017-08-09] MEDS ORDERED: FUROSEMIDE 40 MG/4 ML VIAL IV ONE (10:19)
[2017-08-09] MEDS: CARVEDILOL 6.25 MG TABLET PO SCH ×2 (10:52→20:58)
--- NOTE | 2017-08-09 11:00 | Pulmonology Progress Note ---
Pulmonary - PN: Subj Interval history: This 86-year-old white male who is seen along with his . He is a patient of Dr. Chris Boswell. 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 His bronchial washings also have grown gram- positive cocci which turned out to be methicillin-resistant staph aureus. He also has Rukhsana in the sputum. Patient was seen along with his today. He complains that he cannot mobilize his sputum. I have added Pulmozyme inhalation therapy twice a day. He notes that duo nebs do not really help him much. I have told the patient and he will probably need a repeat bronchoscopy to help clear his secretions. He has a lot of large airway congestion. Chest x-ray. 08/08/2017. My impression. Mild hyperinflation. No infiltrates. No evidence of heart failure. Lab. Electrolytes normal. Creatinine is 1.7 with a BUN of 25. Natruretic peptide is 182. Physical exam. Vital signs. See below. Afebrile. Psychiatric. Oriented 3 I think. Upset about not be in better off from medical standpoint. Neurologic. Cranial nerves are intact with some decreased hearing acuity bilaterally. Patient moves all fours Face. Symmetrical. No edema Neck symmetrical. No meningismus Chest significant large airway congestion over the trachea and large airways. Patient has a fairly prominent cough but it appears to be ineffective Heart. Slightly lateral PMI Abdomen obese. No tenderness. Positive bowel sounds Extremities. I see no evidence of deep venous thrombophlebitis The remainder the physical exam is noncontributory. Plan. 1. See my note above 2. And inhalation therapy with Pulmozyme twice a day 3. Consider repeat bronchoscopy. Exam (Progress Note) - Constitutional Vitals: Period Temp Pulse Resp BP Sys/Morrow Pulse Ox Last 24 Hr 97 F-97.9 F 70-88 12-22 129-176/51-77 94-99 Results - Labs CBC & BMP: 08/07/17 05:05 08/09/17 05:15
--- NOTE | 2017-08-09 11:39 | Hospitalist Progress Note ---
<Maryanne Martin - Last Filed: 08/09/17 11:12> Assessment and Plan (1) Pneumonia Status: Acute Assessment and plan: Pulm following. Bronchial washings showed gram positive cocci. IV antibiotics. Monitor renal function. Continue breathing treatments. Current Visit: No (2) debility and deconditioning Status: Chronic Assessment and plan: PT/OT. Possible swingbed placement. Current Visit: No (3) Acute on chronic renal failure Status: Acute Assessment and plan: Pharmacy dosing medication. Current Visit: Yes (4) Hypertension Status: Chronic Assessment and plan: Pt. has history of low blood pressure as well. Current Visit: No Qualifiers: Hypertension type: essential hypertension Qualified Code(s): I10 - Essential (primary) hypertension Hospitalist: Subjective Interval history: Pt. seen and examined with at the bedside. Pt. is alert and oriented. Frustrated about problems with breathing. Pt. states that the breathing treatments are not quite effective. Pt has audible wheezes. Breathing treatment ordered. Also informed per nursing staff that pt is in afib. Pt. has history. Will start coreg. Exam - Constitutional Vitals: Period Temp Pulse Resp BP Sys/Morrow Pulse Ox Last 24 Hr 97 F-97.9 F 70-88 12-22 129-176/51-77 94-99 General appearance: no acute distress, over weight - Head Head exam: Present: normal inspection, normocephalic - Eye Eye exam: Present: EOMI Pupils: Present: RADHA - ENT ENT exam: Present: normal exam - Respiratory Respiratory exam: Present: wheezes (Expiratory), other (Coarse breath sounds) - Cardiovascular Cardiovascular exam: Present: regular rate and rhythm - GI/Abdominal GI/Abdominal exam: Present: normal bowel sounds, soft. Absent: tenderness - Extremities Exam Extremities exam: Present: normal capillary refill, full ROM, edema, other ( right prosthetic leg) - Neurological Exam Neurological exam: Present: alert, oriented X3 - Psychiatric Psychiatric exam: Present: normal affect, normal mood - Skin Skin exam: Present: normal color, warm Results - Labs CBC & BMP: 08/07/17 05:05 08/09/17 05:15 Lab Results: I have reviewed the past 24 hour labs <Skye Meehan - Last Filed: 08/09/17 14:45> Assessment and Plan (1) Pneumonia Status: Acute Current Visit: No Qualifiers: Pneumonia type: due to methicillin-resistant Staphylococcus aureus (MRSA) Laterality: unspecified laterality Lung location: unspecified part of lung Qualified Code(s): J15.212 - Pneumonia due to Methicillin resistant Staphylococcus aureus (2) COPD exacerbation Problem details: Patient also has chronic respiratory failure. Status: Acute Current Visit: No (3) Hypertension Status: Chronic Current Visit: No Qualifiers: Hypertension type: essential hypertension Qualified Code(s): I10 - Essential (primary) hypertension (4) Dementia Status: Chronic Current Visit: No (5) debility and deconditioning Problem details: PT consult Case management consult for post acute/subacute rehabilitation Status: Chronic Current Visit: No Hospitalist: Subjective Interval history: Patient seen and examined independently of PUBLIC HEALTH SANITARIAN Martin, agree with assessment and plan as documented. Believes that dose of IV lasix helped with his breathing. Exam - Constitutional Vitals: Period Temp Pulse Resp BP Sys/Morrow Pulse Ox Last 24 Hr 97 F-97.9 F 72-85 18-22 129-163/51-77 94-99 Results - Labs CBC & BMP: 08/07/17 05:05 08/09/17 05:15
[2017-08-09] MEDS: GENTAMICIN INJ 150 MG in SODIUM CHLORIDE 0.9% 100 ML IV SCH (11:49)
[2017-08-09] MEDS: ATORVASTATIN 20 MG TABLET PO SCH (20:57)
[2017-08-09] MEDS: MELATONIN 3 MG TABLET PO PRN (20:58)
[2017-08-09] MEDS: TAMSULOSIN 0.4 MG CAPSULE PO SCH (20:58)
[2017-08-10] MEDS: LEVALBUTEROL 0.63 MG/3 ML NEB RESP TX SCH ×2 (00:13→07:11)
[2017-08-10] MEDS: MEROPENEM 1,000 MG in SODIUM CHLORIDE 0.9% 50 ML IV SCH ×2 (00:25→13:04)
[2017-08-10 04:14] LABS: Osmolality,Calculated 303.8 MOS/KG (273-304); Potassium 4.1 MMOL/L (3.5-5.1)
[2017-08-10] MEDS: FORMOTEROL 20 MCG/2 ML NEB RESP TX SCH ×2 (07:11→18:46)
[2017-08-10] MEDS: BUDESONIDE 0.5 MG/2 ML NEB RESP TX SCH ×2 (07:11→18:49)
[2017-08-10] MEDS: DORNASE ALFA 2.5 MG/2.5 ML VIAL RESP TX SCH ×2 (07:11→18:50)
[2017-08-10] MEDS: LINEZOLID INJ 600 MG in PREMIX 1 EACH IV SCH ×2 (09:02→20:41)
[2017-08-10] MEDS: MEMANTINE 10 MG TABLET PO SCH ×2 (09:09→20:45)
[2017-08-10] MEDS: GABAPENTIN 300 MG CAPSULE PO SCH ×2 (09:09→20:46)
[2017-08-10] MEDS: THEOPHYLLINE ER (24 HR) 400 MG CAPSULE PO SCH (09:09)
[2017-08-10] MEDS: CALCIUM (CARBONATE) 600 MG TABLET PO SCH ×2 (09:10→20:44)
[2017-08-10] MEDS: DONEPEZIL 5 MG TABLET PO SCH (09:10)
[2017-08-10] MEDS: PANTOPRAZOLE 40 MG TABLET PO SCH ×2 (09:11→20:45)
[2017-08-10] MEDS: LEVOTHYROXINE 100 MCG TABLET PO SCH (09:11)
[2017-08-10] MEDS: MULTIVITAMIN (OCUVITE) TABLET PO SCH (09:11)
[2017-08-10] MEDS: MIDODRINE 5 MG TABLET PO SCH (09:12)
[2017-08-10] MEDS: CARVEDILOL 6.25 MG TABLET PO SCH ×2 (09:12→20:45)
[2017-08-10] MEDS: methylPREDNISolone SOD SUC 40 MG/1 ML VIAL IV SCH ×2 (09:13→20:46)
[2017-08-10] MEDS ORDERED: LEVALBUTEROL 0.63 MG/3 ML NEB RESP TX PRN (11:29)
--- NOTE | 2017-08-10 11:30 | Pulmonology Progress Note ---
Pulmonary - PN: Subj Interval history: This 86-year-old white male who is seen along with his . He is a patient of Dr. Chris Boswell. 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 His bronchial washings also have grown gram- positive cocci which turned out to be methicillin-resistant staph aureus. He also has Rukhsana in the sputum. Patient was seen along with his today. He complains that he cannot mobilize his sputum. I have added Pulmozyme inhalation therapy twice a day. He notes that duo nebs do not really help him much. I have told the patient and he will probably need a repeat bronchoscopy to help clear his secretions. He has a lot of large airway congestion. Chest x-ray. 08/08/2017. My impression. Mild hyperinflation. No infiltrates. No evidence of heart failure. Lab. Electrolytes normal. Creatinine is 1.7 with a BUN of 25. Natruretic peptide is 182. 08/10/2013. Patient's chest sounds much better to me. He says he is not mobilized any sputum. This patient could probably benefit from a repeat bronchoscopy and I will pass this along the Dr. Luis Boswell. This was discussed with the patient and his . I have reviewed the patient's various inhalation treatments and made some small adjustments by removing what appears to be a duplication.. See orders. Creatinine stable at 1.7 with a BUN of 58. Electrolytes normal. Physical exam. Vital signs. See below. Afebrile. Psychiatric. Oriented 3 I think. Upset about not be in better off from medical standpoint. Neurologic. Cranial nerves are intact with some decreased hearing acuity bilaterally. Patient moves all fours Face. Symmetrical. No edema Neck symmetrical. No meningismus Chest significant large airway congestion over the trachea and large airways has improved significantly but has not resolved.. Patient has a fairly prominent cough but it appears to be ineffective secondary to his collapsible airway Heart. Slightly lateral PMI Abdomen obese. No tenderness. Positive bowel sounds Extremities. I see no evidence of deep venous thrombophlebitis The remainder the physical exam is noncontributory. Plan. 08/09/2017. 1. See my note above 2. And inhalation therapy with Pulmozyme twice a day 3. Consider repeat bronchoscopy. 08/10/2017. 1. See my note for today above. 2. Various ventilation therapies been modified to reduce duplications. 3. Consider repeat bronchoscopy Exam (Progress Note) - Constitutional Vitals: Period Temp Pulse Resp BP Sys/Morrow Pulse Ox Last 24 Hr 97.3 F-98.5 F 69-79 18-22 134-156/59-82 92-99 Results - Labs CBC & BMP: 08/07/17 05:05 08/10/17 03:10
--- NOTE | 2017-08-10 15:00 | Hospitalist Progress Note ---
Assessment and Plan (1) Pneumonia Status: Acute Assessment and plan: Pulmonary assisting Sputum growing Pseudomonas and MRSA On gent and merrem and linezolid Current Visit: No Qualifiers: Pneumonia type: due to methicillin-resistant Staphylococcus aureus (MRSA) Laterality: unspecified laterality Lung location: unspecified part of lung Qualified Code(s): J15.212 - Pneumonia due to Methicillin resistant Staphylococcus aureus (2) COPD exacerbation Problem details: Patient also has chronic respiratory failure. Status: Acute Current Visit: No (3) Hypertension Status: Chronic Assessment and plan: Actually on midodrine Current Visit: No Qualifiers: Hypertension type: essential hypertension Qualified Code(s): I10 - Essential (primary) hypertension (4) Dementia Status: Chronic Current Visit: No (5) debility and deconditioning Problem details: PT consult Case management consult for post acute/subacute rehabilitation Status: Chronic Assessment and plan: PT/OT Current plan is for discharge to swing bed once stable Current Visit: No Hospitalist: Subjective Interval history: Patient feeling better today. SOB is improving. Exam - Constitutional Vitals: Period Temp Pulse Resp BP Sys/Morrow Pulse Ox Last 24 Hr 97.3 F-98.5 F 69-77 18-22 134-156/59-82 92-99 General appearance: over weight - Head Head exam: Present: normocephalic, atraumatic - Eye Eye exam: Present: EOMI Pupils: Present: RADHA - ENT ENT exam: Present: normal exam - Neck Neck exam: Present: normal inspection - Respiratory Respiratory exam: Present: clear to auscultation bilaterally. Absent: rhonchi, wheezes - Cardiovascular Cardiovascular exam: Present: regular rate and rhythm - GI/Abdominal GI/Abdominal exam: Present: normal bowel sounds, soft. Absent: tenderness, rebound - Extremities Exam Extremities exam: Present: normal inspection - Back Exam Back exam: Present: normal inspection - Neurological Exam Neurological exam: Present: alert, oriented X3 - Psychiatric Psychiatric exam: Present: normal affect, normal mood - Skin Skin exam: Present: warm, intact Results - Labs CBC & BMP: 08/07/17 05:05 08/10/17 03:10
[2017-08-10] MEDS: TAMSULOSIN 0.4 MG CAPSULE PO SCH (20:44)
[2017-08-10] MEDS: ATORVASTATIN 20 MG TABLET PO SCH (20:45)
[2017-08-10] MEDS: ZALEPLON 5 MG CAPSULE PO PRN (20:51)
[2017-08-11] MEDS: GENTAMICIN INJ 150 MG in SODIUM CHLORIDE 0.9% 100 ML IV SCH (00:30)
[2017-08-11] MEDS: MEROPENEM 1,000 MG in SODIUM CHLORIDE 0.9% 50 ML IV SCH ×2 (02:37→15:39)
[2017-08-11 06:28] LABS: Basophils % 0.2 % (0.0-0.8); Hematocrit 30.3 VOL% (42.0-52.0); Hemoglobin 10.1 GM/DL (14.0-18.0); Immature Granulocytes % 7.7 %; Lymphocytes # 0.8 10*3/uL (1.4-4.0); Lymphocytes % 8.7 % (21.2-54.2); Mean Corpuscular HGB Conc 33.3 GM/DL (32-36); Mean Corpuscular Hemoglobin 32 PG (27-34); Mean Corpuscular Volume 96.8 FL (87-102); Mean Platelet Volume 10.4 FL (9.6-12.0); Monocytes # 0.3 10*3/uL (0.11-0.8); Monocytes % 3.6 % (1.7-12.7); NRBC # 0.02 10*3/uL; Neutrophils # 7.2 10*3/uL (1.4-7.4); Neutrophils % 79.8 % (38.7-73.9); Red Blood Count 3.13 MC/CUMM (3.8-5.5); Red Cell Distribution Width 15.9 % (9.3-17.3); White Blood Count 9.1 T/CUMM (4-12)
[2017-08-11 06:35] LABS: Platelet Count 83 T/CUMM (130-400)
[2017-08-11] MEDS: LEVOTHYROXINE 100 MCG TABLET PO SCH (06:38)
[2017-08-11 06:57] LABS: Calcium 6.9 MG/DL (8.5-10.1); Magnesium 2.2 MG/DL (1.8-2.4); Osmolality,Calculated 301.8 MOS/KG (273-304); Potassium 4.2 MMOL/L (3.5-5.1)
[2017-08-11 07:15] LABS: Band Neutrophils 6 % (0-10); Hypochromasia 1+; Lymphocytes 10 % (20-55); Metamyelocytes 1 %; Segmented Neutrophils 80 % (50-85); Total Cells Counted 100
[2017-08-11 07:16] LABS: Microcytosis 1+; Ovalocytes Slight; Platelet Estimate Decreased; Tear Drop Cells Slight
[2017-08-11] MEDS: FORMOTEROL 20 MCG/2 ML NEB RESP TX SCH ×2 (07:30→19:43)
[2017-08-11] MEDS: DORNASE ALFA 2.5 MG/2.5 ML VIAL RESP TX SCH ×2 (07:31→19:34)
[2017-08-11] MEDS: BUDESONIDE 0.5 MG/2 ML NEB RESP TX SCH ×2 (07:31→19:52)
[2017-08-11] MEDS: LINEZOLID INJ 600 MG in PREMIX 1 EACH IV SCH ×2 (09:05→18:31)
[2017-08-11] MEDS: DOCUSATE SODIUM 100 MG CAPSULE PO PRN (09:06)
[2017-08-11] MEDS: DONEPEZIL 5 MG TABLET PO SCH (09:06)
[2017-08-11] MEDS: PANTOPRAZOLE 40 MG TABLET PO SCH ×2 (09:06→20:39)
[2017-08-11] MEDS: ASPIRIN EC 81 MG TABLET PO SCH (09:06)
[2017-08-11] MEDS: CARVEDILOL 6.25 MG TABLET PO SCH ×2 (09:06→20:39)
[2017-08-11] MEDS: CALCIUM (CARBONATE) 600 MG TABLET PO SCH ×2 (09:06→20:39)
[2017-08-11] MEDS: GABAPENTIN 300 MG CAPSULE PO SCH ×2 (09:06→20:37)
[2017-08-11] MEDS: MULTIVITAMIN (OCUVITE) TABLET PO SCH (09:06)
[2017-08-11] MEDS: THEOPHYLLINE ER (24 HR) 400 MG CAPSULE PO SCH (09:06)
[2017-08-11] MEDS: MIDODRINE 5 MG TABLET PO SCH ×2 (09:07→09:24)
[2017-08-11] MEDS: MEMANTINE 10 MG TABLET PO SCH ×2 (09:07→20:39)
[2017-08-11] MEDS: methylPREDNISolone SOD SUC 40 MG/1 ML VIAL IV SCH ×2 (09:07→20:35)
--- NOTE | 2017-08-11 10:41 | Pulmonology Progress Note ---
Pulmonary - PN: Subj Interval history: Patient is a 86-year-old white man that has COPD and tracheomalacia. He comes in with repeated bronchitis and has a difficult time with secretions. He had a bronchoscope earlier in the week and has Pseudomonas and staph growing from his washings. He is getting IV antibiotics. He said he had a better weekend. His says he feels better today. He is not coughing up much but he says his cough is better. He still gets short of breath when he walks around but otherwise is feeling better. He is tolerating his respiratory therapy and feels like he is improving. Exam (Progress Note) - Constitutional Vitals: Period Temp Pulse Resp BP Sys/Morrow Pulse Ox Last 24 Hr 97.3 F-98.2 F 67-76 18-22 134-163/63-76 94-100 Exam: General appearance: no acute distress, over weight, other (He is comfortable sitting up in bed and in no distress now.) - Head Head exam: Present: normal inspection, normocephalic - Eye Eye exam: Present: EOMI. Absent: scleral icterus Pupils: Present: RADHA - ENT ENT exam: Present: normal exam - Neck Neck exam: Absent: lymphadenopathy, thyromegaly - Respiratory Respiratory exam: Present: He has fairly good breath sounds bilaterally and is moving air reasonably well now. I do not hear any wheezing or rales present. He is breathing comfortably at present. - Cardiovascular Cardiovascular exam: Present: regular rate and rhythm. Absent: gallop, systolic murmur - GI/Abdominal GI/Abdominal exam: Present: normal bowel sounds, soft. Absent: distended, organomegaly, tenderness - Extremities Exam Extremities exam: Absent: calf tenderness, edema, no signs of phlebitis. He has a right BKA. - Neurological Exam Neurological exam: Present: alert, oriented X3, CN II-XII intact. Absent: motor sensory deficit - Psychiatric Psychiatric exam: Present: normal affect - Skin Skin exam: Present: warm, dry. Absent: rash Results - Labs CBC & BMP: 08/11/17 05:46 08/11/17 05:46 Assessment and Plan (1) Hypertension Status: Chronic Assessment and plan: Patient blood pressure and heart rate are stable. He has no signs of heart failure. Current Visit: No Qualifiers: Hypertension type: essential hypertension Qualified Code(s): I10 - Essential (primary) hypertension (2) Chronic kidney disease, stage 3 Status: Chronic Assessment and plan: His creatinine is stable at 1.8. Current Visit: No (3) Diabetes Status: Acute Assessment and plan: His glucoses are being monitored and his glucose is 103 this morning. Current Visit: No (4) Acute exacerbation of chronic obstructive airways disease Status: Acute Assessment and plan: Patient has COPD and is getting treatment. He still gets short of breath on exertion but is breathing better and having less cough now. Current Visit: No (5) Tracheomalacia, acquired Status: Chronic Assessment and plan: Patient has a difficult time clearing secretions but looks reasonably comfortable at present. He does not feel like he has a lot of thick secretions now. Current Visit: No (6) Bronchomalacia, acquired Status: Chronic Assessment and plan: He does feel like his cough and wheezing are better. Current Visit: No
[2017-08-11] MEDS: FLUCONAZOLE 100 MG TABLET PO SCH (14:30)
--- NOTE | 2017-08-11 16:21 | Hospitalist Progress Note ---
Assessment and Plan (1) Pneumonia Status: Acute Assessment and plan: Pulmonary assisting Sputum growing Pseudomonas and MRSA On gent and merrem and linezolid Hopefully can stop IV antibiotics soon Current Visit: No Qualifiers: Pneumonia type: due to methicillin-resistant Staphylococcus aureus (MRSA) Laterality: unspecified laterality Lung location: unspecified part of lung Qualified Code(s): J15.212 - Pneumonia due to Methicillin resistant Staphylococcus aureus (2) COPD exacerbation Problem details: Patient also has chronic respiratory failure. Status: Acute Current Visit: No (3) Hypertension Status: Chronic Assessment and plan: Actually on midodrine Current Visit: No Qualifiers: Hypertension type: essential hypertension Qualified Code(s): I10 - Essential (primary) hypertension (4) Dementia Status: Chronic Current Visit: No (5) debility and deconditioning Problem details: PT consult Case management consult for post acute/subacute rehabilitation Status: Chronic Assessment and plan: PT/OT Current plan is for discharge to swing bed once stable Current Visit: No Hospitalist: Subjective Interval history: No acute events overnight. Feeling better. Now reports that he might want to go home instead of to swing bed. Exam - Constitutional Vitals: Period Temp Pulse Resp BP Sys/Morrow Pulse Ox Last 24 Hr 97.3 F-98.8 F 67-98 18-21 106-176/51-76 96-100 General appearance: over weight - Head Head exam: Present: normocephalic, atraumatic - Eye Eye exam: Present: EOMI Pupils: Present: RADHA - ENT ENT exam: Present: normal exam - Neck Neck exam: Present: normal inspection - Respiratory Respiratory exam: Present: clear to auscultation bilaterally. Absent: rhonchi, wheezes - Cardiovascular Cardiovascular exam: Present: regular rate and rhythm - GI/Abdominal GI/Abdominal exam: Present: normal bowel sounds, soft. Absent: tenderness, rebound - Extremities Exam Extremities exam: Present: normal inspection - Back Exam Back exam: Present: normal inspection - Neurological Exam Neurological exam: Present: alert, oriented X3 - Psychiatric Psychiatric exam: Present: normal affect, normal mood - Skin Skin exam: Present: warm, intact Results - Labs CBC & BMP: 08/11/17 05:46 08/11/17 05:46
[2017-08-11] MEDS: ATORVASTATIN 20 MG TABLET PO SCH (20:38)
[2017-08-11] MEDS: TAMSULOSIN 0.4 MG CAPSULE PO SCH (20:38)
[2017-08-11] MEDS: ZALEPLON 5 MG CAPSULE PO PRN (20:40)
[2017-08-12] MEDS: MEROPENEM 1,000 MG in SODIUM CHLORIDE 0.9% 50 ML IV SCH (01:55)
--- NOTE | 2017-08-12 07:33 | Pulmonology Progress Note ---
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 Usually takes him a couple of weeks to get over these. Occasionally requires bronchoscopy. He sounds a little looser today. Continuing with mucolytics, steroids, antibiotics, bronchodilators. We have discussed at length what goes on with the tracheomalacia and bronchomalacia. This is difficult for him to understand. There is a tendency to get an acute bacterial infection every time he gets a cold. Really not a lot we can do to prevent it other than standard vaccinations, and attempts with ongoing Zithromax 3 days a week. Standing would probably not be effective in him. 08/04/2017 patient still having coarse rhonchi difficulty coughing up sputum. He had some tachyarrhythmias over the weekend. He is getting albuterol per nebulizer and he has had problems with that before. We will change him to Xopenex. He has grown Pseudomonas from his sputum. Now is on meropenem and vancomycin. We will stop vancomycin and use gentamicin along with the meropenem to give us double coverage on Pseudomonas. Creatinine is 1.8. We will need to watch renal function closely. Also check gentamicin levels. We will plan bronchoscopy this morning to remove retained secretions. He frequently has problems getting him coughed up because of his tracheal malacia, and bronchomalacia 08/05/2017 patient clearly better this morning. His lungs sound much better. We now have him on 2 drugs for Pseudomonas. I think he needs about 5 more days of IV antibiotics at least. Watch renal function. Creatinine is 1.8. He is getting gentamicin. His appetite is poor. 08/06/2017 patient is feeling better. He is eating a lot of snacks but not eating his regular food. This was discussed with the patient and his . The bronchial washings are showing evidence of a fungus. I think this is likely to be something in the Rukhsana family and a commensal. For now we need to concentrate on the Pseudomonas. 08/07/2017 patient feeling better except not sleeping well because of frequent checks during the night. Bronchial washings are also showing a gram-positive coccus. I suspect this will lathe turner to be staph once again. I had stopped the vancomycin earlier because the sputum only showed Pseudomonas. I will add Zyvox. Do not want to use vancomycin and gentamicin together because of renal side effects. We will stop Zoloft since we are adding Zyvox. Patient needs to stay here for close watch. Not ready for him to go home as yet. 08/12/2017 patient is doing better but has increased left leg edema and gets quite short of breath just walking across the floor. Will stop IV antibiotics. Probably can stop gentamicin as well, but I did not stop it today. Reduce prednisone. Bump with Lasix. Check BNP. He needs to go to a swing bed for more physical therapy Exam (Progress Note) - Constitutional Vitals: Period Temp Pulse Resp BP Sys/Morrow Pulse Ox Last 24 Hr 97.3 F-98.8 F 62-98 16-20 106-176/51-72 95-100 Exam: Patient is alert and oriented. No fever. Pupils react to light. Throat is clear. Neck supple. Chest shows minimal rhonchi bilaterally. Equal breath sounds. Heart normal rate and rhythm no murmurs. Abdomen soft nontender no masses. Extremities no clubbing cyanosis, but has 2+ left leg edema. Calves nontender. Results - Labs CBC & BMP: 08/11/17 05:46 08/11/17 05:46 Lab Results: I have reviewed the past 24 hour labs Assessment and Plan (1) Chronic kidney disease, stage 3 Status: Chronic Assessment and plan: Patient's creatinine is 2.3. We will need to watch vancomycin dosing closely. 08/01/2017 creatinine is down to 2.0. Adjust vancomycin according to blood levels. 08/04/2017 creatinine 1.8. Stopping vancomycin but adding gentamicin. Watch renal function closely. 08/05/2017 creatinine 1.8. Watching closely. 08/06/2017 creatinine down to 1.6. Continue watching closely with the gentamicin. 08/07/2017 creatinine stable at 1.6. Gentamicin dosing being managed by pharmacy. 08/12/2017 creatinine stable at 1.8. Can stop gentamicin when he goes to swing bed. Current Visit: No (2) Dementia Status: Chronic Assessment and plan: He does have some baseline dementia which is aggravated by acute illness. This was discussed with his 08/01/2017 patient does get a bit delirious when he gets sick. I have once again answered questions that he has asked me numerous times in the past. Tracheobronchomalacia is a little bit difficult for patients to understand. 08/04/2017 patient gets a bit confused in the hospital. Seems calm at present. 08/05/2017 his appetite is poor which may be related to this or the bronchopneumonia. 08/06/2017 patient is able to sit up and eat and carry on a conversation. He has a poor memory at times. 08/07/2017 patient is on Aricept and Namenda. He does have some confusion at times but not severely so. 08/12/2017 mental status about the same. Current Visit: No (3) debility and deconditioning Problem details: PT consult Case management consult for post acute/subacute rehabilitation Status: Chronic Assessment and plan: Patient remains generally weak. Will need some physical therapy once he is over the acute illness. 08/01/2017 will need physical therapy. 08/04/2017 will need physical therapy once his bronchopneumonia is improved 08/05/2017 again will need physical therapy in time. 08/12/2017 get short of breath just walking a few steps to the bathroom. He does have some increased edema but I think much of this is deconditioning. Needs more physical therapy. Needs swing bed. Request Gross. Current Visit: No (4) Diabetes Status: Acute Assessment and plan: Follow with sliding scale insulin. 08/01/2017 will need sliding scale insulin. Steroids cause aggravation. 08/04/2017 blood sugars show fair control. 08/05/2017 blood sugars well controlled 08/06/2017 blood sugars look good. 08/07/2017 fasting blood sugars in the 100s. 08/12/2017 glucoses well controlled 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 Does not have a julius pneumonia. However he is usually infected with either MRSA or a gram-negative reshma is likely to be resistant. Levaquin and vancomycin are reasonable. Await cultures. May require bronchoscopy if we do not see him improve in a day or 2. 08/01/2017 continuing antibiotic steroid bronchodilators and mucolytics. May yet need bronchoscopy. Will decide Friday. 08/04/2017 continuing medications. Change from duo nebs to Xopenex. Plan bronchoscopy this morning. 08/05/2017 continuing bronchodilators. Doing better with Xopenex. 08/06/2017 continuing nebulized bronchodilators with Xopenex. 08/07/2017 lungs sound better. Reduce steroids. 08/12/2017 this is improved. Change to oral prednisone. Current Visit: No (6) Tracheomalacia, acquired Status: Chronic Assessment and plan: This makes it difficult for him to clear secretions. This is been well documented with previous bronchoscopies 08/01/2017 trachea completely closes when he coughs. Makes it difficult for him to expel sputum. 08/04/2017 plan bronchoscopy this morning. 08/05/2017 we cleaned out a good bit of secretions yesterday and he sounds much better today. 08/06/2017 he is able to clear secretions a little better. 08/07/2017 this is the reason that he normally takes longer courses of antibiotics to clear up a respiratory infection. 08/29/2017 patient occasionally able to cough up phlegm. He has been on Pulmozyme long enough. Current Visit: No (7) Bronchomalacia, acquired Status: Chronic Assessment and plan: Has difficulty clearing his airways. Current Visit: No (8) Bronchopneumonia due to Pseudomonas species Status: Acute Assessment and plan: Needs 5-7 days of IV double antibiotic for Pseudomonas. Can decide after that about discharge. There is nothing available that covers this by mouth. It is intermediate to Cipro. 08/06/2017 continuing double coverage for Pseudomonas. 08/07/2017 on double coverage for Pseudomonas. He is also growing a gram- positive coccus out of his bronchial washing which I suspect will be staffed. Going ahead and adding Zyvox. Do not will use vancomycin and gentamicin together. Patient continues to do a close watch on renal function. 08/12/2017 has been on double coverage long enough for the Pseudomonas. Also getting Zyvox for MRSA. I think that can be stopped. The Rukhsana that grew from his bronchial washings are probably oral contaminants. Agree with brief dosing of Diflucan. He does have a little monilia. Current Visit: Yes
[2017-08-12] MEDS: DORNASE ALFA 2.5 MG/2.5 ML VIAL RESP TX SCH (07:45)
[2017-08-12] MEDS: BUDESONIDE 0.5 MG/2 ML NEB RESP TX SCH ×2 (07:45→19:10)
[2017-08-12] MEDS: FORMOTEROL 20 MCG/2 ML NEB RESP TX SCH ×2 (07:45→19:10)
[2017-08-12] MEDS: THEOPHYLLINE ER (24 HR) 400 MG CAPSULE PO SCH (08:43)
[2017-08-12] MEDS: CALCIUM (CARBONATE) 600 MG TABLET PO SCH ×2 (08:44→22:40)
[2017-08-12] MEDS: CARVEDILOL 6.25 MG TABLET PO SCH ×2 (08:44→22:39)
[2017-08-12] MEDS: MULTIVITAMIN (OCUVITE) TABLET PO SCH (08:44)
[2017-08-12] MEDS: GABAPENTIN 300 MG CAPSULE PO SCH ×2 (08:44→22:40)
[2017-08-12] MEDS: MEMANTINE 10 MG TABLET PO SCH ×2 (08:44→22:39)
[2017-08-12] MEDS: LEVOTHYROXINE 100 MCG TABLET PO SCH (08:44)
[2017-08-12] MEDS: FLUCONAZOLE 100 MG TABLET PO SCH (08:45)
[2017-08-12] MEDS: FUROSEMIDE 40 MG TABLET PO SCH (08:45)
[2017-08-12] MEDS: DONEPEZIL 5 MG TABLET PO SCH (08:46)
[2017-08-12] MEDS: predniSONE 20 MG TABLET PO SCH (08:46)
[2017-08-12] MEDS: PANTOPRAZOLE 40 MG TABLET PO SCH ×2 (08:46→22:41)
[2017-08-12] MEDS: MIDODRINE 5 MG TABLET PO SCH (08:46)
[2017-08-12] MEDS: GENTAMICIN INJ 150 MG in SODIUM CHLORIDE 0.9% 100 ML IV SCH (12:15)
[2017-08-12] MEDS ORDERED: guaiFENesin 200 MG/10 ML UDCUP PO PRN (16:37)
--- NOTE | 2017-08-12 16:39 | Hospitalist Progress Note ---
Assessment and Plan (1) Pneumonia Status: Acute Assessment and plan: Pulmonary assisting Sputum growing Pseudomonas and MRSA Received gent and merrem and linezolid Merrem and Linezolid discontinued tomorrow Current Visit: No Qualifiers: Pneumonia type: due to methicillin-resistant Staphylococcus aureus (MRSA) Laterality: unspecified laterality Lung location: unspecified part of lung Qualified Code(s): J15.212 - Pneumonia due to Methicillin resistant Staphylococcus aureus (2) COPD exacerbation Problem details: Patient also has chronic respiratory failure. Status: Acute Current Visit: No (3) Hypertension Status: Chronic Assessment and plan: Actually on midodrine Current Visit: No Qualifiers: Hypertension type: essential hypertension Qualified Code(s): I10 - Essential (primary) hypertension (4) Dementia Status: Chronic Current Visit: No (5) debility and deconditioning Problem details: PT consult Case management consult for post acute/subacute rehabilitation Status: Chronic Assessment and plan: PT/OT Current plan is for discharge to swing bed once stable Current Visit: No Hospitalist: Subjective Interval history: No acute events overnight. Patient reports that he feels better, does have increased cough today. Possible discharge to swing bed tomorrow pending acceptance and pulmonary's ok. Exam - Constitutional Vitals: Period Temp Pulse Resp BP Sys/Morrow Pulse Ox Last 24 Hr 97.0 F-98.3 F 62-78 14-20 111-156/55-66 94-99 General appearance: over weight - Head Head exam: Present: normocephalic, atraumatic - Eye Eye exam: Present: EOMI Pupils: Present: RADHA - ENT ENT exam: Present: normal exam - Neck Neck exam: Present: normal inspection - Respiratory Respiratory exam: Present: clear to auscultation bilaterally. Absent: wheezes - Cardiovascular Cardiovascular exam: Present: regular rate and rhythm - GI/Abdominal GI/Abdominal exam: Present: normal bowel sounds, soft. Absent: tenderness, rebound - Extremities Exam Extremities exam: Present: normal inspection - Back Exam Back exam: Present: normal inspection - Neurological Exam Neurological exam: Present: alert, oriented X3 - Psychiatric Psychiatric exam: Present: normal affect, normal mood - Skin Skin exam: Present: warm, intact Results - Labs CBC & BMP: 08/11/17 05:46 08/11/17 05:46
[2017-08-12] MEDS: NYSTATIN 500,000 UNIT/5 ML UDCUP SWISH/SWAL SCH ×2 (16:57→22:41)
[2017-08-12] MEDS ORDERED: SERTRALINE 50 MG TABLET PO SCH (21:00)
[2017-08-12] MEDS: DOCUSATE SODIUM 100 MG CAPSULE PO PRN (22:38)
[2017-08-12] MEDS: ZALEPLON 5 MG CAPSULE PO PRN (22:39)
[2017-08-12] MEDS: ATORVASTATIN 20 MG TABLET PO SCH (22:41)
[2017-08-12] MEDS: TAMSULOSIN 0.4 MG CAPSULE PO SCH (22:43)
[2017-08-13] MEDS: BUDESONIDE 0.5 MG/2 ML NEB RESP TX SCH (07:23)
--- NOTE | 2017-08-13 07:24 | Pulmonology Progress Note ---
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 Usually takes him a couple of weeks to get over these. Occasionally requires bronchoscopy. He sounds a little looser today. Continuing with mucolytics, steroids, antibiotics, bronchodilators. We have discussed at length what goes on with the tracheomalacia and bronchomalacia. This is difficult for him to understand. There is a tendency to get an acute bacterial infection every time he gets a cold. Really not a lot we can do to prevent it other than standard vaccinations, and attempts with ongoing Zithromax 3 days a week. Standing would probably not be effective in him. 08/04/2017 patient still having coarse rhonchi difficulty coughing up sputum. He had some tachyarrhythmias over the weekend. He is getting albuterol per nebulizer and he has had problems with that before. We will change him to Xopenex. He has grown Pseudomonas from his sputum. Now is on meropenem and vancomycin. We will stop vancomycin and use gentamicin along with the meropenem to give us double coverage on Pseudomonas. Creatinine is 1.8. We will need to watch renal function closely. Also check gentamicin levels. We will plan bronchoscopy this morning to remove retained secretions. He frequently has problems getting him coughed up because of his tracheal malacia, and bronchomalacia 08/05/2017 patient clearly better this morning. His lungs sound much better. We now have him on 2 drugs for Pseudomonas. I think he needs about 5 more days of IV antibiotics at least. Watch renal function. Creatinine is 1.8. He is getting gentamicin. His appetite is poor. 08/06/2017 patient is feeling better. He is eating a lot of snacks but not eating his regular food. This was discussed with the patient and his . The bronchial washings are showing evidence of a fungus. I think this is likely to be something in the Rukhsana family and a commensal. For now we need to concentrate on the Pseudomonas. 08/07/2017 patient feeling better except not sleeping well because of frequent checks during the night. Bronchial washings are also showing a gram-positive coccus. I suspect this will engine turner to be staph once again. I had stopped the vancomycin earlier because the sputum only showed Pseudomonas. I will add Zyvox. Do not want to use vancomycin and gentamicin together because of renal side effects. We will stop Zoloft since we are adding Zyvox. Patient needs to stay here for close watch. Not ready for him to go home as yet. 08/12/2017 patient is doing better but has increased left leg edema and gets quite short of breath just walking across the floor. Will stop IV antibiotics. Probably can stop gentamicin as well, but I did not stop it today. Reduce prednisone. Bump with Lasix. Check BNP. He needs to go to a swing bed for more physical therapy 08/13/2017 patient doing well. Can stop gentamicin. Okay to go to swing bed. I think [facility] in [place] is where they want to go. I will plan to see him in the office when he gets out of the swing bed. reports that she has checked his oxygen at home and at times it has been as low as 86%. We need to check a room air O2 sat here and see if he needs oxygen long-term. They are asking about a portable system. was advised that Medicare would cover either the concentrated or a portable system but not both. Exam (Progress Note) - Constitutional Vitals: Period Temp Pulse Resp BP Sys/Morrow Pulse Ox Last 24 Hr 96.2 F-98.2 F 68-85 14-20 141-186/56-76 92-100 Exam: Patient is alert and oriented. No fever. Pupils react to light. Throat is clear. Neck supple. Chest sounds clear today. Equal breath sounds. Heart normal rate and rhythm no murmurs. Abdomen soft nontender no masses. Extremities no clubbing cyanosis, but has 2+ left leg edema. Calves nontender. Results - Labs CBC & BMP: 08/11/17 05:46 08/11/17 05:46 Lab Results: I have reviewed the past 24 hour labs Assessment and Plan (1) Chronic kidney disease, stage 3 Status: Chronic Assessment and plan: Patient's creatinine is 2.3. We will need to watch vancomycin dosing closely. 08/01/2017 creatinine is down to 2.0. Adjust vancomycin according to blood levels. 08/04/2017 creatinine 1.8. Stopping vancomycin but adding gentamicin. Watch renal function closely. 08/05/2017 creatinine 1.8. Watching closely. 08/06/2017 creatinine down to 1.6. Continue watching closely with the gentamicin. 08/07/2017 creatinine stable at 1.6. Gentamicin dosing being managed by pharmacy. 08/12/2017 creatinine stable at 1.8. Can stop gentamicin when he goes to swing bed. 08/13/2017 renal function stable at 1.8 creatinine. Gentamicin stopped today. Current Visit: No (2) Dementia Status: Chronic Assessment and plan: He does have some baseline dementia which is aggravated by acute illness. This was discussed with his 08/01/2017 patient does get a bit delirious when he gets sick. I have once again answered questions that he has asked me numerous times in the past. Tracheobronchomalacia is a little bit difficult for patients to understand. 08/04/2017 patient gets a bit confused in the hospital. Seems calm at present. 08/05/2017 his appetite is poor which may be related to this or the bronchopneumonia. 08/06/2017 patient is able to sit up and eat and carry on a conversation. He has a poor memory at times. 08/07/2017 patient is on Aricept and Namenda. He does have some confusion at times but not severely so. 08/12/2017 mental status about the same. 08/13/2017 able to carry on conversation fairly well. Current Visit: No (3) debility and deconditioning Problem details: PT consult Case management consult for post acute/subacute rehabilitation Status: Chronic Assessment and plan: Patient remains generally weak. Will need some physical therapy once he is over the acute illness. 08/01/2017 will need physical therapy. 08/04/2017 will need physical therapy once his bronchopneumonia is improved 08/05/2017 again will need physical therapy in time. 08/12/2017 get short of breath just walking a few steps to the bathroom. He does have some increased edema but I think much of this is deconditioning. Needs more physical therapy. Needs swing bed. Request Gross. 08/13/2017 patient does need physical therapy. Current Visit: No (4) Diabetes Status: Acute Assessment and plan: Follow with sliding scale insulin. 08/01/2017 will need sliding scale insulin. Steroids cause aggravation. 08/04/2017 blood sugars show fair control. 08/05/2017 blood sugars well controlled 08/06/2017 blood sugars look good. 08/07/2017 fasting blood sugars in the 100s. 08/12/2017 glucoses well controlled 08/13/2017 glucoses in the 100s. 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 Does not have a julius pneumonia. However he is usually infected with either MRSA or a gram-negative reshma is likely to be resistant. Levaquin and vancomycin are reasonable. Await cultures. May require bronchoscopy if we do not see him improve in a day or 2. 08/01/2017 continuing antibiotic steroid bronchodilators and mucolytics. May yet need bronchoscopy. Will decide Friday. 08/04/2017 continuing medications. Change from duo nebs to Xopenex. Plan bronchoscopy this morning. 08/05/2017 continuing bronchodilators. Doing better with Xopenex. 08/06/2017 continuing nebulized bronchodilators with Xopenex. 08/07/2017 lungs sound better. Reduce steroids. 08/12/2017 this is improved. Change to oral prednisone. 08/13/2017 this is controlled on medication. Would keep on 40 mg daily of prednisone for 5 more days and then stop it. Current Visit: No (6) Tracheomalacia, acquired Status: Chronic Assessment and plan: This makes it difficult for him to clear secretions. This is been well documented with previous bronchoscopies 08/01/2017 trachea completely closes when he coughs. Makes it difficult for him to expel sputum. 08/04/2017 plan bronchoscopy this morning. 08/05/2017 we cleaned out a good bit of secretions yesterday and he sounds much better today. 08/06/2017 he is able to clear secretions a little better. 08/07/2017 this is the reason that he normally takes longer courses of antibiotics to clear up a respiratory infection. 08/12/2017 patient occasionally able to cough up phlegm. He has been on Pulmozyme long enough. 08/13/2017 patient clearing secretions fairly well. Current Visit: No (7) Bronchomalacia, acquired Status: Chronic Assessment and plan: Has difficulty clearing his airways. Current Visit: No (8) Bronchopneumonia due to Pseudomonas species Status: Acute Assessment and plan: Needs 5-7 days of IV double antibiotic for Pseudomonas. Can decide after that about discharge. There is nothing available that covers this by mouth. It is intermediate to Cipro. 08/06/2017 continuing double coverage for Pseudomonas. 08/07/2017 on double coverage for Pseudomonas. He is also growing a gram- positive coccus out of his bronchial washing which I suspect will be staffed. Going ahead and adding Zyvox. Do not will use vancomycin and gentamicin together. Patient continues to do a close watch on renal function. 08/12/2017 has been on double coverage long enough for the Pseudomonas. Also getting Zyvox for MRSA. I think that can be stopped. The Rukhsana that grew from his bronchial washings are probably oral contaminants. Agree with brief dosing of Diflucan. He does have a little monilia. 08/13/2017 he has completed treatment for Pseudomonas as well as MRSA. May want to keep him on a couple more days of Diflucan should she still going to be on prednisone. Current Visit: Yes
[2017-08-13] MEDS: FORMOTEROL 20 MCG/2 ML NEB RESP TX SCH (07:31)
[2017-08-13] MEDS: LEVOTHYROXINE 100 MCG TABLET PO SCH (09:38)
[2017-08-13] MEDS: FUROSEMIDE 40 MG TABLET PO SCH (09:38)
[2017-08-13] MEDS: THEOPHYLLINE ER (24 HR) 400 MG CAPSULE PO SCH (09:38)
[2017-08-13] MEDS: FLUCONAZOLE 100 MG TABLET PO SCH (09:39)
[2017-08-13] MEDS: CARVEDILOL 6.25 MG TABLET PO SCH (09:39)
[2017-08-13] MEDS: ASPIRIN EC 81 MG TABLET PO SCH (09:39)
[2017-08-13] MEDS: MIDODRINE 5 MG TABLET PO SCH (09:39)
[2017-08-13] MEDS: DONEPEZIL 5 MG TABLET PO SCH (09:39)
[2017-08-13] MEDS: PANTOPRAZOLE 40 MG TABLET PO SCH (09:40)
[2017-08-13] MEDS: MEMANTINE 10 MG TABLET PO SCH (09:40)
[2017-08-13] MEDS: CALCIUM (CARBONATE) 600 MG TABLET PO SCH (09:40)
[2017-08-13] MEDS: MULTIVITAMIN (OCUVITE) TABLET PO SCH (09:40)
[2017-08-13] MEDS: GABAPENTIN 300 MG CAPSULE PO SCH (09:40)
[2017-08-13] MEDS: NYSTATIN 500,000 UNIT/5 ML UDCUP SWISH/SWAL SCH ×2 (09:40→14:28)
[2017-08-13] MEDS: predniSONE 20 MG TABLET PO SCH (09:40)
--- NOTE | 2017-08-13 10:17 | Discharge Summary ---
<Adolfo Abdi - Last Filed: 08/13/17 11:23> Hospital Course - Hospital Course Hospital Course: This is a 86-year-old male that presented to the ED at [facility] on the night of July 30, 2017 for the evaluation of cough, fever, shortness of breath. The patient has a long and extensive medical history significant for atrial fibrillation, hypertension, remote nicotine abuse , dementia, chronic obstructive pulmonary disease, pneumonia, anxiety, depression, obstructive sleep apnea, gastroesophageal reflux disease, colon cancer, dyslipidemia, dementia, rheumatoid arthritis, acute renal failure, spinal stenosis, anemia, and degenerative disc disease. Patient has a surgical history significant for right below the knee amputation, cardiac catheterization with stent placement 4, appendectomy, cholecystectomy, colonoscopy, gastroesophagealduodenoscopy. The who was present at bedside service historian. She reported the onset of symptoms on the day of presentation. She reported that the patient had been "feeling bad for a while" and that his status acutely changed on that day. She noted that the patient became confused shortly after awakening from a nap. She took the patient's temperature at that time and it was noted to be 100.8. She proceeded to call the patient's floral designer salesperson Dr. Boswell and informed them of the patient's status. She was instructed by Dr. santamaria staff to present to the ED for further evaluation. In addition, she reported that the patient had been recently started on Bactrim and that his steroid maintenance dose had been increased which she attributed to the acute onset of confusion. She reported that she stopped the medications and that her 's mental status improved. The patient was assessed at the time of ED presentation. The patient was noted to be experiencing low-grade temperature at 99.8. Labs were obtained which were significant for white blood cell count 12.8, hemoglobin 11.9, hematocrit 35.7, platelet count 126, chloride 108, BUN 53, creatinine 2.50, calcium 7.6, total protein 5.9, and albumin 3.3. Urinalysis significant for urine urobilinogen greater than 2.0 and occasional urine mucus. Chest x-ray was significant for left basilic atelectasis and pleural effusion. The patient was subsequently admitted to the hospitalist service for continuation of care Due to the severity of the patient's presenting symptoms, a pulmonary consultation was requested. Gentle rehydration, empiric antibiotics, inhaled bronchodilators, and intravenous corticosteroids were initiated at the time of admission. The patient was evaluated by pulmonology and followed throughout the clinical encounter. On August 04, 2017, the patient underwent fiberoptic bronchoscopy with removal of retained secretions which was significant for tracheobronchomalacia with bronchopneumonia and retained secretions. Bronchial washings were obtained and sent for analysis. Bronchial washing cultures were significant for Pseudomonas aerginosa, methicillin resistant Staphylococcus aureus, and Rukhsana albicans. Bronchial washings fungal culture was significant for Rukhsana albicans. Sputum culture significant for Pseudomonas aerginosa. The patient's antibiotic therapy was reviewed and adjusted. The patient's condition gradually improved. The patient's condition is stable. He has not experienced any significant overnight events. Today, we feel that he is indeed appropriate for discharge to [facility] for continuation of care. Specialty Discharge - Follow Up or Referrals Follow up with: Chris Boswell MD [Physician] - 09/03/17 2:00 pm Discharge Plan - Discharge Data Disposition: Swing Bed, [facility] Based, [facility] - Discharge Medications New Fluconazole Tab [Diflucan Tab] 100 mg PO DAILY #5 tablet Furosemide Tab [Lasix Tab] 20 mg PO DAILY #30 tablet Theophylline ER Cap (24 Hr) [Deepak-24] 400 mg PO DAILY #60 capsule predniSONE TAB [PredniSONE] 40 mg PO DAILY #5 tablet Carvedilol [Coreg] 6.25 mg PO BID #60 tablet Continue Tiotropium Inhalation [Spiriva Handihaler] 1 puff INH DAILY Atorvastatin [Lipitor] 20 mg PO BEDTIME tablet Budesonide Neb [Pulmicort Respules] 0.5 mg RESP TX RT BID Formoterol Neb [Perforomist] 20 mcg RESP TX RT BID Tamsulosin [Flomax] 0.4 mg PO BEDTIME capsule Gabapentin Cap/Tab [Neurontin Cap/Tab] 600 mg PO BEDTIME Gabapentin Cap/Tab [Neurontin Cap/Tab] 300 mg PO QAM Donepezil [Aricept] 5 mg PO DAILY Levothyroxine Tab [Synthroid Tab] 100 mcg PO DAILY Cyanocobalamin (Vitamin B-12) [Vitamin B12] 2,500 mcg PO QAM Acetaminophen Tab [Tylenol Tab] 650 mg PO Q6H PRN PRN Reason: fever, headache/body aches Sertraline HCl 50 mg PO BEDTIME Calcium Carbonate 600 mg PO BID Azithromycin Tab [Zithromax Tab] 250 mg PO MOWEFR Vit C/Vit E AC/Lut/Copper/Zinc [Preservision Lutein Softgel] 2 each PO BID Lactulose 10 gm PO BID PRN PRN Reason: Constipation Memantine [Namenda] 10 mg PO BID Omeprazole [Prilosec] 20 mg PO BID clonazePAM [Clonazepam] 1 mg PO BEDTIME PRN #30 tablet PRN Reason: Sleep Aspirin EC Tab 81 mg PO MOWEFR tablet Multivitamin (Ocuvite) [Ocuvite] 1 tablet PO QAM Docusate Sodium [Stool Softener] 100 mg PO DAILY PRN PRN Reason: Constipation Midodrine HCl 5 mg PO TID Potassium Chloride 40 meq PO BID HYDROcodone/ACETAMIN 7.5-325 [[place] 7.5-325] 1 tablet PO Q6H PRN #20 tablet PRN Reason: Pain HYDROcodone/ACETAMIN 7.5-325 [[place] 7.5-325] 1 tablet PO Q6H PRN #20 tablet PRN Reason: Pain No Action predniSONE TAB [PredniSONE] 20 mg PO BID - Follow Up or Referral Follow Up: Chris Boswell MD [Physician] - 09/03/17 2:00 pm - Forms/Instructions Instructions: Chronic Obstructive Pulmonary Disease (DC), Sepsis (DC), Thrombocytopenia (DC), Pneumonia (DC) Exam - Constitutional Vitals: Period Temp Pulse Resp BP Sys/Morrow Pulse Ox Last 24 Hr 96.2 F-97.7 F 65-85 14-20 133-186/56-76 92-100 Discharge Results Procedures and tests throughout hospitalization: Pending Orders 08/04/17 AFB Culture/Smears Routine Fungal Culture w/ Prep Routine Labs on day of discharge: Preliminary micro results at discharge 08/04/17 Unknown Fungal Culture - Preliminary Bronchial Washings Rukhsana albicans DS: Provider Date of admission: 07/30/17 20:43 Primary care physician: . No PCP Attending physician on admission: Tashia Roland MD Consults: 07/30/17 21:09 Consult to Physician [CONS] Routine Comment: Pneumonia Consulting Provider: Chris Boswell Person Notified: QUENTIN Date Notified: 07/31/17 Time Notified: 08:44 07/30/17 21:12 Consult to Case Mgmt/Social Srvs [CONS] Routine Reason for Case Mgmt/Social Srvs: Discharge Planning Consult to Occupational Therapy [CONS] Routine Reason for Occupational Therapy: Evaluate and Treat Consult to Physical Therapy [CONS] Routine Reason for Physical Therapy: Evaluate and Treat 08/04/17 08:16 Consult to Pharmacy [CONS] Routine Reason for Pharmacy Consult: Dose/Manage Gentamicin Discharging clinician: Adolfo Abdi CNP <Skye Meehan - Last Filed: 08/16/17 16:27> Hospital Course - Time spent with patient Time with patient DS: Greater than 30 minutes Diagnosis - Discharge Diagnosis (1) Pneumonia Status: Resolved (2) COPD exacerbation Status: Resolved (3) Hypertension Status: Chronic (4) Dementia Status: Chronic (5) debility and deconditioning Status: Chronic Discharge Plan - Discharge Data Condition at Discharge: Stable Discharge Diet: diabetic diet Activity: as per physical therapy Hygiene: no restrictions Weight Bearing at Discharge: weight bear as tolerated Contact your physician if you experience:: fever over 101, Shortness of breath Exam - Constitutional General appearance: over weight - Head Head exam: Present: normocephalic, atraumatic - Eye Eye exam: Present: EOMI Pupils: Present: RADHA - ENT ENT exam: Present: normal exam - Neck Neck exam: Present: normal inspection - Respiratory Respiratory exam: Present: clear to auscultation bilaterally. Absent: rhonchi, wheezes - Cardiovascular Cardiovascular exam: Present: regular rate and rhythm - GI/Abdominal GI/Abdominal exam: Present: normal bowel sounds, soft. Absent: tenderness, rebound - Extremities Exam Extremities exam: Present: normal inspection - Back Exam Back exam: Present: normal inspection - Neurological Exam Neurological exam: Present: alert, oriented X3 - Psychiatric Psychiatric exam: Present: normal affect, normal mood - Skin Skin exam: Present: warm, intact
[2017-08-13 11:43] VITALS: BP 136/55
== END 2017-08-13 14:28 | disposition swing bed (61) | DRG 853 ==
LOC: N.ED 16:32 → N.EDINP 20:43 → SUATTDRO 20:43 → N.2E 21:01
PROVIDERS: ADMIT Family Medicine; ATTEND Internal Medicine

== ENCOUNTER 2017-09-17 15:05 | Inpatient (IN) ==
[2017-09-17] MEDS ORDERED: ONDANSETRON 4 MG/2 ML VIAL IV PRN (16:39)
[2017-09-17] MEDS ORDERED: ENOXAPARIN 30 MG/0.3 ML SYRINGE SUBCUT SCH (17:00)
[2017-09-17] MEDS ORDERED: SODIUM CHLORIDE 0.45% 1,000 ML IV SCH (17:00)
[2017-09-17 18:13] LABS: Troponin I Only 0.032 NG/ML (0.00-0.045)
[2017-09-17] MEDS: IPRATROPIUM 500 MCG/2.5 ML NEB RESP TX SCH (20:12)
[2017-09-17] MEDS: BUDESONIDE 0.5 MG/2 ML NEB RESP TX SCH (20:12)
[2017-09-17] MEDS: FORMOTEROL 20 MCG/2 ML NEB RESP TX SCH (20:12)
[2017-09-17] MEDS ORDERED: clonazePAM 0.5 MG TABLET PO PRN (20:22)
[2017-09-17] MEDS ORDERED: AZITHROMYCIN 250 MG TABLET PO SCH (20:22)
[2017-09-17] MEDS ORDERED: LACTULOSE 20 GM/30 ML UDCUP PO PRN (20:22)
[2017-09-17] MEDS ORDERED: DOCUSATE SODIUM 100 MG CAPSULE PO PRN (20:22)
[2017-09-17] MEDS ORDERED: NON-FORMULARY MEDICATION (Omeprazole [Prilosec] 20 MG) PO SCH (21:00)
[2017-09-17] MEDS: MULTIVITAMIN (OCUVITE) TABLET PO SCH (21:26)
[2017-09-17] MEDS: MEMANTINE 10 MG TABLET PO SCH (21:27)
[2017-09-17] MEDS: DONEPEZIL 5 MG TABLET PO SCH (21:28)
[2017-09-17] MEDS: MIDODRINE 5 MG TABLET PO SCH (21:28)
[2017-09-17] MEDS: POTASSIUM CHLORIDE 20 MEQ TABLET PO SCH (21:28)
[2017-09-17] MEDS: methylPREDNISolone SOD SUC 40 MG/1 ML VIAL IV SCH (23:27)
[2017-09-17] MEDS: LEVOFLOXACIN INJ 500 MG in PREMIX 1 EACH IV SCH (23:29)
[2017-09-18] MEDS: SODIUM CHLORIDE 0.9% 1,000 ML IV SCH ×5 (00:25→22:33)
[2017-09-18] MEDS: ACETAMINOPHEN 650 MG SUPP RECTAL PRN (00:28)
[2017-09-18] MEDS: GABAPENTIN 300 MG CAPSULE PO SCH ×5 (00:56→20:17)
[2017-09-18] MEDS: SERTRALINE 50 MG TABLET PO SCH ×2 (00:56→20:19)
[2017-09-18 01:04] LABS: Protein/Creatinine Ratio,Urine 3.1 RATIO
[2017-09-18] MEDS ORDERED: SODIUM CHLORIDE 0.9% 250 ML IV ONE (01:15)
[2017-09-18 01:19] LABS: Apearance,Urine CLOUDY (Clear); Bacteria,Urine Occasional /HPF (Few); Bilirubin,Urine Negative (Negative); Blood, Urine Small mg/dL (Negative); Glucose,Urine (UA) Negative (Negative); Granular Casts,Urine 20 /LPF (0-1); Hyaline Casts,Urine 2 /LPF (0-3); Ketones,Urine 5 mg/dL (Negative); Mucus,Urine Occasional /LPF (Occasional); Nitrite,Urine Negative (Negative); Protein,Urine 100 MG/DL; RBC,Urine 2 /HPF (0-4); Squamous Epithelial Cell,Urine Occasional /HPF (0-10); Urine Color Yellow (Yellow); Urine Specific Gravity 1.011 (1.001-1.035); Urine Urobilinogen < 2.0 EU/DL (0.2-1.0); WBC,Urine 3 /HPF (0-6)
[2017-09-18] MEDS: NOREPINEPHRINE 8 MG in SODIUM CHLORIDE 0.9% 242 ML IV SCH ×2 (03:26→23:22)
[2017-09-18 05:47] LABS: Basophils % 0.1 % (0.0-0.8); Hematocrit 30.6 VOL% (42.0-52.0); Immature Granulocytes % 0.5 %; Immature Granulocytes Absolute 0.04 #; Lymphocytes # 0.6 10*3/uL (1.4-4.0); Lymphocytes % 7.4 % (21.2-54.2); Mean Corpuscular HGB Conc 32.7 GM/DL (32-36); Mean Corpuscular Hemoglobin 32 PG (27-34); Mean Corpuscular Volume 98.4 FL (87-102); Mean Platelet Volume 11.3 FL (9.6-12.0); Monocytes # 0.2 10*3/uL (0.11-0.8); Monocytes % 2.9 % (1.7-12.7); Neutrophils # 7.3 10*3/uL (1.4-7.4); Neutrophils % 89.1 % (38.7-73.9); Red Blood Count 3.11 MC/CUMM (3.8-5.5); Red Cell Distribution Width 17.9 % (9.3-17.3); White Blood Count 8.2 T/CUMM (4-12)
[2017-09-18 05:55] LABS: INR 1.3; PT Patient Result 13.4 SECS
[2017-09-18 06:10] LABS: Platelet Count 62 T/CUMM (130-400)
[2017-09-18 06:13] LABS: Band Neutrophils 13 % (0-10); Lymphocytes 2 % (20-55); Segmented Neutrophils 84 % (50-85); Total Cells Counted 100
[2017-09-18 06:14] LABS: Hypochromasia 1+; Microcytosis Slight; Ovalocytes Slight; Platelet Estimate Decreased
[2017-09-18] MEDS: methylPREDNISolone SOD SUC 40 MG/1 ML VIAL IV SCH ×3 (06:20→22:34)
[2017-09-18 06:53] LABS: ABG Base Excess -9.7 MMOL/L (-2.5-2.5); ABG HCO3 16.7 MMOL/L (20-26); ABG PCO2 29.5 MM HG (35-48); ABG PH 7.324 (7.35-7.45); ABG TCO2 14.1 MMOL/L (23-27); Allen Test Positive
[2017-09-18] MEDS: BUDESONIDE 0.5 MG/2 ML NEB RESP TX SCH ×2 (07:24→20:14)
[2017-09-18] MEDS: FORMOTEROL 20 MCG/2 ML NEB RESP TX SCH ×2 (07:24→20:14)
[2017-09-18] MEDS: IPRATROPIUM 500 MCG/2.5 ML NEB RESP TX SCH ×4 (07:24→20:14)
[2017-09-18] MEDS ORDERED: DEXTROSE 50% 25 GM/50 ML VIAL IV PRN (10:58)
[2017-09-18] MEDS ORDERED: GLUCAGON 1 MG VIAL IM PRN (10:58)
[2017-09-18] MEDS: AMIODARONE 200 MG TABLET PO SCH (11:27)
[2017-09-18] MEDS: RIVAROXABAN 20 MG TABLET PO SCH (11:27)
[2017-09-18] MEDS: POTASSIUM CHLORIDE 20 MEQ TABLET PO SCH ×2 (11:28→20:16)
[2017-09-18] MEDS: LEVOTHYROXINE 100 MCG TABLET PO SCH (11:28)
[2017-09-18] MEDS: CALCIUM (CARBONATE) 600 MG TABLET PO SCH ×2 (11:28→17:00)
[2017-09-18] MEDS: PANTOPRAZOLE 40 MG TABLET PO SCH (11:31)
[2017-09-18] MEDS: MIDODRINE 5 MG TABLET PO SCH ×3 (11:32→21:20)
[2017-09-18] MEDS: MEMANTINE 10 MG TABLET PO SCH ×2 (11:32→20:16)
[2017-09-18] MEDS: MULTIVITAMIN (OCUVITE) TABLET PO SCH ×2 (11:33→20:15)
[2017-09-18] MEDS: CYANOCOBALAMIN 500 MCG TABLET PO SCH (11:33)
[2017-09-18] MEDS: INSULIN LISPRO 100 UNIT/ML SUBCUT SCH ×3 (12:19→20:18)
[2017-09-18] MEDS: DONEPEZIL 5 MG TABLET PO SCH (20:16)
[2017-09-18 21:25] LABS: ABG HCO3 15.8 MMOL/L (20-26); ABG Oxygen Saturation 98.5 % (95-100); ABG PH 7.387 (7.35-7.45); ABG TCO2 11.1 MMOL/L (23-27); Allen Test Positive
[2017-09-18 21:26] LABS: ABG PCO2 20.6 MM HG (35-48)
[2017-09-18 22:13] LABS: Calcium 6.8 MG/DL (8.5-10.1); Osmolality,Calculated 315.1 MOS/KG (273-304); Potassium 5.5 MMOL/L (3.5-5.1)
[2017-09-18] MEDS: LEVOFLOXACIN INJ 500 MG in PREMIX 1 EACH IV SCH (22:39)
[2017-09-19] MEDS: ACETAMINOPHEN 650 MG SUPP RECTAL PRN
[2017-09-19] MEDS ORDERED: CALCIUM GLUCONATE 1,000 MG in SODIUM CHLORIDE 0.9% 100 ML IV ONE (00:43)
[2017-09-19] MEDS ORDERED: SODIUM POLYSTYRENE SULFATE 15 GM/60 ML BOTTLE PO ONE (00:46)
[2017-09-19] MEDS ORDERED: SODIUM CHLORIDE 0.9% 500 ML IV ONE (00:50)
[2017-09-19] MEDS: SODIUM CHLORIDE 0.9% 1,000 ML IV SCH (01:28)
[2017-09-19] MEDS ORDERED: SODIUM BICARBONATE 50 MEQ/50 ML SYRINGE IV ONE (02:08)
[2017-09-19] MEDS ORDERED: AMIODARONE 450 MG/9 ML VIAL IV ONE (02:14)
[2017-09-19] MEDS ORDERED: AMIODARONE 150 MG/3 ML VIAL ONE (02:15)
[2017-09-19] MEDS ORDERED: SODIUM BICARBONATE 50 MEQ/50 ML VIAL IV ONE (02:15)
[2017-09-19] MEDS ORDERED: AMIODARONE INJ 150 MG in DEXTROSE 5% 100 ML IV ONE (02:17)
[2017-09-19] MEDS ORDERED: AMIODARONE INJ 450 MG in DEXTROSE 5% 241 ML IV SCH ×2 (02:30→08:30)
[2017-09-19] MEDS: PHENYLEPHRINE DRIP 40 MG/250 ML PREMIX IV SCH ×2 (02:59→09:48)
[2017-09-19] MEDS ORDERED: VANCOMYCIN INJ 1,250 MG in SODIUM CHLORIDE 0.45% 250 ML IV ONE (03:00)
[2017-09-19 03:11] LABS: ABG Base Excess -7.2 MMOL/L (-2.5-2.5); ABG HCO3 18.5 MMOL/L (20-26); ABG Oxygen Saturation 96.8 % (95-100); ABG PCO2 21.9 MM HG (35-48); ABG PH 7.454 (7.35-7.45); ABG PO2 76.6 MM HG (80-95); Allen Test Positive; Pt O2 Delivery Device Other
[2017-09-19 04:44] LABS: Hematocrit 26.3 VOL% (42.0-52.0); Hemoglobin 8.5 GM/DL (14.0-18.0); Immature Granulocytes % 0.3 %; Immature Granulocytes Absolute 0.01 #; Lymphocytes # 0.3 10*3/uL (1.4-4.0); Lymphocytes % 9.3 % (21.2-54.2); Mean Corpuscular HGB Conc 32.3 GM/DL (32-36); Mean Corpuscular Hemoglobin 32 PG (27-34); Mean Corpuscular Volume 97.8 FL (87-102); Monocytes # 0.2 10*3/uL (0.11-0.8); Monocytes % 5.6 % (1.7-12.7); Neutrophils # 2.6 10*3/uL (1.4-7.4); Neutrophils % 84.8 % (38.7-73.9); Red Blood Count 2.69 MC/CUMM (3.8-5.5); Red Cell Distribution Width 17.8 % (9.3-17.3)
[2017-09-19 04:48] LABS: Platelet Count 61 T/CUMM (130-400)
[2017-09-19 05:15] LABS: Free T4 (Free Thyroxine) 1.07 NG/DL (0.76-1.46)
[2017-09-19 05:16] LABS: Thyroid Stimulating Hormone 0.02 uIU/ml (0.358-3.74)
[2017-09-19] MEDS ORDERED: LEVOFLOXACIN INJ 250 MG in PREMIX 1 EACH IV SCH (06:00)
[2017-09-19 06:54] LABS: Lymphocytes 30 % (20-55); Segmented Neutrophils 70 % (50-85); Total Cells Counted 100
[2017-09-19] MEDS ORDERED: AZTREONAM 500 MG in SYRINGE 1 EACH IV SCH (07:00)
[2017-09-19] MEDS: BUDESONIDE 0.5 MG/2 ML NEB RESP TX SCH (07:16)
[2017-09-19] MEDS: IPRATROPIUM 500 MCG/2.5 ML NEB RESP TX SCH ×2 (07:16→13:15)
[2017-09-19] MEDS: FORMOTEROL 20 MCG/2 ML NEB RESP TX SCH (07:16)
[2017-09-19] MEDS: LEVOTHYROXINE 100 MCG TABLET PO SCH (07:48)
[2017-09-19] MEDS: INSULIN LISPRO 100 UNIT/ML SUBCUT SCH ×2 (08:19→15:15)
[2017-09-19 08:32] LABS: Calcium 6.4 MG/DL (8.5-10.1); Magnesium 2.1 MG/DL (1.8-2.4); Osmolality,Calculated 323.7 MOS/KG (273-304); Potassium 5.3 MMOL/L (3.5-5.1)
[2017-09-19] MEDS ORDERED: FUROSEMIDE INJ 240 MG in SODIUM CHLORIDE 0.9% 50 ML IV ONE (09:30)
[2017-09-19] MEDS: PANTOPRAZOLE 40 MG TABLET PO SCH (09:41)
[2017-09-19] MEDS: MEMANTINE 10 MG TABLET PO SCH (09:41)
[2017-09-19] MEDS: CYANOCOBALAMIN 500 MCG TABLET PO SCH (09:41)
[2017-09-19] MEDS: MULTIVITAMIN (OCUVITE) TABLET PO SCH (09:41)
[2017-09-19] MEDS: RIVAROXABAN 20 MG TABLET PO SCH (09:41)
[2017-09-19] MEDS: AMIODARONE 200 MG TABLET PO SCH (09:41)
[2017-09-19] MEDS: MIDODRINE 5 MG TABLET PO SCH (09:41)
[2017-09-19] MEDS: CALCIUM (CARBONATE) 600 MG TABLET PO SCH (09:41)
[2017-09-19] MEDS: methylPREDNISolone SOD SUC 40 MG/1 ML VIAL IV SCH (09:42)
[2017-09-19] MEDS: GABAPENTIN 300 MG CAPSULE PO SCH (09:42)
[2017-09-19] MEDS ORDERED: LORazepam 2 MG/1 ML VIAL IV ONE (10:36)
[2017-09-19] MEDS ORDERED: TUBERCULIN SKIN TEST 0.1 ML SYRINGE INTRADERM ONE (11:30)
[2017-09-19] MEDS: MORPHINE 2 MG/1 ML SYRINGE IV PRN (12:20)
[2017-09-19] MEDS: LORazepam 2 MG/1 ML VIAL IV PRN (15:14)
[2017-09-20] MEDS: LORazepam 2 MG/1 ML VIAL IV PRN ×2 (05:16→07:36)
[2017-09-20] MEDS: MORPHINE 2 MG/1 ML SYRINGE IV PRN (07:35)
[2017-09-20 10:17] VITALS: BP 129/57
[2017-09-21] MEDS ORDERED: VANCOMYCIN INJ 1,250 MG in SODIUM CHLORIDE 0.45% 250 ML IV SCH (03:00)
== END 2017-09-20 11:40 | disposition swing bed (61) | DRG 871 ==
LOC: EDUNIT# → EDBD → N.ED 15:05 → N.EDINP 16:05 → SUATTDRO 16:05 → N.5E 18:59 → N.ICU 22:46 → N.5E 09-18 19:21 → N.ICU 09-18 21:14
PROVIDERS: ADMIT Internal Medicine; ATTEND Pediatrics